=== PATIENT | female | born 1970 | race Caucasian/White ===

== ENCOUNTER 2016-12-02 07:35 | Day surgery (SDC) | payer OTHER ==
[2016-11-25 11:58] VITALS: BMI 18.0
[~2016-12-02 07:35] MED LIST: CLINDAMYCIN 900 MG in DEXTROSE 5% IN WATER 50 ML IVPB ONE; DEXAMETHASONE SOD PHOSPHATE 10 MG/ML 1 ML VIAL IV ONE; HEPARIN SODIUM,PORCINE 5,000 UNIT/ML 1 ML VIAL SQ ONE; LEVOFLOXACIN 500MG-D5W PMX 500 MG in DEXTROSE/WATER 1 100ML.BAG IVPB ONE; LIDOCAINE 1% 20 ML VIAL (10MG/ML) FOR IV START INTRADERMA PRN
[2016-12-02] MEDS: LACTATED RINGERS 1,000 ML IV SCH ×2 (08:08→08:28)
[2016-12-02] MEDS ORDERED: LIDOCAINE 1% 20 ML VIAL (10MG/ML) FOR IV START INTRADERMA ONE (08:08)
[2016-12-02] MEDS: ONDANSETRON 4 MG/2 ML VIAL IVP ONE ×2 (08:19→11:02)
[2016-12-02] MEDS ORDERED: MIDAZOLAM 2 MG/2 ML VIAL ONE (08:32)
[2016-12-02] MEDS ORDERED: SUCCINYLCHOLINE CHLORIDE 100 MG/5 ML SYR IV ONE (08:32)
[2016-12-02] MEDS ORDERED: GLYCOPYRROLATE 0.2 MG/ML 2 ML VIAL ONE (08:32)
[2016-12-02] MEDS ORDERED: KETOROLAC 30 MG/ML 1 ML VIAL ONE (08:32)
[2016-12-02] MEDS ORDERED: fentaNYL (PF) 50 MCG/ML 2 ML AMP ONE (08:32)
[2016-12-02] MEDS ORDERED: PHENYLEPHRINE-0.9% NACL SYG 1 MG/10 ML SYRINGE ONE (08:32)
[2016-12-02] MEDS ORDERED: LIDOCAINE 1% INJ 10MG/ML (20 ML MDV) ONE (08:32)
[2016-12-02] MEDS ORDERED: PROPOFOL 10 MG/ML 20 ML VIAL IV ONE (08:32)
[2016-12-02] MEDS ORDERED: ROCURONIUM BROMIDE 10 MG/ML 10 ML VIAL IV ONE (08:32)
[2016-12-02] MEDS ORDERED: NEOSTIGMINE 1 MG/ML 10 ML VIAL ONE (08:32)
--- NOTE | 2016-12-02 08:35 | P.GSHP ---
History of Present Illness H&P Date: 12/02/16 Chief Complaint: Umbilical hernia This is a 42 for female who presents today for laparoscopic robotic-assisted repair of a recurrent umbilical hernia. Patient has a small incision below her umbilicus. This hernia located just above the incision. Hernias incarcerated Past Medical History Past Medical History: COPD, Eye Disorder, Fibromyalgia, GERD/Reflux, Osteoarthritis (OA), Thyroid Disorder Additional Past Medical History / Comment(s): Hx Emphysema blood in stool, Endometriosis. History of Any Multi-Drug Resistant Organisms: None Reported Past Surgical History: Section, Cholecystectomy, Hernia Repair, Hysterectomy Additional Past Surgical History / Comment(s): Partial Hysterectomy, several EGD 's and Colonoscopies, biopsy/HAND COUNTER surgery due to Endometriosis. Past Anesthesia/Blood Transfusion Reactions: Postoperative Nausea & Vomiting ( PONV) Additional Past Anesthesia/Blood Transfusion Reaction / Comment(s): States herself and some family members wake from anesthesia angry. Past Psychological History: Anxiety, Bipolar, Depression Smoking Status: Current every day smoker Past Alcohol Use History: Rare Additional Past Alcohol Use History / Comment(s): Has been smoking for 30 yrs, currently smoking 1/2 PPD. States only drinks once a yr. Past Drug Use History: Marijuana Additional Drug Use History / Comment(s): States daily marajuana use for nausea control. - Past Family History Mother Family Medical History: No Reported History Medications and Allergies Home Medications Medication Instructions Recorded Confirmed Type ALPRAZolam [Xanax] 2 mg PO BID 11/25/16 12/02/16 History Albuterol Inhaler [Ventolin Hfa 1 - 2 puff INHALATION TID PRN 11/25/16 12/02/16 History Inhaler] Budesonide-Formot 160-4.5 Mcg 2 puff INHALATION BID 11/25/16 12/02/16 History [Symbicort 160-4.5 Mcg Inhaler] Gabapentin [Neurontin] 200 mg PO TID 11/25/16 12/02/16 History HYDROcodone/APAP 10-325MG [[place] 1 tab PO QID PRN 11/25/16 12/02/16 History 10-325] Hyoscyamine Sulfate [Hyoscyamine 0.25 mg SL BID 11/25/16 12/02/16 History Sulfate SL] Levothyroxine Sodium [Synthroid] 25 mcg PO QAM 11/25/16 12/02/16 History Meclizine [Antivert] 25 mg PO TID PRN 11/25/16 12/02/16 History Montelukast [Singulair] 10 mg PO HS 11/25/16 12/02/16 History Omeprazole 20 mg PO BID 11/25/16 12/02/16 History Prochlorperazine [Compazine] 5 mg PO Q4H PRN 11/25/16 12/02/16 History QUEtiapine FUMARATE [SEROquel] 600 mg PO HS 11/25/16 12/02/16 History Ranitidine HCl 150 mg PO BID 11/25/16 12/02/16 History Venlafaxine HCl [Effexor XR] 300 mg PO QAM 11/25/16 12/02/16 History Venlafaxine HCl [Effexor] 75 mg PO HS 11/25/16 12/02/16 History Allergies Allergy/AdvReac Type Severity Reaction Status Date / Time Penicillins Allergy Unknown Verified 12/02/16 07:45 sulfamethoxazole Allergy Nausea & Verified 12/02/16 07:45 [From Bactrim] Vomiting trimethoprim [From Bactrim] Allergy Nausea & Verified 12/02/16 07:45 Vomiting dicyclomine [From Bentyl] AdvReac See Comment Verified 12/02/16 07:45 paper tape AdvReac See Comment Uncoded 12/02/16 07:45 Surgical - Exam Vital Signs Temp Pulse Resp BP Pulse Ox 96.7 F L 96 18 109/69 95 12/02/16 07:53 12/02/16 07:53 12/02/16 07:53 12/02/16 07:53 12/02/16 07:53 - General well developed, no distress - Eyes PERRL - ENT normal pinna - Neck no masses - Respiratory normal expansion - Cardiovascular Rhythm: regular - Abdomen Abdomen: soft, non tender Assessment and Plan Plan: Recurrent umbilical/incisional hernia. Incarceration. We'll perform laparoscopic robotic assistance repair.
[2016-12-02] MEDS ORDERED: BUPIVACAINE (PF) 0.25% 30 ML VIAL SQ ONE (08:54)
[2016-12-02] MEDS ORDERED: LIDOCAINE 2%-EPI 1:100,000 20 ML VIAL SQ ONE (08:54)
--- NOTE | 2016-12-02 09:35 | P.OP ---
Date of Procedure: 12/02/16 Preoperative Diagnosis: Umbilical hernia Postoperative Diagnosis: Incarcerated umbilical and incisional hernia Procedure(s) Performed: Laparoscopic robotic-assisted repair of incarcerated umbilical and incisional hernia Partial omentectomy Implants: Anesthesia: LIUDMILA Surgeon: Fili Cazares Estimated Blood Loss (ml): 5 Pathology: other (Omentum) Condition: stable Disposition: PACU Indications for Procedure: Operative Findings: Description of Procedure: The patient's placed on the operative table in supine position. She received general seizure. Her abdomen was prepped and draped usual sterile fashion. An incision was made in the left upper quadrant and then using the optical trocar under direct visualization panel cavity was entered. Upon entering the panel cavity the abdomen insufflated and then a 8 mm robotic trocar was placed in the left lower quadrant and a 12 mm trochars placed in the left lateral position and the original 5 mm trocar was exchanged for an 8 mm robotic trocar. The hernia was visualized. There was incarcerated omentum within the hernia. The omentum was reduced. The omentum appeared to be nonviable and it was transected with electrocautery. There also was a small incisional hernia located below the umbilical hernia. The incarcerated preperitoneal fat was reduced from this area. The fascial defect was then closed with OV lock suture. Next the hernia repair was reinforced with ventral light ST mesh. This was secured with 2 OV lock suture. The patient was then undocked the robot. The needles were retrieved. The fascia of the 12 mm trocar site was closed 0 Ethibond suture and a Zoin Powell suture passer. The skin was closed interrupted 3-0 Monocryl suture. Dermabond was applied. Patient top procedure well and was sent to recovery in stable condition.
[2016-12-02] MEDS ORDERED: LACTATED RINGERS 1,000 ML IV ONE (09:57)
[2016-12-02 10:08] VITALS: TEMP 99
[2016-12-02] MEDS: HYDROmorphone 1 MG/ML 1 ML SYRINGE IVP PRN ×3 (10:44→11:07)
[2016-12-02 11:24] VITALS: RESP 16
[2016-12-02] MEDS ORDERED: HYDROcodone/APAP 10-325MG 1 EACH TAB PO ONE (13:41)
[2016-12-02 14:04] VITALS: BP 127/85; PULSE 95
== END 2016-12-02 14:36 | disposition home or self-care (01) ==
LOC: OR 07:35
PROVIDERS: ATTEND Surgery
DX: K42.0 Umbilical hernia with obstruction, without gangrene (principal); K43.0 Incisional hernia with obstruction, without gangrene; J44.9 Chronic obstructive pulmonary disease, unspecified; H57.9 Unspecified disorder of eye and adnexa; M79.7 Fibromyalgia; K21.9 Gastro-esophageal reflux disease without esophagitis; M19.90 Unspecified osteoarthritis, unspecified site; E07.9 Disorder of thyroid, unspecified; F41.9 Anxiety disorder, unspecified; F31.9 Bipolar disorder, unspecified; F17.200 Nicotine dependence, unspecified, uncomplicated; Z79.51 Long term (current) use of inhaled steroids; Z79.899 Other long term (current) drug therapy; Z88.1 Allergy status to other antibiotic agents; Z88.0 Allergy status to penicillin; Z88.2 Allergy status to sulfonamides
CPT/HCPCS: 88305; 49653; 49655; C1781; J2250; J1644; J1100; J2710; J2405; J1956; J2001; J3010; J1885; J1170; J2370; J0330; J2704

== ENCOUNTER 2016-12-10 17:08 | Emergency (ER) | payer OTHER ==
--- NOTE | 2016-12-10 17:54 | ED ---
Abdominal Pain HPI - General Source: patient Mode of arrival: ambulatory Limitations: no limitations <Manoj Carmichale - Last Filed: 12/10/16 17:54> <Sintia Bautista - Last Filed: 12/11/16 04:32> - General Chief Complaint: Abdominal Pain Stated Complaint: post op complications - History of Present Illness Initial Comments: 46-year-old female patient presented to emergency department today for evaluation of right upper and lower quadrant abdominal pain. Patient states that she did undergo hernia repair with mesh placement by Dr. Cazares one week ago. Patient states that the pain has not improved and seems to be getting worse. She states that the pain is constant, worsens with movement, and is sharp. Patient states that her laparoscopic incisions on the left side and her pain is on the right side. Patient denies any nausea, vomiting, constipation, or diarrhea. States that the incision sites are not painful, draining, or red. She denies any fever, chills, chest pain, shortness of breath, dizziness, weakness, hematuria, dysuria, urinary frequency, or urinary urgency. She states her bowel movements have been dark in color. She has a history of previous hernia repair, cholecystectomy, diverticulitis, and IBS. She states that she has not been able to eat due to the pain. (Sintia Bautista) - Related Data Home Medications Medication Instructions Recorded Confirmed ALPRAZolam [Xanax] 2 mg PO BID 11/25/16 12/10/16 Albuterol Inhaler [Ventolin Hfa 1 - 2 puff INHALATION RT-TID PRN 11/25/16 Inhaler] Budesonide-Formot 160-4.5 Mcg 2 puff INHALATION RT-BID 11/25/16 12/10/16 [Symbicort 160-4.5 Mcg Inhaler] Gabapentin [Neurontin] 200 mg PO TID 11/25/16 12/10/16 HYDROcodone/APAP 10-325MG [[place] 1 tab PO QID PRN 11/25/16 12/10/16 10-325] Hyoscyamine Sulfate [Hyoscyamine 0.25 mg SL BID 11/25/16 12/10/16 Sulfate SL] Levothyroxine Sodium [Synthroid] 25 mcg PO QAM 11/25/16 12/10/16 Meclizine [Antivert] 25 mg PO TID PRN 11/25/16 12/10/16 Montelukast [Singulair] 10 mg PO HS 11/25/16 12/10/16 Omeprazole 20 mg PO BID 11/25/16 12/10/16 Prochlorperazine [Compazine] 5 mg PO Q4H PRN 11/25/16 12/10/16 QUEtiapine FUMARATE [SEROquel] 600 mg PO HS 11/25/16 12/10/16 Ranitidine HCl 150 mg PO BID 11/25/16 12/10/16 Venlafaxine HCl [Effexor XR] 300 mg PO QAM 11/25/16 12/10/16 Venlafaxine HCl [Effexor] 75 mg PO HS 11/25/16 12/10/16 Previous Rx's Medication Instructions Recorded Docusate [Colace] 100 mg PO BID #20 capsule 12/02/16 Allergies Allergy/AdvReac Type Severity Reaction Status Date / Time Penicillins Allergy Unknown Verified 12/10/16 18:37 sulfamethoxazole Allergy Nausea & Verified 12/10/16 18:37 [From Bactrim] Vomiting trimethoprim [From Bactrim] Allergy Nausea & Verified 12/10/16 18:37 Vomiting dicyclomine [From Bentyl] AdvReac See Comment Verified 12/10/16 18:37 paper tape AdvReac See Comment Uncoded 12/10/16 17:17 Review of Systems ROS Other: All systems not noted in ROS Statement are negative. <Manoj Carmichael - Last Filed: 12/10/16 17:54> ROS Other: All systems not noted in ROS Statement are negative. <Sintia Bautista - Last Filed: 12/11/16 04:32> ROS Statement: Those systems with pertinent positive or pertinent negative responses have been documented in the HPI. Past Medical History Past Medical History: COPD, Eye Disorder, Fibromyalgia, GERD/Reflux, Osteoarthritis (OA), Thyroid Disorder Additional Past Medical History / Comment(s): Hx Emphysema blood in stool, Endometriosis. 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 Past Anesthesia/Blood Transfusion Reactions: Postoperative Nausea & Vomiting ( PONV) Additional Past Anesthesia/Blood Transfusion Reaction / Comment(s): States herself and some family members wake from anesthesia angry. Past Psychological History: Anxiety, Bipolar, Depression Smoking Status: Current every day smoker Past Alcohol Use History: Rare Past Drug Use History: Marijuana - Past Family History Mother Family Medical History: No Reported History <Manoj Carmichael Tanmay - Last Filed: 12/10/16 17:54> General Exam Limitations: no limitations <Manoj Carmichael - Last Filed: 12/10/16 17:54> Limitations: no limitations General appearance: alert, in no apparent distress ENT exam: Present: normal exam, normal oropharynx, mucous membranes moist Neck exam: Present: normal inspection. Absent: tenderness, meningismus, lymphadenopathy Respiratory exam: Present: normal lung sounds bilaterally, wheezes (Course expiratory wheezes all posterior cabral.). Absent: respiratory distress, rales , rhonchi, stridor Cardiovascular Exam: Present: regular rate, normal rhythm, normal heart sounds. Absent: systolic murmur, diastolic murmur, rubs, gallop, clicks GI/Abdominal exam: Present: soft, distended, tenderness (Generalized tenderness , however more so in the right lower quadrant.), normal bowel sounds. Absent: guarding, rebound, rigid Extremities exam: Present: normal inspection, full ROM, normal capillary refill. Absent: tenderness, pedal edema, joint swelling, calf tenderness Back exam: Present: normal inspection. Absent: CVA tenderness (R), CVA tenderness (L) Neurological exam: Present: alert, oriented X3, CN II-XII intact Psychiatric exam: Present: normal affect, normal mood Skin exam: Present: warm, dry, intact, normal color. Absent: rash <Sintia Bautista - Last Filed: 12/11/16 04:32> Medical Decision Making <AlvinaManoj whelan Tanmay - Last Filed: 12/10/16 17:54> - Lab Data Result diagrams: 12/10/16 18:25 12/10/16 18:25 - Radiology Data Radiology results: report reviewed, image reviewed <Sintia Bautista - Last Filed: 12/11/16 04:32> - Medical Decision Making 46-year-old female patient presented to emergency department today for evaluation of increased abdominal pain after hernia repair 1 week ago. Lab work was performed and was unremarkable. CT the abdomen and pelvis did show a linear fluid collection possibly seroma versus infected fluid collection. Dr. Michael by attending did speak to surgeon data collection associate for Dr. Carnes who stated to discharge patient at this time and have her follow-up in the office tomorrow morning. Patient's white blood cell count was normal she is afebrile vital signs are stable. She will be discharged home with instructions to continue her pain medication prescription as directed. She is instructed to increase fluids. She is instructed to follow-up with the surgeon's office tomorrow morning. Instructed to return here immediately for any new, worsening, or concerning symptoms. Patient verbalizes understanding and agrees with this plan. (Sintia Bautista) - Lab Data Lab Results 12/10/16 12/10/16 12/10/16 Range/Units 18:25 18:25 18:25 WBC 8.4 (3.8-10.6) k/uL RBC 4.88 (3.80-5.40) m/uL Hgb 14.6 (11.4-16.0) gm/dL Hct 44.1 (34.0-46.0) % MCV 90.3 (80.0-100.0) fL MCH 29.9 (25.0-35.0) pg MCHC 33.1 (31.0-37.0) g/dL RDW 14.8 (11.5-15.5) % Plt Count 250 (150-450) k/uL Neutrophils % 64 % Lymphocytes % 24 % Monocytes % 7 % Eosinophils % 1 % Basophils % 1 % Neutrophils # 5.4 (1.3-7.7) k/uL Lymphocytes # 2.0 (1.0-4.8) k/uL Monocytes # 0.6 (0-1.0) k/uL Eosinophils # 0.0 (0-0.7) k/uL Basophils # 0.1 (0-0.2) k/uL Sodium 137 (137-145) mmol/L Potassium 4.0 (3.5-5.1) mmol/L Chloride 103 (98-107) mmol/L Carbon Dioxide 25 (22-30) mmol/L Anion Gap 9 mmol/L BUN 7 (7-17) mg/dL Creatinine 0.66 (0.52-1.04) mg/dL Est GFR (MDRD) Af Amer >60 (>60 ml/min/1.73 sqM) Est GFR (MDRD) Non-Af >60 (>60 ml/min/1.73 sqM) Glucose 99 (74-99) mg/dL Plasma Lactic Acid [place] 1.1 (0.7-2.0) mmol/L Calcium 9.1 (8.4-10.2) mg/dL Total Bilirubin 0.3 (0.2-1.3) mg/dL AST 21 (14-36) U/L ALT 46 (9-52) U/L Alkaline Phosphatase 119 (38-126) U/L Total Protein 6.5 (6.3-8.2) g/dL Albumin 3.4 L (3.5-5.0) g/dL Amylase 55 (30-110) U/L Lipase 126 (23-300) U/L Urine Color Urine Appearance (Clear) Urine pH (5.0-8.0) Ur Specific [place] (1.001-1.035) Urine Protein (Negative) Urine Glucose (UA) (Negative) Urine Ketones (Negative) Urine Blood (Negative) Urine Nitrite (Negative) Urine Bilirubin (Negative) Urine Urobilinogen (<2.0) mg/dL Ur Leukocyte Esterase (Negative) Urine RBC (0-5) /hpf Urine WBC (0-5) /hpf Ur Squamous Epith Cells (0-4) /hpf Urine Mucus (None) /hpf 12/10/16 Range/Units 19:32 WBC (3.8-10.6) k/uL RBC (3.80-5.40) m/uL Hgb (11.4-16.0) gm/dL Hct (34.0-46.0) % MCV (80.0-100.0) fL MCH (25.0-35.0) pg MCHC (31.0-37.0) g/dL RDW (11.5-15.5) % Plt Count (150-450) k/uL Neutrophils % % Lymphocytes % % Monocytes % % Eosinophils % % Basophils % % Neutrophils # (1.3-7.7) k/uL Lymphocytes # (1.0-4.8) k/uL Monocytes # (0-1.0) k/uL Eosinophils # (0-0.7) k/uL Basophils # (0-0.2) k/uL Sodium (137-145) mmol/L Potassium (3.5-5.1) mmol/L Chloride (98-107) mmol/L Carbon Dioxide (22-30) mmol/L Anion Gap mmol/L BUN (7-17) mg/dL Creatinine (0.52-1.04) mg/dL Est GFR (MDRD) Af Amer (>60 ml/min/1.73 sqM) Est GFR (MDRD) Non-Af (>60 ml/min/1.73 sqM) Glucose (74-99) mg/dL Plasma Lactic Acid [place] (0.7-2.0) mmol/L Calcium (8.4-10.2) mg/dL Total Bilirubin (0.2-1.3) mg/dL AST (14-36) U/L ALT (9-52) U/L Alkaline Phosphatase (38-126) U/L Total Protein (6.3-8.2) g/dL Albumin (3.5-5.0) g/dL Amylase (30-110) U/L Lipase (23-300) U/L Urine Color Yellow Urine Appearance Clear (Clear) Urine pH 6.5 (5.0-8.0) Ur Specific [place] >1.050 H (1.001-1.035) Urine Protein 1+ H (Negative) Urine Glucose (UA) Negative (Negative) Urine Ketones Trace H (Negative) Urine Blood Negative (Negative) Urine Nitrite Negative (Negative) Urine Bilirubin Negative (Negative) Urine Urobilinogen <2.0 (<2.0) mg/dL Ur Leukocyte Esterase Negative (Negative) Urine RBC 1 (0-5) /hpf Urine WBC 1 (0-5) /hpf Ur Squamous Epith Cells 6 H (0-4) /hpf Urine Mucus Rare H (None) /hpf - Radiology Data CT the abdomen and pelvis shows postoperative changes of midline ventral hernia repair. There is a small amount of difficult to measure linear fluid posterior to the anterior abdominal wall which may reflect postoperative seroma. Infected collection is difficult to exclude. Impression is by Dr. King. ( Sintia Bautista) Disposition <Manoj Carmichael - Last Filed: 12/10/16 17:54> Time of Disposition: 20:29 <Sintia Bautista M - Last Filed: 12/11/16 04:32> Clinical Impression: Abdominal pain Disposition: HOME SELF-CARE Condition: Good Instructions: Abdominal Pain (ED) Additional Instructions: Continue home pain medication regimen. Call Dr. Cazares's office for an appointment in the morning. Follow up with her primary care physician for recheck in 1-2 days. Return immediately for any new, worsening, or concerning symptoms. Referrals: Shabbir Bone MD [Primary Care Provider] - 1-2 days
[2016-12-10] MEDS ORDERED: SODIUM CHLORIDE 0.9% 500 ML IV STA (18:06)
[2016-12-10] MEDS ORDERED: RX INFO: IV CONTRAST WAS GIVEN 1 EACH MISC MISCELLANE PRN (18:06)
[2016-12-10] MEDS ORDERED: ONDANSETRON 4 MG/2 ML VIAL IVP STA (18:06)
[2016-12-10] MEDS ORDERED: HYDROmorphone 1 MG/ML 1 ML SYRINGE IVP STA ×2 (18:06→19:55)
[2016-12-10] MEDS ORDERED: IPRATROPIUM-ALBUTEROL 3 ML NEB INHALATION STA (18:21)
[2016-12-10 18:36] LABS: Basophils # (A) 0.1 k/uL (0-0.2); Basophils % (A) 1 %; CH 31.4; Eosinophils % (A) 1 %; HCT 44.1 % (34.0-46.0); HGB 14.6 gm/dL (11.4-16.0); Luc # (Auto) 0.23; Luc % (Auto) 3; Lymphocytes % (A) 24 %; MCH 29.9 pg (25.0-35.0); MCHC 33.1 g/dL (31.0-37.0); MCV 90.3 fL (80.0-100.0); Mean Platelet Volume 8.7; Monocytes # (A) 0.6 k/uL (0-1.0); Monocytes % (A) 7 %; Neutrophils # (A) 5.4 k/uL (1.3-7.7); Neutrophils % (A) 64 %; RBC 4.88 m/uL (3.80-5.40); RDW 14.8 % (11.5-15.5); WBC 8.4 k/uL (3.8-10.6); WBC (Perox) 8.33
[2016-12-10 18:47] LABS: ALT 46 U/L (9-52); AST 21 U/L (14-36); Alkaline Phosphatase 119 U/L (38-126); Amylase 55 U/L (30-110); Anion Gap 9 mmol/L; Blood Urea Nitrogen 7 mg/dL (7-17); Calcium 9.1 mg/dL (8.4-10.2); Carbon Dioxide 25 mmol/L (22-30); Chloride 103 mmol/L (98-107); Glucose 99 mg/dL (74-99); Non-African American GFR(MDRD) >60 (>60 ml/min/1.73 sqM); Sodium 137 mmol/L (137-145); Total Bilirubin 0.3 mg/dL (0.2-1.3); Total Protein 6.5 g/dL (6.3-8.2)
--- NOTE | 2016-12-10 19:30 | CT ---
EXAMINATION TYPE: CT abdomen pelvis w con DATE OF EXAM: 12/10/2016 COMPARISON: NONE HISTORY: ABDOMINAL PAIN. RECENT HERNIA REPAIR X1 WEEK AGO. CT DLP: 304 mGycm CONTRAST: CT scan of the abdomen and pelvis is performed without Oral Contrast and with IV Contrast, patient in jected with 100 mL of Omnipaque 300. FINDINGS: LUNG BASES-: No visible nodule. No infiltrate. LIVER/GB: Cholecystectomy changes. Postoperative prominence of the biliary tree. No space occupyin g hepatic lesion. PANCREAS: No inflammation. No distinct mass. SPLEEN: No splenic enlargement. No lesion seen. ADRENALS: No nodule. No thickening. KIDNEYS/BLADDER: No hydronephrosis. No nephrolithiasis. No disctinct renal mass. Urinary bladder g rossly unremarkable. BOWEL: Normal appendix. Normal bowel caliber. No inflammation.Postoperative changes of midline vent ral hernia repair. There is a small amount of difficult to measure linear fluid posterior to the ante rior abdominal wall which may reflect postoperative seroma. Infected Collection is difficult to excl ude. GENITAL ORGANS: No gross abnormality. LYMPH NODES: No greater than 1cm abdominal or pelvic lymph nodes are appreciated. AORTA: No significant abnormality. OSSEOUS STRUCTURES: No significant abnormality is seen. OTHER: None IMPRESSION: 1. Postoperative changes of midline ventral hernia repair. There is a small amount of difficult to me asure linear fluid posterior to the anterior abdominal wall which may reflect postoperative seroma. Infected Collection is difficult to exclude.
[2016-12-10 19:47] LABS: Appearance,Urine Clear (Clear); Bilirubin,Urine Negative (Negative); Glucose,Urine (UA) Negative (Negative); Ketones,Urine Trace (Negative); Leukocyte Esterase,Urine Negative (Negative); Mucus,Urine Rare /hpf; Nitrite,Urine Negative (Negative); PH, Urine 6.5 (5.0-8.0); Particle Count 2616; Protein,Urine 1+ (Negative); RBC,Urine 1 /hpf (0-5); Squamous Epithelial Cell,Urine 6 /hpf (0-4); UA Billing (MACRO vs. MICRO) MICRO; Urobilinogen,Urine <2.0 mg/dL (<2.0); WBC,Urine 1 /hpf (0-5)
[2016-12-10 20:00] LABS: Specific Gravity,Urine >1.050 (1.001-1.035)
[2016-12-10 20:42] VITALS: BP 110/58; PULSE 100; RESP 15; TEMP 97.9
== END 2016-12-10 21:18 | disposition home or self-care (01) ==
LOC: EC 17:08
DX: R10.11 Right upper quadrant pain (principal); R10.31 Right lower quadrant pain; R06.2 Wheezing; J43.9 Emphysema, unspecified; K21.9 Gastro-esophageal reflux disease without esophagitis; K58.9 Irritable bowel syndrome, unspecified; M79.7 Fibromyalgia; E07.9 Disorder of thyroid, unspecified; F31.9 Bipolar disorder, unspecified; F41.9 Anxiety disorder, unspecified; F17.200 Nicotine dependence, unspecified, uncomplicated; Z79.51 Long term (current) use of inhaled steroids; Z79.899 Other long term (current) drug therapy; Z88.0 Allergy status to penicillin; Z88.1 Allergy status to other antibiotic agents; Z88.8 Allergy status to other drugs, medicaments and biological substances; Z91.09 Other allergy status, other than to drugs and biological substances; Z90.49 Acquired absence of other specified parts of digestive tract; Z98.890 Other specified postprocedural states
CPT/HCPCS: 36415; 94640; 80053; 82150; 83605; 83690; 85025; 81001; 87040; 74177; 99284; 96374; 96375; 96376; 96361; J2405; J1170; Q9967

== ENCOUNTER 2016-12-28 14:31 | Emergency (ER) | payer OTHER ==
[2016-12-28] MEDS ORDERED: ONDANSETRON 4 MG/2 ML VIAL IVP STA (16:56)
[2016-12-28] MEDS ORDERED: SODIUM CHLORIDE 0.9% 1,000 ML IV STA ×2 (16:56)
[2016-12-28] MEDS ORDERED: HYDROmorphone 1 MG/ML 1 ML SYRINGE IVP STA (16:56)
[2016-12-28 17:39] LABS: Appearance,Urine Clear (Clear); Bilirubin,Urine Negative (Negative); Glucose,Urine (UA) Negative (Negative); Ketones,Urine Negative (Negative); Leukocyte Esterase,Urine Negative (Negative); Nitrite,Urine Negative (Negative); PH, Urine 6.5 (5.0-8.0); Protein,Urine Negative (Negative); Specific Gravity,Urine 1.002 (1.001-1.035); UA Billing (MACRO vs. MICRO) CHEM; Urobilinogen,Urine <2.0 mg/dL (<2.0)
[2016-12-28 17:40] LABS: Basophils # (A) 0.1 k/uL (0-0.2); Basophils % (A) 1 %; CH 30.9; CHCM 35.1; Eosinophils % (A) 0 %; HCT 41.9 % (34.0-46.0); HDW 2.69; HGB 14.1 gm/dL (11.4-16.0); Luc # (Auto) 0.18; Luc % (Auto) 3; Lymphocytes # (A) 2.2 k/uL (1.0-4.8); Lymphocytes % (A) 33 %; MCH 29.9 pg (25.0-35.0); MCHC 33.8 g/dL (31.0-37.0); MCV 88.5 fL (80.0-100.0); Mean Platelet Volume 9.2; Monocytes # (A) 0.7 k/uL (0-1.0); Monocytes % (A) 10 %; Neutrophils # (A) 3.6 k/uL (1.3-7.7); Neutrophils % (A) 54 %; RBC 4.73 m/uL (3.80-5.40); RDW 14.7 % (11.5-15.5); WBC 6.7 k/uL (3.8-10.6); WBC (Perox) 6.05
--- NOTE | 2016-12-28 17:40 | XR ---
EXAMINATION TYPE: XR abdomen 2V DATE OF EXAM: 12/28/2016 COMPARISON: NONE HISTORY: Right lower quadrant pain TECHNIQUE: 2 views FINDINGS: There are clips from cholecystectomy. There is no sign of intestinal obstruction or pneumop eritoneum. Fecal pattern is normal. There are no pathologic calcifications over the kidneys. There is flattening of the diaphragm. IMPRESSION: Nonacute abdomen. There is probably COPD.
[2016-12-28 17:47] LABS: ALT 23 U/L (9-52); AST 14 U/L (14-36); Alkaline Phosphatase 82 U/L (38-126); Amylase 52 U/L (30-110); Anion Gap 9 mmol/L; Blood Urea Nitrogen 6 mg/dL (7-17); Calcium 9.3 mg/dL (8.4-10.2); Carbon Dioxide 26 mmol/L (22-30); Chloride 103 mmol/L (98-107); Glucose 77 mg/dL (74-99); Non-African American GFR(MDRD) >60 (>60 ml/min/1.73 sqM); Potassium 4.4 mmol/L (3.5-5.1); Sodium 138 mmol/L (137-145); Total Bilirubin 0.2 mg/dL (0.2-1.3); Total Protein 6.9 g/dL (6.3-8.2)
[2016-12-28] MEDS ORDERED: RX INFO: IV CONTRAST WAS GIVEN 1 EACH MISC MISCELLANE PRN (18:04)
[2016-12-28] MEDS ORDERED: IOHEXOL 350 MG/ML 25 ML BOTTLE (ORAL USE) PO PRN (18:04)
--- NOTE | 2016-12-28 18:31 | ED ---
General Adult HPI - General Chief complaint: Abdominal Pain Stated complaint: rt side pain Source: patient Mode of arrival: ambulatory Limitations: no limitations - History of Present Illness Initial comments: If complaint history of present illness a 46-year-old female with a complaint of discomfort to the right lower quadrant area. Ongoing since this morning. No nausea no vomiting. Pain increases with stretching and palpation. Chin had umbilical hernia repair approximately one month ago. No signs of infection or inflammation. Tight no difficulty urinating or bowel movements. - Related Data Home Medications Medication Instructions Recorded Confirmed ALPRAZolam [Xanax] 2 mg PO BID 11/25/16 12/28/16 Albuterol Inhaler [Ventolin Hfa 1 - 2 puff INHALATION RT-TID PRN 11/25/16 Inhaler] Budesonide-Formot 160-4.5 Mcg 2 puff INHALATION RT-BID 11/25/16 12/28/16 [Symbicort 160-4.5 Mcg Inhaler] Gabapentin [Neurontin] 200 mg PO TID 11/25/16 12/28/16 HYDROcodone/APAP 10-325MG [[place] 1 tab PO QID PRN 11/25/16 12/28/16 10-325] Hyoscyamine Sulfate [Hyoscyamine 0.25 mg SL BID 11/25/16 12/28/16 Sulfate SL] Levothyroxine Sodium [Synthroid] 25 mcg PO QAM 11/25/16 12/28/16 Meclizine [Antivert] 25 mg PO TID PRN 11/25/16 12/28/16 Montelukast [Singulair] 10 mg PO HS 11/25/16 12/28/16 Omeprazole 20 mg PO BID 11/25/16 12/28/16 Prochlorperazine [Compazine] 5 mg PO Q4H PRN 11/25/16 12/28/16 Ranitidine HCl 150 mg PO BID 11/25/16 12/28/16 Venlafaxine HCl [Effexor XR] 300 mg PO QAM 11/25/16 12/28/16 Venlafaxine HCl [Effexor] 75 mg PO HS 11/25/16 12/28/16 QUEtiapine FUMARATE [Seroquel Xr] 600 mg PO HS 12/28/16 12/28/16 Previous Rx's Medication Instructions Recorded Ciprofloxacin HCl [Cipro] 500 mg PO Q12HR #14 tablet 12/28/16 Allergies Allergy/AdvReac Type Severity Reaction Status Date / Time Penicillins Allergy Unknown Verified 12/28/16 17:07 Childhood dicyclomine [From Bentyl] AdvReac Altered Verified 12/28/16 17:07 Mental Status sulfamethoxazole AdvReac Altered Verified 12/28/16 17:07 [From Bactrim] Mental Status trimethoprim [From Bactrim] AdvReac Altered Verified 12/28/16 17:07 Mental Status paper tape Allergy Rash/Hives Uncoded 12/28/16 17:07 Review of Systems ROS Statement: Those systems with pertinent positive or pertinent negative responses have been documented in the HPI. Review of systems patient does not appear to be uncomfortable but with a chief complaint of right lower quadrant area discomfort. No complaint of nausea no vomiting no significant change in appetite. Standing upright and stretching increases discomfort in the area. Patient does report having had this same sensation when she had diverticulitis. All systems are reviewed. Past medical problems significant for bipolar disorder, diverticulitis, COPD, fibromyalgia, GERD, osteoarthritis, hypothyroidism. The patient's surgeries include include having had umbilical hernia repair one month ago this is her second repair. She 's also had a , gallbladder removal, hernia repair, partial hysterectomy. Family history no cancers. She does smoke strongly encouraged stop denies alcohol. ROS Other: All systems not noted in ROS Statement are negative. Past Medical History Past Medical History: COPD, Eye Disorder, Fibromyalgia, GERD/Reflux, Osteoarthritis (OA), Thyroid Disorder Additional Past Medical History / Comment(s): Hx Emphysema blood in stool, Endometriosis. 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 Past Anesthesia/Blood Transfusion Reactions: Postoperative Nausea & Vomiting ( PONV) Additional Past Anesthesia/Blood Transfusion Reaction / Comment(s): States herself and some family members wake from anesthesia angry. Past Psychological History: Anxiety, Bipolar, Depression Smoking Status: Current every day smoker Past Alcohol Use History: Rare Past Drug Use History: Marijuana - Past Family History Mother Family Medical History: No Reported History General Exam - General Exam Comments Initial Comments: General: The patient is awake and alert, complaining of discomfort to the right lower quadrant and right suprapubic region. Vital signs temperature 97.8 pulse 65 respiratory rate 18 pulse ox on percent room air blood pressure 119/76 Eye: Pupils are equal, round and reactive to light, extra-ocular movements are intact ; there is normal conjunctiva bilaterally. No signs of icterus. Ears, nose, mouth and throat: There are moist mucous membranes and no oral lesions. Neck: The neck is supple, there is no tenderness . Cardiovascular: There is a regular rate and rhythm. No murmur, rub or gallop is appreciated. Respiratory: Lungs are clear to auscultation, respirations are non-labored, breath sounds are equal. No wheezes, stridor, rales, or rhonchi. Gastrointestinal: Tender with deep palpation to the right lower quadrant. No organomegaly. Normal active bowel sounds. Back: There is no tenderness to palpation in the midline. There is no obvious deformity. No rashes noted. Musculoskeletal: Normal ROM, no tenderness, There is no pedal edema. There is no calf tenderness or swelling. Sensation intact. Pulses equal bilaterally 2+. Neurological: No neuro deficits Skin: Skin is warm and dry and no rashes or lesions are noted. Psychiatric: History of bipolar disorder no complaints of any mood problems. Limitations: no limitations Course Vital Signs 12/28/16 12/28/16 15:03 18:00 Temperature 97.8 F Pulse Rate 65 83 Respiratory 18 20 Rate Blood Pressure 119/76 92/58 O2 Sat by Pulse 100 95 Oximetry Medical Decision Making - Medical Decision Making All x-rays were done and reviewed by radiologist and his him impression is; there are clips from cholecystectomy. There is no sign of intestinal obstruction or pneumoperitoneum. Fecal pattern is normal. There are no pathologic calcifications over the kidneys. There is flattening of the diaphragm. Impression; nonacute abdomen. There is probably COPD. As read by Dr. Pizano Labs show white count 6.7 hemoglobin 14 crit 41.9. Potassium 4.4, BUN 6 creatinine 0.84 the GFR greater than 60. Glucose 77. Amylase lipase normal limits. UA within normal limits. CT of the abdomen was done and reviewed by radiologist's his final impression is no sign of acute abdomen and pelvis. No adverse change compared to old. Previous abdominal surgery with postsurgical changes over the midline of the abdomen. No adverse change compared to old exam. No evidence of diverticulitis. No evidence of appendicitis. As read by Dr. Pizano I shared with the patient all normal labs and CAT scan. We discussed possibility of a mild early diverticulitis patient states it feels like she had before. The patient will be placed on Cipro 500 twice a day for 5 days and follow-up with family physician and her general surgeon as needed. Patient was told return emergency room as needed - Lab Data Result diagrams: 12/28/16 17:21 12/28/16 17:21 Lab Results 12/28/16 12/28/16 12/28/16 Range/Units 17:21 17:21 17:21 WBC 6.7 (3.8-10.6) k/uL RBC 4.73 (3.80-5.40) m/uL Hgb 14.1 (11.4-16.0) gm/dL Hct 41.9 (34.0-46.0) % MCV 88.5 (80.0-100.0) fL MCH 29.9 (25.0-35.0) pg MCHC 33.8 (31.0-37.0) g/dL RDW 14.7 (11.5-15.5) % Plt Count 220 (150-450) k/uL Neutrophils % 54 % Lymphocytes % 33 % Monocytes % 10 % Eosinophils % 0 % Basophils % 1 % Neutrophils # 3.6 (1.3-7.7) k/uL Lymphocytes # 2.2 (1.0-4.8) k/uL Monocytes # 0.7 (0-1.0) k/uL Eosinophils # 0.0 (0-0.7) k/uL Basophils # 0.1 (0-0.2) k/uL Sodium 138 (137-145) mmol/L Potassium 4.4 (3.5-5.1) mmol/L Chloride 103 (98-107) mmol/L Carbon Dioxide 26 (22-30) mmol/L Anion Gap 9 mmol/L BUN 6 L (7-17) mg/dL Creatinine 0.84 (0.52-1.04) mg/dL Est GFR (MDRD) Af Amer >60 (>60 ml/min/1.73 sqM) Est GFR (MDRD) Non-Af >60 (>60 ml/min/1.73 sqM) Glucose 77 (74-99) mg/dL Plasma Lactic Acid [place]aka 1.0 (0.7-2.0) mmol/L Calcium 9.3 (8.4-10.2) mg/dL Total Bilirubin 0.2 (0.2-1.3) mg/dL AST 14 (14-36) U/L ALT 23 (9-52) U/L Alkaline Phosphatase 82 (38-126) U/L Total Protein 6.9 (6.3-8.2) g/dL Albumin 3.9 (3.5-5.0) g/dL Amylase 52 (30-110) U/L Lipase 71 (23-300) U/L Urine Color Urine Appearance (Clear) Urine pH (5.0-8.0) Ur Specific [place] (1.001-1.035) Urine Protein (Negative) Urine Glucose (UA) (Negative) Urine Ketones (Negative) Urine Blood (Negative) Urine Nitrite (Negative) Urine Bilirubin (Negative) Urine Urobilinogen (<2.0) mg/dL Ur Leukocyte Esterase (Negative) 12/28/16 Range/Units 17:21 WBC (3.8-10.6) k/uL RBC (3.80-5.40) m/uL Hgb (11.4-16.0) gm/dL Hct (34.0-46.0) % MCV (80.0-100.0) fL MCH (25.0-35.0) pg MCHC (31.0-37.0) g/dL RDW (11.5-15.5) % Plt Count (150-450) k/uL Neutrophils % % Lymphocytes % % Monocytes % % Eosinophils % % Basophils % % Neutrophils # (1.3-7.7) k/uL Lymphocytes # (1.0-4.8) k/uL Monocytes # (0-1.0) k/uL Eosinophils # (0-0.7) k/uL Basophils # (0-0.2) k/uL Sodium (137-145) mmol/L Potassium (3.5-5.1) mmol/L Chloride (98-107) mmol/L Carbon Dioxide (22-30) mmol/L Anion Gap mmol/L BUN (7-17) mg/dL Creatinine (0.52-1.04) mg/dL Est GFR (MDRD) Af Amer (>60 ml/min/1.73 sqM) Est GFR (MDRD) Non-Af (>60 ml/min/1.73 sqM) Glucose (74-99) mg/dL Plasma Lactic Acid [place]aka (0.7-2.0) mmol/L Calcium (8.4-10.2) mg/dL Total Bilirubin (0.2-1.3) mg/dL AST (14-36) U/L ALT (9-52) U/L Alkaline Phosphatase (38-126) U/L Total Protein (6.3-8.2) g/dL Albumin (3.5-5.0) g/dL Amylase (30-110) U/L Lipase (23-300) U/L Urine Color Light Yellow Urine Appearance Clear (Clear) Urine pH 6.5 (5.0-8.0) Ur Specific [place] 1.002 (1.001-1.035) Urine Protein Negative (Negative) Urine Glucose (UA) Negative (Negative) Urine Ketones Negative (Negative) Urine Blood Negative (Negative) Urine Nitrite Negative (Negative) Urine Bilirubin Negative (Negative) Urine Urobilinogen <2.0 (<2.0) mg/dL Ur Leukocyte Esterase Negative (Negative) Disposition Clinical Impression: History of diverticulitis Disposition: HOME SELF-CARE Condition: Fair Instructions: Diverticulitis Diet (ED), Diverticulitis (ED) Additional Instructions: Take Cipro 500 twice a day for 5 days. Follow-up with the family physician and your general surgeon if the discomfort persists. Return should he develop fever. Prescriptions: Ciprofloxacin HCl [Cipro] 500 mg PO Q12HR #14 tablet Referrals: Shabbir Bone MD [Primary Care Provider] - 1-2 days Time of Disposition: 20:53
--- NOTE | 2016-12-28 20:07 | CT ---
EXAMINATION TYPE: CT abdomen pelvis w con DATE OF EXAM: 12/28/2016 COMPARISON: 12/10/2016 HISTORY: Right lower quadrant pain with history of diverticulitis. CT DLP: 338.40 mGycm Automated exposure control for dose reduction was used. TECHNIQUE: Helical acquisition of images was performed from the lung bases through the pelvis. CONTRAST: Performed with Oral Contrast and with IV Contrast, patient injected with 100 mL of Omnipaque 300. FINDINGS: Lung bases are clear. There is no pleural effusion. Heart size is normal. Liver spleen pancreas appear normal. There are clips from cholecystectomy. Bile ducts are not dilated . There is a prominent common bile duct measures 1 cm. There is no adrenal mass. Kidneys show satisfactory contrast opacification. There is no hydronephrosi s. There is no retroperitoneal adenopathy. There is no ascites. Bladder distends smoothly. There is n o evidence of a pelvic mass. I see no intestinal wall thickening. There are no dilated loops. There i s increased density in the subcutaneous tissues over the midline abdomen consistent with previous arina norman. I see no hernia. I see no focal bone destruction. Appendix appears normal. IMPRESSION: NO SIGN OF ACUTE ABDOMEN AND PELVIS. NO ADVERSE CHANGE COMPARED TO OLD EXAM. PREVIOUS ABDOMINAL SURGE RY WITH POSTSURGICAL CHANGES OVER THE MIDLINE ABDOMEN. NO ADVERSE CHANGE COMPARED TO OLD EXAM. NO YARON DENCE OF DIVERTICULITIS. NO EVIDENCE OF APPENDICITIS.
[2016-12-28] MEDS ORDERED: CIPROFLOXACIN HCL 500 MG TAB PO STA (20:52)
[2016-12-28] MEDS ORDERED: HYDROcodone/APAP 5-325MG 1 EACH TAB PO STA (21:29)
[2016-12-28 21:35] VITALS: BP 122/72; PULSE 91; RESP 18; TEMP 97.5
== END 2016-12-28 21:35 | disposition home or self-care (01) ==
LOC: EC 14:31
DX: R10.31 Right lower quadrant pain (principal); K21.9 Gastro-esophageal reflux disease without esophagitis; J43.9 Emphysema, unspecified; M79.7 Fibromyalgia; E07.9 Disorder of thyroid, unspecified; F31.9 Bipolar disorder, unspecified; F41.9 Anxiety disorder, unspecified; F17.200 Nicotine dependence, unspecified, uncomplicated; Z79.51 Long term (current) use of inhaled steroids; Z79.899 Other long term (current) drug therapy; Z88.0 Allergy status to penicillin; Z88.1 Allergy status to other antibiotic agents; Z88.8 Allergy status to other drugs, medicaments and biological substances; Z91.09 Other allergy status, other than to drugs and biological substances; Z87.19 Personal history of other diseases of the digestive system; Z90.49 Acquired absence of other specified parts of digestive tract
CPT/HCPCS: 99284; 96374; 96375; 96361 ×4; 36415; 80053; 82150; 83605; 83690; 85025; 81003; 87086; 74020; 74177; J2405; J1170; Q9967

== ENCOUNTER → 2018-11-10 | Outpatient (CLI) | payer OTHER ==
--- NOTE | 2018-11-10 15:02 | US ---
EXAMINATION TYPE: US abdomen complete DATE OF EXAM: 11/10/2018 COMPARISON: CT 2017 CLINICAL HISTORY: R10.9 Abdominal and pelvic pain. Intermittent lower abdomen pain x 6 months, occasi onal nausea, history of cholecystectomy and hernia repair. EXAM MEASUREMENTS: Liver Length: 13.1 cm Gallbladder Wall: surgically absent CBD: 0.7 cm Spleen: 10.9 cm Right Kidney: 8.9 x 3.4 x 3.8 cm Left Kidney: 9.1 x 4.5 x 3.7 cm Pancreas: visualized portions wnl, limited by overlying midline bowel gas Liver: Homogeneous Gallbladder: surgically absent Evidence for sonographic Carrillo's sign: no CBD: wnl for this postsurgical patient. Spleen: wnl Right Kidney: visualized portions wnl, inferior pole limited by overlying bowel gas Left Kidney: wnl Upper IVC: wnl Abd Aorta: wnl The liver is homogenous. The intrahepatic portion of the IVC and proximal abdominal aorta are within normal limits. Common bile duct is postsurgically dilated. The visualized portions of the pancreas a re homogenous. The spleen is unremarkable. Kidneys are symmetric and free of hydronephrosis. No re nal lesions are seen. IMPRESSION: Unremarkable abdominal ultrasound in this patient status post cholecystectomy.
--- NOTE | 2018-11-10 15:54 | US ---
EXAMINATION TYPE: US pelvic complete DATE OF EXAM: 11/10/2018 COMPARISON: NONE CLINICAL HISTORY: R10.9 Abdominal and pelvic pain. pain at site of hernia mesh in pelvis, hysterectom y 1999 TECHNIQUE: TA. Transabdominal sonographic images of the pelvis were acquired. Patient did not want to have a TV approach Date of LMP: 1999 EXAM MEASUREMENTS: Uterus: Surgically absent Endometrial Stripe: Surgically absent Right Ovary: 1.4 x 1.3 x 1.1 cm Left Ovary: not seen 1. Uterus: Surgically absent 2. Endometrium: Surgically absent 3. Right Ovary: atrophic in size 4. Left Ovary: not seen 5. Bilateral Adnexa: bowel gas 6. Posterior cul-de-sac: wnl IMPRESSION: Surgical absence of the uterus. Right ovary appears atrophic in size measuring only 1.4 c m in greatest dimension. Left ovary is not seen, partially due to overlying bowel gas and also likely related atrophy. Patient declined transvaginal imaging to further assess the ovaries.
== END | disposition home or self-care (01) ==
LOC: RADUSWWP 13:19
PROVIDERS: ATTEND Internal Medicine
DX: R10.9 Unspecified abdominal pain (principal); Z88.0 Allergy status to penicillin; Z88.2 Allergy status to sulfonamides; Z88.8 Allergy status to other drugs, medicaments and biological substances; Z90.49 Acquired absence of other specified parts of digestive tract; Z90.710 Acquired absence of both cervix and uterus
CPT/HCPCS: 76700; 76856

== ENCOUNTER 2019-03-17 20:39 | Inpatient (IN) | payer OTHER ==
[2019-03-17] MEDS ORDERED: ALBUTEROL NEBULIZED 2.5 MG/3 ML INHALATION STA (21:16)
[2019-03-17] MEDS ORDERED: IPRATROPIUM 0.5 MG/2.5 ML NEBU INHALATION STA (21:16)
[2019-03-17] MEDS ORDERED: DEXAMETHASONE SOD PHOSPHATE 10 MG/ML 1 ML VIAL IV STA (21:16)
[2019-03-17] MEDS ORDERED: ACETAMINOPHEN TAB 500 MG TAB PO STA (21:31)
--- NOTE | 2019-03-17 21:33 | ED ---
General Adult HPI - General Chief complaint: Shortness of Breath Stated complaint: Diff Breathing Time Seen by Provider: 03/17/19 20:53 Source: patient Mode of arrival: wheelchair Limitations: no limitations - History of Present Illness Initial comments: Dictation was produced using [employer] dictation software. please excuse any grammatical, word or spelling errors. Chief Complaint: 48-year-old female with recently diagnosed COPD presents with headache and shortness of breath for the last 3 days. History of Present Illness: 48-year-old female. Patient still continues to smoke tobacco. Patient states she presents with shortness of breath for the last 3 days. Denies any constitutional symptoms. Patient reports she can't breathe. States that her COPD was diagnosed recently and an outpatient clinic. She is on a steroid and rescue inhaler for her COPD condition. Patient states she reduce her smoking to one pack of cigarettes per week. Patient has any constitutional symptoms. Denies any chest pain. She does report a migraine headache today. She states that his whole cranial department nature. Patient is a history of headaches. The ROS documented in this emergency department record has been reviewed and confirmed by me. Those systems with pertinent positive or negative responses have been documented in the HPI. All other systems are other negative and/or noncontributory. PHYSICAL EXAM: General Impression: Alert and oriented x3, dyspneic. HEENT: Normocephalic atraumatic, extra-ocular movements intact, pupils equal and reactive to light bilaterally, mucous membranes moist. Cardiovascular: Heart regular rate and rhythm, S1&S2 audible, no murmurs, rubs or gallops Chest: Diminished lung sounds, bilateral extensive wheezing, intercostal retractions Abdomen: Bowel sounds present, abdomen soft, non-tender, non-distended, no organomegaly Musculoskeletal: Pulses present and equal in all extremities, no peripheral edema Motor: no focal deficits noted Neurological: CN II-XII grossly intact, no focal motor or sensory deficits noted Skin: Intact with no visualized rashes Psych: Normal affect and mood ED course: 48-year-old feel presents with clinical presentation consistent with COPD exacerbation. Upon arrival shows oxygen saturation 93. Patient's clinical dyspneic with wheezing with auscultation of the lungs. Patient started immediately on breathing treatments. She is given steroids and magne sium.Laboratory evaluation obtained. CBC unremarkable. Blood gases shows 7.3 pH with pCO2 of 67 and bicarb of 34. Urinalysis likely respiratory acidosis with metabolic Sedation. Metabolic panel is unremarkable. Influenza is negative. Chest x-ray does not show anything acute but does demonstrate COPD. Patient reevaluated and still short of breath. Patient be admitted for scheduled breathing treatments and pulmonary consultation. - Related Data Home Medications Medication Instructions Recorded Confirmed ALPRAZolam [Xanax] 2 mg PO BID 11/25/16 12/28/16 Albuterol Inhaler [Ventolin Hfa 1 - 2 puff INHALATION RT-TID PRN 11/25/16 12/28/16 Inhaler] Budesonide-Formot 160-4.5 Mcg 2 puff INHALATION RT-BID 11/25/16 12/28/16 [Symbicort 160-4.5 Mcg Inhaler] Gabapentin [Neurontin] 200 mg PO TID 11/25/16 12/28/16 HYDROcodone/APAP 10-325MG [[place] 1 tab PO QID PRN 11/25/16 12/28/16 10-325] Hyoscyamine Sulfate [Hyoscyamine 0.25 mg SL BID 11/25/16 12/28/16 Sulfate SL] Levothyroxine Sodium [Synthroid] 25 mcg PO QAM 11/25/16 12/28/16 Meclizine [Antivert] 25 mg PO TID PRN 11/25/16 12/28/16 Montelukast [Singulair] 10 mg PO HS 11/25/16 12/28/16 Omeprazole 20 mg PO BID 11/25/16 12/28/16 Prochlorperazine [Compazine] 5 mg PO Q4H PRN 11/25/16 12/28/16 Ranitidine HCl 150 mg PO BID 11/25/16 12/28/16 Venlafaxine HCl [Effexor XR] 300 mg PO QAM 11/25/16 12/28/16 Venlafaxine HCl [Effexor] 75 mg PO HS 11/25/16 12/28/16 QUEtiapine FUMARATE [Seroquel Xr] 600 mg PO HS 12/28/16 12/28/16 Previous Rx's Medication Instructions Recorded Ciprofloxacin HCl [Cipro] 500 mg PO Q12HR #14 tablet 12/28/16 Allergies Allergy/AdvReac Type Severity Reaction Status Date / Time Penicillins Allergy Unknown Verified 03/17/19 20:46 Childhood dicyclomine [From Bentyl] AdvReac Altered Verified 03/17/19 20:46 Mental Status sulfamethoxazole AdvReac Altered Verified 03/17/19 20:46 [From Bactrim] Mental Status trimethoprim [From Bactrim] AdvReac Altered Verified 03/17/19 20:46 Mental Status paper tape Allergy Rash/Hives Uncoded 03/17/19 20:46 Review of Systems ROS Statement: Those systems with pertinent positive or pertinent negative responses have been documented in the HPI. ROS Other: All systems not noted in ROS Statement are negative. Past Medical History Past Medical History: COPD, Eye Disorder, Fibromyalgia, GERD/Reflux, Osteoarthritis (OA), Thyroid Disorder Additional Past Medical History / Comment(s): Hx Emphysema blood in stool, Endometriosis. 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 Past Anesthesia/Blood Transfusion Reactions: Postoperative Nausea & Vomiting (PONV) Additional Past Anesthesia/Blood Transfusion Reaction / Comment(s): States herself and some family members wake from anesthesia angry. Past Psychological History: Anxiety, Bipolar, Depression Smoking Status: Current every day smoker Past Alcohol Use History: Rare Past Drug Use History: Marijuana - Past Family History Mother Family Medical History: No Reported History General Exam Limitations: no limitations Course Vital Signs 03/17/19 03/17/19 03/17/19 20:44 21:05 21:19 Temperature 97.8 F Pulse Rate 73 112 H 105 H Respiratory 18 20 Rate Blood Pressure 103/63 O2 Sat by Pulse 93 L 77 L Oximetry 03/17/19 03/17/19 21:38 21:43 Temperature Pulse Rate 100 108 H Respiratory 24 Rate Blood Pressure 107/82 O2 Sat by Pulse 88 L Oximetry Medical Decision Making - Lab Data Result diagrams: 03/17/19 21:33 03/17/19 21:33 Lab Results 03/17/19 03/17/19 03/17/19 Range/Units 21:27 21:33 21:33 WBC 8.0 (3.8-10.6) k/uL RBC 4.46 (3.80-5.40) m/uL Hgb 14.5 (11.4-16.0) gm/dL Hct 42.5 (34.0-46.0) % MCV 95.3 (80.0-100.0) fL MCH 32.6 (25.0-35.0) pg MCHC 34.2 (31.0-37.0) g/dL RDW 14.2 (11.5-15.5) % Plt Count 143 L (150-450) k/uL Neutrophils % 60 % Lymphocytes % 30 % Monocytes % 7 % Eosinophils % 1 % Basophils % 1 % Neutrophils # 4.8 (1.3-7.7) k/uL Lymphocytes # 2.4 (1.0-4.8) k/uL Monocytes # 0.6 (0-1.0) k/uL Eosinophils # 0.1 (0-0.7) k/uL Basophils # 0.0 (0-0.2) k/uL VBG pH (7.31-7.41) VBG pCO2 (37-51) mmHg VBG HCO3 (24-28) mmol/L Sodium 138 (137-145) mmol/L Potassium 4.5 (3.5-5.1) mmol/L Chloride 97 L (98-107) mmol/L Carbon Dioxide 35 H (22-30) mmol/L Anion Gap 6 mmol/L BUN 7 (7-17) mg/dL Creatinine 0.76 (0.52-1.04) mg/dL Est GFR (CKD-EPI)AfAm >90 (>60 ml/min/1.73 sqM) Est GFR (CKD-EPI)NonAf >90 (>60 ml/min/1.73 sqM) Glucose 92 (74-99) mg/dL Calcium 8.5 (8.4-10.2) mg/dL Magnesium 2.0 (1.6-2.3) mg/dL Total Bilirubin 0.4 (0.2-1.3) mg/dL AST 16 (14-36) U/L ALT 21 (9-52) U/L Alkaline Phosphatase 89 (38-126) U/L Total Protein 6.3 (6.3-8.2) g/dL Albumin 3.4 L (3.5-5.0) g/dL Influenza Type A RNA Not Detected (Not Detectd) Influenza Type B (PCR) Not Detected (Not Detectd) 03/17/19 Range/Units 21:33 WBC (3.8-10.6) k/uL RBC (3.80-5.40) m/uL Hgb (11.4-16.0) gm/dL Hct (34.0-46.0) % MCV (80.0-100.0) fL MCH (25.0-35.0) pg MCHC (31.0-37.0) g/dL RDW (11.5-15.5) % Plt Count (150-450) k/uL Neutrophils % % Lymphocytes % % Monocytes % % Eosinophils % % Basophils % % Neutrophils # (1.3-7.7) k/uL Lymphocytes # (1.0-4.8) k/uL Monocytes # (0-1.0) k/uL Eosinophils # (0-0.7) k/uL Basophils # (0-0.2) k/uL VBG pH 7.32 (7.31-7.41) VBG pCO2 67 H (37-51) mmHg VBG HCO3 34 H (24-28) mmol/L Sodium (137-145) mmol/L Potassium (3.5-5.1) mmol/L Chloride (98-107) mmol/L Carbon Dioxide (22-30) mmol/L Anion Gap mmol/L BUN (7-17) mg/dL Creatinine (0.52-1.04) mg/dL Est GFR (CKD-EPI)AfAm (>60 ml/min/1.73 sqM) Est GFR (CKD-EPI)NonAf (>60 ml/min/1.73 sqM) Glucose (74-99) mg/dL Calcium (8.4-10.2) mg/dL Magnesium (1.6-2.3) mg/dL Total Bilirubin (0.2-1.3) mg/dL AST (14-36) U/L ALT (9-52) U/L Alkaline Phosphatase (38-126) U/L Total Protein (6.3-8.2) g/dL Albumin (3.5-5.0) g/dL Influenza Type A RNA (Not Detectd) Influenza Type B (PCR) (Not Detectd) Disposition Clinical Impression: COPD exacerbation Disposition: ADMITTED IP TO THIS HOSP Condition: Fair Is patient prescribed a controlled substance at d/c from ED?: No Referrals: None,Stated [Primary Care Provider] - 1-2 days Decision Time: 22:30
[2019-03-17] MEDS: MAGNESIUM SULFATE-D5W PMX 1 GM in DEXTROSE/WATER 1 100ML.BAG IVPB SCH ×2 (21:42→22:42)
[2019-03-17 21:53] LABS: VBG PH 7.32 (7.31-7.41)
[2019-03-17 21:54] LABS: Basophils % (A) 1 %; Eosinophils # (A) 0.1 k/uL (0-0.7); Eosinophils % (A) 1 %; HCT 42.5 % (34.0-46.0); HGB 14.5 gm/dL (11.4-16.0); Lymphocytes # (A) 2.4 k/uL (1.0-4.8); Lymphocytes % (A) 30 %; MCH 32.6 pg (25.0-35.0); MCHC 34.2 g/dL (31.0-37.0); MCV 95.3 fL (80.0-100.0); Mean Platelet Volume 8.2; Monocytes # (A) 0.6 k/uL (0-1.0); Monocytes % (A) 7 %; Neutrophils # (A) 4.8 k/uL (1.3-7.7); Neutrophils % (A) 60 %; Platelet Count 143 k/uL (150-450); RBC 4.46 m/uL (3.80-5.40); RDW 14.2 % (11.5-15.5)
[2019-03-17 21:58] LABS: ALT 21 U/L (9-52); AST 16 U/L (14-36); African American GFR (CKD) >90 (>60 ml/min/1.73 sqM); Albumin 3.4 g/dL (3.5-5.0); Alkaline Phosphatase 89 U/L (38-126); Anion Gap 6 mmol/L; Blood Urea Nitrogen 7 mg/dL (7-17); Calcium 8.5 mg/dL (8.4-10.2); Carbon Dioxide 35 mmol/L (22-30); Chloride 97 mmol/L (98-107); Glucose 92 mg/dL (74-99); Non-African American GFR(CKD) >90 (>60 ml/min/1.73 sqM); Potassium 4.5 mmol/L (3.5-5.1); Sodium 138 mmol/L (137-145); Total Bilirubin 0.4 mg/dL (0.2-1.3); Total Protein 6.3 g/dL (6.3-8.2)
--- NOTE | 2019-03-17 22:10 | XR ---
EXAMINATION TYPE: XR chest 2V DATE OF EXAM: 03/17/2019 COMPARISON: NONE HISTORY: Migraine. Short of breath. TECHNIQUE: Frontal and lateral views of the chest are obtained. FINDINGS: Heart is normal. There is pulmonary hyperinflation with flattening of the diaphragm. There is some mild coarsening of the lung markings. There is pulmonary emphysema. There are no hilar ever s. There are chest leads. IMPRESSION: Emphysema and pulmonary fibrosis. Normal heart.
[2019-03-17] MEDS ORDERED: MORPHINE SULFATE 4 MG/ML SYRINGE IV STA (22:26)
[2019-03-17] MEDS: AZITHROMYCIN 500 MG TAB PO SCH (22:43)
[2019-03-17] MEDS ORDERED: MORPHINE SULFATE 2 MG/ML SYRINGE IVP STA (22:52)
[2019-03-18] MEDS: AZITHROMYCIN 500 MG TAB PO SCH (08:19)
[2019-03-18] MEDS: ACETAMINOPHEN TAB 325 MG TAB PO PRN ×2 (08:19→11:52)
[2019-03-18] MEDS ORDERED: predniSONE 20 MG TAB PO SCH (09:00)
--- NOTE | 2019-03-18 10:33 | P.CNPUL ---
History of Present Illness Consult date: 03/18/19 Reason for consult: dyspnea, cough Chief complaint: Shortness of breath History of present illness: This is a 48-year-old female with long-standing history of smoking 2 packs per day she has been having shortness of breath and increased cough for the last 3 days has cut down smoking significantly but is still short of breath also having migraine episode came into the hospital for further evaluation Review of Systems All systems: negative Past Medical History Past Medical History: COPD, Eye Disorder, Fibromyalgia, GERD/Reflux, Osteoart hritis (OA), Thyroid Disorder Additional Past Medical History / Comment(s): Hx Emphysema blood in stool, Endometriosis. pt states that eyes get gritty feeling like sand is in them. History of Any Multi-Drug Resistant Organisms: None Reported Past Surgical History: Section, Cholecystectomy, Hernia Repair, Hysterectomy Additional Past Surgical History / Comment(s): Partial Hysterectomy, several EGD's and Colonoscopies, biopsy/[employer]ENT surgery due to Endometriosis. Hernia x2 Past Anesthesia/Blood Transfusion Reactions: Postoperative Nausea & Vomiting (PONV) Additional Past Anesthesia/Blood Transfusion Reaction / Comment(s): States herself and some family members wake from anesthesia angry. Past Psychological History: Anxiety, Bipolar, Depression Smoking Status: Current every day smoker Past Alcohol Use History: Rare Additional Past Alcohol Use History / Comment(s): Has been smoking for 30 yrs, currently smoking 3 cigarettes PPD. States only drinks once a yr. Past Drug Use History: Marijuana Additional Drug Use History / Comment(s): States daily marajuana use for nausea control. - Past Family History Mother Family Medical History: No Reported History Medications and Allergies Home Medications Medication Instructions Recorded Confirmed Type ALPRAZolam [Xanax] 1 - 2 mg PO TID PRN 11/25/16 03/17/19 History Albuterol Inhaler [Ventolin Hfa 1 - 2 puff INHALATION RT-TID PRN 11/25/16 03/17/19 History Inhaler] Hyoscyamine Sulfate [Hyoscyamine 0.25 mg SL BID 11/25/16 03/17/19 History Sulfate SL] Meclizine [Antivert] 25 mg PO TID PRN 11/25/16 03/17/19 History Montelukast [Singulair] 10 mg PO HS 11/25/16 03/17/19 History Omeprazole 20 mg PO BID 11/25/16 03/17/19 History Ranitidine HCl 150 mg PO BID 11/25/16 03/17/19 History Venlafaxine HCl [Effexor XR] 300 mg PO QAM 11/25/16 03/17/19 History Venlafaxine HCl [Effexor] 75 mg PO HS 11/25/16 03/17/19 History QUEtiapine FUMARATE [Seroquel Xr] 600 mg PO HS 12/28/16 03/17/19 History Levothyroxine Sodium [Synthroid] 37.5 mcg PO DAILY 03/17/19 03/17/19 History Umeclidinium [place] [Incruse 62.5 mcg INHALATION DAILY 03/17/19 03/17/19 History Ellipta] Allergies Allergy/AdvReac Type Severity Reaction Status Date / Time Penicillins Allergy Unknown Verified 03/17/19 22:33 Childhood dicyclomine [From Bentyl] AdvReac Altered Verified 03/17/19 22:33 Mental Status sulfamethoxazole AdvReac Altered Verified 03/17/19 22:33 [From Bactrim] Mental Status trimethoprim [From Bactrim] AdvReac Altered Verified 03/17/19 22:33 Mental Status paper tape Allergy Rash/Hives Uncoded 03/17/19 20:46 Physical Exam Vitals: Vital Signs Temp Pulse Pulse Resp BP BP Pulse Ox 03/18/19 06:02 98.5 F 89 20 110/62 93 L 03/17/19 23:53 97.8 F 89 18 155/62 96 03/17/19 22:49 85 L 03/17/19 22:46 97.9 F 101 H 20 101/70 79 L 03/17/19 21:43 108 H 24 107/82 88 L 03/17/19 21:38 100 03/17/19 21:19 105 H 20 03/17/19 21:05 112 H 77 L 03/17/19 20:44 97.8 F 73 18 103/63 93 L Intake and Output 03/17/19 03/18/19 03/18/19 22:59 06:59 14:59 Intake Total 100 Balance 100 Intake: Intake, IV Titration 100 Amount Magnesium Sulfate-D5w Pmx 100 1 gm In Dextrose/Water 1 100ml.bag @ 100 mls/hr IVPB Q1H MEÑO Rx#: [id number] Other: Voiding Method Toilet # Voids 1 Weight 39.463 kg 39.463 kg - Constitutional General appearance: average body habitus, cooperative, disheveled - EENT Eyes: EOMI, PERRLA, normal appearance ENT: normal oropharynx Ears: bilateral: normal - Neck Neck: normal ROM Carotids: bilateral: upstroke normal Thyroid: bilateral: normal size - Respiratory Respiratory: bilateral: diminished, wheezing, negative: dullness, rales, rhonchi - Cardiovascular Rhythm: regular Heart sounds: normal: S1, S2 - Gastrointestinal General gastrointestinal: normal bowel sounds, soft - Neurologic Neurologic: CNII-XII intact - Musculoskeletal Musculoskeletal: gait normal, generalized weakness, strength equal bilaterally - Psychiatric Psychiatric: A&O x's 3, appropriate affect, intact judgment & insight Results - Laboratory Findings CBC and BMP: 03/17/19 21:33 03/17/19 21:33 Abnormal lab findings: Abnormal Labs 03/17/19 03/17/19 03/17/19 21:33 21:33 21:33 Plt Count 143 L VBG pCO2 67 H VBG HCO3 34 H Chloride 97 L Carbon Dioxide 35 H Albumin 3.4 L - Diagnostic Findings Chest x-ray: report reviewed, image reviewed (Consistent with severe COPD with flat diaphragm) Assessment and Plan Assessment: COPD exacerbation Extensive smoking and nicotine use Chronic migraine headache Plan: Bronchodilators Oral antibiotic Prednisone Other recommendations pending plan of care as per clinical response of the patient Time with Patient: Greater than 30
[2019-03-18] MEDS: IPRATROPIUM-ALBUTEROL 3 ML NEB INHALATION SCH ×3 (11:20→19:46)
[2019-03-18] MEDS: BUTALB/APAP/CAFF 50-325-40MG TAB PO PRN (12:52)
[2019-03-18] MEDS ORDERED: MECLIZINE 25 MG TAB PO PRN (15:52)
[2019-03-18] MEDS ORDERED: TEMAZEPAM 15 MG CAP PO PRN (15:54)
[2019-03-18] MEDS: methylPREDNISolone SOD SUCCI 125 MG/2 ML VIAL IV SCH (16:53)
[2019-03-18] MEDS: ALPRAZolam 1 MG TAB PO PRN (16:54)
[2019-03-18] MEDS: VENLAFAXINE HCL ER 150 MG CAP PO SCH (16:54)
--- NOTE | 2019-03-18 16:54 | HP ---
HISTORY AND PHYSICAL DATE OF SERVICE: 03/18/2019 CHIEF COMPLAINT: Shortness of breath. HISTORY OF PRESENT ILLNESS: This 48-year-old woman with a past medical history of multiple medical problems, including COPD, history of fibromyalgia, DJD, hypothyroidism, cholecystectomy, anxiety, bipolar, depression, being followed by no primary physician in the outpatient setting, was complaining of increased shortness of breath and cough for the past several days. Patient came to [facility] and was admitted for further evaluation and treatment. Her chest x-ray showed some bilateral infiltrates suggestive of pulmonary fibrosis. Dr. Smith's evaluation is in progress. Patient has been started on bronchodilators and steroids, also. There is no history of fever or rigors. No history of headache, loss of consciousness, seizures. Patient apparently smokes about 2 or 3 cigarettes currently. The patient is apparently homeless, also. PAST MEDICAL HISTORY: 1. History of COPD. 2. GERD. 3. DJD. 4. Hypothyroidism. 5. section. 6. Anxiety. 7. Bipolar. HOME MEDICATIONS: 1. Levothyroxine 37.5 mcg p.o. daily. 2. Effexor 75 mg p.o. at bedtime. 3. Effexor XR 300 mg each morning. 4. Incruse Ellipta 62.5 mg daily. 5. Seroquel XR 600 mg at bedtime. 6. Singulair 10 mg at bedtime. 7. Antivert 25 mg t.i.d. p.r.n. 8. Ventolin HFA 1-2 puffs t.i.d. p.r.n. 9. Ranitidine 150 mg p.o. b.i.d. 10.Omeprazole 20 mg p.o. b.i.d. 11.Hyoscyamine 0.25 mg b.i.d. 12.Xanax 1-2 mg t.i.d. p.r.n. ALLERGIES: 1. PENICILLIN. 2. BENTYL. 3. BACTRIM. 4. PAPER TAPE. FAMILY HISTORY: No history of heart disease or strokes in the family. SOCIAL HISTORY: History of continued smoking. REVIEW OF SYSTEMS: ENT: No diminished hearing. No diminished vision. CARDIOVASCULAR SYSTEM: No angina, palpitations. RESPIRATORY SYSTEM: As mentioned earlier. GI: As mentioned earlier. : No dysuria or retention. NERVOUS SYSTEM: No numbness, weakness. ALLERGY/IMMUNOLOGY: No asthma, hayfever. MUSCULOSKELETAL: As mentioned earlier. HEMATOLOGY/ONCOLOGY: No history of anemia. ENDOCRINE: Hypothyroidism. CONSTITUTIONAL: As mentioned earlier. DERMATOLOGY: Negative. RHEUMATOLOGY: Negative. PSYCHIATRY: As mentioned earlier. PHYSICAL EXAMINATION: Patient alert and oriented x3. Pulse 94, blood pressure 187/85, respiration 20, temperature 98 degrees, pulse ox 87% on 2 L. HEENT: Conjunctivae normal. Oral mucosa moist. NECK: No jugular venous distention. No carotid bruit. No lymph node enlargement. CARDIOVASCULAR SYSTEM: S1, S2 muffled. No S3. No S4. RESPIRATORY SYSTEM: Breath sounds diminished at the bases. Bilateral scattered rhonchi and expiratory wheezing with prolonged wheezing on expiration also present. Breathing efforts are markedly increased. The patient has some difficulties in completing a sentence, also. ABDOMEN: Soft, nontender. No mass palpable. LEGS: No edema. No swelling. NERVOUS SYSTEM: Higher functions as mentioned earlier. Cranial nerves normal. No focal motor or sensory deficit. LYMPHATICS: No lymph node palpable in neck, axillae or groin. SKIN: No ulcer, rash, bleeding. JOINTS: No active deforming arthropathy. LABS: Labs at this time show WBC 8, hemoglobin 14.5, platelets 143. Sodium 138, potassium 4.5. ASSESSMENT: 1. Chronic obstructive pulmonary disease, acute exacerbation, with acute purulent tracheobronchitis with acute hypoxic hypercarbic respiratory failure. 2. Mild thrombocytopenia. 3. Continued ongoing nicotine dependence. 4. History of chronic obstructive pulmonary disease. 5. History of fibromyalgia. 6. History of gastroesophageal reflux disease. 7. History of degenerative joint disease. 8. History of hypothyroidism. 9. History of endometriosis. 10.History of cholecystectomy. 11.History of postoperative nausea, vomiting. 12.History of anxiety, bipolar, depression. 13.History of tetrahydrocannabinol. RECOMMENDATIONS AND DISCUSSION: In this 48-year-old woman who presented with multiple complex medical issues, we will monitor the patient closely, continue the current medications, continue with symptomatic treatment. Otherwise at this time I recommend to optimize the bronchodilator treatment. We will use DuoNeb as well as Pulmicort at this time. Otherwise, consult Pulmonary. Empiric antibiotics. DVT prophylaxis. Proton pump inhibitors. Prognosis is guarded because of multiple complex medical issues. Further recommendations to follow. MMODL / IJN: [id number] /
[2019-03-18 17:10] LABS: Glucose,Whole Blood 125 mg/dL (75-99)
[2019-03-18] MEDS: INSULIN ASPART (NovoLOG) 100 UNIT/ML VIAL SQ SCH ×2 (17:16→19:58)
[2019-03-18] MEDS: HYDROcodone/APAP 5-325MG 1 EACH TAB PO PRN (19:17)
[2019-03-18 19:25] LABS: Glucose,Whole Blood 122 mg/dL (75-99)
[2019-03-18] MEDS: FORMOTEROL FUMARATE 20 MCG/2 ML NEBU INHALATION SCH (19:46)
[2019-03-18] MEDS: BUDESONIDE 0.5 MG/2 ML NEBU INHALATION SCH (19:46)
[2019-03-18] MEDS: QUEtiapine 100 MG TAB PO SCH (20:06)
[2019-03-18] MEDS: HEPARIN SODIUM,PORCINE 5,000 UNIT/ML 1 ML VIAL SQ SCH (20:07)
[2019-03-18] MEDS: VENLAFAXINE HCL 75 MG TAB PO SCH (20:07)
[2019-03-18] MEDS: HYOSCYAMINE SULFATE 0.125 MG TAB PO SCH (20:07)
[2019-03-18] MEDS: MONTELUKAST 10 MG TAB PO SCH (20:07)
[2019-03-18] MEDS: FAMOTIDINE 20 MG TAB PO SCH (20:11)
[2019-03-18] MEDS ORDERED: NON FORMULARY DRUG (Omeprazole [Omeprazole] 20 MG) PO SCH (21:00)
[2019-03-19] MEDS: methylPREDNISolone SOD SUCCI 125 MG/2 ML VIAL IV SCH ×4 (00:24→17:57)
[2019-03-19] MEDS: LEVOTHYROXINE 75 MCG TAB PO SCH (04:52)
[2019-03-19 06:46] LABS: Glucose,Whole Blood 102 mg/dL (75-99)
[2019-03-19] MEDS: INSULIN ASPART (NovoLOG) 100 UNIT/ML VIAL SQ SCH ×4 (06:49→21:17)
[2019-03-19] MEDS: PANTOPRAZOLE 40 MG TABLET PO SCH (07:10)
[2019-03-19] MEDS: NICOTINE 14MG/24HR PATCH TRANSDERM SCH (07:12)
[2019-03-19] MEDS: QUEtiapine 100 MG TAB PO SCH ×2 (07:15→22:06)
[2019-03-19] MEDS: BUDESONIDE 0.5 MG/2 ML NEBU INHALATION SCH ×2 (07:15→19:59)
[2019-03-19] MEDS: HYOSCYAMINE SULFATE 0.125 MG TAB PO SCH ×2 (07:15→21:26)
[2019-03-19] MEDS: ALPRAZolam 1 MG TAB PO PRN ×2 (07:15→16:15)
[2019-03-19] MEDS: FAMOTIDINE 20 MG TAB PO SCH (07:15)
[2019-03-19] MEDS: VENLAFAXINE HCL ER 150 MG CAP PO SCH (07:15)
[2019-03-19] MEDS: IPRATROPIUM-ALBUTEROL 3 ML NEB INHALATION SCH ×4 (07:15→19:59)
[2019-03-19] MEDS: FORMOTEROL FUMARATE 20 MCG/2 ML NEBU INHALATION SCH ×2 (07:15→19:59)
[2019-03-19] MEDS: AZITHROMYCIN 500 MG TAB PO SCH (07:16)
[2019-03-19] MEDS: HEPARIN SODIUM,PORCINE 5,000 UNIT/ML 1 ML VIAL SQ SCH ×2 (07:16→21:17)
[2019-03-19 07:43] LABS: Basophils % (A) 0 %; Eosinophils % (A) 0 %; HCT 49.7 % (34.0-46.0); HGB 15.9 gm/dL (11.4-16.0); Lymphocytes # (A) 2.1 k/uL (1.0-4.8); Lymphocytes % (A) 21 %; MCH 31.4 pg (25.0-35.0); MCV 97.9 fL (80.0-100.0); Mean Platelet Volume 8.8; Monocytes # (A) 0.3 k/uL (0-1.0); Monocytes % (A) 3 %; Neutrophils # (A) 7.8 k/uL (1.3-7.7); Neutrophils % (A) 75 %; Platelet Count 193 k/uL (150-450); RBC 5.08 m/uL (3.80-5.40); RDW 13.8 % (11.5-15.5); WBC 10.4 k/uL (3.8-10.6)
[2019-03-19 08:02] LABS: African American GFR (CKD) >90 (>60 ml/min/1.73 sqM); Anion Gap 5 mmol/L; Blood Urea Nitrogen 10 mg/dL (7-17); Calcium 9.2 mg/dL (8.4-10.2); Carbon Dioxide 39 mmol/L (22-30); Chloride 94 mmol/L (98-107); Glucose 103 mg/dL (74-99); Non-African American GFR(CKD) 85 (>60 ml/min/1.73 sqM); Potassium 4.7 mmol/L (3.5-5.1); Sodium 138 mmol/L (137-145)
[2019-03-19] MEDS: HYDROcodone/APAP 5-325MG 1 EACH TAB PO PRN ×3 (08:59→22:06)
--- NOTE | 2019-03-19 10:37 | P.PN ---
Subjective Progress Note Date: 03/19/19 Principal diagnosis: COPD exacerbation Extensive smoking and nicotine use Chronic migraine headache 03/19/2019, patient seen eval examined during the rounds labs reviewed medica tions reviewed headache has improved significantly, respiratory status is improved as well, and denies any cough or sputum production patient is being planned for possible discharge in next 24 hours Objective - Vital Signs Vital signs: Vital Signs Temp 98.0 F 03/19/19 05:00 Pulse 104 H 03/19/19 07:31 Resp 16 03/19/19 05:00 BP 115/75 03/19/19 05:00 Pulse Ox 93 L 03/19/19 05:00 Intake & Output 03/18/19 03/19/19 03/19/19 18:59 06:59 18:59 Weight 39.463 kg Other: Voiding Method Toilet Bedside Commode # Voids 1 1 - Exam - Constitutional General appearance: average body habitus, cooperative, disheveled - EENT Eyes: EOMI, PERRLA, normal appearance ENT: normal oropharynx Ears: bilateral: normal - Neck Neck: normal ROM Carotids: bilateral: upstroke normal Thyroid: bilateral: normal size - Respiratory Respiratory: bilateral: diminished, wheezing, negative: dullness, rales, rhonchi - Cardiovascular Rhythm: regular Heart sounds: normal: S1, S2 - Gastrointestinal General gastrointestinal: normal bowel sounds, soft - Neurologic Neurologic: CNII-XII intact - Musculoskeletal Musculoskeletal: gait normal, generalized weakness, strength equal bilaterally - Psychiatric Psychiatric: A&O x's 3, appropriate affect, intact judgment & insight - Labs CBC & Chem 7: 03/19/19 06:57 03/19/19 06:57 Labs: Abnormal Lab Results - Last 24 Hours (Table) 03/18/19 03/18/19 03/19/19 Range/Units 17:08 19:22 06:44 Hct (34.0-46.0) % Neutrophils # (1.3-7.7) k/uL Chloride (98-107) mmol/L Carbon Dioxide (22-30) mmol/L Glucose (74-99) mg/dL POC Glucose (mg/dL) 125 H 122 H 102 H (75-99) mg/dL 03/19/19 03/19/19 Range/Units 06:57 06:57 Hct 49.7 H (34.0-46.0) % Neutrophils # 7.8 H (1.3-7.7) k/uL Chloride 94 L (98-107) mmol/L Carbon Dioxide 39 H (22-30) mmol/L Glucose 103 H (74-99) mg/dL POC Glucose (mg/dL) (75-99) mg/dL Assessment and Plan Assessment: COPD exacerbation Extensive smoking and nicotine use Chronic migraine headache Plan: Bronchodilators Oral antibiotic Prednisone Other recommendations pending plan of care as per clinical response of the patient Time with Patient: Greater than 30
[2019-03-19 11:15] LABS: Glucose,Whole Blood 103 mg/dL (75-99)
[2019-03-19 17:00] LABS: Glucose,Whole Blood 113 mg/dL (75-99)
--- NOTE | 2019-03-19 20:21 | PN ---
PROGRESS NOTE DATE OF SERVICE: 03/19/2019 This 48-year-old woman with a past medical history of multiple medical problems was admitted with shortness of breath. The patient also had suspected pulmonary fibrosis as well as significant migraine disease. Dr. Smith is following the patient. Patient is on steroids and bronchodilators. PAST MEDICAL HISTORY: Reviewed. REVIEW OF SYSTEMS: CARDIOVASCULAR SYSTEM: As mentioned earlier. RESPIRATORY: As mentioned earlier. GI: No nausea. : No dysuria. NERVOUS SYSTEM: No numbness or weakness. CURRENT MEDICATIONS: 1. Tylenol p.r.n. 2. Fioricet 50 q.i.d. p.r.n. 3. [place] 5 mg q.6h p.r.n. 4. DuoNeb q.i.d. p.r.n. 5. Xanax 1 mg t.i.d. p.r.n. 6. Zithromax 500 mg p.o. 7. Pulmicort 0.5 b.i.d. 8. Rocephin 1 g daily. 9. Perforomist. 10.Heparin b.i.d. 11.Levsin 0.5 mg b.i.d. 12.NovoLog. 13.Synthroid. 14.Ativan. 15.Solu-Medrol 60 IV q.6h. 16.Habitrol. 17.Seroquel. 18.Restoril. 19.Effexor. The doses are reviewed. PHYSICAL EXAM: Patient is alert, oriented x3. Pulse is 114, blood pressure 136/( ), respiration 16, temperature 98.2, pulse ox 99% on 3 L HEENT: Conjunctivae normal. Oral mucosa moist. NECK: No jugular venous distention. No lymph node enlargement. CARDIOVASCULAR: S1, S2. RESPIRATORY: Diminished breath sounds at the bases. Bilateral scattered rhonchi, expiratory wheezing and crackles. ABDOMEN: Soft, nontender. LEGS: No swelling. NERVOUS SYSTEM: No focal deficits. LABS: WBC 10, hemoglobin 12.5, and CO2 is 39. ASSESSMENT: 1. Chronic obstructive pulmonary disease exacerbation with acute purulent tracheobronchitis with acute hypoxic hypercarbic respiratory failure. 2. Mild thrombocytopenia. 3. Migraine acute on chronic attack. 4. Continued ongoing nicotine dependence. 5. History of chronic obstructive pulmonary disease. 6. Fibromyalgia. 7. Gastroesophageal reflux disease. 8. Degenerative joint disease. 9. History of hypothyroidism. 10.History of endometriosis. 11.History of cholecystectomy. 12.History of postoperative nausea. 13.Anxiety, bipolar depression. 14.History of THC. RECOMMENDATION AND DISCUSSION: Recommend to continue current medications, continue to monitor, continue symptomatic treatment, continue the antibiotics continue the bronchodilators continue with IV steroids. Closely follow with Pulmonary. Symptomatic treatment. Otherwise, repeat labs will be ordered in the morning. DVT prophylaxis. Proton pump inhibitors. Guarded prognosis because of multiple complex medical issues. Further recommendations to follow. MMODL / IJN: [id number] /
[2019-03-19 20:57] LABS: Glucose,Whole Blood 137 mg/dL (75-99)
[2019-03-19] MEDS: VENLAFAXINE HCL 75 MG TAB PO SCH (21:17)
[2019-03-19] MEDS: MONTELUKAST 10 MG TAB PO SCH (21:17)
[2019-03-20] MEDS: methylPREDNISolone SOD SUCCI 125 MG/2 ML VIAL IV SCH ×3 (00:39→12:57)
[2019-03-20] MEDS: LEVOTHYROXINE 75 MCG TAB PO SCH (06:15)
[2019-03-20 07:06] LABS: Glucose,Whole Blood 121 mg/dL (75-99)
[2019-03-20 07:33] LABS: Basophils % (A) 0 %; Eosinophils % (A) 0 %; HCT 45.2 % (34.0-46.0); HGB 14.5 gm/dL (11.4-16.0); Hypochromasia Slight; Lymphocytes # (A) 1.9 k/uL (1.0-4.8); Lymphocytes % (A) 18 %; MCH 31.6 pg (25.0-35.0); MCHC 32.1 g/dL (31.0-37.0); MCV 98.3 fL (80.0-100.0); Mean Platelet Volume 7.6; Monocytes # (A) 0.4 k/uL (0-1.0); Monocytes % (A) 3 %; Neutrophils # (A) 8.3 k/uL (1.3-7.7); Neutrophils % (A) 78 %; Platelet Count 180 k/uL (150-450); RDW 13.8 % (11.5-15.5); WBC 10.7 k/uL (3.8-10.6)
[2019-03-20] MEDS: IPRATROPIUM-ALBUTEROL 3 ML NEB INHALATION SCH ×4 (07:33→19:29)
[2019-03-20] MEDS: FORMOTEROL FUMARATE 20 MCG/2 ML NEBU INHALATION SCH ×2 (07:33→19:29)
[2019-03-20] MEDS: BUDESONIDE 0.5 MG/2 ML NEBU INHALATION SCH ×2 (07:33→19:29)
[2019-03-20 07:48] LABS: African American GFR (CKD) >90 (>60 ml/min/1.73 sqM); Anion Gap 2 mmol/L; Blood Urea Nitrogen 11 mg/dL (7-17); Calcium 9.3 mg/dL (8.4-10.2); Carbon Dioxide 39 mmol/L (22-30); Chloride 97 mmol/L (98-107); Glucose 108 mg/dL (74-99); Non-African American GFR(CKD) >90 (>60 ml/min/1.73 sqM); Potassium 5.8 mmol/L (3.5-5.1); Sodium 138 mmol/L (137-145)
[2019-03-20] MEDS: INSULIN ASPART (NovoLOG) 100 UNIT/ML VIAL SQ SCH ×4 (10:33→21:44)
[2019-03-20] MEDS: BUTALB/APAP/CAFF 50-325-40MG TAB PO PRN (10:35)
[2019-03-20] MEDS: HYOSCYAMINE SULFATE 0.125 MG TAB PO SCH ×2 (10:37→22:03)
[2019-03-20] MEDS: AZITHROMYCIN 500 MG TAB PO SCH (10:37)
[2019-03-20] MEDS: PANTOPRAZOLE 40 MG TABLET PO SCH (10:37)
[2019-03-20] MEDS: HEPARIN SODIUM,PORCINE 5,000 UNIT/ML 1 ML VIAL SQ SCH ×2 (10:38→22:03)
[2019-03-20] MEDS: VENLAFAXINE HCL ER 150 MG CAP PO SCH (10:38)
[2019-03-20] MEDS: NICOTINE 14MG/24HR PATCH TRANSDERM SCH (10:38)
[2019-03-20] MEDS: QUEtiapine 100 MG TAB PO SCH ×2 (10:39→22:03)
[2019-03-20] MEDS: ALPRAZolam 1 MG TAB PO PRN (10:41)
[2019-03-20 11:35] LABS: Glucose,Whole Blood 115 mg/dL (75-99)
[2019-03-20] MEDS: HYDROcodone/APAP 5-325MG 1 EACH TAB PO PRN ×2 (15:22→22:02)
[2019-03-20] MEDS: methylPREDNISolone SOD SUCCI 40 MG/ML 1 ML VIAL IV SCH (15:23)
[2019-03-20 16:56] LABS: Glucose,Whole Blood 129 mg/dL (75-99)
[2019-03-20 20:15] LABS: Glucose,Whole Blood 114 mg/dL (75-99)
[2019-03-20] MEDS: ALPRAZolam 0.25 MG TAB PO PRN (22:02)
[2019-03-20] MEDS: MONTELUKAST 10 MG TAB PO SCH (22:03)
[2019-03-20] MEDS: VENLAFAXINE HCL 75 MG TAB PO SCH (22:03)
--- NOTE | 2019-03-20 23:02 | PN ---
PROGRESS NOTE DATE OF SERVICE: 03/20/2019 This patient has been hemodynamically stable. She is less short of breath. On physical examination, her vitals are stable. She is afebrile. Her chest reveals decreased breath sounds with prolonged exhalation. Cardiovascular system is in S1, S2. Abdomen is soft. There is no pedal edema. IMPRESSION AT THIS TIME: 1. Severe asthma with acute exacerbation. 2. Chronic obstructive pulmonary disease. 3. Possible alpha-1 antitrypsin deficiency due to her young age and early diagnosis of chronic obstructive pulmonary disease. At this point in time, would check alpha-1 antitrypsin phenotype. Check an allergy panel and an IgE. Continue IV and aerosolized steroids, bronchodilators. Her prognosis at this time is fair. We will follow her closely during her hospital stay. MITCHEL / CHELO: [id number] /
[2019-03-21] MEDS: methylPREDNISolone SOD SUCCI 40 MG/ML 1 ML VIAL IV SCH ×2 (00:09→08:21)
[2019-03-21] MEDS: LEVOTHYROXINE 75 MCG TAB PO SCH (05:56)
[2019-03-21 06:54] LABS: Glucose,Whole Blood 92 mg/dL (75-99)
[2019-03-21] MEDS: FORMOTEROL FUMARATE 20 MCG/2 ML NEBU INHALATION SCH ×2 (07:13→20:44)
[2019-03-21] MEDS: BUDESONIDE 0.5 MG/2 ML NEBU INHALATION SCH ×2 (07:13→20:44)
[2019-03-21] MEDS: IPRATROPIUM-ALBUTEROL 3 ML NEB INHALATION SCH ×4 (07:13→20:44)
[2019-03-21] MEDS: INSULIN ASPART (NovoLOG) 100 UNIT/ML VIAL SQ SCH ×4 (07:30→20:44)
--- NOTE | 2019-03-21 08:20 | P.PN ---
Subjective Progress Note Date: 03/20/19 Principal diagnosis: This is a 48-year-old female who was recently admitted with shortness of breath with also suspected pulmonary fibrosis and is being closely monitored. No acute overnight issues. Pulmonary is following closely. Patient is maintained on IV steroids as well as bronchodilators at this time. Currently patient denies any chest pain or palpitations. Patient is afebrile. Patient denies any nausea or vomiting and is tolerating diet. Patient continues to have some shortness of breath but states it's gotten slightly better. Patient is currently still requiring oxygen via nasal cannula at 4 L. Patient will likely need home O2. Objective - Vital Signs Vital signs: Vital Signs Temp 97.9 F 03/21/19 05:00 Pulse 90 03/21/19 07:34 Resp 18 03/21/19 05:00 BP 107/74 03/21/19 05:00 Pulse Ox 93 L 03/21/19 05:00 Intake & Output 03/20/19 03/21/19 03/21/19 18:59 06:59 18:59 Output Total 400 Balance -400 Output: Urine 400 Other: Voiding Method Bedside Commode Bedside Commode # Voids 5 3 - Exam Gen: This is a 48-year-old female sitting up in bed in no acute distress. HEENT: Head is atraumatic, normocephalic. Pupils equal, round. Sclerae is anicteric. NECK: Supple. No JVD. No lymphadenopathy. No thyromegaly. LUNGS: Diminished breath sounds at the bases with a few scattered rhonchi and crackles noted. Expiratory wheezing noted on exam. No intercostal retractions. HEART: S1, S2 are present ABDOMEN: Soft. Thin. Bowel sounds are present. No masses. No tenderness. EXTREMITIES: No pedal edema. No calf tenderness. NEUROLOGICAL: Patient is awake, alert and oriented x3. Cranial nerves 2 through 12 are grossly intact. - Labs CBC & Chem 7: 03/20/19 07:08 03/20/19 07:08 Labs: Abnormal Lab Results - Last 24 Hours (Table) 03/20/19 03/20/19 03/20/19 Range/Units 11:34 16:54 20:14 POC Glucose (mg/dL) 115 H 129 H 114 H (75-99) mg/dL Assessment and Plan Assessment: Chronic obstructive pulmonary disease exacerbation with acute pearling tracheobronchitis with acute hypoxic hypercarbic respiratory failure Mild thrombocytopenia Migraine acute on chronic attack Continued ongoing nicotine dependence History of chronic obstructive pulmonary disease Fibromyalgia Gastroesophageal reflux disease Degenerative joint disease History of hypothyroidism History of endometriosis History of cholecystectomy History of postoperative nausea Anxiety, bipolar depression History of THC Discussion and recommendations: Recommend to continue current medications, management, and symptomatic treatment. Pulmonary is following closely. Will continue to monitor closely. Patient is currently maintained on IV steroids, bronchodilators, and antibiotics and will continue at this time. Case management and social work are following. Patient may require home O2 upon discharge. A prescription was provided. Discussed with the patient at length about smoking cessation and patient states that she hasn't smoked in the last 5 days now and feels that she has no urge to smoke when she is discharged. Due to multiple complex medical issues prognosis is guarded. Further recommendations to follow.
[2019-03-21] MEDS: VENLAFAXINE HCL ER 150 MG CAP PO SCH (08:21)
[2019-03-21] MEDS: QUEtiapine 100 MG TAB PO SCH ×2 (08:21→22:14)
[2019-03-21] MEDS: HYOSCYAMINE SULFATE 0.125 MG TAB PO SCH ×2 (08:21→22:15)
[2019-03-21] MEDS: AZITHROMYCIN 500 MG TAB PO SCH (08:21)
[2019-03-21] MEDS: HEPARIN SODIUM,PORCINE 5,000 UNIT/ML 1 ML VIAL SQ SCH ×2 (08:21→22:14)
[2019-03-21] MEDS: PANTOPRAZOLE 40 MG TABLET PO SCH (08:22)
[2019-03-21] MEDS: NICOTINE 14MG/24HR PATCH TRANSDERM SCH (08:22)
[2019-03-21 08:41] LABS: Basophils % (A) 0 %; Eosinophils % (A) 0 %; HCT 51.3 % (34.0-46.0); HGB 16.1 gm/dL (11.4-16.0); Hypochromasia Slight; Lymphocytes % (A) 17 %; MCH 30.8 pg (25.0-35.0); MCHC 31.4 g/dL (31.0-37.0); MCV 98.1 fL (80.0-100.0); Mean Platelet Volume 7.4; Monocytes # (A) 0.7 k/uL (0-1.0); Monocytes % (A) 6 %; Neutrophils # (A) 8.6 k/uL (1.3-7.7); Neutrophils % (A) 75 %; Platelet Count 231 k/uL (150-450); RBC 5.23 m/uL (3.80-5.40); RDW 13.8 % (11.5-15.5); WBC 11.4 k/uL (3.8-10.6)
[2019-03-21 08:58] LABS: African American GFR (CKD) >90 (>60 ml/min/1.73 sqM); Anion Gap 5 mmol/L; Blood Urea Nitrogen 14 mg/dL (7-17); Calcium 9.6 mg/dL (8.4-10.2); Chloride 94 mmol/L (98-107); Glucose 91 mg/dL (74-99); Non-African American GFR(CKD) >90 (>60 ml/min/1.73 sqM); Potassium 5.7 mmol/L (3.5-5.1); Sodium 139 mmol/L (137-145)
[2019-03-21 09:05] LABS: Carbon Dioxide 40 mmol/L (22-30)
[2019-03-21 11:21] LABS: Glucose,Whole Blood 93 mg/dL (75-99)
[2019-03-21 11:54] VITALS: BMI 16.2
[2019-03-21] MEDS: methylPREDNISolone SOD SUCCI 125 MG/2 ML VIAL IV SCH ×3 (12:54→23:30)
[2019-03-21] MEDS: ALPRAZolam 1 MG TAB PO PRN ×2 (12:54→23:32)
--- NOTE | 2019-03-21 14:20 | PN ---
PROGRESS NOTE The patient was seen again on 03/21/2019. She has been hemodynamically stable. She continues to have shortness of breath and is slightly worse today. On physical examination, vitals are stable. She is afebrile. Chest with expiratory wheeze. Cardiovascular system reveals an S1, S2. Abdomen is soft. There is no pedal edema. IMPRESSION: 1. Severe asthma with acute exacerbation. 2. Baseline chronic obstructive pulmonary disease. 3. Possible alpha-1 antitrypsin deficiency. Increase Solu-Medrol to 60 mg IV push q.6. Continue bronchodilators and aerosolized steroids. Increase activity levels slowly. Her prognosis is guarded. Await alpha-1 antitrypsin phenotype results. MMODL / IJN: [id number] /
--- NOTE | 2019-03-21 15:02 | P.PN ---
Subjective Progress Note Date: 03/21/19 Principal diagnosis: This is a 48-year-old female who was recently admitted with shortness of breath with also suspected pulmonary fibrosis and is being closely monitored. No acute overnight issues. Pulmonary is following closely. Patient is maintained on IV steroids as well as bronchodilators at this time. Currently patient denies any chest pain or palpitations. Patient is afebrile. Patient denies any nausea or vomiting and is tolerating diet. Patient continues to have some shortness of breath but states it's gotten slightly better. Patient is currently still requiring oxygen via nasal cannula at 4 L. Patient will likely need home O2. 03/21/2019 Patient is sitting up on the edge of the bed in mild acute distress stating that her shortness of breath has not improved and she continues to have wheezing and heaviness of the chest. Pulmonary is following closely. Patient is currently maintained on IV steroids as well as bronchodilators at this time. IV steroids are being increased to every 6 hours. Patient denies any chest pain or palpitations. Patient has been afebrile. Patient denies any nausea or vomiting and is tolerating diet. Patient states that she feels she is not ready to go home if she continues to get exerted and winded with any type of activity. Discussed with the nursing staff about weaning off of the oxygen and patient continues to desat when the oxygen is removed. Will continue to monitor closely. Objective - Vital Signs Vital signs: Vital Signs Temp 97.7 F 03/21/19 13:00 Pulse 65 03/21/19 13:00 Resp 17 03/21/19 13:00 BP 118/77 03/21/19 13:00 Pulse Ox 97 03/21/19 13:00 Intake & Output 03/20/19 03/21/19 03/21/19 18:59 06:59 18:59 Output Total 400 Balance -400 Weight 40.143 kg Output: Urine 400 Other: Voiding Method Bedside Commode Bedside Commode Bedside Commode # Voids 5 3 # Bowel Movements 0 - Exam Gen: This is a 48-year-old female sitting up in bed in no acute distress. Temp is 97.9F, pulse is 93, respirations are 18, blood pressure is 107/74, oxygen saturation is 93% on 4 L via nasal cannula. HEENT: Head is atraumatic, normocephalic. Pupils equal, round. Sclerae is anicteric. NECK: Supple. No JVD. No lymphadenopathy. No thyromegaly. LUNGS: Diminished breath sounds at the bases with a few scattered rhonchi and crackles noted. Expiratory wheezing noted on exam. No intercostal retractions. HEART: S1, S2 are present ABDOMEN: Soft. Thin. Bowel sounds are present. No masses. No tenderness. EXTREMITIES: No pedal edema. No calf tenderness. NEUROLOGICAL: Patient is awake, alert and oriented x3. Cranial nerves 2 through 12 are grossly intact. - Labs CBC & Chem 7: 03/21/19 07:52 03/21/19 07:52 Labs: Abnormal Lab Results - Last 24 Hours (Table) 03/20/19 03/20/19 03/21/19 Range/Units 16:54 20:14 07:52 WBC 11.4 H (3.8-10.6) k/uL Hgb 16.1 H (11.4-16.0) gm/dL Hct 51.3 H (34.0-46.0) % Neutrophils # 8.6 H (1.3-7.7) k/uL Potassium (3.5-5.1) mmol/L Chloride (98-107) mmol/L Carbon Dioxide (22-30) mmol/L POC Glucose (mg/dL) 129 H 114 H (75-99) mg/dL 03/21/19 Range/Units 07:52 WBC (3.8-10.6) k/uL Hgb (11.4-16.0) gm/dL Hct (34.0-46.0) % Neutrophils # (1.3-7.7) k/uL Potassium 5.7 H (3.5-5.1) mmol/L Chloride 94 L (98-107) mmol/L Carbon Dioxide 40 H (22-30) mmol/L POC Glucose (mg/dL) (75-99) mg/dL Assessment and Plan Assessment: Chronic obstructive pulmonary disease exacerbation with acute purulent tracheobronchitis with acute hypoxic hypercarbic respiratory failure Mild thrombocytopenia Migraine acute on chronic attack Continued ongoing nicotine dependence History of chronic obstructive pulmonary disease Fibromyalgia Gastroesophageal reflux disease Degenerative joint disease History of hypothyroidism History of endometriosis History of cholecystectomy History of postoperative nausea Anxiety, bipolar depression History of THC Discussion and recommendations: Recommend to continue current medications, management, and symptomatic treatment. Pulmonary is following closely. Will continue to monitor closely. Patient is currently maintained on IV steroids, bronchodilators, and antibiotics and will continue at this time. IV steroids are being increased to every 6 hours. Case management and social work are following. Patient may require home O2 upon discharge. A prescription was provided. Due to multiple complex medical issues prognosis is guarded. Further recommendations to follow. Possible discharge in 24-48 hours.
[2019-03-21 16:52] LABS: Glucose,Whole Blood 111 mg/dL (75-99)
[2019-03-21 19:40] LABS: Glucose,Whole Blood 120 mg/dL (75-99)
[2019-03-21] MEDS: HYDROcodone/APAP 5-325MG 1 EACH TAB PO PRN (22:13)
[2019-03-21] MEDS: MONTELUKAST 10 MG TAB PO SCH (22:14)
[2019-03-21] MEDS: VENLAFAXINE HCL 75 MG TAB PO SCH (22:14)
[2019-03-22] MEDS: methylPREDNISolone SOD SUCCI 125 MG/2 ML VIAL IV SCH ×4 (05:36→23:26)
[2019-03-22] MEDS: LEVOTHYROXINE 75 MCG TAB PO SCH (05:36)
[2019-03-22 06:59] LABS: Glucose,Whole Blood 97 mg/dL (75-99)
[2019-03-22] MEDS: INSULIN ASPART (NovoLOG) 100 UNIT/ML VIAL SQ SCH ×4 (07:30→21:18)
[2019-03-22] MEDS: NICOTINE 14MG/24HR PATCH TRANSDERM SCH (08:11)
[2019-03-22] MEDS: QUEtiapine 100 MG TAB PO SCH ×2 (08:12→21:29)
[2019-03-22] MEDS: HYOSCYAMINE SULFATE 0.125 MG TAB PO SCH ×2 (08:12→21:28)
[2019-03-22] MEDS: AZITHROMYCIN 500 MG TAB PO SCH (08:12)
[2019-03-22] MEDS: HEPARIN SODIUM,PORCINE 5,000 UNIT/ML 1 ML VIAL SQ SCH ×2 (08:12→21:28)
[2019-03-22] MEDS: PANTOPRAZOLE 40 MG TABLET PO SCH (08:12)
[2019-03-22] MEDS: VENLAFAXINE HCL ER 150 MG CAP PO SCH (08:13)
[2019-03-22] MEDS: BUDESONIDE 0.5 MG/2 ML NEBU INHALATION SCH ×2 (08:16→20:29)
[2019-03-22] MEDS: IPRATROPIUM-ALBUTEROL 3 ML NEB INHALATION SCH ×4 (08:16→20:29)
[2019-03-22] MEDS: FORMOTEROL FUMARATE 20 MCG/2 ML NEBU INHALATION SCH (08:16)
[2019-03-22] MEDS: BUTALB/APAP/CAFF 50-325-40MG TAB PO PRN (08:23)
[2019-03-22] MEDS: ALPRAZolam 0.25 MG TAB PO PRN ×2 (09:05→16:11)
[2019-03-22 11:25] LABS: Glucose,Whole Blood 102 mg/dL (75-99)
--- NOTE | 2019-03-22 14:06 | PN ---
PROGRESS NOTE Patient was seen on 03/22/2019. Patient has been hemodynamically stable. She is sleepy but arousable. She is somewhat tachycardic but is less short of breath. On physical examination blood pressure is 107/73, respiratory rate of 20, pulse rate of 116, temperature 97.7, O2 saturation on 4 L by nasal cannula is 94%. HEENT: Reveals pupils are equal. CHEST: Reveals decreased breath sounds with prolonged exhalation. CARDIOVASCULAR SYSTEM: Reveals S1, S2. ABDOMEN: Soft. There is no edema. IgE level is extremely high at 1639. Sodium 139, potassium 5.7, chloride 94, bicarb 40, BUN 14, creatinine 0.65. IMPRESSION: 1. Severe asthma with acute exacerbation. 2. Chronic obstructive pulmonary disease, possible alpha-1 antitrypsin deficiency. 3. Metabolic alkalosis, which may be due to a respiratory acidosis with hyperkalemia. Would continue Solu-Medrol 60 mg IV push to 6. Continue bronchodilators, aerosolized steroids, increase her activity level, switch her to oral steroids tomorrow if she is otherwise stable. Discontinue the formoterol as she is having extreme tachycardia. MMODL / IJN: [id number] /
--- NOTE | 2019-03-22 16:11 | P.PN ---
Subjective Progress Note Date: 03/22/19 Principal diagnosis: This is a 48-year-old female who was recently admitted with shortness of breath with also suspected pulmonary fibrosis and is being closely monitored. No acute overnight issues. Pulmonary is following closely. Patient is maintained on IV steroids as well as bronchodilators at this time. Currently patient denies any chest pain or palpitations. Patient is afebrile. Patient denies any nausea or vomiting and is tolerating diet. Patient continues to have some shortness of breath but states it's gotten slightly better. Patient is currently still requiring oxygen via nasal cannula at 4 L. Patient will likely need home O2. 03/21/2019 Patient is sitting up on the edge of the bed in mild acute distress stating that her shortness of breath has not improved and she continues to have wheezing and heaviness of the chest. Pulmonary is following closely. Patient is currently maintained on IV steroids as well as bronchodilators at this time. IV steroids are being increased to every 6 hours. Patient denies any chest pain or palpitations. Patient has been afebrile. Patient denies any nausea or vomiting and is tolerating diet. Patient states that she feels she is not ready to go home if she continues to get exerted and winded with any type of activity. Discussed with the nursing staff about weaning off of the oxygen and patient continues to desat when the oxygen is removed. Will continue to monitor closely. 03/22/2019 Patient is sitting up in bed in no acute distress. Patient states that her breathing is still tight and labored and becomes extremely short of breath with exertion. Pulmonary is following closely. Patient is currently maintained on IV steroids every 6 hours along with bronchodilators and will continue this at this time. May transition to oral steroids tomorrow. Patient states that she has been on steroids before and it causes facial swelling but helps with the breathing. Discussed with the patient about increasing activity as tolerated and to continue getting up and moving along with coughing and deep breathing. A home O2 eval was done and patient desat very quickly with no reserve into the low 80s. Patient will need oxygen upon discharge. Will continue to monitor closely. Objective - Vital Signs Vital signs: Vital Signs Temp 97.7 F 03/22/19 11:48 Pulse 120 H 03/22/19 11:55 Resp 20 03/22/19 11:48 BP 107/73 12/04/19 11:48 Pulse Ox 94 L 03/22/19 11:48 Intake & Output 03/21/19 03/22/19 03/22/19 18:59 06:59 18:59 Weight 40.143 kg Other: Voiding Method Bedside Commode Bedside Commode Bedside Commode # Voids 1 2 # Bowel Movements 0 - Exam Gen: This is a 48-year-old female sitting up in bed in no acute distress. Temp is 97.7F, pulse is 116, respirations are 20, blood pressure is 107/73, oxygen saturation is 94 % on 4 L via nasal cannula. HEENT: Head is atraumatic, normocephalic. Pupils equal, round. Sclerae is anicteric. NECK: Supple. No JVD. No lymphadenopathy. No thyromegaly. LUNGS: Diminished breath sounds at the bases with a few scattered rhonchi and crackles noted. Expiratory wheezing noted on exam. No intercostal retractions. More equal air entry noted today. HEART: S1, S2 are present ABDOMEN: Soft. Thin. Bowel sounds are present. No masses. No tenderness. EXTREMITIES: No pedal edema. No calf tenderness. NEUROLOGICAL: Patient is awake, alert and oriented x3. Anxious. Cranial nerves 2 through 12 are grossly intact. - Labs CBC & Chem 7: 03/21/19 07:52 03/21/19 07:52 Labs: Abnormal Lab Results - Last 24 Hours (Table) 03/21/19 03/21/19 03/21/19 Range/Units 07:52 16:48 19:37 POC Glucose (mg/dL) 111 H 120 H (75-99) mg/dL IgE 1639.00 H (0.00-114.00) IU/mL 03/22/19 Range/Units 11:23 POC Glucose (mg/dL) 102 H (75-99) mg/dL IgE (0.00-114.00) IU/mL Microbiology - Last 24 Hours (Table) 03/21/19 21:00 Gram Stain - Preliminary Sputum Sputum Culture - Preliminary Assessment and Plan Assessment: Chronic obstructive pulmonary disease exacerbation with acute purulent tracheobronchitis with acute hypoxic hypercarbic respiratory failure Mild thrombocytopenia Migraine acute on chronic attack Continued ongoing nicotine dependence History of chronic obstructive pulmonary disease Fibromyalgia Gastroesophageal reflux disease Degenerative joint disease History of hypothyroidism History of endometriosis History of cholecystectomy History of postoperative nausea Anxiety, bipolar depression History of THC Discussion and recommendations: Recommend to continue current medications, management, and symptomatic treatment. Pulmonary is following closely. Will continue to monitor closely. Patient is currently maintained on IV steroids, bronchodilators, and antibiotics and will continue at this time. Will likely transition to oral prednisone in the morning. Discussed with patient increasing activity as tolerated and g etting up in the bed. Continue coughing and deep breathing. Case management and social work are following. Patient may require home O2 upon discharge. A prescription was provided. Due to multiple complex medical issues prognosis is guarded. Further recommendations to follow. Possible discharge in 24-48 hours.
[2019-03-22 17:01] LABS: Glucose,Whole Blood 99 mg/dL (75-99)
[2019-03-22] MEDS: HYDROcodone/APAP 5-325MG 1 EACH TAB PO PRN ×2 (17:35→23:26)
[2019-03-22 21:05] LABS: Glucose,Whole Blood 106 mg/dL (75-99)
[2019-03-22] MEDS: MONTELUKAST 10 MG TAB PO SCH (21:28)
[2019-03-22] MEDS: VENLAFAXINE HCL 75 MG TAB PO SCH (22:00)
[2019-03-22] MEDS: ALPRAZolam 1 MG TAB PO PRN (23:26)
[2019-03-23] MEDS: LEVOTHYROXINE 75 MCG TAB PO SCH (05:42)
[2019-03-23] MEDS: methylPREDNISolone SOD SUCCI 125 MG/2 ML VIAL IV SCH ×4 (05:43→22:58)
[2019-03-23 06:44] LABS: Glucose,Whole Blood 97 mg/dL (75-99)
[2019-03-23] MEDS: INSULIN ASPART (NovoLOG) 100 UNIT/ML VIAL SQ SCH ×4 (06:55→19:47)
[2019-03-23] MEDS: BUDESONIDE 0.5 MG/2 ML NEBU INHALATION SCH ×2 (07:10→20:03)
[2019-03-23] MEDS: IPRATROPIUM-ALBUTEROL 3 ML NEB INHALATION SCH ×4 (07:10→20:03)
[2019-03-23] MEDS: NICOTINE 14MG/24HR PATCH TRANSDERM SCH (07:43)
[2019-03-23] MEDS: VENLAFAXINE HCL ER 150 MG CAP PO SCH (08:11)
[2019-03-23] MEDS: PANTOPRAZOLE 40 MG TABLET PO SCH (08:11)
[2019-03-23] MEDS: ALPRAZolam 0.25 MG TAB PO PRN ×2 (08:11→17:54)
[2019-03-23] MEDS: QUEtiapine 100 MG TAB PO SCH ×2 (08:11→20:35)
[2019-03-23] MEDS: HYOSCYAMINE SULFATE 0.125 MG TAB PO SCH ×2 (08:12→20:34)
[2019-03-23] MEDS: AZITHROMYCIN 500 MG TAB PO SCH (08:12)
[2019-03-23] MEDS: HEPARIN SODIUM,PORCINE 5,000 UNIT/ML 1 ML VIAL SQ SCH ×2 (08:12→20:34)
[2019-03-23 09:59] LABS: Basophils % (A) 0 %; Eosinophils % (A) 0 %; HCT 47.2 % (34.0-46.0); HGB 15.3 gm/dL (11.4-16.0); Lymphocytes # (A) 1.5 k/uL (1.0-4.8); Lymphocytes % (A) 15 %; MCH 31.5 pg (25.0-35.0); MCHC 32.4 g/dL (31.0-37.0); MCV 97.1 fL (80.0-100.0); Mean Platelet Volume 6.7; Monocytes # (A) 0.5 k/uL (0-1.0); Monocytes % (A) 5 %; Neutrophils # (A) 7.8 k/uL (1.3-7.7); Neutrophils % (A) 78 %; Platelet Count 234 k/uL (150-450); RBC 4.87 m/uL (3.80-5.40); RDW 13.6 % (11.5-15.5); WBC 9.9 k/uL (3.8-10.6)
[2019-03-23 10:06] LABS: African American GFR (CKD) >90 (>60 ml/min/1.73 sqM); Anion Gap 5 mmol/L; Blood Urea Nitrogen 15 mg/dL (7-17); Calcium 9.5 mg/dL (8.4-10.2); Carbon Dioxide 36 mmol/L (22-30); Chloride 97 mmol/L (98-107); Glucose 126 mg/dL (74-99); Non-African American GFR(CKD) >90 (>60 ml/min/1.73 sqM); Potassium 4.7 mmol/L (3.5-5.1); Sodium 138 mmol/L (137-145)
--- NOTE | 2019-03-23 11:49 | PN ---
PROGRESS NOTE DATE OF SERVICE: 03/23/2019 The patient is a 48-year-old female who is seen sitting up in bed, is awake, alert. Continues to complain of shortness of breath. Nonproductive cough. Patient is afebrile, hemodynamically stable, in no acute distress. PHYSICAL EXAM: VITAL SIGNS: Temperature 97.9, heart rate is 85, respiratory rate is 17, blood pressure is 108/71, O2 saturations 97% on 4 L, O2 via nasal cannula. HEENT. Head is normocephalic, atraumatic. NECK: Supple. Trachea is midline. LUNGS: With significantly decreased breath sounds. Prolonged expiratory phase and fine expiratory wheeze. HEART: S1, S2 are heard. Not tachycardic. ABDOMEN: Soft. Bowel sounds are positive. EXTREMITIES: No edema. NEUROLOGIC: Patient is awake, alert. LABS: White count is 9.9, hemoglobin 15.3, hematocrit 47.2 with 234,000 platelets. Sodium is 138, potassium is 4.7, chloride 97, CO2 is 36, anion gap is 5, BUN is 15, creatinine is 0.65, glucose is 126, calcium is 9.5. No new imaging to review. IMPRESSION: 1. Severe asthma with acute exacerbation. 2. Chronic obstructive pulmonary disease. Possible alpha-1 antitrypsin deficiency. 3. Metabolic alkalosis, which may be due to a respiratory acidosis with hyperkalemia, which have resolved. PLAN: Continue current medications which have been reviewed. I would continue the Solu- Medrol 60 mg IV q.6 hours for another 24 hours with hopes of starting on oral prednisone tomorrow. Continue bronchodilators and aerosol steroids, continue to increase activity as tolerated. Continue GI and DVT prophylaxis and we will follow patient closely with you making further changes as necessary. MMODL / IJN: [id number] /
[2019-03-23 12:10] LABS: Alpha 1 Anti-Trypsin 159 mg/dL (90 - 200)
[2019-03-23 12:15] LABS: Glucose,Whole Blood 119 mg/dL (75-99)
--- NOTE | 2019-03-23 13:11 | P.PN ---
Subjective Progress Note Date: 03/23/19 Principal diagnosis: This is a 48-year-old female who was recently admitted with shortness of breath with also suspected pulmonary fibrosis and is being closely monitored. No acute overnight issues. Pulmonary is following closely. Patient is maintained on IV steroids as well as bronchodilators at this time. Currently patient denies any chest pain or palpitations. Patient is afebrile. Patient denies any nausea or vomiting and is tolerating diet. Patient continues to have some shortness of breath but states it's gotten slightly better. Patient is currently still requiring oxygen via nasal cannula at 4 L. Patient will likely need home O2. 03/21/2019 Patient is sitting up on the edge of the bed in mild acute distress stating that her shortness of breath has not improved and she continues to have wheezing and heaviness of the chest. Pulmonary is following closely. Patient is currently maintained on IV steroids as well as bronchodilators at this time. IV steroids are being increased to every 6 hours. Patient denies any chest pain or palpitations. Patient has been afebrile. Patient denies any nausea or vomiting and is tolerating diet. Patient states that she feels she is not ready to go home if she continues to get exerted and winded with any type of activity. Discussed with the nursing staff about weaning off of the oxygen and patient continues to desat when the oxygen is removed. Will continue to monitor closely. 03/22/2019 Patient is sitting up in bed in no acute distress. Patient states that her breathing is still tight and labored and becomes extremely short of breath with exertion. Pulmonary is following closely. Patient is currently maintained on IV steroids every 6 hours along with bronchodilators and will continue this at this time. May transition to oral steroids tomorrow. Patient states that she has been on steroids before and it causes facial swelling but helps with the breathing. Discussed with the patient about increasing activity as tolerated and to continue getting up and moving along with coughing and deep breathing. A home O2 eval was done and patient desat very quickly with no reserve into the low 80s. Patient will need oxygen upon discharge. Will continue to monitor closely. 03/23/2019 Patient is sitting up in the bed with no acute overnight issues. Pulmonary is following closely. Patient states that she has been somewhat more active and getting out of bed but continues to be extremely short of breath. Patient states that her breathing has slightly improved from yesterday. Patient is curr ently maintained on IV steroids along with bronchodilation at this time and we'll transition to oral steroids in the morning. Case management and social work are following as the patient will require home O2 upon discharge. Patient is also requesting a hospital bed as she is unable to lay down and breathe. Will continue to monitor closely. Review of Systems: Cardiovascular: No reports of chest pain or palpitations Respiratory: Reports shortness of breath and mild cough GI: No reports of nausea, vomiting, or diarrhea : No reports of dysuria or retention Psychological: Patient reports anxiety, no suicidal ideation, cooperative Active Medications Acetaminophen (Tylenol Tab) 650 mg PO Q4HR PRN PRN Reason: Fever and/ or Pain Last Admin: 03/18/19 11:52 Dose: 650 mg Documented by: Acetaminophen/Butalbital/Caffeine (Fioricet 50-325-40) 1 each PO QID PRN PRN Reason: Headache Last Admin: 03/22/19 08:23 Dose: 1 each Documented by: Hydrocodone Bitart/Acetaminophen ([place] 5-325) 1 each PO Q6HR PRN PRN Reason: Pain Last Admin: 03/22/19 23:26 Dose: 1 each Documented by: Albuterol/Ipratropium (Duoneb 0.5 Mg-3 Mg/3 Ml Soln) 3 ml INHALATION RT-QID MEÑO Last Admin: 03/23/19 11:17 Dose: 3 ml Documented by: Alprazolam (Xanax) 1 mg PO TID PRN PRN Reason: Severe Anxiety Last Admin: 03/22/19 23:26 Dose: 1 mg Documented by: Alprazolam (Xanax) 0.25 mg PO TID PRN PRN Reason: Anxiety Last Admin: 03/23/19 08:11 Dose: 0.25 mg Documented by: Azithromycin (Zithromax) 500 mg PO DAILY [facility] Last Admin: 03/23/19 08:12 Dose: 500 mg Documented by: Budesonide (Pulmicort) 0.5 mg INHALATION RT-BID [facility] Last Admin: 03/23/19 07:10 Dose: 0.5 mg Documented by: Heparin Sodium (Porcine) (Heparin) 5,000 unit SQ Q12HR [facility] Last Admin: 03/23/19 08:12 Dose: 5,000 unit Documented by: Hyoscyamine (Levsin) 0.25 mg PO BID [facility] Last Admin: 03/23/19 08:12 Dose: 0.25 mg Documented by: Ceftriaxone Sodium 1 gm/ (Sodium Chloride) 50 mls @ 100 mls/hr IVPB Q24H [facility] Last Admin: 03/22/19 16:14 Dose: 100 mls/hr Documented by: Insulin Aspart (Novolog) 0 unit SQ ACHS [facility]; Protocol Last Admin: 03/23/19 12:45 Dose: Not Given Documented by: Levothyroxine Sodium (Synthroid) 37.5 mcg PO 0630 [facility] Last Admin: 03/23/19 05:42 Dose: 37.5 mcg Documented by: Meclizine HCl (Antivert) 25 mg PO TID PRN PRN Reason: Vertigo Methylprednisolone Sodium Succinate (Solu-Medrol) 60 mg IV Q6HR [facility] Last Admin: 03/23/19 12:45 Dose: 60 mg Documented by: Montelukast Sodium (Singulair) 10 mg PO HS [facility] Last Admin: 03/22/19 21:28 Dose: 10 mg Documented by: Nicotine (Habitrol 14mg/24hr Patch) 1 patch TRANSDERM DAILY [facility] Last Admin: 03/23/19 07:43 Dose: Not Given Documented by: Pantoprazole Sodium (Protonix) 40 mg PO AC-BRKFST [facility] Last Admin: 03/23/19 08:11 Dose: Not Given Documented by: Quetiapine Fumarate (Seroquel) 300 mg PO BID [facility] Last Admin: 03/23/19 08:11 Dose: 300 mg Documented by: Temazepam (Restoril) 15 mg PO HS PRN PRN Reason: Insomnia Venlafaxine HCl (Effexor Xr) 300 mg PO QAM [facility] Last Admin: 03/23/19 08:11 Dose: 300 mg Documented by: Venlafaxine HCl (Effexor) 75 mg PO HS [facility] Last Admin: 03/22/19 22:00 Dose: 75 mg Documented by: Objective - Vital Signs Vital signs: Vital Signs Temp 97.9 F 03/23/19 04:51 Pulse 120 H 03/23/19 11:31 Resp 17 03/23/19 04:51 BP 108/71 03/23/19 04:51 Pulse Ox 97 03/23/19 04:51 Intake & Output 03/22/19 03/23/19 03/23/19 18:59 06:59 18:59 Intake Total 1800 240 Balance 1800 240 Intake: Oral 1800 240 Other: Voiding Method Bedside Commode Bedside Commode # Voids 2 2 - Exam Gen: This is a 48-year-old female sitting up in bed in no acute distress. Temp is 97.9F, pulse is 85, respirations are 17, blood pressure is 108/71, oxygen saturation is 97% % on 4 L via nasal cannula. HEENT: Head is atraumatic, normocephalic. Pupils equal, round. Sclerae is anicteric. NECK: Supple. No JVD. No lymphadenopathy. No thyromegaly. LUNGS: Diminished breath sounds at the bases with a few scattered rhonchi noted. Minimal Expiratory wheezing noted on exam. No intercostal retractions. More equal air entry noted today. HEART: S1, S2 are present ABDOMEN: Soft. Thin. Bowel sounds are present. No masses. No tenderness. EXTREMITIES: No pedal edema. No calf tenderness. NEUROLOGICAL: Patient is awake, alert and oriented x3. Anxious. Cranial nerves 2 through 12 are grossly intact. - Labs CBC & Chem 7: 03/23/19 09:38 03/23/19 09:38 Labs: Abnormal Lab Results - Last 24 Hours (Table) 03/22/19 03/23/19 03/23/19 Range/Units 21:04 09:38 09:38 Hct 47.2 H (34.0-46.0) % Neutrophils # 7.8 H (1.3-7.7) k/uL Chloride 97 L (98-107) mmol/L Carbon Dioxide 36 H (22-30) mmol/L Glucose 126 H (74-99) mg/dL POC Glucose (mg/dL) 106 H (75-99) mg/dL 03/23/19 Range/Units 11:55 Hct (34.0-46.0) % Neutrophils # (1.3-7.7) k/uL Chloride (98-107) mmol/L Carbon Dioxide (22-30) mmol/L Glucose (74-99) mg/dL POC Glucose (mg/dL) 119 H (75-99) mg/dL Microbiology - Last 24 Hours (Table) 03/21/19 21:00 Gram Stain - Preliminary Sputum Sputum Culture - Preliminary Assessment and Plan Assessment: Chronic obstructive pulmonary disease exacerbation with acute purulent tracheobronchitis with acute hypoxic hypercarbic respiratory failure Mild thrombocytopenia Migraine acute on chronic attack Continued ongoing nicotine dependence History of chronic obstructive pulmonary disease Fibromyalgia Gastroesophageal reflux disease Degenerative joint disease History of hypothyroidism History of endometriosis History of cholecystectomy History of postoperative nausea Anxiety, bipolar depression History of THC Discussion and recommendations: Recommend to continue current medications, management, and symptomatic treatment. Pulmonary is following closely. Will continue to monitor closely. Patient is currently maintained on IV steroids, bronchodilators, and antibiotics and will continue at this time. Will likely transition to oral prednisone in the morning. Continue to encourage the patient about increasing her activity getting up out of the bed along with coughing and deep breathing. Case management and social work are following. Will require home O2 upon discharge. A prescription was provided. Due to multiple complex medical issues prognosis is guarded. Further recommendations to follow. Possible discharge in 24-48 hours.
[2019-03-23 17:08] LABS: Glucose,Whole Blood 115 mg/dL (75-99)
[2019-03-23] MEDS: HYDROcodone/APAP 5-325MG 1 EACH TAB PO PRN (19:22)
[2019-03-23 19:43] LABS: Glucose,Whole Blood 107 mg/dL (75-99)
[2019-03-23] MEDS: VENLAFAXINE HCL 75 MG TAB PO SCH (20:35)
[2019-03-23] MEDS: MONTELUKAST 10 MG TAB PO SCH (20:35)
[2019-03-24] MEDS: methylPREDNISolone SOD SUCCI 125 MG/2 ML VIAL IV SCH (05:22)
[2019-03-24] MEDS: LEVOTHYROXINE 75 MCG TAB PO SCH (05:22)
[2019-03-24] MEDS: HYDROcodone/APAP 5-325MG 1 EACH TAB PO PRN ×2 (05:23→11:26)
[2019-03-24 07:09] LABS: Glucose,Whole Blood 99 mg/dL (75-99)
[2019-03-24] MEDS: INSULIN ASPART (NovoLOG) 100 UNIT/ML VIAL SQ SCH (07:10)
[2019-03-24] MEDS: PANTOPRAZOLE 40 MG TABLET PO SCH (07:11)
[2019-03-24] MEDS: NICOTINE 14MG/24HR PATCH TRANSDERM SCH (07:12)
[2019-03-24] MEDS: HYOSCYAMINE SULFATE 0.125 MG TAB PO SCH (07:16)
[2019-03-24] MEDS: QUEtiapine 100 MG TAB PO SCH (07:17)
[2019-03-24] MEDS: VENLAFAXINE HCL ER 150 MG CAP PO SCH (07:17)
[2019-03-24] MEDS: AZITHROMYCIN 500 MG TAB PO SCH (07:17)
[2019-03-24] MEDS: ALPRAZolam 0.25 MG TAB PO PRN (07:17)
[2019-03-24] MEDS: HEPARIN SODIUM,PORCINE 5,000 UNIT/ML 1 ML VIAL SQ SCH (07:20)
[2019-03-24] MEDS: IPRATROPIUM-ALBUTEROL 3 ML NEB INHALATION SCH ×2 (07:56→11:13)
[2019-03-24] MEDS: BUDESONIDE 0.5 MG/2 ML NEBU INHALATION SCH (07:56)
[2019-03-24] MEDS ORDERED: predniSONE 20 MG TAB PO SCH (09:00)
--- NOTE | 2019-03-24 11:44 | PN ---
PROGRESS NOTE DATE OF SERVICE: 03/24/2019 Patient is a 48-year-old female who is sitting up in bed, is awake and alert. She is finishing up her respiratory treatment, feeling a little less short of breath today. Patient is hemodynamically stable, afebrile in no acute distress. PHYSICAL EXAM: VITAL SIGNS: Temperature is 96.8, heart rate is 94, respiratory rate is 17, blood pressure is 122/76, O2 saturation 99% on 4 L O2 via nasal cannula HEENT. Head is normocephalic, atraumatic. NECK: Supple. Trachea is midline. LUNGS: With improved air entry with coarse expiratory wheezes. HEART: S1, S2 are heard. Not tachycardic. ABDOMEN: Soft. Bowel sounds positive. EXTREMITIES: With no edema. NEUROLOGIC: Patient is awake and alert. LABS: No new labs to review. IMAGING: No new imaging to review. IMPRESSION: 1. Severe asthma with acute exacerbation. 2. Chronic obstructive pulmonary disease. 3. Metabolic alkalosis, which has resolved. PLAN: From a pulmonary standpoint, patient can be discharged home on prednisone 60 mg p.o. daily and should follow up in the Pulmonary office on Wednesday or Wednesday of next week for further weaning instruction of the prednisone. Patient should continue bronchodilators and aerosol steroids. Patient should be evaluated for oxygen at home prior to discharge. We will follow patient closely with you making further changes as necessary. MMODL / IJN: [id number] /
[2019-03-24 13:10] LABS: Alt. alternata IgE Class CLASS 0; Alternaria alternata IgE <0.10 kU/L (<0.10); Asperg. fumagatus IgE <0.10 kU/L (<0.10); Asperg. fumagatus IgE Class CLASS 0; Bermuda Grass IgE <0.10 kU/L (<0.10); Birch(Com.Silvr) IgE <0.10 kU/L (<0.10); Birch(Com.Silvr) IgE Class CLASS 0; Cat Epith & Dander IgE <0.10 kU/L (<0.10); Cat Epith & Dander IgE Class CLASS 0; Clad herbarum IgE <0.10 kU/L (<0.10); Clad herbarum IgE Class CLASS 0; Cockroach IgE <0.10 kU/L (<0.10); Cottonwood IgE <0.10 kU/L (<0.10); Dermato. Pteronyssinus Class CLASS 0; Dermato. Pteronyssinus IgE <0.10 kU/L (<0.10); Dermato. farinae IgE <0.10 kU/L (<0.10); Dermato. farinae IgE Class CLASS 0; Dog Dander IgE <0.10 kU/L (<0.10); Elm IgE <0.10 kU/L (<0.10); Maple (Box Elder) IgE <0.10 kU/L (<0.10); Maple (Box Elder) IgE Class CLASS 0; Mountain Cedar IgE <0.10 kU/L (<0.10); Mountain Cedar IgE Class CLASS 0; Mouse Urine IgE Class CLASS 0; Mouse Urine Proteins,IgE <0.10 kU/L (<0.10); Nettle IgE <0.10 kU/L (<0.10); Nettle IgE Class CLASS 0; Oak IgE <0.10 kU/L (<0.10); Penicillium chrysogenum IgE <0.10 kU/L (<0.10); Penicillium chrysogenum IgE Cl CLASS 0; Rough Marshelder IgE <0.10 kU/L (<0.10); Rough Marshelder IgE Class CLASS 0; Timothy Grass IgE <0.10 kU/L (<0.10); Timothy Grass IgE Class CLASS 0; White Ash IgE Class CLASS 0
[2019-03-24 13:42] VITALS: BP 112/59; PULSE 109; RESP 18; TEMP 97.4
[2019-03-24] MEDS: ALPRAZolam 1 MG TAB PO PRN (13:46)
[2019-03-24] MEDS: BUTALB/APAP/CAFF 50-325-40MG TAB PO PRN (13:46)
--- NOTE | 2019-03-24 15:25 | P.DS ---
Providers Date of admission: 03/17/19 22:27 Expected date of discharge: 03/24/19 Attending physician: Cande Gallegos Consults: 03/17/19 22:26 Consult Physician Routine Consulting Provider: Amando Segal Consult Reason/Comments: copd exacerbation Do you want consulting provider notified?: Yes Primary care physician: Stated None Hospital Course: Final diagnosis Chronic obstructive pulmonary disease exacerbation with acute purulent tracheobronchitis with acute hypoxic hypercarbic respiratory failure Mild thrombocytopenia Migraine acute on chronic attack Continued ongoing nicotine dependence History of chronic obstructive pulmonary disease Fibromyalgia Gastroesophageal reflux disease Degenerative joint disease History of hypothyroidism History of endometriosis History of cholecystectomy History of postoperative nausea Anxiety, bipolar depression History of THC Discharge disposition Patient is being discharged in a stable condition with guarded prognosis to home and will follow-up with Dr. JAQUELIN Segal in the outpatient setting this week. Patient will continue on a prednisone taper along with Ceftin 500 mg twice daily for the next 5 days. Total time taken is 35 minutes. History of present illness This is a 48-year-old female who was recently admitted for chronic obstructive pulmonary disease acute exacerbation with acute purulent and tracheo-bronchitis and was being closely monitored. Pulmonary was following closely. During hospitalization patient showed some slow improvement in breathing and states that he feels much better than when she first came in. Patient continues to become very winded with any exertion and still requiring oxygen. Patient will be going home with oxygen and will follow-up with pulmonary in the outpatient setting this week. She'll also continue on a prednisone taper along with Ceftin 500 mg twice daily for the next 5 days. Sputum cultures remained negative. Patient was treated with Zithromax oral and has completed the regimen. Currently patient's condition is stable and would like to go home today. Currently patient denies any chest pain or palpitations. Patient has been afebrile. Patient denies any nausea or vomiting and is eating. Also discussed with the patient about increasing activity as tolerated and get up and out of the bed more often. Discussed with the patient about smoking cessation and education was provided. Patient states that she has not smoked in over 7 days and currently has no desire to. Expressed to the patient the importance of discontinuing any tobacco use. Patient verbalized understanding. Guarded prognosis. On exam vital signs are stable. Temp is 97.4 F, pulse is 109, respirations are 18, blood pressure is 112/59, oxygen saturation is 94% on 4 L. Cardio S1, S2 are muffled. Respiratory system shows diminished breath sounds at the bases with a few scattered rhonchi noted. Minimal wheezing noted on expiration. Abdomen is soft, thin, nontender. Nervous system shows no focal deficits. Please refer to medication reconciliation sheet for a list of medications. Patient Condition at Discharge: Fair Plan - Discharge Summary Discharge Rx Participant: No New Discharge Prescriptions: New Cefuroxime Axetil [Ceftin] 500 mg PO BID 5 Days #10 tab Ipratropium-Albuterol Nebulize [Duoneb 0.5 mg-3 mg/3 ml Soln] 3 ml INHALATION RT-QID 30 Days #120 ampul.neb predniSONE 10 mg PO DIRECTED #54 tab Budesonide-Formot 160-4.5 Mcg [Symbicort 160-4.5 Mcg Inhaler] 2 puff INHALATION BID 30 Days #1 inhaler Continue Albuterol Inhaler [Ventolin Hfa Inhaler] 1 - 2 puff INHALATION RT-TID PRN PRN Reason: Shortness Of Breath Montelukast [Singulair] 10 mg PO HS ALPRAZolam [Xanax] 1 - 2 mg PO TID PRN PRN Reason: Anxiety Venlafaxine HCl [Effexor] 75 mg PO HS Meclizine [Antivert] 25 mg PO TID PRN PRN Reason: Vertigo Ranitidine HCl 150 mg PO BID Venlafaxine HCl [Effexor XR] 300 mg PO QAM Omeprazole 20 mg PO BID Hyoscyamine Sulfate [Hyoscyamine Sulfate SL] 0.25 mg SL BID QUEtiapine FUMARATE [Seroquel Xr] 600 mg PO HS Levothyroxine Sodium [Synthroid] 37.5 mcg PO DAILY Umeclidinium [place] [Incruse Ellipta] 62.5 mcg INHALATION DAILY Discharge Medication List ALPRAZolam [Xanax] 1 - 2 mg PO TID PRN 11/25/16 [History] Albuterol Inhaler [Ventolin Hfa Inhaler] 1 - 2 puff INHALATION RT-TID PRN 11/25/16 [History] Hyoscyamine Sulfate [Hyoscyamine Sulfate SL] 0.25 mg SL BID 11/25/16 [History] Meclizine [Antivert] 25 mg PO TID PRN 11/25/16 [History] Montelukast [Singulair] 10 mg PO HS 11/25/16 [History] Omeprazole 20 mg PO BID 11/25/16 [History] Ranitidine HCl 150 mg PO BID 11/25/16 [History] Venlafaxine HCl [Effexor XR] 300 mg PO QAM 11/25/16 [History] Venlafaxine HCl [Effexor] 75 mg PO HS 11/25/16 [History] QUEtiapine FUMARATE [Seroquel Xr] 600 mg PO HS 12/28/16 [History] Levothyroxine Sodium [Synthroid] 37.5 mcg PO DAILY 03/17/19 [History] Umeclidinium [place] [Incruse Ellipta] 62.5 mcg INHALATION DAILY 03/17/19 [History] Budesonide-Formot 160-4.5 Mcg [Symbicort 160-4.5 Mcg Inhaler] 2 puff INHALATION BID 30 Days #1 inhaler 03/24/19 [Rx] Cefuroxime Axetil [Ceftin] 500 mg PO BID 5 Days #10 tab 03/24/19 [Rx] Ipratropium-Albuterol Nebulize [Duoneb 0.5 mg-3 mg/3 ml Soln] 3 ml INHALATION RT-QID 30 Days #120 ampul.neb 03/24/19 [Rx] predniSONE 10 mg PO DIRECTED #54 tab 03/24/19 [Rx] Follow up Appointment(s)/Referral(s): Amando Segal MD [STAFF PHYSICIAN] - 03/30/19 10:45 am (Appointment is at the [address] [place] [address] office) Patient Instructions/Handouts: Cefuroxime (By mouth), Prednisone (By mouth), Ipratropium/Albuterol (By breathing), Budesonide/Formoterol (By breathing), COPD (Chronic Obstructive Pulmonary Disease) (DC) Activity/Diet/Wound Care/Special Instructions: Activity limited until follow-up Follow up with primary care provider upon discharge Follow up with pulmonary in 1 week Continue taking antibiotics until finished Continue steroids until finished Avoid all tobacco use and avoid any flammable items while wearing oxygen Discharge Disposition: HOME SELF-CARE
== END 2019-03-24 15:00 | disposition home or self-care (01) | DRG 190 ==
LOC: EC 20:39 → 3NMEDONC 22:27
PROVIDERS: ADMIT Hospitalist; ATTEND Hospitalist
DX: J44.1 Chronic obstructive pulmonary disease with (acute) exacerbation (principal); J96.02 Acute respiratory failure with hypercapnia; J96.01 Acute respiratory failure with hypoxia; J45.901 Unspecified asthma with (acute) exacerbation; F31.30 Bipolar disorder, current episode depressed, mild or moderate severity, unspecified; E87.2 Acidosis; K21.9 Gastro-esophageal reflux disease without esophagitis; G43.909 Migraine, unspecified, not intractable, without status migrainosus; M19.90 Unspecified osteoarthritis, unspecified site; M79.7 Fibromyalgia; F17.210 Nicotine dependence, cigarettes, uncomplicated; E03.9 Hypothyroidism, unspecified; D69.6 Thrombocytopenia, unspecified; F41.9 Anxiety disorder, unspecified; Z59.0 Homelessness; Z79.51 Long term (current) use of inhaled steroids; Z79.52 Long term (current) use of systemic steroids; Z79.890 Hormone replacement therapy; Z79.899 Other long term (current) drug therapy; Z90.49 Acquired absence of other specified parts of digestive tract; Z90.711 Acquired absence of uterus with remaining cervical stump; Z88.1 Allergy status to other antibiotic agents; Z88.0 Allergy status to penicillin; Z88.8 Allergy status to other drugs, medicaments and biological substances; Z91.048 Other nonmedicinal substance allergy status; Z98.891 History of uterine scar from previous surgery
CPT/HCPCS: 36415; 71046; 80048; 80053; 82103; 82104; 82785; 82803; 83735; 85025; 86003; 87070; 87205; 87502; 94640; 94760; 96361; 96365; 99285

== ENCOUNTER 2019-12-30 15:30 | Inpatient (IN) | payer OTHER ==
--- NOTE | 2019-12-30 16:06 | ED ---
General Adult HPI - General Chief complaint: Shortness of Breath Stated complaint: Respiratory Issues Time Seen by Provider: 12/30/19 15:45 Source: patient, EMS Mode of arrival: EMS Limitations: no limitations - History of Present Illness Initial comments: Dictation was produced using virocyt dictation software. please excuse any grammatical, word or spelling errors. This patient was cared for during a federal and state declared state of emergency secondary to Covid 19 Chief Complaint: 49-year-old female past medical history of chronic hypoxia, COPD presents from [facility] for further care. History of Present Illness: 49-year-old female she presents today via transfer by EMS from [facility] for hypoxic, hypercarbic respiratory failure. Patient initially presented therefore chief complaint of dyspnea. Patient had extensive workup performed at [facility]. Patient has history of chronic COPD. Her die sizer is Dr. Segal. Skin short of breath for the last 2 days. She called EMS and was initially brought to [facility]. She is found to be hypoxic. She had arterial blood gas which showed pH is 7.5-5, pCO2 40.6 pO2 46.2. She had labs that showed leukocytosis of 11.58. Metabolic panel was bicarb of 43. Magnesium 1.4 and lactic acid of 3.2. She had a rapid coronavirus test that was negative. Her viral panel was otherwise unremarkable. Chest x-ray is nonacute. The ROS documented in this emergency department record has been reviewed and confirmed by me. Those systems with pertinent positive or negative responses have been documented in the HPI. All other systems are other negative and/or noncontributory. PHYSICAL EXAM: General Impression: Alert and oriented x3, not in acute distress HEENT: Normocephalic atraumatic, extra-ocular movements intact, pupils equal and reactive to light bilaterally, mucous membranes moist. Cardiovascular: Heart regular rate and rhythm Chest: Able to complete full sentences, no retractions, no tachypnea, minimal wheezes with auscultation to the lungs. Abdomen: abdomen soft, non-tender, non-distended, no organomegaly Musculoskeletal: Pulses present and equal in all extremities, no peripheral edema Motor: no focal deficits noted Neurological: CN II-XII grossly intact, no focal motor or sensory deficits noted Skin: Intact with no visualized rashes Psych: Normal affect and mood ED course: 49-year-old female transferred from [facility] for hypoxic, hypercarbic respiratory failure. As upon arrival shows her to 122, so vital signs within acceptable limits. Patient was treated with steroids and multiple breathing treatments at [facility] and by prehospital providers. Patient's well-appearing at bedside. She's not showing any signs of significant respiratory distress. Patient given food per request. Case is discussed with Dr. Palma that was went except patient's care. [facility] is covering for patient's primary care physician Dr. Moreno. - Related Data Home Medications Medication Instructions Recorded Confirmed ALPRAZolam [Xanax] 1 - 2 mg PO TID PRN 11/25/16 03/17/19 Albuterol Inhaler (Mhu) [Ventolin 1 - 2 puff INHALATION RT-TID PRN 11/25/16 03/17/19 Hfa Inhaler (Mhu)] Hyoscyamine Sulfate [Hyoscyamine 0.25 mg SL BID 11/25/16 03/17/19 Sulfate SL] Meclizine [Antivert] 25 mg PO TID PRN 11/25/16 03/17/19 Montelukast [Singulair] 10 mg PO HS 11/25/16 03/17/19 Omeprazole 20 mg PO BID 11/25/16 03/17/19 Ranitidine HCl 150 mg PO BID 11/25/16 03/17/19 Venlafaxine HCl [Effexor XR] 300 mg PO QAM 11/25/16 03/17/19 Venlafaxine HCl [Effexor] 75 mg PO HS 11/25/16 03/17/19 QUEtiapine FUMARATE [Seroquel Xr] 600 mg PO HS 12/28/16 03/17/19 Levothyroxine Sodium [Synthroid] 37.5 mcg PO DAILY 03/17/19 03/17/19 Umeclidinium [place] [Incruse 62.5 mcg INHALATION DAILY 03/17/19 03/17/19 Ellipta] Previous Rx's Medication Instructions Recorded Budesonide-Formot 160-4.5 Mcg 2 puff INHALATION BID 30 Days #1 03/24/19 [Symbicort 160-4.5 Mcg Inhaler] inhaler Cefuroxime Axetil [Ceftin] 500 mg PO BID 5 Days #10 tab 03/24/19 Ipratropium-Albuterol Nebulize 3 ml INHALATION RT-QID 30 Days 03/24/19 [Duoneb 0.5 mg-3 mg/3 ml Soln] #120 ampul.neb predniSONE 10 mg PO DIRECTED #54 tab 03/24/19 Allergies Allergy/AdvReac Type Severity Reaction Status Date / Time Penicillins Allergy Unknown Verified 12/30/19 15:57 Childhood dicyclomine [From Bentyl] AdvReac Altered Verified 12/30/19 15:57 Mental Status sulfamethoxazole AdvReac Altered Verified 12/30/19 15:57 [From Bactrim] Mental Status trimethoprim [From Bactrim] AdvReac Altered Verified 12/30/19 15:57 Mental Status paper tape Allergy Rash/Hives Uncoded 12/30/19 15:57 Review of Systems ROS Statement: Those systems with pertinent positive or pertinent negative responses have been documented in the HPI. ROS Other: All systems not noted in ROS Statement are negative. Past Medical History Past Medical History: COPD, Eye Disorder, Fibromyalgia, GERD/Reflux, Osteoarthritis (OA), Thyroid Disorder Additional Past Medical History / Comment(s): Hx Emphysema blood in stool, Endometriosis. pt states that eyes get gritty feeling like sand is in them. History of Any Multi-Drug Resistant Organisms: None Reported Past Surgical History: Section, Cholecystectomy, Hernia Repair, Hysterectomy Additional Past Surgical History / Comment(s): Partial Hysterectomy, several EGD's and Colonoscopies, biopsy/CHIEF [employer]ODUCTION surgery due to Endometriosis. Hernia x2 Past Anesthesia/Blood Transfusion Reactions: Postoperative Nausea & Vomiting (PONV) Additional Past Anesthesia/Blood Transfusion Reaction / Comment(s): States herself and some family members wake from anesthesia angry. Past Psychological History: Anxiety, Bipolar, Depression Smoking Status: Current every day smoker Past Alcohol Use History: Rare Past Drug Use History: Marijuana - Past Family History Mother Family Medical History: No Reported History General Exam Limitations: no limitations Course Vital Signs 12/30/19 15:46 Temperature 98.2 F Pulse Rate 122 H Respiratory 23 Rate Blood Pressure 110/91 O2 Sat by Pulse 97 Oximetry Disposition Clinical Impression: Respiratory failure Disposition: ADMITTED IP TO THIS [facility] Condition: Fair Referrals: Omid Moreno MD [Primary Care Provider] - 1-2 days Decision Time: 16:05
[2019-12-30] MEDS ORDERED: MORPHINE SULFATE 2 MG/ML SYRINGE IVP STA (16:44)
[2019-12-30] MEDS ORDERED: SUMAtriptan succinate 50 MG TAB PO PRN (20:01)
[2019-12-30] MEDS ORDERED: ONDANSETRON 4 MG/2 ML VIAL IVP PRN (20:38)
[2019-12-30] MEDS: MONTELUKAST 10 MG TAB PO SCH (20:46)
[2019-12-30] MEDS: VENLAFAXINE HCL ER 150 MG CAP PO SCH (20:46)
[2019-12-30] MEDS: ALPRAZolam 1 MG TAB PO PRN (20:46)
[2019-12-30] MEDS: QUEtiapine 100 MG TAB PO SCH (20:46)
[2019-12-30] MEDS: IPRATROPIUM-ALBUTEROL 3 ML NEB INHALATION PRN (20:53)
[2019-12-30] MEDS: HYDROcodone/APAP 5-325MG 1 EACH TAB PO PRN (22:08)
[2019-12-31] MEDS: LEVOTHYROXINE 88 MCG TAB PO SCH (04:58)
--- NOTE | 2019-12-31 07:04 | P.HPIM ---
History of Present Illness H&P Date: 12/30/19 Procedure were 9-year-old female transferred sepsis and ischemic because of shortness of breath and hypoxemia and hypercapnic respiratory failure. Patient does have history of COPD. Currently smokes patient has been short of breath for last 2-3 days. Patient is found to have pO2 of 46.2 and ABG. Patient had extensive evaluation at the other facility including the coronavirus testing, influenza and other viral panel all of which are documented 2 chest x-ray did not show any acute abnormality at the pneumonia. Patient was comparing of cough unable to bring up much. Review of Systems REVIEW OF SYSTEMS: CONSTITUTIONAL: No fever, no malaise, no fatigue. HEENT: No recent visual problems or hearing problems. Denied any sore throat. CARDIOVASCULAR: No chest pain, orthopnea, PND, no palpitations, no syncope. PULMONARY: no hemoptysis. GASTROINTESTINAL: No diarrhea, no nausea, no vomiting, no abdominal pain. NEUROLOGICAL: No headaches, no weakness, no numbness. HEMATOLOGICAL: Denies any bleeding or petechiae. GENITOURINARY: Denies any burning micturition, frequency, or urgency. MUSCULOSKELETAL/RHEUMATOLOGICAL: Denies any joint pain, swelling, or any muscle pain. ENDOCRINE: Denies any polyuria or polydipsia. The rest of the 14-point review of systems is negative. Past Medical History Past Medical History: COPD, Eye Disorder, Fibromyalgia, GERD/Reflux, Osteoarthritis (OA), Thyroid Disorder Additional Past Medical History / Comment(s): Hx blood in stool, Endometriosis. pt states that eyes get gritty feeling like sand is in them. History of Any Multi-Drug Resistant Organisms: None Reported Past Surgical History: Section, Cholecystectomy, Hernia Repair, Hysterectomy Additional Past Surgical History / Comment(s): Partial Hysterectomy, several EGD's and Colonoscopies, biopsy/[employer] surgery due to Endometriosis. Hernia x2 Past Anesthesia/Blood Transfusion Reactions: Postoperative Nausea & Vomiting (PONV) Additional Past Anesthesia/Blood Transfusion Reaction / Comment(s): States herself and some family members wake from anesthesia angry. Past Psychological History: Anxiety, Bipolar, Depression Smoking Status: Current every day smoker Past Alcohol Use History: Rare Additional Past Alcohol Use History / Comment(s): Has been smoking for 30 yrs, currently smoking 3 cigarettes PPD. States only drinks once a yr. Past Drug Use History: Marijuana Additional Drug Use History / Comment(s): States daily marajuana use for nausea control. - Past Family History Mother Family Medical History: No Reported History Medications and Allergies Home Medications Medication Instructions Recorded Confirmed Type Meclizine [Antivert] 25 mg PO TID PRN 11/25/16 12/30/19 History Montelukast [Singulair] 10 mg PO HS 11/25/16 12/30/19 History Venlafaxine HCl [Effexor XR] 150 mg PO BID 11/25/16 12/30/19 History QUEtiapine FUMARATE [Seroquel Xr] 600 mg PO HS 12/28/16 12/30/19 History Ipratropium-Albuterol Nebulize 3 ml INHALATION RT-QID 30 Days 03/24/19 12/30/19 Rx [Duoneb 0.5 mg-3 mg/3 ml Soln] #120 ampul.neb ALPRAZolam [Xanax] 2 mg PO TID 12/30/19 12/30/19 History Albuterol Inhaler [Ventolin Hfa 2 puff INHALATION RT-QID PRN 12/30/19 12/30/19 History Inhaler] Hyoscyamine Sulfate [Levsin] 0.125 mg PO DAILY 12/30/19 12/30/19 History Levothyroxine Sodium [Synthroid] 88 mcg PO DAILY 12/30/19 12/30/19 History Loratadine [Claritin] 10 mg PO DAILY 12/30/19 12/30/19 History Omeprazole 40 mg PO DAILY 12/30/19 12/30/19 History SUMAtriptan SUCCINATE [Imitrex] 100 mg PO BID PRN 12/30/19 12/30/19 History Allergies Allergy/AdvReac Type Severity Reaction Status Date / Time dicyclomine [From Bentyl] Allergy Rash/Hives Verified 12/30/19 16:40 Penicillins Allergy Unknown Verified 12/30/19 16:40 Childhood sulfamethoxazole Allergy Rash/Hives Verified 12/30/19 16:40 [From Bactrim] trimethoprim [From Bactrim] Allergy Rash/Hives Verified 12/30/19 16:40 paper tape Allergy Rash/Hives Uncoded 12/30/19 16:40 Physical Exam Vitals: Vital Signs Temp Pulse Pulse Resp BP BP BP 12/31/19 02:11 98.8 F 100 18 102/67 12/31/19 00:09 20 12/30/19 21:03 98 12/30/19 20:55 96 12/30/19 18:17 98.0 F 98 18 117/81 12/30/19 17:11 120 H 20 107/77 12/30/19 17:02 114 H 20 107/77 12/30/19 16:16 24 12/30/19 15:46 98.2 F 122 H 23 110/91 Pulse Ox 12/31/19 02:11 100 12/31/19 00:09 12/30/19 21:03 12/30/19 20:55 12/30/19 18:17 90 L 12/30/19 17:11 99 12/30/19 17:02 100 12/30/19 16:16 12/30/19 15:46 97 Intake and Output 12/30/19 12/31/19 12/31/19 22:59 06:59 14:59 Other: # Voids 1 1 Weight 31.751 kg PHYSICAL EXAMINATION: GENERAL: The patient is alert and oriented x3, not in any acute distress. Thin built female HEENT: Pupils are round and equally reacting to light. EOMI. No scleral icterus. No conjunctival pallor. Normocephalic, atraumatic. No pharyngeal erythema. No thyromegaly. CARDIOVASCULAR: S1 and S2 present. No murmurs, rubs, or gallops. PULMONARY: No significant wheezing decreased air entry into bilateral lung cabral. ABDOMEN: Soft, nontender, nondistended, normoactive bowel sounds. No palpable organomegaly. MUSCULOSKELETAL: No joint swelling or deformity. EXTREMITIES: No cyanosis, clubbing, or pedal edema. NEUROLOGICAL: Gross neurological examination did not reveal any focal deficits. SKIN: No rashes. Thrombosis Risk Factor Assmnt - Choose All That Apply Any of the Below Risk Factors Present?: Yes Each Factor Represents 1 point: Abnormal pulmonary function (COPD), Age 41-60 years Other Risk Factors: No Other congenital or acquired thrombophilia - If yes, enter type in comment: No Thrombosis Risk Factor Assessment Total Risk Factor Score: 2 Thrombosis Risk Factor Assessment Level: Low Risk Assessment and Plan Plan: -Acute on chronic hypercapnic respiratory failure: Secondary to COPD exacerbation: She does use 2 L of onset at home. Patient has significant improvements is breathing treatments patient can urine system steroids inhalational treatments. 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 -Continued nicotine use: Counseling was provided #Hypothyroidism -Gastroesophageal reflux disease -Lactic is doses: No evidence of infection at this time this is secondary to intravascular depletion patient will be started and continued on IV fluids and the monitored lactic acid
[2019-12-31 07:41] LABS: Basophils # (A) 0.1 k/uL (0-0.2); Basophils % (A) 1 %; Eosinophils # (A) 0.2 k/uL (0-0.7); Eosinophils % (A) 1 %; HCT 38.7 % (34.0-46.0); Lymphocytes # (A) 2.3 k/uL (1.0-4.8); Lymphocytes % (A) 21 %; MCH 28.4 pg (25.0-35.0); MCV 91.6 fL (80.0-100.0); Mean Platelet Volume 9.9; Monocytes # (A) 0.9 k/uL (0-1.0); Monocytes % (A) 8 %; Neutrophils # (A) 6.9 k/uL (1.3-7.7); Neutrophils % (A) 65 %; Platelet Count 192 k/uL (150-450); RBC 4.22 m/uL (3.80-5.40); RDW 13.9 % (11.5-15.5); WBC 10.7 k/uL (3.8-10.6)
[2019-12-31] MEDS: QUEtiapine 100 MG TAB PO SCH ×2 (07:45→20:37)
[2019-12-31] MEDS: PANTOPRAZOLE 40 MG TABLET PO SCH (07:45)
[2019-12-31] MEDS: LORATADINE 10 MG TAB PO SCH (07:45)
[2019-12-31] MEDS: ALPRAZolam 1 MG TAB PO PRN ×2 (07:45→15:48)
[2019-12-31] MEDS: VENLAFAXINE HCL ER 150 MG CAP PO SCH ×2 (07:45→20:36)
[2019-12-31] MEDS: predniSONE 20 MG TAB PO SCH (07:45)
[2019-12-31] MEDS: SODIUM CHLORIDE 0.9% 1,000 ML IV SCH ×2 (07:46→16:45)
[2019-12-31 08:05] LABS: African American GFR (CKD) >90 (>60 ml/min/1.73 sqM); Anion Gap 4 mmol/L; Blood Urea Nitrogen 15 mg/dL (7-17); Calcium 8.6 mg/dL (8.4-10.2); Carbon Dioxide 36 mmol/L (22-30); Chloride 93 mmol/L (98-107); Glucose 85 mg/dL (74-99); Magnesium 1.6 mg/dL (1.6-2.3); Non-African American GFR(CKD) >90 (>60 ml/min/1.73 sqM); Potassium 3.8 mmol/L (3.5-5.1); Sodium 133 mmol/L (137-145)
[2019-12-31] MEDS: IPRATROPIUM-ALBUTEROL 3 ML NEB INHALATION PRN ×4 (08:31→20:02)
[2019-12-31] MEDS ORDERED: MAGNESIUM SULFATE-D5W PMX 1 GM in DEXTROSE/WATER 1 100ML.BAG IVPB ONE (10:07)
--- NOTE | 2019-12-31 10:07 | P.PN ---
Subjective 49-year-old female transferred sepsis and ischemic because of shortness of breath and hypoxemia and hypercapnic respiratory failure. Patient does have history of COPD. Currently smokes patient has been short of breath for last 2-3 days. Patient is found to have pO2 of 46.2 and ABG. Patient had extensive evaluation at the other facility including the coronavirus testing, influenza and other viral panel all of which are documented 2 chest x-ray did not show any acute abnormality at the pneumonia. Patient was comparing of cough unable to br ing up much. 12/31/2019 Patient has a somewhat diffuse rhonchi and expiratory wheezing on exam. Patient does use 4 L of onset at home and aphasia and is willing to quit smoking. Patient is bit hyponatremic secondary to hypovolemic hyponatremia patient is being continued on IV fluids. Constitutional: Denied any fatigue denied any fever. Cardio vascular: denied any chest pain, palpitations Gastrointestinal denied any nausea vomiting Pulmonary: Denied any shortness of breath cough Neurologic denied any new focal deficits All inpatient medications were reviewed and appropriate changes in these medications as dictated in the interval history and assessment and plan. Objective - Vital Signs Vital signs: Vital Signs Temp 98.6 F 12/31/19 07:00 Pulse 88 12/31/19 08:49 Resp 18 12/31/19 07:00 BP 104/73 12/31/19 07:00 Pulse Ox 99 12/31/19 07:00 Intake & Output 12/30/19 12/31/19 12/31/19 18:59 06:59 18:59 Weight 31.751 kg Other: # Voids 1 - Exam PHYSICAL EXAMINATION: GENERAL: The patient is alert and oriented x3, not in any acute distress. Thin built female HEENT: Pupils are round and equally reacting to light. EOMI. No scleral icterus. No conjunctival pallor. Normocephalic, atraumatic. No pharyngeal erythema. No thyromegaly. CARDIOVASCULAR: S1 and S2 present. No murmurs, rubs, or gallops. PULMONARY: Diffuse bilateral rhonchi with some expiratory wheezing ABDOMEN: Soft, nontender, nondistended, normoactive bowel sounds. No palpable organomegaly. MUSCULOSKELETAL: No joint swelling or deformity. EXTREMITIES: No cyanosis, clubbing, or pedal edema. NEUROLOGICAL: Gross neurological examination did not reveal any focal deficits. SKIN: No rashes. - Labs CBC & Chem 7: 12/31/19 07:23 12/31/19 07:23 Labs: Abnormal Lab Results - Last 24 Hours (Table) 12/31/19 12/31/19 Range/Units 07:23 07:23 WBC 10.7 H (3.8-10.6) k/uL Sodium 133 L (137-145) mmol/L Chloride 93 L (98-107) mmol/L Carbon Dioxide 36 H (22-30) mmol/L Assessment and Plan Plan: -Acute on chronic hypercapnic respiratory failure: Secondary to COPD exacerbation: She does use 4 L of onset at home. Presently on 4 L pulmonology will evaluate the patient. Patient may benefit from one more day of hospital physician -Continued nicotine use: Counseling was provided #Hypothyroidism -Gastroesophageal reflux disease -Lactic is doses: Resolved no evidence of infection at this time -Hyperemic hyponatremic continue with IV fluids -Hypomagnesemia magnesium will be replaced
[2019-12-31 14:09] VITALS: BMI 12.8
[2019-12-31] MEDS: HYDROcodone/APAP 5-325MG 1 EACH TAB PO PRN ×2 (14:11→20:36)
[2019-12-31] MEDS: MONTELUKAST 10 MG TAB PO SCH (20:36)
[2020-01-01] MEDS: ALPRAZolam 1 MG TAB PO PRN ×4 (00:02→21:30)
[2020-01-01] MEDS: HYDROcodone/APAP 5-325MG 1 EACH TAB PO PRN (04:44)
[2020-01-01] MEDS: LEVOTHYROXINE 88 MCG TAB PO SCH (04:45)
[2020-01-01] MEDS: SODIUM CHLORIDE 0.9% 1,000 ML IV SCH ×3 (04:45→20:49)
[2020-01-01] MEDS: IPRATROPIUM-ALBUTEROL 3 ML NEB INHALATION PRN ×2 (07:24→11:11)
[2020-01-01 08:39] LABS: African American GFR (CKD) >90 (>60 ml/min/1.73 sqM); Anion Gap 2 mmol/L; Blood Urea Nitrogen 9 mg/dL (7-17); Calcium 8.3 mg/dL (8.4-10.2); Carbon Dioxide 37 mmol/L (22-30); Chloride 97 mmol/L (98-107); Glucose 69 mg/dL (74-99); Non-African American GFR(CKD) >90 (>60 ml/min/1.73 sqM); Potassium 3.4 mmol/L (3.5-5.1); Sodium 136 mmol/L (137-145)
[2020-01-01] MEDS: predniSONE 20 MG TAB PO SCH (09:02)
[2020-01-01] MEDS: VENLAFAXINE HCL ER 150 MG CAP PO SCH ×2 (09:02→20:46)
[2020-01-01] MEDS: LORATADINE 10 MG TAB PO SCH (09:02)
[2020-01-01] MEDS: PANTOPRAZOLE 40 MG TABLET PO SCH (09:03)
[2020-01-01] MEDS: QUEtiapine 100 MG TAB PO SCH ×2 (09:03→20:46)
[2020-01-01] MEDS ORDERED: Potassium Replacement Protocol 1 EACH MISC MISCELLANE PRN (12:29)
[2020-01-01] MEDS ORDERED: Magnesium Replacement Protocol 1 EACH MISC MISCELLANE PRN (12:30)
--- NOTE | 2020-01-01 13:58 | P.PN ---
Subjective Progress Note Date: 01/01/20 This is a 49-year-old female admitted with acute on chronic respiratory failure, acute COPD exacerbation and multiple other medical issues. Maintained on nebulized bronchodilators, maintaining O2 sats in the 90s on 4 L nasal cannula, which patient wears at home. Afebrile. Sodium trending up, 136. Potassium 3.4. Objective - Vital Signs Vital signs: Vital Signs Temp 98.0 F 01/01/20 07:00 Pulse 90 01/01/20 11:23 Resp 16 01/01/20 08:00 BP 112/76 01/01/20 07:00 Pulse Ox 98 01/01/20 07:00 Intake & Output 12/31/19 01/01/20 01/01/20 18:59 06:59 18:59 Weight 31.751 kg Other: # Voids 2 2 - Exam PHYSICAL EXAM: VITAL SIGNS: [As above] GENERAL: Sitting up in bed, no acute distress HEENT: Conjunctivae normal. eyes normal. NECK: No JVD. No thyroid enlargement. No LNs CARDIOVASCULAR: S1, S2 regular. No murmur RESPIRATION: Poor air entry ,Breath sounds diminished in the bases. No rhonchi or crackles. No wheezing. ABDOMEN: Soft, nontender . No guarding. no masses palpable. No ascites, No hepatosplenomegaly.Bowel sounds heard. LEGS: No edema. no swelling PSYCHIATRY: Alert and oriented X3, mood and affect normal. NERVOUS SYSTEM: Cranial N 2-12 grossly normal. Moves all 4 limbs. No focal deficits. Strength and sensation grossly intact.. Skin: Warm and dry, no rash - Labs CBC & Chem 7: 12/31/19 07:23 01/01/20 07:50 Labs: Abnormal Lab Results - Last 24 Hours (Table) 01/01/20 Range/Units 07:50 Sodium 136 L (137-145) mmol/L Potassium 3.4 L (3.5-5.1) mmol/L Chloride 97 L (98-107) mmol/L Carbon Dioxide 37 H (22-30) mmol/L Glucose 69 L (74-99) mg/dL Calcium 8.3 L (8.4-10.2) mg/dL Assessment and Plan Assessment: Acute on chronic hypercapnic respiratory failure secondary to COPD exacerbation, acute asthma exacerbation. Wears 4 L nasal cannula at home Ongoing nicotine dependence Gastroesophageal reflux disease Lactic acidosis, resolved Hyponatremia improved with IV fluid hydration Hypothyroidism Hypokalemia Hypomagnesemia Plan: Continue on current medication regime ,monitoring and symptomatic treatment. Nebulized bronchodilators scheduled and prn. Pulmonary consult in place with recommendations pending. Potassium replacement ordered. Magnesium level ordered/pending. Discharge planning in progress for tomorrow. The impression and plan of care has been dictated as directed. : I performed a history and examination of this patient, discussed the same with the dictator. I agree with the dictator's note ,documented as a scribe. Any additional findings or plans will be noted.
[2020-01-01] MEDS: IPRATROPIUM-ALBUTEROL 3 ML NEB INHALATION SCH ×2 (16:43→20:24)
[2020-01-01] MEDS: POTASSIUM CHLORIDE ER 20 MEQ TAB.ER PO SCH ×2 (17:16→18:17)
--- NOTE | 2020-01-01 17:28 | P.CNPUL ---
History of Present Illness Reason for consult: dyspnea, cough, COPD, hypoxemia Chief complaint: Shortness of breath History of present illness: This is a 49-year-old female with extensive history of smoking and nicotine use she started smoking when she was 9-10 years old she hasn't smoked almost 40 years 2 packs per day lately have cut down to half to few cigarettes a day patient has been having increasing shortness of breath with cough and sputum production for many days which was not responding to outpatient treatment, patient presented at bed for hospital with acute COPD exacerbation she was found to have hypoxia and hypercapnia CO2 was in mid 40s with compensated pH patient was eventually transferred over here chest x-ray was unremarkable, patient is still producing purulent secretions cough associated with thick sputum production, currently she is being treated with inhaled bronchodilators oral prednisone continuation of her home medicines sputum is being sent for Gram stain and culture Review of Systems All systems: negative Past Medical History Past Medical History: COPD, Eye Disorder, Fibromyalgia, GERD/Reflux, Osteoarthritis (OA), Thyroid Disorder Additional Past Medical History / Comment(s): Hx blood in stool, Endometriosis. pt states that eyes get gritty feeling like sand is in them. History of Any Multi-Drug Resistant Organisms: None Reported Past Surgical History: Section, Cholecystectomy, Hernia Repair, Hysterectomy Additional Past Surgical History / Comment(s): Partial Hysterectomy, several EGD's and Colonoscopies, biopsy/[employer] surgery due to Endometriosis. Hernia x2 Past Anesthesia/Blood Transfusion Reactions: Postoperative Nausea & Vomiting (PONV) Additional Past Anesthesia/Blood Transfusion Reaction / Comment(s): States herself and some family members wake from anesthesia angry. Past Psychological History: Anxiety, Bipolar, Depression Smoking Status: Current every day smoker Past Alcohol Use History: Rare Additional Past Alcohol Use History / Comment(s): Has been smoking for 30 yrs, currently smoking 3 cigarettes PPD. States only drinks once a yr. Past Drug Use History: Marijuana Additional Drug Use History / Comment(s): States daily marajuana use for nausea control. - Past Family History Mother Family Medical History: No Reported History Medications and Allergies Home Medications Medication Instructions Recorded Confirmed Type Meclizine [Antivert] 25 mg PO TID PRN 11/25/16 12/30/19 History Montelukast [Singulair] 10 mg PO HS 11/25/16 12/30/19 History Venlafaxine HCl [Effexor XR] 150 mg PO BID 11/25/16 12/30/19 History QUEtiapine FUMARATE [Seroquel Xr] 600 mg PO HS 12/28/16 12/30/19 History Ipratropium-Albuterol Nebulize 3 ml INHALATION RT-QID 30 Days 03/24/19 12/30/19 Rx [Duoneb 0.5 mg-3 mg/3 ml Soln] #120 ampul.neb ALPRAZolam [Xanax] 2 mg PO TID 12/30/19 12/30/19 History Albuterol Inhaler [Ventolin Hfa 2 puff INHALATION RT-QID PRN 12/30/19 12/30/19 History Inhaler] Hyoscyamine Sulfate [Levsin] 0.125 mg PO DAILY 12/30/19 12/30/19 History Levothyroxine Sodium [Synthroid] 88 mcg PO DAILY 12/30/19 12/30/19 History Loratadine [Claritin] 10 mg PO DAILY 12/30/19 12/30/19 History Omeprazole 40 mg PO DAILY 12/30/19 12/30/19 History SUMAtriptan SUCCINATE [Imitrex] 100 mg PO BID PRN 12/30/19 12/30/19 History Allergies Allergy/AdvReac Type Severity Reaction Status Date / Time dicyclomine [From Bentyl] Allergy Rash/Hives Verified 12/30/19 16:40 Penicillins Allergy Unknown Verified 12/30/19 16:40 Childhood sulfamethoxazole Allergy Rash/Hives Verified 12/30/19 16:40 [From Bactrim] trimethoprim [From Bactrim] Allergy Rash/Hives Verified 12/30/19 16:40 paper tape Allergy Rash/Hives Uncoded 12/30/19 16:40 Physical Exam Vitals: Vital Signs Temp Pulse Pulse Resp BP Pulse Ox 01/01/20 17:03 114 H 01/01/20 16:43 107 H 01/01/20 15:57 102 H 17 01/01/20 14:31 98.4 F 102 H 17 94/57 98 01/01/20 11:23 90 01/01/20 11:11 88 01/01/20 08:00 100 16 01/01/20 07:37 92 01/01/20 07:24 90 01/01/20 07:00 98.0 F 100 16 112/76 98 01/01/20 00:00 18 12/31/19 23:00 98.4 F 96 18 102/63 95 12/31/19 20:13 104 H 12/31/19 20:03 102 H 12/31/19 19:23 98.6 F 101 H 18 112/73 98 Intake and Output 01/01/20 01/01/20 01/01/20 06:59 14:59 22:59 Other: # Voids 2 2 - Constitutional General appearance: average body habitus, disheveled, mild distress - EENT Eyes: EOMI, PERRLA, poor dentition Ears: bilateral: normal - Neck Carotids: bilateral: upstroke normal Thyroid: bilateral: normal size - Respiratory Respiratory: bilateral: diminished - Cardiovascular Rhythm: regular Heart sounds: normal: S1, S2 - Gastrointestinal General gastrointestinal: normal bowel sounds - Integumentary Integumentary: normal turgor - Neurologic Neurologic: CNII-XII intact - Musculoskeletal Musculoskeletal: gait normal, generalized weakness, strength equal bilaterally - Psychiatric Psychiatric: A&O x's 3, appropriate affect, intact judgment & insight Results - Laboratory Findings CBC and BMP: 12/31/19 07:23 01/01/20 07:50 Abnormal lab findings: Abnormal Labs 12/31/19 12/31/19 01/01/20 07:23 07:23 07:50 WBC 10.7 H Sodium 133 L 136 L Potassium 3.4 L Chloride 93 L 97 L Carbon Dioxide 36 H 37 H Glucose 69 L Calcium 8.3 L - Diagnostic Findings Chest x-ray: report reviewed, image reviewed Assessment and Plan Assessment: Acute hypercapnic and hypoxic respiratory failure Acute COPD exacerbation Purulent tracheobronchitis Extensive history of smoking and nicotine use History of chronic severe asthma has been on biologics Mood disorder depression Plan: Continue bronchodilators Supplemental oxygen Deep breathing exercise incentive spirometry Follow-up on sputum culture in the meantime would recommend to start antibiotics We'll repeat chest x-ray along with alpha 1 antitrypsin level Time with Patient: Greater than 30
[2020-01-01] MEDS ORDERED: KETOTIFEN 0.025% OPHTH DROPS 5 ML BTL BOTH EYES PRN (17:43)
[2020-01-01] MEDS: MONTELUKAST 10 MG TAB PO SCH (20:46)
[2020-01-02] MEDS: LEVOTHYROXINE 88 MCG TAB PO SCH (05:26)
--- NOTE | 2020-01-02 07:47 | XR ---
EXAMINATION TYPE: XR chest 2V DATE OF EXAM: 01/02/2020 COMPARISON: 03/17/2019 and 12/30/2019 HISTORY: 49-year-old female pneumonia TECHNIQUE: PA and lateral views FINDINGS: Heart normal size. Aorta and pulmonary vasculature within normal limits. Advanced bullous emphysema i s demonstrated. Some increased focal density at the right lower lung. No other consolidation or pleu ral effusion. Blunted posterior costophrenic angles likely pleural parenchymal scarring, unchanged fr om prior. IMPRESSION: Advanced bullous emphysema. Some increased focal left lower lung density could represent early develo ping pneumonia. Attention on follow-up.
[2020-01-02] MEDS: IPRATROPIUM-ALBUTEROL 3 ML NEB INHALATION SCH ×4 (07:54→21:08)
[2020-01-02] MEDS: PANTOPRAZOLE 40 MG TABLET PO SCH (07:59)
[2020-01-02] MEDS: QUEtiapine 100 MG TAB PO SCH ×2 (09:06→20:14)
[2020-01-02] MEDS: predniSONE 20 MG TAB PO SCH (09:07)
[2020-01-02] MEDS: LORATADINE 10 MG TAB PO SCH (09:07)
[2020-01-02] MEDS: VENLAFAXINE HCL ER 150 MG CAP PO SCH ×2 (09:08→20:14)
[2020-01-02 09:14] LABS: Basophils % (A) 1 %; Eosinophils # (A) 0.1 k/uL (0-0.7); Eosinophils % (A) 1 %; HCT 34.7 % (34.0-46.0); HGB 10.3 gm/dL (11.4-16.0); Hypochromasia Moderate; Lymphocytes # (A) 2.6 k/uL (1.0-4.8); Lymphocytes % (A) 36 %; MCH 28.2 pg (25.0-35.0); MCHC 29.8 g/dL (31.0-37.0); MCV 94.7 fL (80.0-100.0); Mean Platelet Volume 10.1; Monocytes # (A) 0.4 k/uL (0-1.0); Monocytes % (A) 6 %; Neutrophils # (A) 3.8 k/uL (1.3-7.7); Neutrophils % (A) 54 %; Platelet Count 164 k/uL (150-450); RBC 3.66 m/uL (3.80-5.40); RDW 13.9 % (11.5-15.5); WBC 7.1 k/uL (3.8-10.6)
[2020-01-02] MEDS: ALPRAZolam 1 MG TAB PO PRN ×2 (09:28→18:27)
[2020-01-02] MEDS ORDERED: VANCOMYCIN IV PER PHARMACY 1 EACH MISC MISCELLANE PRN (09:36)
--- NOTE | 2020-01-02 10:07 | P.PN ---
Subjective Progress Note Date: 01/02/20 Principal diagnosis: Acute hypercapnic and hypoxic respiratory failure Acute COPD exacerbation Purulent tracheobronchitis Extensive history of smoking and nicotine use History of chronic severe asthma has been on biologics Mood disorder depression 01/02/2020, patient seen eval examined during the rounds have been ambulating in the room, cough congestion shortness of breath still there, chest x-ray performed this morning reviewed there are developing infiltrates on the left lower lobe has been noted, sputum studies reviewed as well patient is a showing on Gram stain cholesterol was off gram-positive cocci I suspect patient may have MRSA we'll start patient on vancomycin and continue Rocephin for now This is a 49-year-old female with extensive history of smoking and nicotine use she started smoking when she was 9-10 years old she hasn't smoked almost 40 years 2 packs per day lately have cut down to half to few cigarettes a day patient has been having increasing shortness of breath with cough and sputum production for many days which was not responding to outpatient treatment, patient presented at bed for hospital with acute COPD exacerbation she was found to have hypoxia and hypercapnia CO2 was in mid 40s with compensated pH patient was eventually transferred over here chest x-ray was unremarkable, patient is still producing purulent secretions cough associated with thick sputum production, currently she is being treated with inhaled bronchodilators oral prednisone continuation of her home medicines sputum is being sent for Gram stain and culture Objective - Vital Signs Vital signs: Vital Signs Temp 98.1 F 01/02/20 07:03 Pulse 112 H 01/02/20 08:08 Resp 14 01/02/20 07:03 BP 112/73 01/02/20 07:03 Pulse Ox 98 01/02/20 07:03 Intake & Output 01/01/20 01/02/20 01/02/20 18:59 06:59 18:59 Intake Total 600 Balance 600 Intake: Intake, IV Titration 400 Amount Sodium Chloride 0.9% 1, 400 000 ml @ 100 mls/hr IV . Q10H MEÑO Rx#:[id number] Oral 200 Other: # Voids 2 1 - Exam - Constitutional General appearance: average body habitus, disheveled, mild distress - EENT Eyes: EOMI, PERRLA, poor dentition Ears: bilateral: normal - Neck Carotids: bilateral: upstroke normal Thyroid: bilateral: normal size - Respiratory Respiratory: bilateral: diminished - Cardiovascular Rhythm: regular Heart sounds: normal: S1, S2 - Gastrointestinal General gastrointestinal: normal bowel sounds - Integumentary Integumentary: normal turgor - Neurologic Neurologic: CNII-XII intact - Musculoskeletal Musculoskeletal: gait normal, generalized weakness, strength equal bilaterally - Psychiatric Psychiatric: A&O x's 3, appropriate affect, intact judgment & insight - Labs CBC & Chem 7: 01/02/20 04:30 01/01/20 07:50 Labs: Abnormal Lab Results - Last 24 Hours (Table) 12/31/19 01/02/20 Range/Units 07:23 04:30 RBC 3.66 L (3.80-5.40) m/uL Hgb 10.3 L (11.4-16.0) gm/dL MCHC 29.8 L (31.0-37.0) g/dL IgE 1435.00 H (0.00-114.00) IU/mL Microbiology - Last 24 Hours (Table) 01/01/20 20:30 Gram Stain - Preliminary Sputum Sputum Culture - Preliminary Assessment and Plan Assessment: Left lower lobe pneumonia Acute hypercapnic and hypoxic respiratory failure due to end-stage COPD Acute COPD exacerbation Purulent tracheobronchitis Extensive history of smoking and nicotine use History of chronic severe asthma has been on biologics Mood disorder depression Plan: Sputum studies and chest x-ray reviewed IV vancomycin Continue Rocephin Follow-up on culture results and reports Continue bronchodilators Supplemental oxygen Deep breathing exercise incentive spirometry Time with Patient: Greater than 30
[2020-01-02] MEDS ORDERED: VANCOMYCIN 750 MG in SODIUM CHLORIDE 0.9% 250 ML IVPB ONE (11:00)
[2020-01-02] MEDS: HYDROcodone/APAP 5-325MG 1 EACH TAB PO PRN ×2 (11:07→19:10)
[2020-01-02 11:44] LABS: African American GFR (CKD) 133.6 (60.0-200.0); Anion Gap 2.8 mmol/L (4.00-12.00); Calcium 8.8 mg/dL (8.7-10.3); Carbon Dioxide 35.2 mmol/L (21.6-31.8); Non-African American GFR(CKD) 115.3 (60.0-200.0); Potassium 3.7 mmol/L (3.5-5.5)
--- NOTE | 2020-01-02 11:58 | P.PN ---
Subjective Progress Note Date: 01/02/20 This is a 49-year-old female admitted with acute on chronic respiratory failure, acute COPD exacerbation and multiple other medical issues. Maintained on nebulized bronchodilators, maintaining O2 sats in the 90s on 4 L nasal cannula, which patient wears at home. Afebrile. Sodium trending up, 136. Potassium 3.4. 01/02/2020 maintained on Rocephin, vancomycin, nebulized bronchodilators with breathing improving. Reports productive cough, thick clear sputum, exertional shortness of breath. Chest x-ray reporting developing left lower lobe infiltrates, advanced bullous emphysema. Sputum culture reporting many gram- positive cocci in clusters, moderate gram-positive cocci in pairs. Declined low-dose nicotine patch, states causes palpitations. Objective - Vital Signs Vital signs: Vital Signs Temp 98.1 F 01/02/20 07:03 Pulse 112 H 01/02/20 08:08 Resp 14 01/02/20 07:03 BP 112/73 01/02/20 07:03 Pulse Ox 98 01/02/20 07:03 Intake & Output 01/01/20 01/02/20 01/02/20 18:59 06:59 18:59 Intake Total 600 Balance 600 Intake: Intake, IV Titration 400 Amount Sodium Chloride 0.9% 1, 400 000 ml @ 100 mls/hr IV . Q10H MEÑO Rx#:[id number] Oral 200 Other: # Voids 2 1 - Exam PHYSICAL EXAM: VITAL SIGNS: [As above] GENERAL: Alert and oriented 3, Sitting up in bed, no acute distress HEENT: Conjunctivae normal. eyes normal. Oral mucosa moist NECK: No JVD. No thyroid enlargement. No LNs CARDIOVASCULAR: S1, S2 regular. No murmur RESPIRATION: Better air entry ,Breath sounds diminished in the bases. No rhonchi or crackles. No wheezing. ABDOMEN: Soft, nontender . No guarding. no masses palpable. Positive Bowel sounds heard. LEGS: No edema. no swelling NERVOUS SYSTEM: Cranial N 2-12 grossly normal. Moves all 4 limbs. No focal deficits. Strength and sensation grossly intact.. Skin: Warm and dry, no rash - Labs CBC & Chem 7: 01/02/20 04:30 01/01/20 07:50 Labs: Abnormal Lab Results - Last 24 Hours (Table) 12/31/19 01/02/2001/01/20 Range/Units 07:23 04:30 05:45 RBC 3.66 L (3.80-5.40) m/uL Hgb 10.3 L (11.4-16.0) gm/dL MCHC 29.8 L (31.0-37.0) g/dL Magnesium 1.4 L (1.5-2.4) mg/dL IgE 1435.00 H (0.00-114.00) IU/mL Microbiology - Last 24 Hours (Table) 01/01/20 20:30 Gram Stain - Preliminary Sputum Sputum Culture - Preliminary Assessment and Plan Assessment: Acute on chronic hypoxic, hypercapnic respiratory failure secondary to COPD exacerbation with purulent tracheobronchitis . Wears 4 L nasal cannula at home Possible early lower left lung pneumonia, community-acquired, possible MRSA, cultures pending Advanced bullous emphysema as per chest x-ray History of chronic severe asthma. Ongoing nicotine dependence Gastroesophageal reflux disease Lactic acidosis, resolved Hyponatremia improved with IV fluid hydration Hypothyroidism Hypokalemia Hypomagnesemia Plan: Continue on current medication regime ,monitoring and symptomatic treatment. maintain antibiotics, Nebulized bronchodilators. Symbicort added to med regimen. Follow cultures closely. Discharge planning in progress for tomorrow. The impression and plan of care has been dictated as directed. : I performed a history and examination of this patient, discussed the same with the dictator. I agree with the dictator's note ,documented as a scribe. Any additional findings or plans will be noted.
[2020-01-02] MEDS: SYMBICORT 160-4.5 MCG INHALER INHALATION SCH ×2 (12:32→21:08)
[2020-01-02] MEDS: SODIUM CHLORIDE 0.9% 1,000 ML IV SCH ×2 (15:11→19:10)
[2020-01-02] MEDS: VANCOMYCIN 750 MG in SODIUM CHLORIDE 0.9% 250 ML IVPB SCH (19:10)
[2020-01-02] MEDS ORDERED: ALPRAZolam 1 MG TAB PO STA ×2 (20:06→20:08)
[2020-01-02] MEDS: MONTELUKAST 10 MG TAB PO SCH (20:14)
[2020-01-02 21:11] LABS: Glucose,Whole Blood 100 mg/dL (75-99)
[2020-01-03] MEDS: SODIUM CHLORIDE 0.9% 1,000 ML IV SCH (02:59)
[2020-01-03] MEDS: VANCOMYCIN 750 MG in SODIUM CHLORIDE 0.9% 250 ML IVPB SCH (03:00)
[2020-01-03] MEDS: LEVOTHYROXINE 88 MCG TAB PO SCH (05:46)
[2020-01-03 05:51] LABS: Basophils # (A) 0.1 k/uL (0-0.2); Basophils % (A) 1 %; Eosinophils # (A) 0.1 k/uL (0-0.7); Eosinophils % (A) 1 %; HCT 36.7 % (34.0-46.0); HGB 11.2 gm/dL (11.4-16.0); Hypochromasia Slight; Lymphocytes % (A) 32 %; MCH 28.3 pg (25.0-35.0); MCHC 30.4 g/dL (31.0-37.0); MCV 92.9 fL (80.0-100.0); Mean Platelet Volume 8.8; Monocytes # (A) 0.6 k/uL (0-1.0); Monocytes % (A) 6 %; Neutrophils # (A) 5.5 k/uL (1.3-7.7); Neutrophils % (A) 58 %; Platelet Count 198 k/uL (150-450); RBC 3.95 m/uL (3.80-5.40); RDW 13.9 % (11.5-15.5); WBC 9.5 k/uL (3.8-10.6)
[2020-01-03] MEDS: ALPRAZolam 1 MG TAB PO PRN (05:52)
[2020-01-03] MEDS: HYDROcodone/APAP 5-325MG 1 EACH TAB PO PRN (05:52)
[2020-01-03] MEDS: IPRATROPIUM-ALBUTEROL 3 ML NEB INHALATION SCH ×2 (06:49→11:18)
[2020-01-03] MEDS: SYMBICORT 160-4.5 MCG INHALER INHALATION SCH (06:50)
[2020-01-03 07:23] VITALS: BP 118/76; PULSE 88; RESP 16; TEMP 97.7
[2020-01-03] MEDS: PANTOPRAZOLE 40 MG TABLET PO SCH (07:30)
[2020-01-03] MEDS: predniSONE 20 MG TAB PO SCH (07:42)
[2020-01-03] MEDS: LORATADINE 10 MG TAB PO SCH (07:42)
[2020-01-03] MEDS: QUEtiapine 100 MG TAB PO SCH (07:43)
[2020-01-03] MEDS: VENLAFAXINE HCL ER 150 MG CAP PO SCH (07:43)
--- NOTE | 2020-01-03 09:51 | P.DS ---
Providers Date of admission: 12/30/19 16:58 Expected date of discharge: 01/04/20 Attending physician: Omid Moreno MD Consults: 12/30/19 15:45 Consult Physician Routine Consulting Provider: Pablo Smith Consult Reason/Comments: hypoxic hypercarbic respiratory failure Do you want consulting provider notified?: Yes Primary care physician: Omid Moreno MD Hospital Course: Final diagnoses Acute on chronic hypoxic, hypercapnic respiratory failure secondary to COPD exacerbation with purulent tracheobronchitis . Wears 4 L nasal cannula at home Possible early lower left lung pneumonia, community-acquired, possible MRSA, cultures pending Advanced bullous emphysema as per chest x-ray History of chronic severe asthma. Ongoing nicotine dependence Gastroesophageal reflux disease Lactic acidosis, resolved Hyponatremia improved with IV fluid hydration Hypothyroidism Hypokalemia Hypomagnesemia Hospital course:This is a 49-year-old female admitted with acute on chronic respiratory failure, acute COPD exacerbation and multiple other medical issues. Maintained on nebulized bronchodilators, maintaining O2 sats in the 90s on 4 L nasal cannula, which patient wears at home. Afebrile. Sodium trending up, 136. Potassium 3.4. 01/02/2020 maintained on Rocephin, vancomycin, nebulized bronchodilators with breathing improving. Reports productive cough, thick clear sputum, exertional shortness of breath. Chest x-ray reporting developing left lower lobe infiltrates, advanced bullous emphysema. Sputum culture reporting many gram- positive cocci in clusters, moderate gram-positive cocci in pairs. Declined low-dose nicotine patch, states causes palpitations. Significant clinical improvement. Final culture results to be faxed to both Dr. Smith and Dr. Omid Moreno. Patient will be discharged home today in stable condition with guarded prognosis. Microbiology 01/01/20 20:30 Sputum Gram Stain - Preliminary 01/01/20 20:30 Sputum Sputum Culture - Preliminary The impression and plan of care has been dictated as directed. : I performed a history and examination of this patient, discussed the same with the dictator. I agree with the dictator's note ,documented as a scribe. Any additional findings or plans will be noted. Patient Condition at Discharge: Stable Plan - Discharge Summary Discharge Rx Participant: Yes New Discharge Prescriptions: New predniSONE 10 mg PO DIRECTED #30 tab Doxycycline [Vibramycin] 100 mg PO BID 3 Days #6 capsule Budesonide-Formot 160-4.5 Mcg [Symbicort 160-4.5 Mcg Inhaler] 2 puff INHALATION RT-BID #1 inh Continue Montelukast [Singulair] 10 mg PO HS Meclizine [Antivert] 25 mg PO TID PRN PRN Reason: Vertigo Venlafaxine HCl [Effexor XR] 150 mg PO BID QUEtiapine FUMARATE [Seroquel Xr] 600 mg PO HS SUMAtriptan SUCCINATE [Imitrex] 100 mg PO BID PRN PRN Reason: Migraine Headache Omeprazole 40 mg PO DAILY Loratadine [Claritin] 10 mg PO DAILY Levothyroxine Sodium [Synthroid] 88 mcg PO DAILY Hyoscyamine Sulfate [Levsin] 0.125 mg PO DAILY ALPRAZolam [Xanax] 2 mg PO TID Albuterol Inhaler [Ventolin Hfa Inhaler] 2 puff INHALATION RT-QID PRN PRN Reason: Shortness Of Breath Ipratropium-Albuterol Nebulize [Duoneb 0.5 mg-3 mg/3 ml Soln] 3 ml INHALATION RT-QID 30 Days #120 ampul.neb Discharge Medication List Meclizine [Antivert] 25 mg PO TID PRN 11/25/16 [History] Montelukast [Singulair] 10 mg PO HS 11/25/16 [History] Venlafaxine HCl [Effexor XR] 150 mg PO BID 11/25/16 [History] QUEtiapine FUMARATE [Seroquel Xr] 600 mg PO HS 12/28/16 [History] ALPRAZolam [Xanax] 2 mg PO TID 12/30/19 [History] Albuterol Inhaler [Ventolin Hfa Inhaler] 2 puff INHALATION RT-QID PRN 12/30/19 [History] Hyoscyamine Sulfate [Levsin] 0.125 mg PO DAILY 12/30/19 [History] Levothyroxine Sodium [Synthroid] 88 mcg PO DAILY 12/30/19 [History] Loratadine [Claritin] 10 mg PO DAILY 12/30/19 [History] Omeprazole 40 mg PO DAILY 12/30/19 [History] SUMAtriptan SUCCINATE [Imitrex] 100 mg PO BID PRN 12/30/19 [History] Budesonide-Formot 160-4.5 Mcg [Symbicort 160-4.5 Mcg Inhaler] 2 puff INHALATION RT-BID #1 inh 01/03/20 [Rx] Doxycycline [Vibramycin] 100 mg PO BID 3 Days #6 capsule 01/03/20 [Rx] Ipratropium-Albuterol Nebulize [Duoneb 0.5 mg-3 mg/3 ml Soln] 3 ml INHALATION RT-QID 30 Days #120 ampul.neb 01/03/20 [Rx] predniSONE 10 mg PO DIRECTED #30 tab 01/03/20 [Rx] Follow up Appointment(s)/Referral(s): Omid Moreno MD [Primary Care Provider] - 3 Days [facility] [NON-STAFF] - As Needed (hospital bed) Pablo Smith MD [STAFF PHYSICIAN] - 1 Week Ambulatory/Diagnostic Orders: Complete Blood Count w/diff [LAB.AMB] Time Frame: 3 Days, Location: None Selected Patient Instructions/Handouts: COPD (Chronic Obstructive Pulmonary Disease) (DC) Activity/Diet/Wound Care/Special Instructions: Patient has nebulizer and nebs as home meds . No smoking
[2020-01-03 10:13] LABS: African American GFR (CKD) 125.8 (60.0-200.0); Anion Gap 3.1 mmol/L (4.00-12.00); Calcium 8.8 mg/dL (8.7-10.3); Carbon Dioxide 36.9 mmol/L (21.6-31.8); Non-African American GFR(CKD) 108.5 (60.0-200.0); Potassium 4.3 mmol/L (3.5-5.5)
--- NOTE | 2020-01-03 10:37 | P.PN ---
Subjective Progress Note Date: 01/03/20 Principal diagnosis: Acute hypercapnic and hypoxic respiratory failure Acute COPD exacerbation Purulent tracheobronchitis Extensive history of smoking and nicotine use History of chronic severe asthma has been on biologics Mood disorder depression 01/03/2020, patient seen eval examined during the rounds labs reviewed medications that cough congestion is improved now denies any chest pain patient remains on IV Rocephin and vancomycin, primary services and discharging the patient on oral doxycycline, will recommend follow-up to determine final ID of gram-positive cocci in clusters, patient is on baseline 4 L nasal cannula 01/02/2020, patient seen eval examined during the rounds have been ambulating in the room, cough congestion shortness of breath still there, chest x-ray performed this morning reviewed there are developing infiltrates on the left lower lobe has been noted, sputum studies reviewed as well patient is a showing on Gram stain cholesterol was off gram-positive cocci I suspect patient may have MRSA we'll start patient on vancomycin and continue Rocephin for now This is a 49-year-old female with extensive history of smoking and nicotine use she started smoking when she was 9-10 years old she hasn't smoked almost 40 years 2 packs per day lately have cut down to half to few cigarettes a day patient has been having increasing shortness of breath with cough and sputum production for many days which was not responding to outpatient treatment, marie dumont presented [facility] with acute COPD exacerbation she was found to have hypoxia and hypercapnia CO2 was in mid 40s with compensated pH patient was eventually transferred over here chest x-ray was unremarkable, patient is still producing purulent secretions cough associated with thick sputum production, currently she is being treated with inhaled bronchodilators oral prednisone continuation of her home medicines sputum is being sent for Gram stain and culture Objective - Vital Signs Vital signs: Vital Signs Temp 97.7 F 01/03/20 07:21 Pulse 88 01/03/20 07:21 Resp 16 01/03/20 07:35 BP 118/76 01/03/20 07:21 Pulse Ox 95 01/03/20 07:21 Intake & Output 01/02/20 01/03/20 01/03/20 18:59 06:59 18:59 Intake Total 1100 Balance 1100 Intake: Intake, IV Titration 1100 Amount Sodium Chloride 0.9% 1, 1100 000 ml @ 100 mls/hr IV . Q10H MEÑO Rx#:[id number] Other: # Voids 3 - Exam - Constitutional General appearance: average body habitus, disheveled, mild distress - EENT Eyes: EOMI, PERRLA, poor dentition Ears: bilateral: normal - Neck Carotids: bilateral: upstroke normal Thyroid: bilateral: normal size - Respiratory Respiratory: bilateral: diminished - Cardiovascular Rhythm: regular Heart sounds: normal: S1, S2 - Gastrointestinal General gastrointestinal: normal bowel sounds - Integumentary Integumentary: normal turgor - Neurologic Neurologic: CNII-XII intact - Musculoskeletal Musculoskeletal: gait normal, generalized weakness, strength equal bilaterally - Psychiatric Psychiatric: A&O x's 3, appropriate affect, intact judgment & insight - Labs CBC & Chem 7: 01/03/20 05:39 01/03/20 05:39 Labs: Abnormal Lab Results - Last 24 Hours (Table) 01/02/20 01/02/20 01/03/20 Range/Units 04:30 21:10 05:39 Hgb 11.2 L (11.4-16.0) gm/dL MCHC 30.4 L (31.0-37.0) g/dL Carbon Dioxide 35.2 H (21.6-31.8) mmol/L Anion Gap 2.80 L (4.00-12.00) mmol/L Creatinine 0.5 L (0.6-1.5) mg/dL Glucose 64 L (70-110) mg/dL POC Glucose (mg/dL) 100 H (75-99) mg/dL 01/03/20 Range/Units 05:39 Hgb (11.4-16.0) gm/dL MCHC (31.0-37.0) g/dL Carbon Dioxide 36.9 H (21.6-31.8) mmol/L Anion Gap 3.10 L (4.00-12.00) mmol/L Creatinine (0.6-1.5) mg/dL Glucose (70-110) mg/dL POC Glucose (mg/dL) (75-99) mg/dL Microbiology - Last 24 Hours (Table) 01/01/20 20:30 Gram Stain - Preliminary Sputum Sputum Culture - Preliminary Assessment and Plan Assessment: Left lower lobe pneumonia Acute hypercapnic and hypoxic respiratory failure due to end-stage COPD Acute COPD exacerbation Purulent tracheobronchitis Extensive history of smoking and nicotine use History of chronic severe asthma has been on biologics Mood disorder depression Plan: Sputum studies and chest x-ray reviewed By mouth doxycycline by primary service patient is being planned for discharge Follow-up on culture results and reports Continue bronchodilators Supplemental oxygen Deep breathing exercise incentive spirometry Follow-up with primary lion trainer in one week Time with Patient: Greater than 30
[2020-01-03] MEDS ORDERED: VANCOMYCIN TROUGH DUE 1 EACH MISC MISCELLANE ONE (11:00)
--- NOTE | 2020-01-05 08:30 | CDI ---
Documentation Clarification Form Date: 01/05/20 From: Marla Martínez Phone: If you have a question about this query, please contact Naomie Berman, Short Filler Bunch Machine Operator at [phone] between 8am and 5pm. Admit Date: 12/30/19 Discharge Date:01/03/12 Patient Name: Sommer Salazar Visit Number: [id number] ATTENTION: The Clinical Documentation Specialists (CDI) and [facility] Coding Staff appreciate your assistance in clarifying documentation. Please respond to the clarification below the line at the bottom and electronically sign. The CDI & [facility] Coding staff will review the response and follow-up if needed. Please note: Queries are made part of the Legal Health Record. If you have any questions, please contact the author of this message via ITS. Dear Dr. Moreno Chronic severe asthma is documented in the discharge summary, your progress notes and Dr. Smith's consult note. History/risk factors: Emphysema, chronic respiratory failure, pneumonia, oxygen dependent Clinical Indicators: Wheezing, shortness of breath Radiology: Advance bullous emphysema. Some increased focal left lower lung density could represent early developing pneumonia. Vital Signs: T. 98.2, P. 122, R. 23, BP 110/91, Pulse Ox 97% on oxygen per NC @ 4 L/min Treatment: Medication: Symbicort, Prednisone 20 mg PO daily, Duoneb inhalation O2: 4 L/min per NC Consults: Pulmonology documented chronic severe asthma In your professional opinion, can you please further specify the following, if known? Severity Mild intermittent Mild persistent Moderate persistent Severe persistent Other, please specify ____ Unable to determine Form or Type Cough variant Childhood Exercise induced bronchospasm Extrinsic allergic Idiosyncratic Intrinsic nonallergic Late-onset Mixed Other, please specify____ Unable to determine Please clarify if the asthma exacerbation was POA: ____Y = Yes, the condition was present at the time of the order for inpatient admission. ____N = No, the condition was not present at the time of the order for inpatient admission. ____W = Clinically undetermined if the condition was present at the time of the order for inpatient admission. Severe persistent asthma, present on admission MTDD
--- NOTE | 2020-01-05 08:40 | CDI ---
Documentation Clarification Form Date: 01/05/20 From: Marla Martínez Phone: If you have a question about this query, please contact Naomie Berman, Ring Packer at [phone] between 8am and 5pm. Admit Date: 12/30/19 Discharge Date:01/03/20 Patient Name: Sommer Salazar Visit Number: [id number] ATTENTION: The Clinical Documentation Specialists (CDI) and [facility] Coding Staff appreciate your assistance in clarifying documentation. Please respond to the clarification below the line at the bottom and electronically sign. The CDI & [facility] Coding staff will review the response and follow-up if needed. Please note: Queries are made part of the Legal Health Record. If you have any questions, please contact the author of this message via ITS. Dear Dr. Moreno The following has been documented in your 12/30 progress note and H&P: patient had extensive evaluation at the other facility including chest x-ray did not show any acute abnormality at the pneumonia. Possible early lower left lung pneumonia is documented in your 01/01 progress note and discharge summary. History/Risk Factors: COPD exacerbation, acute on chronic respiratory failure, asthma exacerbation Clinical Indicators: Cough, congestion, short of breath, abnormal chest x-ray Lab: WBC 10.7 X-ray: CXR on 01/01 - Advanced bullous emphysema. Some increased focal left lower lung density could represent early developing pneumonia. Vital signs: T. 98.2, P. 122, R. 23, BP 110/91 Treatment: IV Vancomycin, IV Rocephin Definition of Present on Admission (POA): A diagnosis present at the time the order for admission to inpatient status was written. For each diagnosis, documentation must be clear to determine if the condition was present at the time of the patients inpatient admission or developed during the hospital stay. Please clarify if pneumonia was POA: ____Y = Yes, the condition was present at the time of the order for inpatient admission. ____N = No, the condition was not present at the time of the order for inpatient admission. ____W = Clinically undetermined if the condition was present at the time of the order for inpatient admission. yes, present on admission MTDD
--- NOTE | 2020-01-05 08:49 | CDI ---
Documentation Clarification Form Date: 01/05/20 From: Marla Martínez Phone: If you have a question about this query, please contact Naomie Berman Civil Litigation Attorney at [phone] between 8am and 5pm. Admit Date: 12/30/19 Discharge Date:01/03/20 Patient Name: Sommer Salazar Visit Number: [id number] ATTENTION: The Clinical Documentation Specialists (CDI) and [facility] Coding Staff appreciate your assistance in clarifying documentation. Please respond to the clarification below the line at the bottom and electronically sign. The CDI & [facility] Coding staff will review the response and follow-up if needed. Please note: Queries are made part of the Legal Health Record. If you have any questions, please contact the author of this message via ITS. Dear Dr. Moreno The patient presented with the following: Documentation in the H&P and 12/30 progress note states, 49 year old female transferred sepsis and ischemic because of shortness of breath and hypoxemia and hypercapnic repsiratory failure History/Risk Factors: COPD exacerbation, pneumonia, acute on chronic respiratory failure, asthma exacerbation Clinical Indicators: Elevated WBC WBC: 10.7 Lactic acid: 1.1 Blood cultures: Not drawn Vitals signs on admission: T. 98.2, P. 122, R. 23, BP 110/91 Treatment: Antibiotics: IV Vancomycin starte on 01/01, IV Rocephin started on 12/31 IV Bolus: 100 mls/hr, no bolus In your professional opinion, please clarify if these findings signify one of the following conditions, whether the condition is POA, and cause, if known: Condition Sepsis ruled out SIRS, without underlying infectious process Sepsis Severe Sepsis Other, please specify Unable to determine Present on Admission Yes No Identify the (suspected) organism Link or clarify if there is associated (due to/with): Organ failure Shock SIRS Criteria (2 or more of the following may indicate SIRS): -Temperature < 96.8F (36C) or > 101.0F (38.3C) -Heart Rate > 90 bpm -Respiratory Rate > 20 breaths/min or PaCO2 < 32 mmHg -White Blood Cell Count > 12,000 or < 4,000 cells/mm3 or > 10% bands -Lactate >2.0 mmol/L (>4.0 is equivalent to septic shock) Severe Sepsis, present on admission MTDD
== END 2020-01-03 12:19 | disposition home or self-care (01) | DRG 871 ==
LOC: EC 15:30 → 4SSUR 16:35 → OBSVTOIN 16:58
PROVIDERS: ADMIT Family Medicine; ATTEND Family Medicine
DX: A41.9 Sepsis, unspecified organism (principal); J96.21 Acute and chronic respiratory failure with hypoxia; J15.212 Pneumonia due to Methicillin resistant Staphylococcus aureus; J96.22 Acute and chronic respiratory failure with hypercapnia; E87.1 Hypo-osmolality and hyponatremia; E87.2 Acidosis; J45.51 Severe persistent asthma with (acute) exacerbation; R65.20 Severe sepsis without septic shock; Z99.81 Dependence on supplemental oxygen; E86.1 Hypovolemia; F31.9 Bipolar disorder, unspecified; J43.9 Emphysema, unspecified; E03.9 Hypothyroidism, unspecified; E83.42 Hypomagnesemia; E87.6 Hypokalemia; F17.210 Nicotine dependence, cigarettes, uncomplicated; F41.9 Anxiety disorder, unspecified; K21.9 Gastro-esophageal reflux disease without esophagitis; M79.7 Fibromyalgia; M19.90 Unspecified osteoarthritis, unspecified site; Z79.51 Long term (current) use of inhaled steroids; Z79.890 Hormone replacement therapy; Z79.899 Other long term (current) drug therapy; Z79.52 Long term (current) use of systemic steroids; Z88.0 Allergy status to penicillin; Z88.8 Allergy status to other drugs, medicaments and biological substances; Z91.048 Other nonmedicinal substance allergy status; Z88.1 Allergy status to other antibiotic agents; Z90.711 Acquired absence of uterus with remaining cervical stump; Z90.49 Acquired absence of other specified parts of digestive tract; Z98.890 Other specified postprocedural states; Z87.19 Personal history of other diseases of the digestive system; Z87.42 Personal history of other diseases of the female genital tract; Z71.6 Tobacco abuse counseling
CPT/HCPCS: 71046; 80048; 82103; 82785; 83605; 83735; 85025; 87070; 87205; 94640; 94760; 96374; 99285

== ENCOUNTER 2020-01-14 18:19 | Inpatient (IN) | payer OTHER ==
--- NOTE | 2020-01-14 18:41 | ED ---
SOB HPI - General Chief Complaint: Shortness of Breath Stated Complaint: COPD exacerbation Time Seen by Provider: 01/14/20 18:20 Source: patient, RN/MD, EMS, RN notes reviewed Mode of arrival: EMS Limitations: no limitations - History of Present Illness Initial Comments: This is a 49-year-old female history of COPD who was transferred from [facility] after presenting there with complaints of shortness of breath and cough. She was found have an exacerbation of COPD who is very dyspneic with any type of exertion even in spite of therapy. She did have a CAT scan will other which showed no evidence of pulmonary embolism. Patient was transferred here for failed treatment and for further evaluation. She denies any overt chest pain this time she does get short of breath even with talking. No other complaints or modifying factors MD Complaint: shortness of breath - Related Data Home Medications Medication Instructions Recorded Confirmed Meclizine [Antivert] 25 mg PO TID PRN 11/25/16 12/30/19 Montelukast [Singulair] 10 mg PO HS 11/25/16 12/30/19 Venlafaxine HCl [Effexor XR] 150 mg PO BID 11/25/16 12/30/19 QUEtiapine FUMARATE [Seroquel Xr] 600 mg PO HS 12/28/16 12/30/19 ALPRAZolam [Xanax] 2 mg PO TID 12/30/19 12/30/19 Albuterol Inhaler [Ventolin Hfa 2 puff INHALATION RT-QID PRN 12/30/19 12/30/19 Inhaler] Hyoscyamine Sulfate [Levsin] 0.125 mg PO DAILY 12/30/19 12/30/19 Levothyroxine Sodium [Synthroid] 88 mcg PO DAILY 12/30/19 12/30/19 Loratadine [Claritin] 10 mg PO DAILY 12/30/19 12/30/19 Omeprazole 40 mg PO DAILY 12/30/19 12/30/19 SUMAtriptan SUCCINATE [Imitrex] 100 mg PO BID PRN 12/30/19 12/30/19 Previous Rx's Medication Instructions Recorded Budesonide-Formot 160-4.5 Mcg 2 puff INHALATION RT-BID #1 inh 01/03/20 [Symbicort 160-4.5 Mcg Inhaler] Doxycycline [Vibramycin] 100 mg PO BID 3 Days #6 capsule 01/03/20 Ipratropium-Albuterol Nebulize 3 ml INHALATION RT-QID 30 Days 01/03/20 [Duoneb 0.5 mg-3 mg/3 ml Soln] #120 ampul.neb predniSONE 10 mg PO DIRECTED #30 tab 01/03/20 Allergies Allergy/AdvReac Type Severity Reaction Status Date / Time dicyclomine [From Bentyl] Allergy Rash/Hives Verified 01/14/20 18:28 Penicillins Allergy Unknown Verified 01/14/20 18:28 Childhood sulfamethoxazole Allergy Rash/Hives Verified 01/14/20 18:28 [From Bactrim] trimethoprim [From Bactrim] Allergy Rash/Hives Verified 01/14/20 18:28 paper tape Allergy Rash/Hives Uncoded 01/14/20 18:28 Review of Systems ROS Statement: Those systems with pertinent positive or pertinent negative responses have been documented in the HPI. ROS Other: All systems not noted in ROS Statement are negative. Past Medical History Past Medical History: COPD, Eye Disorder, Fibromyalgia, GERD/Reflux, Osteoarthritis (OA), Thyroid Disorder Additional Past Medical History / Comment(s): Hx blood in stool, Endometriosis. pt states that eyes get gritty feeling like sand is in them. History of Any Multi-Drug Resistant Organisms: None Reported Past Surgical History: Section, Cholecystectomy, Hernia Repair, Hysterectomy Additional Past Surgical History / Comment(s): Partial Hysterectomy, several EGD's and Colonoscopies, biopsy/SHIRT TRIMMER surgery due to Endometriosis. Hernia x2 Past Anesthesia/Blood Transfusion Reactions: Postoperative Nausea & Vomiting (PONV) Additional Past Anesthesia/Blood Transfusion Reaction / Comment(s): States herself and some family members wake from anesthesia angry. Past Psychological History: Anxiety, Bipolar, Depression Smoking Status: Current every day smoker Past Alcohol Use History: Rare Past Drug Use History: Marijuana - Past Family History Mother Family Medical History: No Reported History General Exam - General Exam Comments Initial Comments: This is a well-developed asthenic female who is awake alert oriented 3 Limitations: no limitations General appearance: alert, anxious Head exam: Present: atraumatic, normocephalic, normal inspection Eye exam: Present: normal appearance, PERRL, EOMI. Absent: scleral icterus, conjunctival injection, periorbital swelling ENT exam: Present: normal exam, mucous membranes moist Neck exam: Present: normal inspection, full ROM, other (No stridor JVD or bruits). Absent: tenderness, meningismus, lymphadenopathy Respiratory exam: Present: accessory muscle use, decreased breath sounds. Absent: respiratory distress, wheezes, rales, rhonchi, stridor Cardiovascular Exam: Present: normal rhythm, tachycardia, normal heart sounds. Absent: systolic murmur, diastolic murmur, rubs, gallop, clicks GI/Abdominal exam: Present: soft, normal bowel sounds. Absent: distended, tenderness, guarding, rebound, rigid Extremities exam: Present: normal inspection, full ROM, normal capillary refill. Absent: tenderness, pedal edema, joint swelling, calf tenderness Back exam: Present: normal inspection Neurological exam: Present: alert, oriented X3, CN II-XII intact Psychiatric exam: Present: normal affect, normal mood Skin exam: Present: warm, dry, intact, normal color. Absent: rash Course Vital Signs 01/14/20 18:22 Temperature 98.1 F Pulse Rate 107 H Respiratory 24 Rate Blood Pressure 117/79 O2 Sat by Pulse 91 L Oximetry Medical Decision Making - Medical Decision Making I did review the materials presented from [facility] patient be admitted for inpatient treatment of COPD and bronchitis did have a wet cough noted on my examination. Case is discussed with Miguel Ángel Gallegos's PA Disposition Clinical Impression: COPD exacerbation, Bronchitis Disposition: ADMITTED IP TO THIS HOSP Condition: Fair Referrals: Omid Moreno MD [Primary Care Provider] - 1-2 days
[2020-01-14] MEDS ORDERED: SUMAtriptan succinate 50 MG TAB PO PRN (18:43)
--- NOTE | 2020-01-14 19:13 | XR ---
EXAMINATION TYPE: XR chest 2V DATE OF EXAM: 01/14/2020 COMPARISON: 01/02/2020 HISTORY: COPD. Short of breath. TECHNIQUE: FINDINGS: There is pulmonary hyperinflation and flattening of the diaphragm. There is pulmonary emphy sema. There is no evidence of a pulmonary mass. Heart size is normal. There are no hilar masses. IMPRESSION: Bullous emphysema. No active cardiopulmonary disease. No adverse change.
[2020-01-14] MEDS: IPRATROPIUM-ALBUTEROL 3 ML NEB INHALATION SCH ×2 (19:40→22:47)
[2020-01-14] MEDS ORDERED: IPRATROPIUM-ALBUTEROL 3 ML NEB INHALATION PRN (20:22)
[2020-01-14] MEDS ORDERED: HYDROcodone/APAP 5-325MG 1 EACH TAB PO PRN (20:22)
[2020-01-14] MEDS ORDERED: MECLIZINE 25 MG TAB PO PRN (20:23)
[2020-01-14] MEDS ORDERED: LEVOFLOXACIN 500 MG TAB PO SCH (21:00)
[2020-01-14 21:36] LABS: ALT 14 U/L (4-34); AST 20 U/L (14-36); African American GFR (CKD) >90 (>60 ml/min/1.73 sqM); Albumin 3.9 g/dL (3.5-5.0); Alkaline Phosphatase 76 U/L (38-126); Blood Urea Nitrogen 13 mg/dL (7-17); Calcium 9.3 mg/dL (8.4-10.2); Chloride 84 mmol/L (98-107); Glucose 126 mg/dL (74-99); Non-African American GFR(CKD) >90 (>60 ml/min/1.73 sqM); Potassium 4.6 mmol/L (3.5-5.1); Sodium 135 mmol/L (137-145); Total Bilirubin 0.5 mg/dL (0.2-1.3); Total Protein 6.7 g/dL (6.3-8.2)
[2020-01-14 21:43] LABS: Anion Gap 6 mmol/L
[2020-01-14 21:53] LABS: Carbon Dioxide 45 mmol/L (22-30)
[2020-01-14] MEDS: SODIUM CHLORIDE 0.9% 1,000 ML IV SCH (22:16)
[2020-01-14 22:52] LABS: ABG Base Excess 21.5 mmol/L; ABG Oxygen Saturation 97.6 % (94-97); ABG PCO2 59 mmHg (35-45); ABG PH 7.49 (7.35-7.45); ABG PO2 88 mmHg (83-108); ABG TCO2 47 mmol/L (19-24); Allen Test Performed? Yes
[2020-01-14 22:53] LABS: ABG HCO3 45 mmol/L (21-25)
[2020-01-14] MEDS: QUEtiapine 100 MG TAB PO SCH (22:54)
[2020-01-14] MEDS: HEPARIN SODIUM,PORCINE 5,000 UNIT/ML 1 ML VIAL SQ SCH (22:57)
[2020-01-14] MEDS: MONTELUKAST 10 MG TAB PO SCH (22:57)
[2020-01-14] MEDS: VENLAFAXINE HCL ER 150 MG CAP PO SCH (22:58)
[2020-01-14] MEDS: INSULIN ASPART (NovoLOG) 100 UNIT/ML VIAL SQ SCH (22:58)
[2020-01-14 23:03] LABS: Glucose,Whole Blood 122 mg/dL (75-99)
[2020-01-14] MEDS: ALPRAZolam 1 MG TAB PO SCH (23:25)
[2020-01-14] MEDS: AZITHROMYCIN 500 MG in SODIUM CHLORIDE 0.9% 250 ML IVPB SCH (23:35)
[2020-01-15] MEDS: methylPREDNISolone SOD SUCCI 125 MG/2 ML VIAL IV SCH ×4 (00:13→18:03)
--- NOTE | 2020-01-15 01:36 | HP ---
HISTORY AND PHYSICAL DATE OF SERVICE: 01/14/2020 CHIEF COMPLAINT: Shortness of breath. HISTORY OF PRESENT ILLNESS: This 49-year-old woman with a past medical history of COPD, history of fibromyalgia, GERD, DJD, history of section, cholecystectomy, anxiety, bipolar depression, being followed by Dr. Moreno and Dr. Smith in the outpatient setting was recently admitted with COPD acute exacerbation, right lower pneumonia suspected. Bullous emphysema was noted in the chest x-ray. The patient went home but has increasing shortness of breath and weakness and weight loss. The patient went to [facility] and subsequently transferred back to [facility] and admitted for further evaluation and treatment. The chest x-ray done today showed possible bilateral interstitial lesions also. COVID-19 was apparently tested today, which was negative. There is no history of fever or rigors. No history of headache, loss of consciousness, seizures. PAST MEDICAL HISTORY: COPD, fibromyalgia, GERD, DJD, history of hypothyroidism, cholecystectomy, anxiety, bipolar depression. MEDICATIONS: Medications prior to admission include home medications are: 1. Prednisone. 2. Effexor XR. 3. Imitrex. 4. Seroquel. 5. Omeprazole. 6. Singulair. 7. Antivert. 8. Claritin. 9. Synthroid. 10.DuoNeb. 11.Levsin. 12.Symbicort. 13.Albuterol. 14.Xanax. ALLERGIES: DICYCLOMINE, PENICILLIN, SULFAMETHOXAZOLE, TRIMETHOPRIM, PAPER TAPE. FAMILY HISTORY: No history of heart disease or strokes in the family. SOCIAL HISTORY: History of smoking. History of THC. REVIEW OF SYSTEMS: ENT: No diminished hearing or diminished vision. CARDIOVASCULAR SYSTEM: No angina or palpitations. RESPIRATORY SYSTEM: As mentioned earlier. GI: As mentioned earlier. : No dysuria. NERVOUS SYSTEM: No numbness. Generalized weakness. ALLERGY/IMMUNOLOGY: No asthma or hayfever. MUSCULOSKELETAL: As mentioned earlier. HEMATOLOGY: No history of anemia. ENDOCRINE: No history of diabetes or hypothyroidism. CONSTITUTIONAL: As mentioned earlier. DERMATOLOGY: Negative. RHEUMATOLOGY: Negative. PSYCHIATRY: As mentioned earlier. PHYSICAL EXAMINATION: Patient is alert and oriented x3. Pulse is 103, blood pressure 110/72, respiration 18, temperature 98.3, pulse ox 96% on 3 L. HEENT: Conjunctivae normal. Oral mucosa moist. NECK: No jugular venous distention. No carotid bruit. No lymph node enlargement. CARDIOVASCULAR: S1, S2 muffled. No S3, no S4. RESPIRATORY: Breath sounds diminished at the bases. Bilateral scattered rhonchi and crackles. Expiratory wheezing also present. ABDOMEN: Soft, nontender. No mass palpable. LEGS: No edema, no swelling. NERVOUS SYSTEM: Diffusely weak and emaciated, SKIN: No ulcer, rash or bleeding. JOINTS: No active deforming arthropathy. LABS: Labs not available at this time. ASSESSMENT: 1. Chronic obstructive pulmonary disease acute exacerbation with acute hypoxic respiratory failure with possible bilateral bronchopneumonia. 2. Rule out COVID-19. 3. Severely emaciation with severe protein calorie malnutrition, body mass index 18.3. 4. History of fibromyalgia. 5. History of gastroesophageal reflux disease. 6. History of degenerative joint disease. 7. History of endometriosis. 8. History of section. 9. History of cholecystectomy. 10.History of anxiety, bipolar depression. 11.History of nicotine dependence. 12.History of THC. 13.History of continued ongoing dependence. RECOMMENDATIONS AND DISCUSSION: This 49-year-old woman who presented with multiple complex medical issues, we will monitor the patient closely. We will admit the patient and initiate aggressive bronchodilator treatment, empiric antibiotic treatment. Obtain the cultures. I would also recommend pulmonary consultation Dr. Smith and as well as Infectious Disease consultation, Dr. Pena, to rule out any unusual infections. COVID-19 has been tested apparently. I would also recommend a CT scan of the chest. Otherwise, overall prognosis is extremely guarded. See orders for further details. Further recommendations to follow. A copy of dictation forwarded to Dr. Moreno who is the primary physician and Dr. Moreno will follow in the morning. MMODL / IJN: [id number] /
[2020-01-15] MEDS: IPRATROPIUM-ALBUTEROL 3 ML NEB INHALATION SCH ×5 (03:46→19:09)
[2020-01-15] MEDS: LEVOTHYROXINE 88 MCG TAB PO SCH (06:14)
[2020-01-15 06:33] LABS: Glucose,Whole Blood 99 mg/dL (75-99)
[2020-01-15] MEDS: PANTOPRAZOLE 40 MG TABLET PO SCH (07:52)
[2020-01-15] MEDS: INSULIN ASPART (NovoLOG) 100 UNIT/ML VIAL SQ SCH ×4 (07:53→21:53)
[2020-01-15] MEDS: SODIUM CHLORIDE 0.9% 1,000 ML IV SCH ×2 (07:56→20:05)
[2020-01-15 07:59] LABS: African American GFR (CKD) >90 (>60 ml/min/1.73 sqM); Anion Gap 5 mmol/L; Blood Urea Nitrogen 15 mg/dL (7-17); C Reactive Protein <5.0 mg/L (<10.0); Calcium 9.3 mg/dL (8.4-10.2); Chloride 89 mmol/L (98-107); Glucose 124 mg/dL (74-99); Non-African American GFR(CKD) >90 (>60 ml/min/1.73 sqM); Potassium 4.6 mmol/L (3.5-5.1); Sodium 134 mmol/L (137-145)
[2020-01-15 08:03] LABS: Carbon Dioxide 40 mmol/L (22-30)
[2020-01-15 08:16] LABS: Hypochromasia Slight; MCH 29.9 pg (25.0-35.0); MCHC 31.6 g/dL (31.0-37.0); MCV 94.5 fL (80.0-100.0); Platelet Count 182 k/uL (150-450); RBC 4.02 m/uL (3.80-5.40); RDW 14.3 % (11.5-15.5); WBC 8.2 k/uL (3.8-10.6)
[2020-01-15 08:44] LABS: Lymphocytes # (M) 0.74 k/uL (1.0-4.8); Monocytes # (M) 0.16 k/uL (0-1.0); Neutrophils % (M) 89 %; Nucleated Red Blood Cells 0 /100 WBC (0-0); Total Cells Counted 100
[2020-01-15] MEDS: BUDESONIDE 1 MG/2 ML NEBU INHALATION SCH ×2 (08:45→19:09)
[2020-01-15] MEDS: FORMOTEROL FUMARATE 20 MCG/2 ML NEBU INHALATION SCH ×2 (08:45→19:09)
[2020-01-15] MEDS: ALPRAZolam 1 MG TAB PO SCH ×3 (09:24→21:54)
[2020-01-15] MEDS: VENLAFAXINE HCL ER 150 MG CAP PO SCH ×2 (09:24→21:54)
[2020-01-15] MEDS: QUEtiapine 100 MG TAB PO SCH ×2 (09:25→21:54)
[2020-01-15] MEDS: HEPARIN SODIUM,PORCINE 5,000 UNIT/ML 1 ML VIAL SQ SCH ×2 (09:26→21:53)
[2020-01-15] MEDS: LORATADINE 10 MG TAB PO SCH (09:34)
[2020-01-15] MEDS: HYOSCYAMINE SULFATE 0.125 MG TAB PO SCH (09:34)
[2020-01-15 09:52] LABS: Erythrocyte Sedimentation Rate 8 mm/hr (0-20)
--- NOTE | 2020-01-15 10:53 | P.PN ---
Subjective Progress Note Date: 01/15/20 This is a 49-year-old female, with severe emaciation, recently admitted with acute COPD exacerbation, suspected pneumonia with advanced bullous emphysema noted on prior chest x-ray admitted with acute COPD exacerbation, acute tracheobronchitis, possible pneumonia. Patient presented to [facility] with worsening shortness of breath and multiple other medical issues, transferred to [facility]. ER documents CAT scan performed at [facility], reporting negative for PE. Infectious disease and pulmonary consulted. Continues on nebulized bronchodilators, IV steroids, Zithromax, Rocephin. Shanel ntaining O2 sats in the 90s on 3 L nasal cannula. Reports productive cough with thick green sputum. Yesterday's chest x-ray reported bullious emphysema, no acute cardiopulmonary disease, no adverse change. Denies chest pain, palpitations or shortness of breath. Objective - Vital Signs Vital signs: Vital Signs Temp 97.8 F 01/15/20 02:15 Pulse 92 01/15/20 09:09 Resp 16 01/15/20 02:15 BP 104/68 01/15/20 02:15 Pulse Ox 94 L 01/15/20 02:15 Intake & Output 01/14/20 01/15/20 01/15/20 18:59 06:59 18:59 Intake Total 300 Balance 300 Weight 45.359 kg 45.359 kg Intake: Oral 300 - Exam PHYSICAL EXAM: VITAL SIGNS: [As above] GENERAL: Severely emaciated,alert and oriented 3, Sitting up in bed, no acute distress, no shortness of breath with talking HEENT: Conjunctivae normal. eyes normal. Oral mucosa moist NECK: No JVD. No thyroid enlargement. No LNs CARDIOVASCULAR: S1, S2 regular. No murmur RESPIRATION: Breath sounds diminished in the bases. Occasional scattered rhonchi. ABDOMEN: Soft, nontender . No guarding. no masses palpable. Positive Bowel sounds heard. LEGS: No edema. no swelling NERVOUS SYSTEM: Cranial N 2-12 grossly normal. Moves all 4 limbs. No focal deficits. Strength and sensation grossly intact.. Skin: Warm and dry, no rash - Labs CBC & Chem 7: 01/15/20 07:11 01/15/20 07:11 Labs: Abnormal Lab Results - Last 24 Hours (Table) 01/14/20 01/14/20 01/14/20 Range/Units 21:08 22:45 22:52 Lymphocytes # (Manual) (1.0-4.8) k/uL ABG pH 7.49 H (7.35-7.45) ABG pCO2 59 H (35-45) mmHg ABG HCO3 45 H* (21-25) mmol/L ABG Total CO2 47 H (19-24) mmol/L ABG O2 Saturation 97.6 H (94-97) % Sodium 135 L (137-145) mmol/L Chloride 84 L (98-107) mmol/L Carbon Dioxide 45 H* (22-30) mmol/L Creatinine 0.42 L (0.52-1.04) mg/dL Glucose 126 H (74-99) mg/dL POC Glucose (mg/dL) 122 H (75-99) mg/dL 01/15/20 01/15/20 Range/Units 07:11 07:11 Lymphocytes # (Manual) 0.74 L (1.0-4.8) k/uL ABG pH (7.35-7.45) ABG pCO2 (35-45) mmHg ABG HCO3 (21-25) mmol/L ABG Total CO2 (19-24) mmol/L ABG O2 Saturation (94-97) % Sodium 134 L (137-145) mmol/L Chloride 89 L (98-107) mmol/L Carbon Dioxide 40 H (22-30) mmol/L Creatinine 0.49 L (0.52-1.04) mg/dL Glucose 124 H (74-99) mg/dL POC Glucose (mg/dL) (75-99) mg/dL Assessment and Plan Assessment: Acute COPD exacerbation with purulent tracheobronchitis, possible bronchopneumonia. Chronic hypoxic, hypercapnic respiratory failure. Wears 4 L nasal cannula at home Possible early pneumonia, community-acquired Advanced bullous emphysema as per chest x-ray History of chronic severe asthma. Ongoing nicotine dependence THC use Severe protein calorie malnutrition, BMI 18.3 Gastroesophageal reflux disease Hypothyroidism Plan: Continue on current medication regime ,monitoring and symptomatic treatment. Maintain nebulized medical dilators, IV steroids, antibiotics. Pulmonary and infectious disease consult in place with recommendations pending. Dietary consulted regarding severe protein calorie malnutrition, regarding increasing caloric intake. Sputum culture ordered, coronavirus testing ordered. Patient to be changed to inpatient. Prognosis guarded given multiple complex medical issues. The impression and plan of care has been dictated as directed. : I performed a history and examination of this patient, discussed the same with the dictator. I agree with the dictator's note ,documented as a scribe. Any additional findings or plans will be noted.
[2020-01-15] MEDS: HYDROmorphone 0.5 MG/0.5 ML SYRINGE IVP PRN ×2 (11:30→20:50)
[2020-01-15 11:39] LABS: Glucose,Whole Blood 126 mg/dL (75-99)
[2020-01-15 15:18] VITALS: BMI 13.5
--- NOTE | 2020-01-15 16:17 | P.CNPUL ---
History of Present Illness Consult date: 01/15/20 Reason for consult: dyspnea, cough, COPD, hypoxemia Chief complaint: Progressive increased shortness of breath and greenish sputum production History of present illness: This is a 49-year-old cachectic female with end-stage severe COPD has been smoking very active bleeding has stopped smoking as she Inhales She Came into the Hospital with Increasing Shortness of Breath Cough and Greenish Sputum Production, Patient Has Been Hospitalized Couple of Weeks Ago with a Similar Problem at That Time Sputum Was Sent Showed Gram-Positive Cocci in Cluster However Final ID Is Normal Respiratory Karolina, Patient Was Discharged in Stable Condition on His Steroids Antibiotics with Significant Improvement However As the Steroids Have Been Tapered down to Small Dose Symptoms Relapse Yesterday She Took the Last Dose of Steroids Started Coughing with Greenish Sputum Production Decided to Come Back into the Hospital Further Evaluation and Intervention and Treatment Denies Any Hemoptysis Has Worsening of Shortness of Breath Has Noted above, Her Chest X-Ray Cystoscopy Bullous Emphysema No Active Cardiopulmonary Disease Is Been Seen, Her at Bradycardia Blood Gas Showed an Significant for Hypoxic Hypercapnic Respiratory Failure Which Appears to Be Compensated She Has Chronic Elevation of CO2 Also Goes along with Chronic Hypercapnia Past Medical History Past Medical History: COPD, Eye Disorder, Fibromyalgia, GERD/Reflux, Osteoarthritis (OA), Thyroid Disorder Additional Past Medical History / Comment(s): Hx blood in stool, Endometriosis. pt states that eyes get gritty feeling like sand is in them. History of Any Multi-Drug Resistant Organisms: None Reported Past Surgical History: Section, Cholecystectomy, Hernia Repair, Hysterectomy Additional Past Surgical History / Comment(s): Partial Hysterectomy, several EGD's and Colonoscopies, biopsy/[employer] surgery due to Endometriosis. Hernia x2 Past Anesthesia/Blood Transfusion Reactions: Postoperative Nausea & Vomiting (PONV) Additional Past Anesthesia/Blood Transfusion Reaction / Comment(s): States herself and some family members wake from anesthesia angry. Past Psychological History: Anxiety, Bipolar, Depression Smoking Status: Former smoker Past Alcohol Use History: Rare Additional Past Alcohol Use History / Comment(s): Has been smoking for 30 yrs, currently smoking 3 cigarettes PPD. States only drinks once a yr. Patient states stop smoke a month ago Past Drug Use History: Marijuana Additional Drug Use History / Comment(s): States daily marajuana use for nausea control. - Past Family History Mother Family Medical History: No Reported History Medications and Allergies Home Medications Medication Instructions Recorded Confirmed Type Meclizine [Antivert] 25 mg PO TID PRN 11/25/16 01/14/20 History Montelukast [Singulair] 10 mg PO HS 11/25/16 01/14/20 History Venlafaxine HCl [Effexor XR] 150 mg PO BID 11/25/16 01/14/20 History QUEtiapine FUMARATE [Seroquel Xr] 600 mg PO HS 12/28/16 01/14/20 History ALPRAZolam [Xanax] 2 mg PO TID 12/30/19 01/14/20 History Albuterol Inhaler [Ventolin Hfa 2 puff INHALATION RT-QID PRN 12/30/19 01/14/20 History Inhaler] Hyoscyamine Sulfate [Levsin] 0.125 mg PO DAILY 12/30/19 01/14/20 History Levothyroxine Sodium [Synthroid] 88 mcg PO DAILY 12/30/19 01/14/20 History Loratadine [Claritin] 10 mg PO DAILY 12/30/19 01/14/20 History Omeprazole 40 mg PO DAILY 12/30/19 01/14/20 History SUMAtriptan SUCCINATE [Imitrex] 100 mg PO BID PRN 12/30/19 01/14/20 History Budesonide-Formot 160-4.5 Mcg 2 puff INHALATION RT-BID #1 inh 01/03/20 01/14/20 Rx [Symbicort 160-4.5 Mcg Inhaler] Ipratropium-Albuterol Nebulize 3 ml INHALATION RT-QID 30 Days 01/03/20 01/14/20 Rx [Duoneb 0.5 mg-3 mg/3 ml Soln] #120 ampul.neb predniSONE See Taper PO DAILY 01/14/20 01/14/20 History Allergies Allergy/AdvReac Type Severity Reaction Status Date / Time dicyclomine [From Bentyl] Allergy Rash/Hives Verified 01/14/20 19:25 Penicillins Allergy Unknown Verified 01/14/20 19:25 Childhood sulfamethoxazole Allergy Rash/Hives Verified 01/14/20 19:25 [From Bactrim] trimethoprim [From Bactrim] Allergy Rash/Hives Verified 01/14/20 19:25 paper tape Allergy Rash/Hives Uncoded 01/14/20 18:28 Physical Exam Vitals: Vital Signs Temp Pulse Pulse Resp BP BP Pulse Ox 01/15/20 16:01 90 01/15/20 15:00 98.7 F 97 17 104/68 91 L 01/15/20 12:17 96 01/15/20 12:06 92 01/15/20 09:09 92 01/15/20 09:00 98.5 F 64 18 113/74 92 L 01/15/20 08:57 92 01/15/20 08:56 92 01/15/20 08:46 96 01/15/20 03:56 88 01/15/20 03:47 84 01/15/20 02:15 97.8 F 107 H 16 104/68 94 L 01/14/20 23:02 90 18 01/14/20 22:48 88 01/14/20 21:57 16 01/14/20 19:50 90 01/14/20 19:40 92 98 01/14/20 19:10 98.3 F 103 H 18 110/72 96 01/14/20 18:59 98 16 113/70 91 L 01/14/20 18:22 98.1 F 107 H 24 117/79 91 L Intake and Output 01/15/20 01/15/20 01/15/20 06:59 14:59 22:59 Intake Total 300 Balance 300 Intake: Oral 200 Other 100 Other: Weight 33.6 kg 33.6 kg PHYSICAL EXAM: VITAL SIGNS: [As above] GENERAL: Severely emaciated,alert and oriented 3, Sitting up in bed, no acute distress, no shortness of breath with talking HEENT: Conjunctivae normal. eyes normal. Oral mucosa moist NECK: No JVD. No thyroid enlargement. No LNs CARDIOVASCULAR: S1, S2 regular. No murmur RESPIRATION: Breath sounds diminished in the bases. Occasional scattered rhonchi. ABDOMEN: Soft, nontender . No guarding. no masses palpable. Positive Bowel sounds heard. LEGS: No edema. no swelling NERVOUS SYSTEM: Cranial N 2-12 grossly normal. Moves all 4 limbs. No focal deficits. Strength and sensation grossly intact.. Skin: Warm and dry, no rash Results - Laboratory Findings CBC and BMP: 01/15/20 07:11 01/15/20 07:11 ABG ABG pH 7.49 (7.35-7.45) H 01/14/20 22:45 ABG pCO2 59 mmHg (35-45) H 01/14/20 22:45 ABG pO2 88 mmHg (83-108) 01/14/20 22:45 ABG O2 Saturation 97.6 % (94-97) H 01/14/20 22:45 Abnormal lab findings: Abnormal Labs 01/14/20 01/14/20 01/14/20 21:08 22:45 22:52 Lymphocytes # (Manual) ABG pH 7.49 H ABG pCO2 59 H ABG HCO3 45 H* ABG Total CO2 47 H ABG O2 Saturation 97.6 H Sodium 135 L Chloride 84 L Carbon Dioxide 45 H* Creatinine 0.42 L Glucose 126 H POC Glucose (mg/dL) 122 H 01/15/20 01/15/20 01/15/20 07:11 07:11 11:37 Lymphocytes # (Manual) 0.74 L ABG pH ABG pCO2 ABG HCO3 ABG Total CO2 ABG O2 Saturation Sodium 134 L Chloride 89 L Carbon Dioxide 40 H Creatinine 0.49 L Glucose 124 H POC Glucose (mg/dL) 126 H - Diagnostic Findings Chest x-ray: report reviewed, image reviewed Assessment and Plan Assessment: Acute on chronic hypoxic respiratory failure with chronic hypercapnic respiratory failure Purulent tracheobronchitis End-stage COPD with exacerbation Generalized weakness cachexia and protein calorie malnourishment History of multiple issues including fibromyalgia, GERD, DJD, history of endometriosis bipolar disorder and active smoking along with use of THC Plan: Continue bronchodilator Continue antibiotics Continue IV steroids Follow-up on sputum studies Agree with obtaining computed tomography scan of the chest Patient will require further evaluation outpatient basis Time with Patient: Greater than 30
[2020-01-15 16:40] LABS: Glucose,Whole Blood 138 mg/dL (75-99)
--- NOTE | 2020-01-15 17:22 | CT ---
EXAMINATION TYPE: CT chest wo con DATE OF EXAM: 01/15/2020 COMPARISON: None HISTORY: Shortness of breath and cough CT DLP: 127.3 mGycm Automated exposure control for dose reduction was used. Images obtained from the thoracic inlet to the diaphragm without contrast. FINDINGS: There is severe bullous pulmonary emphysema. There is pulmonary hyperinflation and flattening of the diaphragm. Heart size is normal. There is no pericardial effusion. There is no pleural effusion. Ther e are no hilar masses. There is no mediastinal adenopathy. Thoracic aorta is intact. Thoracic spine is intact. Sternum is intact. IMPRESSION: Emphysema. No evidence of acute lung disease.
[2020-01-15 20:44] LABS: Glucose,Whole Blood 120 mg/dL (75-99)
[2020-01-15] MEDS: MONTELUKAST 10 MG TAB PO SCH (21:53)
--- NOTE | 2020-01-15 21:59 | P.CONS ---
History of Present Illness - Reason for Consult Consult date: 01/15/20 Atypical pneumonia Requesting physician: Cande Gallegos - Chief Complaint Increasing shortness of breath and cough x few days - History of Present Illness Patient is a 49 year female with a past medical history significant for COPD, who was transferred from [facility] after the patient presented to the facility with increasing shortness of breath and cough patient wasn't sure has significant respiratory distress and did not have improvement with initial therapy at that facility patient apparently did have a CT angiogram of the chest was negative for PE patient has been subsequently transferred to this facility for further management of underlying COPD, patient has been complaining of increasing shortness of breath has been getting worse for the last few days, the patient did have a cough bringing up some yellowish sputum and no hemoptysis denies having any pleuritic chest pain or urinary symptoms, nausea no vomiting no abdominal pain or any diarrhea, patient represented hospital has been afebrile patient did have a normal white count with mild lymphopenia no LFTs were done she did have seizure activity has been normal, every 6 hours was bull ous emphysema no active cardiopulmonary disease infectious disease has been consulted with concern for possible atypical viral/bacterial pneumonia Review of Systems Positive point has been mentioned in the HPI rest of the systems are negative Past Medical History Past Medical History: COPD, Eye Disorder, Fibromyalgia, GERD/Reflux, Osteoarthritis (OA), Thyroid Disorder Additional Past Medical History / Comment(s): Hx blood in stool, Endometriosis. pt states that eyes get gritty feeling like sand is in them. History of Any Multi-Drug Resistant Organisms: None Reported Past Surgical History: Section, Cholecystectomy, Hernia Repair, Hysterectomy Additional Past Surgical History / Comment(s): Partial Hysterectomy, several EGD's and Colonoscopies, biopsy/[employer] surgery due to Endometriosis. Hernia x2 Past Anesthesia/Blood Transfusion Reactions: Postoperative Nausea & Vomiting (PONV) Additional Past Anesthesia/Blood Transfusion Reaction / Comm: States herself and some family members wake from anesthesia angry. Past Psychological History: Anxiety, Bipolar, Depression Smoking Status: Former smoker Past Alcohol Use History: Rare Additional Past Alcohol Use History / Comment(s): Has been smoking for 30 yrs, currently smoking 3 cigarettes PPD. States only drinks once a yr. Patient states stop smoke a month ago Past Drug Use History: Marijuana Additional Drug Use History / Comment(s): States daily marajuana use for nausea control. - Past Family History Mother Family Medical History: No Reported History Medications and Allergies Home Medications Medication Instructions Recorded Confirmed Type Meclizine [Antivert] 25 mg PO TID PRN 11/25/16 01/14/20 History Montelukast [Singulair] 10 mg PO HS 11/25/16 01/14/20 History Venlafaxine HCl [Effexor XR] 150 mg PO BID 11/25/16 01/14/20 History QUEtiapine FUMARATE [Seroquel Xr] 600 mg PO HS 12/28/16 01/14/20 History ALPRAZolam [Xanax] 2 mg PO TID 12/30/19 01/14/20 History Albuterol Inhaler [Ventolin Hfa 2 puff INHALATION RT-QID PRN 12/30/19 01/14/20 History Inhaler] Hyoscyamine Sulfate [Levsin] 0.125 mg PO DAILY 12/30/19 01/14/20 History Levothyroxine Sodium [Synthroid] 88 mcg PO DAILY 12/30/19 01/14/20 History Loratadine [Claritin] 10 mg PO DAILY 12/30/19 01/14/20 History Omeprazole 40 mg PO DAILY 12/30/19 01/14/20 History SUMAtriptan SUCCINATE [Imitrex] 100 mg PO BID PRN 12/30/19 01/14/20 History Budesonide-Formot 160-4.5 Mcg 2 puff INHALATION RT-BID #1 inh 01/03/20 01/14/20 Rx [Symbicort 160-4.5 Mcg Inhaler] Ipratropium-Albuterol Nebulize 3 ml INHALATION RT-QID 30 Days 01/03/20 01/14/20 Rx [Duoneb 0.5 mg-3 mg/3 ml Soln] #120 ampul.neb predniSONE See Taper PO DAILY 01/14/20 01/14/20 History Allergies Allergy/AdvReac Type Severity Reaction Status Date / Time dicyclomine [From Bentyl] Allergy Rash/Hives Verified 01/14/20 19:25 Penicillins Allergy Unknown Verified 01/14/20 19:25 Childhood sulfamethoxazole Allergy Rash/Hives Verified 01/14/20 19:25 [From Bactrim] trimethoprim [From Bactrim] Allergy Rash/Hives Verified 01/14/20 19:25 paper tape Allergy Rash/Hives Uncoded 01/14/20 18:28 Physical Exam Vitals: Vital Signs Temp Pulse Pulse Resp BP BP Pulse Ox 01/15/20 16:14 90 01/15/20 16:01 90 01/15/20 15:00 98.7 F 97 17 104/68 91 L 01/15/20 12:17 96 01/15/20 12:06 92 01/15/20 09:09 92 01/15/20 09:00 98.5 F 64 18 113/74 92 L 01/15/20 08:57 92 01/15/20 08:56 92 01/15/20 08:46 96 01/15/20 03:56 88 01/15/20 03:47 84 01/15/20 02:15 97.8 F 107 H 16 104/68 94 L 01/14/20 23:02 90 18 01/14/20 22:48 88 01/14/20 21:57 16 01/14/20 19:50 90 01/14/20 19:40 92 98 01/14/20 19:10 98.3 F 103 H 18 110/72 96 01/14/20 18:59 98 16 113/70 91 L 01/14/20 18:22 98.1 F 107 H 24 117/79 91 L Intake and Output 01/15/20 01/15/20 01/15/20 06:59 14:59 22:59 Intake Total 300 Balance 300 Intake: Oral 200 Other 100 Other: Weight 33.6 kg 33.6 kg GENERAL DESCRIPTION: Middle-aged female lying in bed, no distress. No tachypnea or accessory muscle of respiration use. HEENT: Shows Pallor , no scleral icterus. Oral mucous membrane is dry. No pharyngeal erythema or thrush NECK: Trachea central, no thyromegaly. LUNGS: Unlabored breathing. Decreased intensity of breath sounds. No wheeze or crackle. HEART: S1, S2, regular rate and rhythm. No loud murmur ABDOMEN: Soft, no tenderness , guarding or rigidity, no organomegaly EXTREMITIES: No edema of feet. SKIN: No rash, no masses palpable. NEUROLOGICAL: The patient is awake, alert, oriented x3, mood and affect normal. Results CBC & Chem 7: 01/15/20 07:11 01/15/20 07:11 Labs: Abnormal Lab Results - Last 24 Hours (Table) 01/14/20 01/14/20 01/14/20 Range/Units 21:08 22:45 22:52 Lymphocytes # (Manual) (1.0-4.8) k/uL ABG pH 7.49 H (7.35-7.45) ABG pCO2 59 H (35-45) mmHg ABG HCO3 45 H* (21-25) mmol/L ABG Total CO2 47 H (19-24) mmol/L ABG O2 Saturation 97.6 H (94-97) % Sodium 135 L (137-145) mmol/L Chloride 84 L (98-107) mmol/L Carbon Dioxide 45 H* (22-30) mmol/L Creatinine 0.42 L (0.52-1.04) mg/dL Glucose 126 H (74-99) mg/dL POC Glucose (mg/dL) 122 H (75-99) mg/dL 01/15/20 01/15/20 01/15/20 Range/Units 07:11 07:11 11:37 Lymphocytes # (Manual) 0.74 L (1.0-4.8) k/uL ABG pH (7.35-7.45) ABG pCO2 (35-45) mmHg ABG HCO3 (21-25) mmol/L ABG Total CO2 (19-24) mmol/L ABG O2 Saturation (94-97) % Sodium 134 L (137-145) mmol/L Chloride 89 L (98-107) mmol/L Carbon Dioxide 40 H (22-30) mmol/L Creatinine 0.49 L (0.52-1.04) mg/dL Glucose 124 H (74-99) mg/dL POC Glucose (mg/dL) 126 H (75-99) mg/dL Assessment and Plan Assessment: 1- patient presented to the hospital with increasing shortness of breath and cough with sputum production likely representing COPD exacerbation with tr acheobronchitis, clinically doubt behaving as pneumonia with a typical or atypical in this patient with a normal CRP will exclude an inflammatory disease 2-Patient with multiple antibiotic ALLERGIES that would limit the number of antibiotic safe to use (1) Bronchitis Current Visit: Yes Status: Acute Code(s): J40 - BRONCHITIS, NOT SPECIFIED ACUTE OR CHRONIC SNOMED Code(s): 49703812 (2) COPD exacerbation Current Visit: Yes Status: Acute Code(s): J44.1 - CHRONIC OBSTRUCTIVE PULM ONARY DISEASE W (ACUTE) EXACERBATION SNOMED Code(s): 498784295 Plan: 1- we will wait for the Bucio virus PCR and CT of the chest 2-steroids and bronchodilator per pulmonary 3-no need for systemic antibiotic therapyWe will follow on clinical condition and cultures to further adjust medication if needed Thank you for this consultation will follow this patient with you Time with Patient: Greater than 30
[2020-01-15] MEDS: AZITHROMYCIN 500 MG in SODIUM CHLORIDE 0.9% 250 ML IVPB SCH (22:28)
[2020-01-16] MEDS: methylPREDNISolone SOD SUCCI 125 MG/2 ML VIAL IV SCH ×4 (00:04→16:52)
[2020-01-16] MEDS: IPRATROPIUM-ALBUTEROL 3 ML NEB INHALATION SCH ×7 (00:46→23:56)
[2020-01-16] MEDS: LEVOTHYROXINE 88 MCG TAB PO SCH (06:09)
[2020-01-16 06:14] LABS: Glucose,Whole Blood 107 mg/dL (75-99)
[2020-01-16] MEDS: FORMOTEROL FUMARATE 20 MCG/2 ML NEBU INHALATION SCH ×2 (07:18→19:32)
[2020-01-16] MEDS: BUDESONIDE 1 MG/2 ML NEBU INHALATION SCH ×2 (07:18→19:16)
[2020-01-16] MEDS: INSULIN ASPART (NovoLOG) 100 UNIT/ML VIAL SQ SCH ×4 (07:44→22:00)
[2020-01-16] MEDS: PANTOPRAZOLE 40 MG TABLET PO SCH (07:44)
[2020-01-16] MEDS: SODIUM CHLORIDE 0.9% 1,000 ML IV SCH ×2 (07:45→19:50)
[2020-01-16] MEDS: QUEtiapine 100 MG TAB PO SCH ×2 (07:46→21:59)
[2020-01-16] MEDS: VENLAFAXINE HCL ER 150 MG CAP PO SCH ×2 (07:46→21:59)
[2020-01-16] MEDS: HEPARIN SODIUM,PORCINE 5,000 UNIT/ML 1 ML VIAL SQ SCH ×2 (07:46→21:58)
[2020-01-16] MEDS: HYOSCYAMINE SULFATE 0.125 MG TAB PO SCH (07:46)
[2020-01-16] MEDS: ALPRAZolam 1 MG TAB PO SCH ×3 (07:46→21:58)
[2020-01-16] MEDS: LORATADINE 10 MG TAB PO SCH (07:46)
[2020-01-16] MEDS ORDERED: traMADol 50 MG TAB PO PRN (09:04)
[2020-01-16] MEDS: PANTOPRAZOLE 40 MG/10 ML VIAL IVP SCH (09:27)
[2020-01-16 10:41] LABS: Basophils % (A) 0 %; Eosinophils % (A) 0 %; HCT 32.3 % (34.0-46.0); HGB 10.1 gm/dL (11.4-16.0); Hypochromasia Slight; Lymphocytes # (A) 0.3 k/uL (1.0-4.8); Lymphocytes % (A) 4 %; MCH 29.4 pg (25.0-35.0); MCHC 31.2 g/dL (31.0-37.0); MCV 94.1 fL (80.0-100.0); Mean Platelet Volume 9.3; Monocytes # (A) 0.3 k/uL (0-1.0); Monocytes % (A) 4 %; Neutrophils # (A) 7.4 k/uL (1.3-7.7); Neutrophils % (A) 91 %; Platelet Count 153 k/uL (150-450); RBC 3.44 m/uL (3.80-5.40); RDW 14.5 % (11.5-15.5); WBC 8.1 k/uL (3.8-10.6)
[2020-01-16 10:59] LABS: African American GFR (CKD) >90 (>60 ml/min/1.73 sqM); Anion Gap 0 mmol/L; Blood Urea Nitrogen 13 mg/dL (7-17); Calcium 9.1 mg/dL (8.4-10.2); Carbon Dioxide 39 mmol/L (22-30); Chloride 100 mmol/L (98-107); Glucose 89 mg/dL (74-99); Non-African American GFR(CKD) >90 (>60 ml/min/1.73 sqM); Potassium 4.6 mmol/L (3.5-5.1); Sodium 139 mmol/L (137-145)
--- NOTE | 2020-01-16 11:08 | P.PN ---
Subjective Progress Note Date: 01/16/20 This is a 49-year-old female, with severe emaciation, recently admitted with acute COPD exacerbation, suspected pneumonia with advanced bullous emphysema noted on prior chest x-ray admitted with acute COPD exacerbation, acute tracheobronchitis, possible pneumonia. Patient presented to [facility] with worsening shortness of breath and multiple other medical issues, transferred to [facility]. ER documents CAT scan performed at [place], reporting negative for PE. Infectious disease and pulmonary consulted. Continues on nebulized bronchodilators, IV steroids, Zithromax, Rocephin. Shanel ntaining O2 sats in the 90s on 3 L nasal cannula. Reports productive cough with thick green sputum. Yesterday's chest x-ray reported bullious emphysema, no acute cardiopulmonary disease, no adverse change. Denies chest pain, palpitations or shortness of breath. 01/16/2020 continues on Rocephin ,Zithromax , IV steroids, nebulized bronchodilators -reports breathing better. Maintaining O2 sats in the high 90s on 4 L nasal cannula. Preliminary sputum culture pending. Complains of chronic back pain unrelieved by current regimen. Complains of mild stomach burning/mild nausea, had declined oral Protonix this morning. Denies chest pain, palpitations. Attempting to consume more calories. Afebrile, normal WBC. Tested negative for the coronavirus. Evaluated by infectious disease with re commendations noted and appreciated. Objective - Vital Signs Vital signs: Vital Signs Temp 98.6 F 01/16/20 07:38 Pulse 100 01/16/20 07:42 Resp 16 01/16/20 02:23 BP 110/64 01/16/20 07:38 Pulse Ox 99 01/16/20 07:38 Intake & Output 01/15/20 01/16/20 01/16/20 18:59 06:59 18:59 Intake Total 300 300 Balance 300 300 Weight 33.6 kg Intake: Oral 200 300 Other 100 - Exam PHYSICAL EXAM: VITAL SIGNS: [As above] GENERAL: Severely emaciated, cachectic ,alert and oriented 3, Sitting up in bed, no acute distress HEENT: Conjunctivae normal. eyes normal. Oral mucosa moist NECK: No JVD. No thyroid enlargement. No LNs CARDIOVASCULAR: S1, S2 regular. No murmur RESPIRATION: Breath sounds diminished in the bases. ABDOMEN: Soft, nontender . No guarding. no masses palpable. Positive Bowel sounds heard. LEGS: No edema. no swelling NERVOUS SYSTEM: Cranial N 2-12 grossly normal. Moves all 4 limbs. No focal deficits. Strength and sensation grossly intact.. Skin: Warm and dry, no rash - Labs CBC & Chem 7: 01/16/20 10:11 01/16/20 10:11 Labs: Abnormal Lab Results - Last 24 Hours (Table) 01/15/20 01/15/20 01/15/20 Range/Units 11:37 16:37 20:41 POC Glucose (mg/dL) 126 H 138 H 120 H (75-99) mg/dL 01/16/20 Range/Units 06:12 POC Glucose (mg/dL) 107 H (75-99) mg/dL Microbiology - Last 24 Hours (Table) 01/15/20 21:00 Sputum Culture - Preliminary Sputum Assessment and Plan Assessment: Acute COPD exacerbation with purulent tracheobronchitis, possible bronchopneum onia. Chronic hypoxic, hypercapnic respiratory failure. Wears 4 L nasal cannula at home Possible early pneumonia, community-acquired Advanced bullous emphysema as per chest x-ray History of chronic severe asthma. Ongoing nicotine dependence THC use Severe protein calorie malnutrition, BMI 18.3 Gastroesophageal reflux disease Hypothyroidism Plan: Continue on current medication regime ,monitoring and symptomatic treatment. Adjusted pain med regimen to tramadol as discussed with patient. PPI converted to IV push Protonix. Continue on antibiotics, nebulized bronchodilators, IV steroids. Sputum culture pending.follow closely with both pulmonary and infectious disease . Incentive spirometer ordered. Increasing caloric intake reinforced. Dietitians recommendations noted and appreciated. Prognosis guarded given multiple complex medical issues. The impression and plan of care has been dictated as directed. : I performed a history and examination of this patient, discussed the same with the dictator. I agree with the dictator's note ,documented as a scribe. Any additional findings or plans will be noted.
[2020-01-16 11:22] LABS: Glucose,Whole Blood 94 mg/dL (75-99)
--- NOTE | 2020-01-16 13:11 | PN ---
PROGRESS NOTE DATE OF SERVICE: 01/16/2020 REASON FOR FOLLOWUP: COPD exacerbation, question of pneumonia. INTERVAL HISTORY: Patient is currently afebrile. Still complaining of some shortness of breath. She did have a cough, not bringing up any sputum. No nausea, no vomiting. No abdominal pain, no diarrhea. PHYSICAL EXAMINATION: Blood pressure 110/64 with pulse of 100, temperature 98.6. She is 99% on 4 L nasal cannula. General description is a middle-aged female, up in the bed in no distress. RESPIRATORY SYSTEM: Unlabored breathing, decreased intensity of breath sounds. No wheeze. HEART: S1, S2. Regular rate and rhythm. ABDOMEN: Soft, no tenderness. LABS: Hemoglobin is 10.1, white count of 8.1, creatinine 0.56. CT chest done yesterday did not show any consolidation. DIAGNOSTIC IMPRESSION AND PLAN: Patient admitted to the hospital with shortness of breath, more likely secondary to COPD than patient with tracheobronchitis. No evidence of any pneumonia. Continue steroids per Pulmonary. No need for systemic antibiotic therapy. Continue supportive care. MMODL / IJN: [id number] /
[2020-01-16 16:52] LABS: Glucose,Whole Blood 92 mg/dL (75-99)
--- NOTE | 2020-01-16 17:45 | P.PN ---
Subjective Progress Note Date: 01/16/20 Principal diagnosis: Acute on chronic hypoxic respiratory failure with chronic hypercapnic respiratory failure Purulent tracheobronchitis End-stage COPD with exacerbation Generalized weakness cachexia and protein calorie malnourishment History of multiple issues including fibromyalgia, GERD, DJD, history of endometriosis bipolar disorder and active smoking along with use of THC 01/16/2020, patient seen eval examined during the rounds labs reviewed medications reviewed care plan discussed, is still of ongoing cough shortness of breath but severity has improved significantly, patient remains on steroids breathing treatment antibiotics, sputum production is improved, her sputum studies reviewed with polymicrobial presence but however no predominance of any organism we will wait for final culture results and report, computed tomography scan of the chest has been reviewed consistent with end-stage severe COPD This is a 49-year-old cachectic female with end-stage severe COPD has been smoking very active bleeding has stopped smoking as she Inhales She Came into the Hospital with Increasing Shortness of Breath Cough and Greenish Sputum Production, Patient Has Been Hospitalized Couple of Weeks Ago with a Similar Problem at That Time Sputum Was Sent Showed Gram-Positive Cocci in Cluster However Final ID Is Normal Respiratory Karolina, Patient Was Discharged in Stable Condition on His Steroids Antibiotics with Significant Improvement However As the Steroids Have Been Tapered down to Small Dose Symptoms Relapse Yesterday She Took the Last Dose of Steroids Started Coughing with Greenish Sputum Production Decided to Come Back into the Hospital Further Evaluation and Intervention and Treatment Denies Any Hemoptysis Has Worsening of Shortness of Breath Has Noted above, Her Chest X-Ray Cystoscopy Bullous Emphysema No Active Cardiopulmonary Disease Is Been Seen, Her at Bradycardia Blood Gas Showed an Significant for Hypoxic Hypercapnic Respiratory Failure Which Appears to Be Compensated She Has Chronic Elevation of CO2 Also Goes along with Chronic Hypercapnia Objective - Vital Signs Vital signs: Vital Signs Temp 98.6 F 01/16/20 07:38 Pulse 101 H 01/16/20 15:24 Resp 20 01/16/20 15:00 BP 122/81 01/16/20 15:00 Pulse Ox 95 01/16/20 15:00 Intake & Output 01/15/20 01/16/20 01/16/20 18:59 06:59 18:59 Intake Total 300 300 Balance 300 300 Weight 33.6 kg Intake: Oral 200 300 Other 100 Other: Voiding Method Toilet Bedside Commode # Voids 2 - Exam PHYSICAL EXAM: VITAL SIGNS: [As above] GENERAL: Severely emaciated,alert and oriented 3, Sitting up in bed, no acute distress, no shortness of breath with talking HEENT: Conjunctivae normal. eyes normal. Oral mucosa moist NECK: No JVD. No thyroid enlargement. No LNs CARDIOVASCULAR: S1, S2 regular. No murmur RESPIRATION: Breath sounds diminished in the bases. Occasional scattered rhonchi. ABDOMEN: Soft, nontender . No guarding. no masses palpable. Positive Bowel sounds heard. LEGS: No edema. no swelling NERVOUS SYSTEM: Cranial N 2-12 grossly normal. Moves all 4 limbs. No focal deficits. Strength and sensation grossly intact.. Skin: Warm and dry, no rash - Labs CBC & Chem 7: 01/16/20 10:11 01/16/20 10:11 Labs: Abnormal Lab Results - Last 24 Hours (Table) 01/15/20 01/16/20 01/16/20 Range/Units 20:41 06:12 10:11 RBC 3.44 L (3.80-5.40) m/uL Hgb 10.1 L (11.4-16.0) gm/dL Hct 32.3 L (34.0-46.0) % Lymphocytes # 0.3 L (1.0-4.8) k/uL Carbon Dioxide (22-30) mmol/L POC Glucose (mg/dL) 120 H 107 H (75-99) mg/dL 01/16/20 Range/Units 10:11 RBC (3.80-5.40) m/uL Hgb (11.4-16.0) gm/dL Hct (34.0-46.0) % Lymphocytes # (1.0-4.8) k/uL Carbon Dioxide 39 H (22-30) mmol/L POC Glucose (mg/dL) (75-99) mg/dL Microbiology - Last 24 Hours (Table) 01/15/20 21:00 Gram Stain - Preliminary Sputum Sputum Culture - Preliminary Assessment and Plan Assessment: Acute on chronic hypoxic respiratory failure with chronic hypercapnic respiratory failure Purulent tracheobronchitis End-stage COPD with exacerbation Generalized weakness cachexia and protein calorie malnourishment History of multiple issues including fibromyalgia, GERD, DJD, history of endometriosis bipolar disorder and active smoking along with use of THC Plan: Continue bronchodilator Continue antibiotics Continue IV steroids Follow-up on sputum studies Reviewed computed tomography scan of the chest, continue show extensive bilateral emphysema but however no active pulmonary process noted Patient will require further evaluation outpatient basis Time with Patient: Greater than 30
[2020-01-16] MEDS: HYDROcodone/APAP 7.5-325MG 1 EACH TAB PO PRN (18:05)
[2020-01-16 21:18] LABS: Glucose,Whole Blood 122 mg/dL (75-99)
[2020-01-16] MEDS: MONTELUKAST 10 MG TAB PO SCH (21:58)
[2020-01-16] MEDS: AZITHROMYCIN 500 MG TAB PO SCH (22:00)
[2020-01-17] MEDS: methylPREDNISolone SOD SUCCI 125 MG/2 ML VIAL IV SCH ×5 (00:35→23:47)
[2020-01-17] MEDS: HYDROcodone/APAP 7.5-325MG 1 EACH TAB PO PRN ×5 (00:36→21:08)
[2020-01-17] MEDS: IPRATROPIUM-ALBUTEROL 3 ML NEB INHALATION SCH ×6 (03:41→23:40)
[2020-01-17 05:19] LABS: Mycoplasma IgG Antibody (EIA) 1.67 INDEX (<=0.90); Mycoplasma IgM Antibody 0.74 INDEX (<=0.90)
[2020-01-17] MEDS: LEVOTHYROXINE 88 MCG TAB PO SCH (05:54)
[2020-01-17 06:32] LABS: Glucose,Whole Blood 99 mg/dL (75-99)
[2020-01-17] MEDS: INSULIN ASPART (NovoLOG) 100 UNIT/ML VIAL SQ SCH ×4 (07:34→20:56)
[2020-01-17] MEDS: PANTOPRAZOLE 40 MG/10 ML VIAL IVP SCH (07:34)
[2020-01-17] MEDS: ALPRAZolam 1 MG TAB PO SCH ×3 (07:42→21:01)
[2020-01-17] MEDS: HEPARIN SODIUM,PORCINE 5,000 UNIT/ML 1 ML VIAL SQ SCH ×2 (07:42→20:56)
[2020-01-17] MEDS: LORATADINE 10 MG TAB PO SCH (07:43)
[2020-01-17] MEDS: HYOSCYAMINE SULFATE 0.125 MG TAB PO SCH (07:43)
[2020-01-17] MEDS: QUEtiapine 100 MG TAB PO SCH ×2 (07:43→20:55)
[2020-01-17] MEDS: VENLAFAXINE HCL ER 150 MG CAP PO SCH ×2 (07:43→20:55)
[2020-01-17] MEDS: FORMOTEROL FUMARATE 20 MCG/2 ML NEBU INHALATION SCH ×2 (07:48→20:34)
[2020-01-17] MEDS: BUDESONIDE 1 MG/2 ML NEBU INHALATION SCH ×2 (07:48→20:34)
[2020-01-17] MEDS: SODIUM CHLORIDE 0.9% 1,000 ML IV SCH ×2 (07:50→20:57)
[2020-01-17] MEDS ORDERED: PANTOPRAZOLE 40 MG/10 ML VIAL IVP SCH (09:00)
[2020-01-17 09:18] LABS: African American GFR (CKD) >90 (>60 ml/min/1.73 sqM); Anion Gap 2 mmol/L; Blood Urea Nitrogen 13 mg/dL (7-17); Calcium 9.1 mg/dL (8.4-10.2); Carbon Dioxide 35 mmol/L (22-30); Chloride 98 mmol/L (98-107); Glucose 134 mg/dL (74-99); Non-African American GFR(CKD) >90 (>60 ml/min/1.73 sqM); Potassium 4.3 mmol/L (3.5-5.1); Sodium 135 mmol/L (137-145)
[2020-01-17 09:38] LABS: Basophils % (A) 0 %; Eosinophils % (A) 0 %; HCT 33.8 % (34.0-46.0); HGB 10.3 gm/dL (11.4-16.0); Hypochromasia Slight; Lymphocytes # (A) 0.3 k/uL (1.0-4.8); Lymphocytes % (A) 4 %; MCH 29.2 pg (25.0-35.0); MCHC 30.5 g/dL (31.0-37.0); MCV 95.6 fL (80.0-100.0); Mean Platelet Volume 9.3; Monocytes # (A) 0.2 k/uL (0-1.0); Monocytes % (A) 2 %; Neutrophils # (A) 8.7 k/uL (1.3-7.7); Neutrophils % (A) 94 %; Platelet Count 148 k/uL (150-450); RBC 3.54 m/uL (3.80-5.40); RDW 14.6 % (11.5-15.5); WBC 9.3 k/uL (3.8-10.6)
--- NOTE | 2020-01-17 09:45 | P.PN ---
Subjective Progress Note Date: 01/17/20 Principal diagnosis: Acute on chronic hypoxic respiratory failure with chronic hypercapnic respiratory failure Purulent tracheobronchitis End-stage COPD with exacerbation Generalized weakness cachexia and protein calorie malnourishment History of multiple issues including fibromyalgia, GERD, DJD, history of endometriosis bipolar disorder and active smoking along with use of THC 01/17/2020, patient seen eval examined during the rounds labs reviewed medications reviewed care plan discussed with the patient, respiratory status remained stable, patient remains on antibiotics breathing treatments IV steroids seems to be responding as sputum is light and now not producing much labs reviewed, CO2 improved to 35 with stable renal functions hemodynamics stable afebrile with saturation 95% on 4 L 01/16/2020, patient seen eval examined during the rounds labs reviewed medica tions reviewed care plan discussed, is still of ongoing cough shortness of breath but severity has improved significantly, patient remains on steroids breathing treatment antibiotics, sputum production is improved, her sputum studies reviewed with polymicrobial presence but however no predominance of any organism we will wait for final culture results and report, computed tomography scan of the chest has been reviewed consistent with end-stage severe COPD This is a 49-year-old cachectic female with end-stage severe COPD has been smoking very active bleeding has stopped smoking as she Inhales She Came into the Hospital with Increasing Shortness of Breath Cough and Greenish Sputum Production, Patient Has Been Hospitalized Couple of Weeks Ago with a Similar Problem at That Time Sputum Was Sent Showed Gram-Positive Cocci in Cluster However Final ID Is Normal Respiratory Karolina, Patient Was Discharged in Stable Condition on His Steroids Antibiotics with Significant Improvement However As t he Steroids Have Been Tapered down to Small Dose Symptoms Relapse Yesterday She Took the Last Dose of Steroids Started Coughing with Greenish Sputum Production Decided to Come Back into the Hospital Further Evaluation and Intervention and Treatment Denies Any Hemoptysis Has Worsening of Shortness of Breath Has Noted above, Her Chest X-Ray Cystoscopy Bullous Emphysema No Active Cardiopulmonary Disease Is Been Seen, Her at Bradycardia Blood Gas Showed an Significant for Hypoxic Hypercapnic Respiratory Failure Which Appears to Be Compensated She Has Chronic Elevation of CO2 Also Goes along with Chronic Hypercapnia Objective - Vital Signs Vital signs: Vital Signs Temp 97.8 F 01/17/20 07:54 Pulse 98 01/17/20 08:18 Resp 16 01/17/20 07:54 BP 146/84 09/30/20 07:54 Pulse Ox 95 01/17/20 07:54 Intake & Output 01/16/20 01/17/20 01/17/20 18:59 06:59 18:59 Intake Total 400 Balance 400 Intake: Oral 400 Other: Voiding Method Toilet Toilet Toilet Bedside Commode Bedside Commode Bedside Commode # Voids 2 - Exam PHYSICAL EXAM: VITAL SIGNS: [As above] GENERAL: Severely emaciated,alert and oriented 3, Sitting up in bed, no acute distress, no shortness of breath with talking HEENT: Conjunctivae normal. eyes normal. Oral mucosa moist NECK: No JVD. No thyroid enlargement. No LNs CARDIOVASCULAR: S1, S2 regular. No murmur RESPIRATION: Breath sounds diminished in the bases. Occasional scattered rhonchi. ABDOMEN: Soft, nontender . No guarding. no masses palpable. Positive Bowel sounds heard. LEGS: No edema. no swelling NERVOUS SYSTEM: Cranial N 2-12 grossly normal. Moves all 4 limbs. No focal deficits. Strength and sensation grossly intact.. Skin: Warm and dry, no rash - Labs CBC & Chem 7: 01/17/20 08:06 01/17/20 08:06 Labs: Abnormal Lab Results - Last 24 Hours (Table) 01/15/20 01/16/20 01/16/20 Range/Units 07:11 10:11 10:11 RBC 3.44 L (3.80-5.40) m/uL Hgb 10.1 L (11.4-16.0) gm/dL Hct 32.3 L (34.0-46.0) % MCHC (31.0-37.0) g/dL Plt Count (150-450) k/uL Neutrophils # (1.3-7.7) k/uL Lymphocytes # 0.3 L (1.0-4.8) k/uL Sodium (137-145) mmol/L Carbon Dioxide 39 H (22-30) mmol/L Glucose (74-99) mg/dL POC Glucose (mg/dL) (75-99) mg/dL Mycoplasma pneumon IgG 1.67 H (<=0.90) INDEX 01/16/20 01/17/20 01/17/20 Range/Units 21:17 08:06 08:06 RBC 3.54 L (3.80-5.40) m/uL Hgb 10.3 L (11.4-16.0) gm/dL Hct 33.8 L (34.0-46.0) % MCHC 30.5 L (31.0-37.0) g/dL Plt Count 148 L (150-450) k/uL Neutrophils # 8.7 H (1.3-7.7) k/uL Lymphocytes # 0.3 L (1.0-4.8) k/uL Sodium 135 L (137-145) mmol/L Carbon Dioxide 35 H (22-30) mmol/L Glucose 134 H (74-99) mg/dL POC Glucose (mg/dL) 122 H (75-99) mg/dL Mycoplasma pneumon IgG (<=0.90) INDEX Microbiology - Last 24 Hours (Table) 01/15/20 21:00 Gram Stain - Preliminary Sputum Sputum Culture - Preliminary Assessment and Plan Assessment: Acute on chronic hypoxic respiratory failure with chronic hypercapnic respiratory failure Purulent tracheobronchitis End-stage COPD with exacerbation Generalized weakness cachexia and protein calorie malnourishment History of multiple issues including fibromyalgia, GERD, DJD, history of endometriosis bipolar disorder and active smoking along with use of THC Plan: Continue bronchodilator Continue antibiotics Continue IV steroids, in next 24-48 hours can be switched to by mouth Follow-up on sputum studies Reviewed computed tomography scan of the chest, continue show extensive bilateral emphysema but however no active pulmonary process noted Time with Patient: Greater than 30
[2020-01-17 11:39] LABS: Glucose,Whole Blood 164 mg/dL (75-99)
--- NOTE | 2020-01-17 11:51 | P.PN ---
Subjective Progress Note Date: 01/17/20 This is a 49-year-old female, with severe emaciation, recently admitted with acute COPD exacerbation, suspected pneumonia with advanced bullous emphysema noted on prior chest x-ray admitted with acute COPD exacerbation, acute tracheobronchitis, possible pneumonia. Patient presented to [facility] with worsening shortness of breath and multiple other medical issues, transferred to [facility]. ER documents CAT scan performed at [facility], reporting negative for PE. Infectious disease and pulmonary consulted. Continues on nebulized bronchodilators, IV steroids, Zithromax, Rocephin. Shanel ntaining O2 sats in the 90s on 3 L nasal cannula. Reports productive cough with thick green sputum. Yesterday's chest x-ray reported bullious emphysema, no acute cardiopulmonary disease, no adverse change. Denies chest pain, palpitations or shortness of breath. 01/16/2020 continues on Rocephin ,Zithromax , IV steroids, nebulized bronchodilators -reports breathing better. Maintaining O2 sats in the high 90s on 4 L nasal cannula. Preliminary sputum culture pending. Complains of chronic back pain unrelieved by current regimen. Complains of mild stomach burning/mild nausea, had declined oral Protonix this morning. Denies chest pain, palpitations. Attempting to consume more calories. Afebrile, normal WBC. Tested negative for the coronavirus. Evaluated by infectious disease with re commendations noted and appreciated. 01/17/2020 maintained on IV antibiotics, nebulized bronchodilators, IV steroids. Breathing stable, maintaining O2 sats in the 90s on 4 L nasal cannula, CO2 con tinues trending down ,35. Sputum culture reporting many normal respiratory sh[place]. CT reported extensive emphysema, no acute pulmonary process/no pneumonia. Afebrile, normal WBC. She reports increasing diet intake, consumed her entire dinner last night. Objective - Vital Signs Vital signs: Vital Signs Temp 97.8 F 01/17/20 07:54 Pulse 98 01/17/20 08:18 Resp 16 01/17/20 07:54 BP 146/84 01/17/20 07:54 Pulse Ox 95 01/17/20 07:54 Intake & Output 01/16/20 01/17/20 01/17/20 18:59 06:59 18:59 Intake Total 400 Balance 400 Intake: Oral 400 Other: Voiding Method Toilet Toilet Toilet Bedside Commode Bedside Commode Bedside Commode # Voids 2 - Exam PHYSICAL EXAM: VITAL SIGNS: [As above] GENERAL: Severely emaciated, alert and oriented 3, Sitting up in bed, no acute distress HEENT: Conjunctivae normal. eyes normal. Oral mucosa moist NECK: No JVD. No thyroid enlargement. No LNs CARDIOVASCULAR: S1, S2 regular. No murmur RESPIRATION: Breath sounds significantly diminished in the bases. ABDOMEN: Soft, nontender . No guarding. no masses palpable. Positive Bowel sounds heard. LEGS: No edema. no swelling NERVOUS SYSTEM: Cranial N 2-12 grossly normal. Moves all 4 limbs. No focal deficits. Strength and sensation grossly intact. Skin: Warm and dry, no rash - Labs CBC & Chem 7: 01/17/20 08:06 01/17/20 08:06 Labs: Abnormal Lab Results - Last 24 Hours (Table) 01/15/20 01/16/20 01/17/20 Range/Units 07:11 21:17 08:06 RBC 3.54 L (3.80-5.40) m/uL Hgb 10.3 L (11.4-16.0) gm/dL Hct 33.8 L (34.0-46.0) % MCHC 30.5 L (31.0-37.0) g/dL Plt Count 148 L (150-450) k/uL Neutrophils # 8.7 H (1.3-7.7) k/uL Lymphocytes # 0.3 L (1.0-4.8) k/uL Sodium (137-145) mmol/L Carbon Dioxide (22-30) mmol/L Glucose (74-99) mg/dL POC Glucose (mg/dL) 122 H (75-99) mg/dL Mycoplasma pneumon IgG 1.67 H (<=0.90) INDEX 01/17/20 Range/Units 08:06 RBC (3.80-5.40) m/uL Hgb (11.4-16.0) gm/dL Hct (34.0-46.0) % MCHC (31.0-37.0) g/dL Plt Count (150-450) k/uL Neutrophils # (1.3-7.7) k/uL Lymphocytes # (1.0-4.8) k/uL Sodium 135 L (137-145) mmol/L Carbon Dioxide 35 H (22-30) mmol/L Glucose 134 H (74-99) mg/dL POC Glucose (mg/dL) (75-99) mg/dL Mycoplasma pneumon IgG (<=0.90) INDEX Microbiology - Last 24 Hours (Table) 01/15/20 21:00 Gram Stain - Preliminary Sputum Sputum Culture - Preliminary Assessment and Plan Assessment: Acute COPD exacerbation with purulent tracheobronchitis Chronic hypoxic, hypercapnic respiratory failure. Wears 4 L nasal cannula at home Pneumonia ruled out Advanced bullous emphysema as per chest x-ray History of chronic severe asthma. Ongoing nicotine dependence THC use Severe protein calorie malnutrition, BMI 18.3 Gastroesophageal reflux disease Hypothyroidism Bipolar Chronic pain of back ,limbs. Plan: Continue on current medication regime ,monitoring and symptomatic treatment. Maintain nebulized bronchodilators, IV steroids. Steroid tapering as per pulmonary. Aggressive pulmonary toileting with Incentive spirometer reinforced. Pain management readjusted throughout the night for chronic pain. Patient requesting morphine; explained to patient concerned about her respiratory drive in relation to she is on Xanax and has [place], therefore no morphine ordered. Patient verbalized understanding of pain regimen/rationale. Continue reinforcing increased caloric intake. Discharge planning soon, pending pulmonary clearance Prognosis guarded given multiple complex medical issues. The impression and plan of care has been dictated as directed. : I performed a history and examination of this patient, discussed the same with the dictator. I agree with the dictator's note ,documented as a scribe. Any additional findings or plans will be noted.
--- NOTE | 2020-01-17 12:44 | ECHOF ---
Referral Reason:sob MEASUREMENTS -------- HEIGHT: 157.5 cm WEIGHT: 48.1 kg BP: RVIDd: 2.3 cm (< 3.3) IVSd: 0.9 cm (0.6 - 1.1) LVIDd: 3.3 cm (3.9 - 5.3) LVPWd: 1.0 cm (0.6 - 1.1) IVSs: 1.3 cm LVIDs: 2.6 cm LVPWs: 1.4 cm LA Diam: 2.8 cm (2.7 - 3.8) Ao Diam: 2.9 cm (2.0 - 3.7) AV Cusp: 2.0 cm (1.5 - 2.6) MV EXCURSION: 18.221 mm (> 18.000) MV EF SLOPE: 86 mm/s (70 - 150) EPSS: 0.6 cm MV E Devang: 0.58 m/s MV DecT: 188 ms MV A Devang: 0.93 m/s MV E/A Ratio: 0.62 RAP: 5.00 mmHg RVSP: 18.03 mmHg FINDINGS -------- Sinus rhythm. This was a technically adequate study. The left ventricular size is normal. Overall left ventricular systolic function is low-normal with, an EF between 50 - 55 %. The right ventricle is normal in size. The left atrial size is normal. The right atrial size is normal. The aortic valve is trileaflet, and appears structurally normal. No aortic stenosis or regurgitation. The mitral valve leaflets are mildly thickened. Mild mitral regurgitation is present. Mild tricuspid regurgitation present. Right ventricular systolic pressure is normal at < 35 mmHg. There is no pulmonic regurgitation present. The aortic root size is normal. There is a trivial pericardial effusion present. CONCLUSIONS -------- 1. The left ventricular size is normal. 2. Overall left ventricular systolic function is low-normal with, an EF between 50 - 55 %. 3. The right ventricle is normal in size. 4. The left atrial size is normal. 5. The right atrial size is normal. 6. The mitral valve leaflets are mildly thickened. 7. Mild mitral regurgitation is present. 8. Mild tricuspid regurgitation present. 9. There is a trivial pericardial effusion present. LEASING PROFESSIONAL: Alba Chappell RDCS
[2020-01-17 16:47] LABS: Glucose,Whole Blood 131 mg/dL (75-99)
[2020-01-17 20:16] LABS: Glucose,Whole Blood 115 mg/dL (75-99)
[2020-01-17] MEDS: AZITHROMYCIN 500 MG TAB PO SCH (20:55)
[2020-01-17] MEDS: MONTELUKAST 10 MG TAB PO SCH (20:56)
--- NOTE | 2020-01-17 23:25 | PN ---
PROGRESS NOTE DATE OF SERVICE: 01/17/2020 REASON FOR FOLLOWUP: Chronic obstructive pulmonary disease exacerbation, question of pneumonia. INTERVAL HISTORY: Patient is currently afebrile. The patient is breathing comfortably. Denies having any chest pain. Did have a cough. No sputum. No nausea, no vomiting. No abdominal pain, no diarrhea. PHYSICAL EXAMINATION: Blood pressure 131/73, pulse 116, temperature 98.1. She is 93% on room air. General description is a middle-aged female lying in bed in no distress. RESPIRATORY SYSTEM: Unlabored breathing, decreased breath sounds at the bases. No wheeze. HEART: S1, S2. Regular rate and rhythm. ABDOMEN: Soft, no tenderness. LABS: Hemoglobin is 10.3, white count 9.3, creatinine 0.52. DIAGNOSTIC IMPRESSION AND PLAN: Patient with shortness of breath, more likely chronic obstructive pulmonary disease in a patient with tracheobronchitis clinically not behaving as pneumonia. Continue steroids and bronchodilator per Pulmonary. discontinued. Continue supportive care. MMODL / IJN: [id number] /
[2020-01-18] MEDS: IPRATROPIUM-ALBUTEROL 3 ML NEB INHALATION SCH ×6 (02:57→23:58)
[2020-01-18] MEDS: LEVOTHYROXINE 88 MCG TAB PO SCH (06:06)
[2020-01-18] MEDS: methylPREDNISolone SOD SUCCI 125 MG/2 ML VIAL IV SCH ×3 (06:06→17:51)
[2020-01-18] MEDS: HYDROcodone/APAP 7.5-325MG 1 EACH TAB PO PRN ×4 (06:18→22:50)
[2020-01-18 06:23] LABS: Glucose,Whole Blood 96 mg/dL (75-99)
[2020-01-18] MEDS: FORMOTEROL FUMARATE 20 MCG/2 ML NEBU INHALATION SCH ×2 (07:12→18:46)
[2020-01-18] MEDS: BUDESONIDE 1 MG/2 ML NEBU INHALATION SCH ×2 (07:12→18:46)
[2020-01-18] MEDS: INSULIN ASPART (NovoLOG) 100 UNIT/ML VIAL SQ SCH ×4 (08:11→20:54)
[2020-01-18] MEDS: ALPRAZolam 1 MG TAB PO SCH ×3 (08:12→20:52)
[2020-01-18] MEDS: QUEtiapine 100 MG TAB PO SCH ×2 (08:12→20:55)
[2020-01-18] MEDS: HEPARIN SODIUM,PORCINE 5,000 UNIT/ML 1 ML VIAL SQ SCH ×2 (08:12→20:53)
[2020-01-18] MEDS: VENLAFAXINE HCL ER 150 MG CAP PO SCH ×2 (08:13→20:54)
[2020-01-18] MEDS: PANTOPRAZOLE 40 MG/10 ML VIAL IVP SCH ×2 (08:13→08:17)
[2020-01-18] MEDS: LORATADINE 10 MG TAB PO SCH (08:13)
[2020-01-18] MEDS: HYOSCYAMINE SULFATE 0.125 MG TAB PO SCH (08:13)
[2020-01-18] MEDS: SODIUM CHLORIDE 0.9% 1,000 ML IV SCH (08:20)
[2020-01-18 11:36] LABS: Glucose,Whole Blood 110 mg/dL (75-99)
--- NOTE | 2020-01-18 12:19 | P.PN ---
Subjective This is a pleasant 49 years old female with past medical history of COPD, fibromyalgia, GERD, osteoarthritis, hysterectomy, migraine, hypothyroidism. Presents because of dyspnea on 01/14. Patient found to have acute COPD exacerbation with purulent tracheobronchitis and hypoxic hypercapnic respiratory failure. She's been followed closely by several consult us including pulmonary and infectious disease teams. CBC is unremarkable except for mild anemia with hemoglobin 10.3. BMP is unremarkable, sugar is controlled. Liver enzymes elevated. Mycoplasma IgM is normal 0.7, Covid and urine Legionella are negative. CT of the chest showing advanced bullous emphysema. Echocardiogram: Ejection fraction 50-55%. No other significant abnormality per report. Yesterday Dr. Smith was planning to switch her to oral pills if her breathing improves and possible discharge in 2448 hrs., however today she still short of breath significantly especially if she moved to the restroom she become winded and she takes some time to catch up her breath. She still have coughing with yellow green phlegm but no blood, she is does not have much of phlegm. No chest pain or abdominal pain or diarrhea or dysuria. No headache or weakness. Pulmonary service did not clear her today and wanted to continue with steroids and bronchodilators and other treatment, as she still have significant dyspnea although she is on 4 L/M of oxygen via nasal cannula which is the same as home dose Patient is eating and drinking well, and IV fluids could be stopped. She remains on antibiotics as Rocephin and Zithromax. We will repeat chest x- ray today She still smokes cigarettes but she could not tell how many. Nicotine patches effort. Objective - Vital Signs Vital signs: Vital Signs Temp 98.0 F 01/18/20 07:54 Pulse 105 H 01/18/20 11:26 Resp 19 01/18/20 07:54 BP 137/75 01/18/20 07:54 Pulse Ox 92 L 01/18/20 07:54 Intake & Output 01/17/20 01/18/20 01/18/20 18:59 06:59 18:59 Intake Total 300 Balance 300 Weight 33.6 kg Intake: Oral 300 Other: Voiding Method Toilet Toilet Bedside Commode Bedside Commode # Voids 2 - Exam -GENERAL: The patient is alert and oriented x3, not in any acute distress. Thin and emaciated HEENT: Pupils are round and equally reacting to light. EOMI. No scleral icterus. No conjunctival pallor. Normocephalic, atraumatic. No pharyngeal erythema. No thyromegaly. CARDIOVASCULAR: S1 and S2 present. No murmurs, rubs, or gallops. -PULMONARY: Chest is clear to auscultation, bilateral scattered wheezing and decreased air entry ABDOMEN: Soft, nontender, nondistended, normoactive bowel sounds. No palpable organomegaly. MUSCULOSKELETAL: No joint swelling or deformity. EXTREMITIES: No cyanosis, clubbing, or pedal edema. NEUROLOGICAL: Gross neurological examination did not reveal any focal deficits. SKIN: No rashes. no petechiae. - Labs CBC & Chem 7: 01/17/20 08:06 01/17/20 08:06 Labs: Abnormal Lab Results - Last 24 Hours (Table) 01/17/20 01/17/20 01/18/20 Range/Units 16:45 20:13 11:35 POC Glucose (mg/dL) 131 H 115 H 110 H (75-99) mg/dL Microbiology - Last 24 Hours (Table) 01/15/20 21:00 Gram Stain - Final Sputum Sputum Culture - Final Assessment and Plan Assessment: Acute exacerbation of COPD Acute tracheobronchitis Chronic hypoxic respiratory failure Severe calorie protein malnutrition Nicotine dependence History of fibromyalgia Gastroesophageal reflux disease History of degenerative joint disease History of endometriosis Plan: This is a pleasant 49 years old female who presents with advanced severe COPD, pulmonary and infectious disease on the case. Continue with recommendation by pulmonary and infectious disease service. Continue with antibiotics, steroids, bronchodilator, continue with home dose of oxygen. Repeat chest x-ray Labs and medication were reviewed.. Continue same treatment. Continue with symptomatic treatment. Resume home medication. Monitor lytes and vitals. DVT and GI prophylaxis. Further recommendationsas per clinical course of the patient DVT prophylaxis: Subcutaneous heparin GI Prophylaxis: Pepcid Prognosis is guarded
[2020-01-18] MEDS ORDERED: FAMOTIDINE 20 MG/2 ML VIAL IV SCH (12:30)
--- NOTE | 2020-01-18 13:05 | XR ---
EXAMINATION TYPE: XR chest 1V DATE OF EXAM: 01/18/2020 COMPARISON: 01/14/2020 HISTORY: Chest pain TECHNIQUE: Single frontal view of the chest is obtained. FINDINGS: Hyperinflation as well as upper lobe bullous emphysema unchanged. The cardiac silhouette size is within normal limits. The osseous structures are intact. IMPRESSION: 1. No acute process.
--- NOTE | 2020-01-18 13:28 | P.PN ---
Subjective Progress Note Date: 01/18/20 Principal diagnosis: Acute on chronic hypoxic respiratory failure with chronic hypercapnic respiratory failure Purulent tracheobronchitis End-stage COPD with exacerbation Generalized weakness cachexia and protein calorie malnourishment History of multiple issues including fibromyalgia, GERD, DJD, history of endometriosis bipolar disorder and active smoking along with use of THC 01/18/2020, patient seen eval examined during the rounds labs reviewed medications reviewed care plan discussed, cough congestion shortness breath continued to improve, chest x-ray done earlier this morning shows no active pulmonary process consistent with COPD with extensive bullous changes especially in the upper lobes, 01/17/2020, patient seen eval examined during the rounds labs reviewed medications reviewed care plan discussed with the patient, respiratory status remained stable, patient remains on antibiotics breathing treatments IV steroids seems to be responding as sputum is light and now not producing much labs reviewed, CO2 improved to 35 with stable renal functions hemodynamics stable afebrile with saturation 95% on 4 L 01/16/2020, patient seen eval examined during the rounds labs reviewed medications reviewed care plan discussed, is still of ongoing cough shortness of breath but severity has improved significantly, patient remains on steroids breathing treatment antibiotics, sputum production is improved, her sputum studies reviewed with polymicrobial presence but however no predominance of any organism we will wait for final culture results and report, computed tomography scan of the chest has been reviewed consistent with end-stage severe COPD This is a 49-year-old cachectic female with end-stage severe COPD has been smoking very active bleeding has stopped smoking as she Inhales She Came into the Hospital with Increasing Shortness of Breath Cough and Greenish Sputum Production, Patient Has Been Hospitalized Couple of Weeks Ago with a Similar Problem at That Time Sputum Was Sent Showed Gram-Positive Cocci in Cluster However Final ID Is Normal Respiratory Shoshana, Patient Was Discharged in Stable Condition on His Steroids Antibiotics with Significant Improvement However As the Steroids Have Been Tapered down to Small Dose Symptoms Relapse Yesterday She Took the Last Dose of Steroids Started Coughing with Greenish Sputum Production Decided to Come Back into the Hospital Further Evaluation and Intervention and Treatment Denies Any Hemoptysis Has Worsening of Shortness of Breath Has Noted above, Her Chest X-Ray Cystoscopy Bullous Emphysema No Active Cardiopulmonary Disease Is Been Seen, Her at Bradycardia Blood Gas Showed an Significant for Hy poxic Hypercapnic Respiratory Failure Which Appears to Be Compensated She Has Chronic Elevation of CO2 Also Goes along with Chronic Hypercapnia Objective - Vital Signs Vital signs: Vital Signs Temp 98.0 F 01/18/20 07:54 Pulse 105 H 01/18/20 11:26 Resp 19 01/18/20 07:54 BP 137/75 01/18/20 07:54 Pulse Ox 92 L 01/18/20 07:54 Intake & Output 01/17/20 01/18/20 01/18/20 18:59 06:59 18:59 Intake Total 300 Balance 300 Weight 33.6 kg Intake: Oral 300 Other: Voiding Method Toilet Toilet Bedside Commode Bedside Commode # Voids 2 - Exam PHYSICAL EXAM: VITAL SIGNS: [As above] GENERAL: Severely emaciated,alert and oriented 3, Sitting up in bed, no acute distress, no shortness of breath with talking HEENT: Conjunctivae normal. eyes normal. Oral mucosa moist NECK: No JVD. No thyroid enlargement. No LNs CARDIOVASCULAR: S1, S2 regular. No murmur RESPIRATION: Breath sounds diminished in the bases. Occasional scattered rhonch i. ABDOMEN: Soft, nontender . No guarding. no masses palpable. Positive Bowel sounds heard. LEGS: No edema. no swelling NERVOUS SYSTEM: Cranial N 2-12 grossly normal. Moves all 4 limbs. No focal deficits. Strength and sensation grossly intact.. Skin: Warm and dry, no rash - Labs CBC & Chem 7: 01/17/20 08:06 01/17/20 08:06 Labs: Abnormal Lab Results - Last 24 Hours (Table) 01/17/20 01/17/20 01/18/20 Range/Units 16:45 20:13 11:35 POC Glucose (mg/dL) 131 H 115 H 110 H (75-99) mg/dL Microbiology - Last 24 Hours (Table) 01/15/20 21:00 Gram Stain - Final Sputum Sputum Culture - Final Assessment and Plan Assessment: Acute on chronic hypoxic respiratory failure with chronic hypercapnic respiratory failure Purulent tracheobronchitis End-stage COPD with exacerbation Generalized weakness cachexia and protein calorie malnourishment History of multiple issues including fibromyalgia, GERD, DJD, history of endometriosis bipolar disorder and active smoking along with use of THC Plan: Continue bronchodilator Continue antibiotics Continue IV steroids, in next 24 hours can be discharged from pulmonary standpoint The sputum culture studies reviewed final normal respiratory shoshana Reviewed computed tomography scan of the chest, continue show extensive bilateral emphysema but however no active pulmonary process noted Time with Patient: Greater than 30
[2020-01-18 16:50] LABS: Glucose,Whole Blood 138 mg/dL (75-99)
[2020-01-18 20:52] LABS: Glucose,Whole Blood 117 mg/dL (75-99)
[2020-01-18] MEDS: MONTELUKAST 10 MG TAB PO SCH (20:53)
[2020-01-18] MEDS: AZITHROMYCIN 500 MG TAB PO SCH (20:54)
--- NOTE | 2020-01-18 22:50 | PN ---
PROGRESS NOTE DATE OF SERVICE: 01/18/2020. REASON FOR FOLLOW UP: COPD exacerbation and tracheobronchitis. INTERVAL HISTORY: Patient is currently afebrile. The patient is breathing more comfortably. Denies having any chest pain or shortness of breath. She did mention did have a cough. Sputum. No chest pain. No nausea, vomiting. No abdominal pain or diarrhea. PHYSICAL EXAMINATION: Blood pressure 120/75 with a pulse of 109. Temperature 98.8. She is 98% on 4 L nasal cannula. General description is a middle-aged female up in the bed in no distress. Respiratory system: Unlabored breathing, decreased intense breath sounds. No wheeze. HEART: S1, S2. Regular rate and rhythm. Abdomen soft. No tenderness. LABS: No new labs have been obtained today. Sputum is usual respiratory shoshana. DIAGNOSTIC IMPRESSION AND PLAN: Patient admitted to the hospital with shortness of breath and cough which is likely COPD exacerbation and tracheobronchitis. Chest x-ray has been negative. Sputum is normal respiratory shoshana. Continue with steroids and bronchodilators. Continue supportive care. MMODL / IJN: [id number] /
[2020-01-19] MEDS: methylPREDNISolone SOD SUCCI 125 MG/2 ML VIAL IV SCH ×3 (01:35→12:00)
[2020-01-19] MEDS: IPRATROPIUM-ALBUTEROL 3 ML NEB INHALATION SCH ×3 (03:50→11:37)
[2020-01-19] MEDS: BUDESONIDE 1 MG/2 ML NEBU INHALATION SCH (06:11)
[2020-01-19] MEDS: LEVOTHYROXINE 88 MCG TAB PO SCH (07:02)
[2020-01-19 07:08] LABS: Glucose,Whole Blood 137 mg/dL (75-99)
[2020-01-19 07:52] VITALS: BP 143/86; RESP 20; TEMP 97.6
[2020-01-19] MEDS: FORMOTEROL FUMARATE 20 MCG/2 ML NEBU INHALATION SCH (07:57)
[2020-01-19 08:08] VITALS: PULSE 104
[2020-01-19] MEDS: INSULIN ASPART (NovoLOG) 100 UNIT/ML VIAL SQ SCH ×2 (08:17→11:53)
[2020-01-19] MEDS: ALPRAZolam 1 MG TAB PO SCH (08:23)
[2020-01-19] MEDS: PANTOPRAZOLE 40 MG/10 ML VIAL IVP SCH (08:23)
[2020-01-19] MEDS: HEPARIN SODIUM,PORCINE 5,000 UNIT/ML 1 ML VIAL SQ SCH (08:23)
[2020-01-19] MEDS: LORATADINE 10 MG TAB PO SCH (08:23)
[2020-01-19] MEDS: VENLAFAXINE HCL ER 150 MG CAP PO SCH (08:24)
[2020-01-19] MEDS: QUEtiapine 100 MG TAB PO SCH (08:24)
[2020-01-19] MEDS: HYOSCYAMINE SULFATE 0.125 MG TAB PO SCH (08:24)
[2020-01-19] MEDS: HYDROcodone/APAP 7.5-325MG 1 EACH TAB PO PRN (08:28)
--- NOTE | 2020-01-19 09:56 | P.PN ---
Subjective Progress Note Date: 01/19/20 Principal diagnosis: Acute on chronic hypoxic respiratory failure with chronic hypercapnic respiratory failure Purulent tracheobronchitis End-stage COPD with exacerbation Generalized weakness cachexia and protein calorie malnourishment History of multiple issues including fibromyalgia, GERD, DJD, history of endometriosis bipolar disorder and active smoking along with use of THC 01/19/2020, patient seen and evaluated examined breathing comfortably at times, get short of breath on activity and exertion however, oxygen saturation 95% 4 L hemodynamically stable, remains afebrile, patient can be switched to oral antibiotics and steroids agree with discharge planning from pulmonary standpoint 01/18/2020, patient seen eval examined during the rounds labs reviewed medicati ons reviewed care plan discussed, cough congestion shortness breath continued to improve, chest x-ray done earlier this morning shows no active pulmonary process consistent with COPD with extensive bullous changes especially in the upper lobes, 01/17/2020, patient seen eval examined during the rounds labs reviewed medications reviewed care plan discussed with the patient, respiratory status remained stable, patient remains on antibiotics breathing treatments IV steroids seems to be responding as sputum is light and now not producing much labs reviewed, CO2 improved to 35 with stable renal functions hemodynamics stable afebrile with saturation 95% on 4 L 01/16/2020, patient seen eval examined during the rounds labs reviewed medications reviewed care plan discussed, is still of ongoing cough shortness of breath but severity has improved significantly, patient remains on steroids breathing treatment antibiotics, sputum production is improved, her sputum studies reviewed with polymicrobial presence but however no predominance of any organism we will wait for final culture results and report, computed tomography scan of the chest has been reviewed consistent with end-stage severe COPD This is a 49-year-old cachectic female with end-stage severe COPD has been smoking very active bleeding has stopped smoking as she Inhales She Came into the Hospital with Increasing Shortness of Breath Cough and Greenish Sputum Production, Patient Has Been Hospitalized Couple of Weeks Ago with a Similar Problem at That Time Sputum Was Sent Showed Gram-Positive Cocci in Cluster However Final ID Is Normal Respiratory Shoshana, Patient Was Discharged in Stable Condition on His Steroids Antibiotics with Significant Improvement However As the Steroids Have Been Tapered down to Small Dose Symptoms Relapse Yesterday She Took the Last Dose of Steroids Started Coughing with Greenish Sputum Production Decided to Come Back into the Hospital Further Evaluation and Intervention and Treatment Denies Any Hemoptysis Has Worsening of Shortness of Breath Has Noted above, Her Chest X-Ray Cystoscopy Bullous Emphysema No Active Cardiopulmonary Disease Is Been Seen, Her at Bradycardia Blood Gas Showed an Significant for Hypoxic Hypercapnic Respiratory Failure Which Appears to Be Compensated She Has Chronic Elevation of CO2 Also Goes along with Chronic Hypercapnia Objective - Vital Signs Vital signs: Vital Signs Temp 97.6 F 01/19/20 07:51 Pulse 104 H 01/19/20 08:08 Resp 20 01/19/20 07:51 BP 143/86 01/19/20 07:51 Pulse Ox 95 01/19/20 07:51 Intake & Output 01/18/20 01/19/20 01/19/20 18:59 06:59 18:59 Other: Voiding Method Bedside Commode # Voids 2 1 2 - Exam PHYSICAL EXAM: VITAL SIGNS: [As above] GENERAL: Severely emaciated,alert and oriented 3, Sitting up in bed, no acute distress, no shortness of breath with talking HEENT: Conjunctivae normal. eyes normal. Oral mucosa moist NECK: No JVD. No thyroid enlargement. No LNs CARDIOVASCULAR: S1, S2 regular. No murmur RESPIRATION: Breath sounds diminished in the bases. Occasional scattered rhonc hi. ABDOMEN: Soft, nontender . No guarding. no masses palpable. Positive Bowel sounds heard. LEGS: No edema. no swelling NERVOUS SYSTEM: Cranial N 2-12 grossly normal. Moves all 4 limbs. No focal deficits. Strength and sensation grossly intact.. Skin: Warm and dry, no rash - Labs CBC & Chem 7: 01/17/20 08:06 01/17/20 08:06 Labs: Abnormal Lab Results - Last 24 Hours (Table) 01/18/20 01/18/20 01/18/20 Range/Units 11:35 16:48 20:50 POC Glucose (mg/dL) 110 H 138 H 117 H (75-99) mg/dL 01/19/20 Range/Units 07:07 POC Glucose (mg/dL) 137 H (75-99) mg/dL Microbiology - Last 24 Hours (Table) 01/15/20 21:00 Gram Stain - Final Sputum Sputum Culture - Final Assessment and Plan Assessment: Acute on chronic hypoxic respiratory failure with chronic hypercapnic respiratory failure Purulent tracheobronchitis End-stage COPD with exacerbation Generalized weakness cachexia and protein calorie malnourishment History of multiple issues including fibromyalgia, GERD, DJD, history of endometriosis bipolar disorder and active smoking along with use of THC Plan: Continue bronchodilator Continue antibiotics Continue IV steroids, can be switched to oral at the time of discharge The sputum culture studies reviewed final normal respiratory shoshana Reviewed computed tomography scan of the chest, continue show extensive bilateral emphysema but however no active pulmonary process noted Time with Patient: Greater than 30
[2020-01-19 11:29] LABS: Glucose,Whole Blood 109 mg/dL (75-99)
--- NOTE | 2020-01-19 12:20 | P.DS ---
Providers Date of admission: 01/15/20 10:03 Expected date of discharge: 01/19/20 Attending physician: Omid Moreno MD Consults: 01/14/20 19:02 Consult Physician Routine Consulting Provider: Pablo Smith Consult Reason/Comments: COPD Do you want consulting provider notified?: Yes, Notify in am 01/14/20 20:20 Consult Physician Routine Consulting Provider: Yolette Pena Consult Reason/Comments: copd atypical infection Do you want consulting provider notified?: Yes Primary care physician: Omid Moreno MD Patient Condition at Discharge: Fair Plan - Discharge Summary Discharge Rx Participant: No New Discharge Prescriptions: New predniSONE See Taper PO DIRECTED #21 tab Azithromycin [Zithromax] 500 mg PO Q24H #7 tab Continue Montelukast [Singulair] 10 mg PO HS Meclizine [Antivert] 25 mg PO TID PRN PRN Reason: Vertigo Venlafaxine HCl [Effexor XR] 150 mg PO BID QUEtiapine FUMARATE [Seroquel Xr] 600 mg PO HS SUMAtriptan SUCCINATE [Imitrex] 100 mg PO BID PRN PRN Reason: Migraine Headache Omeprazole 40 mg PO DAILY Loratadine [Claritin] 10 mg PO DAILY Levothyroxine Sodium [Synthroid] 88 mcg PO DAILY Hyoscyamine Sulfate [Levsin] 0.125 mg PO DAILY ALPRAZolam [Xanax] 2 mg PO TID Albuterol Inhaler [Ventolin Hfa Inhaler] 2 puff INHALATION RT-QID PRN PRN Reason: Shortness Of Breath Budesonide-Formot 160-4.5 Mcg [Symbicort 160-4.5 Mcg Inhaler] 2 puff INHALATION RT-BID #1 inh Ipratropium-Albuterol Nebulize [Duoneb 0.5 mg-3 mg/3 ml Soln] 3 ml INHALATION RT-QID 30 Days #120 ampul.neb Discontinued predniSONE See Taper PO DAILY Discharge Medication List Meclizine [Antivert] 25 mg PO TID PRN 11/25/16 [History] Montelukast [Singulair] 10 mg PO HS 11/25/16 [History] Venlafaxine HCl [Effexor XR] 150 mg PO BID 11/25/16 [History] QUEtiapine FUMARATE [Seroquel Xr] 600 mg PO HS 12/28/16 [History] ALPRAZolam [Xanax] 2 mg PO TID 12/30/19 [History] Albuterol Inhaler [Ventolin Hfa Inhaler] 2 puff INHALATION RT-QID PRN 12/30/19 [History] Hyoscyamine Sulfate [Levsin] 0.125 mg PO DAILY 12/30/19 [History] Levothyroxine Sodium [Synthroid] 88 mcg PO DAILY 12/30/19 [History] Loratadine [Claritin] 10 mg PO DAILY 12/30/19 [History] Omeprazole 40 mg PO DAILY 12/30/19 [History] SUMAtriptan SUCCINATE [Imitrex] 100 mg PO BID PRN 12/30/19 [History] Budesonide-Formot 160-4.5 Mcg [Symbicort 160-4.5 Mcg Inhaler] 2 puff INHALATION RT-BID #1 inh 01/03/20 [Rx] Ipratropium-Albuterol Nebulize [Duoneb 0.5 mg-3 mg/3 ml Soln] 3 ml INHALATION RT-QID 30 Days #120 ampul.neb 01/03/20 [Rx] Azithromycin [Zithromax] 500 mg PO Q24H #7 tab 01/19/20 [Rx] predniSONE See Taper PO DIRECTED #21 tab 01/19/20 [Rx] Follow up Appointment(s)/Referral(s): Omid Moreno MD [Primary Care Provider] - 1-2 days Discharge Disposition: HOME SELF-CARE
== END 2020-01-19 13:44 | disposition home or self-care (01) | DRG 190 ==
LOC: EC 18:19 → 1SOBS 18:42 → OBSVTOIN 01-15 10:03
PROVIDERS: ADMIT Family Medicine; ATTEND Family Medicine
DX: J43.9 Emphysema, unspecified (principal); E43 Unspecified severe protein-calorie malnutrition; J96.21 Acute and chronic respiratory failure with hypoxia; J96.22 Acute and chronic respiratory failure with hypercapnia; R64 Cachexia; Z68.1 Body mass index [BMI] 19.9 or less, adult; F17.210 Nicotine dependence, cigarettes, uncomplicated; D64.9 Anemia, unspecified; E03.9 Hypothyroidism, unspecified; F31.9 Bipolar disorder, unspecified; F41.9 Anxiety disorder, unspecified; G89.29 Other chronic pain; M54.9 Dorsalgia, unspecified; J20.9 Acute bronchitis, unspecified; K21.9 Gastro-esophageal reflux disease without esophagitis; M19.90 Unspecified osteoarthritis, unspecified site; M79.7 Fibromyalgia; Z20.828 Contact with and (suspected) exposure to other viral communicable diseases; Z79.51 Long term (current) use of inhaled steroids; Z79.890 Hormone replacement therapy; Z79.899 Other long term (current) drug therapy; Z90.49 Acquired absence of other specified parts of digestive tract; Z90.711 Acquired absence of uterus with remaining cervical stump; Z98.891 History of uterine scar from previous surgery; Z88.0 Allergy status to penicillin; Z88.2 Allergy status to sulfonamides
CPT/HCPCS: 36600; 71045; 71046; 71250; 80048; 80053; 82805; 85025; 85652; 86140; 86738; 87070; 87205; 87449; 93005; 93306; 94640; 94760; 99285

== ENCOUNTER 2020-02-27 20:47 | Inpatient (IN) | payer OTHER ==
--- NOTE | 2020-02-27 21:25 | ED ---
General Adult HPI - General Chief complaint: Shortness of Breath Stated complaint: COPD Time Seen by Provider: 02/27/20 21:06 Source: EMS Mode of arrival: EMS Limitations: no limitations - History of Present Illness Initial comments: Dictation was produced using [employer] dictation software. please excuse any grammatical, word or spelling errors. This patient was cared for during a federal and state declared state of emergency secondary to Covid 19 Chief Complaint: 49-year-old female transferred from [facility] for COPD exacerbation. History of Present Illness: Patient is 49-year-old female she has extensive COPD history. Patient was seen and [facility] where she was diagnosed with COPD exacerbation. Patient is transferred here for higher level of care. According to transferring physician patient was recently admitted and discharged from [facility]. She was sent here per patient request. Patient is an extensive COPD year and continues to use tobacco. She had and she may elevated pCO2 was started on BiPAP by transferring physician. She had a negative x-ray and benign labs. Says shortness of breath patient reports that she has chronic total body pain and is requesting pain medications. She denies any fever or productive cough. The ROS documented in this emergency department record has been reviewed and confirmed by me. Those systems with pertinent positive or negative responses have been documented in the HPI. All other systems are other negative and/or noncontributory. PHYSICAL EXAM: General Impression: Alert and oriented x3, not in acute distress, cachectic HEENT: Normocephalic atraumatic, extra-ocular movements intact, pupils equal and reactive to light bilaterally, mucous membranes moist. Cardiovascular: Heart regular rate and rhythm Chest: Able to complete full sentences, no retractions, no tachypnea, diffuse lung wheezing with diminished lung sounds worse in the left field compared to the right Abdomen: abdomen soft, non-tender, non-distended, no organomegaly Musculoskeletal: Pulses present and equal in all extremities, no peripheral edema Motor: no focal deficits noted Neurological: CN II-XII grossly intact, no focal motor or sensory deficits noted Skin: Intact with no visualized rashes Psych: Normal affect and mood ED course:49 y Old female transferred for COPD exacerbation. As upon arrival are within acceptable limits. Transfer documentation was reviewed. Patient's well-appearing at bedside. She does not appear to be significantly dyspneic. Patient will be admitted to Dr. Moreno with consultation to pulmonology. - Related Data Home Medications Medication Instructions Recorded Confirmed Meclizine [Antivert] 25 mg PO TID PRN 11/25/16 01/14/20 Montelukast [Singulair] 10 mg PO HS 11/25/16 01/14/20 Venlafaxine HCl [Effexor XR] 150 mg PO BID 11/25/16 01/14/20 QUEtiapine FUMARATE [Seroquel Xr] 600 mg PO HS 12/28/16 01/14/20 ALPRAZolam [Xanax] 2 mg PO TID 12/30/19 01/14/20 Albuterol Inhaler [Ventolin Hfa 2 puff INHALATION RT-QID PRN 12/30/19 01/14/20 Inhaler] Hyoscyamine Sulfate [Levsin] 0.125 mg PO DAILY 12/30/19 01/14/20 Levothyroxine Sodium [Synthroid] 88 mcg PO DAILY 12/30/19 01/14/20 Loratadine [Claritin] 10 mg PO DAILY 12/30/19 01/14/20 Omeprazole 40 mg PO DAILY 12/30/19 01/14/20 SUMAtriptan SUCCINATE [Imitrex] 100 mg PO BID PRN 12/30/19 01/14/20 Previous Rx's Medication Instructions Recorded Budesonide-Formot 160-4.5 Mcg 2 puff INHALATION RT-BID #1 inh 01/03/20 [Symbicort 160-4.5 Mcg Inhaler] Ipratropium-Albuterol Nebulize 3 ml INHALATION RT-QID 30 Days 01/03/20 [Duoneb 0.5 mg-3 mg/3 ml Soln] #120 ampul.neb Azithromycin [Zithromax] 500 mg PO Q24H #7 tab 01/19/20 predniSONE See Taper PO DIRECTED #21 tab 01/19/20 Allergies Allergy/AdvReac Type Severity Reaction Status Date / Time dicyclomine [From Bentyl] Allergy Rash/Hives Verified 01/14/20 19:25 Penicillins Allergy Unknown Verified 01/14/20 19:25 Childhood sulfamethoxazole Allergy Rash/Hives Verified 01/14/20 19:25 [From Bactrim] trimethoprim [From Bactrim] Allergy Rash/Hives Verified 01/14/20 19:25 paper tape Allergy Rash/Hives Uncoded 01/14/20 18:28 Review of Systems ROS Statement: Those systems with pertinent positive or pertinent negative responses have been documented in the HPI. ROS Other: All systems not noted in ROS Statement are negative. Past Medical History Past Medical History: COPD, Eye Disorder, Fibromyalgia, GERD/Reflux, Osteoarthritis (OA), Thyroid Disorder Additional Past Medical History / Comment(s): Hx blood in stool, Endometriosis. pt states that eyes get gritty feeling like sand is in them. History of Any Multi-Drug Resistant Organisms: None Reported Past Surgical History: Section, Cholecystectomy, Hernia Repair, Hysterectomy Additional Past Surgical History / Comment(s): Partial Hysterectomy, several EGD's and Colonoscopies, biopsy/PSYCHOLOGIST surgery due to Endometriosis. Hernia x2 Past Anesthesia/Blood Transfusion Reactions: Postoperative Nausea & Vomiting (PONV) Additional Past Anesthesia/Blood Transfusion Reaction / Comment(s): States herself and some family members wake from anesthesia angry. 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
[2020-02-27] MEDS ORDERED: MORPHINE SULFATE 4 MG/ML SYRINGE IV STA (21:29)
[2020-02-27] MEDS ORDERED: ALBUTEROL NEBULIZED 2.5 MG/3 ML INHALATION STA (23:00)
[2020-02-28] MEDS ORDERED: QUEtiapine 100 MG TAB PO SCH (02:50)
[2020-02-28] MEDS: VENLAFAXINE HCL ER 75 MG CAP PO SCH ×2 (02:59→20:10)
[2020-02-28] MEDS: HYDROcodone/APAP 5-325MG 1 EACH TAB PO PRN ×2 (02:59→20:09)
[2020-02-28] MEDS: QUEtiapine 50 MG TAB PO SCH ×3 (03:00→20:09)
[2020-02-28] MEDS: MONTELUKAST 10 MG TAB PO SCH ×2 (03:00→20:10)
[2020-02-28] MEDS ORDERED: IPRATROPIUM-ALBUTEROL 3 ML NEB INHALATION PRN (03:41)
[2020-02-28] MEDS: IPRATROPIUM-ALBUTEROL 3 ML NEB INHALATION SCH ×4 (07:46→19:10)
[2020-02-28] MEDS ORDERED: DOXYCYCLINE 100 MG CAP PO SCH (09:00)
[2020-02-28] MEDS ORDERED: predniSONE 20 MG TAB PO SCH (09:00)
[2020-02-28] MEDS: PANTOPRAZOLE 40 MG TABLET PO SCH (09:09)
[2020-02-28] MEDS: methylPREDNISolone SOD SUCCI 40 MG/ML 1 ML VIAL IV SCH ×2 (09:11→15:17)
[2020-02-28] MEDS: ALPRAZolam 1 MG TAB PO SCH ×3 (09:11→20:29)
[2020-02-28] MEDS: LORATADINE 10 MG TAB PO SCH (09:11)
[2020-02-28] MEDS: AZITHROMYCIN 500 MG TAB PO SCH (09:12)
[2020-02-28] MEDS: VENLAFAXINE HCL ER 150 MG CAP PO SCH (09:12)
[2020-02-28] MEDS: LEVOTHYROXINE 88 MCG TAB PO SCH (09:16)
[2020-02-28] MEDS ORDERED: MORPHINE SULFATE 4 MG/ML SYRINGE IVP ONE (13:16)
[2020-02-28 14:41] VITALS: BMI 12.4
--- NOTE | 2020-02-28 14:56 | P.CNPUL ---
History of Present Illness Consult date: 02/28/20 Reason for consult: dyspnea, cough, COPD, hypoxemia Chief complaint: Worsening shortness of breath the last 2 to History of present illness: This is a 49-year-old actinic female with past medical history of end-stage COPD and chronic hypoxic respiratory failure oxygen dependent and steroid dependent, patient has been on Xolair as well, she continued to is intermittently smoke, she has been hospitalized 2 weeks ago at another facility, patient presented at [facility] with increasing shortness of breath, chest x-ray had [facility] has been consistent with COPD patient however require BiPAP and transfe rred to [facility] for further evaluation and treatment Review of Systems All systems: negative Past Medical History Past Medical History: COPD, Eye Disorder, Fibromyalgia, GERD/Reflux, Osteoarthritis (OA), Thyroid Disorder Additional Past Medical History / Comment(s): Hx blood in stool, Endometriosis. pt states that eyes get gritty feeling like sand is in them. History of Any Multi-Drug Resistant Organisms: None Reported Past Surgical History: Section, Cholecystectomy, Hernia Repair, Hysterectomy Additional Past Surgical History / Comment(s): Partial Hysterectomy, several EGD's and Colonoscopies, biopsy/RN GYN surgery due to Endometriosis. Hernia x2 Past Anesthesia/Blood Transfusion Reactions: Postoperative Nausea & Vomiting (PONV) Additional Past Anesthesia/Blood Transfusion Reaction / Comment(s): States herself and some family members wake from anesthesia angry. Past Psychological History: Anxiety, Bipolar, Depression Smoking Status: Former smoker Past Alcohol Use History: Rare Additional Past Alcohol Use History / Comment(s): Has been smoking for 30 yrs, currently smoking 3 cigarettes PPD. States only drinks once a yr. Patient states stop smoke a month ago Past Drug Use History: Marijuana Additional Drug Use History / Comment(s): States daily marajuana use for nausea control. - Past Family History Mother Family Medical History: No Reported History Medications and Allergies Home Medications Medication Instructions Recorded Confirmed Type Meclizine [Antivert] 25 mg PO BID PRN 11/25/16 02/27/20 History Montelukast [Singulair] 10 mg PO HS 11/25/16 02/27/20 History Venlafaxine HCl [Effexor XR] 300 mg PO DAILY 11/25/16 02/27/20 History ALPRAZolam [Xanax] 2 mg PO TID 12/30/19 02/27/20 History Albuterol Inhaler [Ventolin Hfa 2 puff INHALATION RT-QID PRN 12/30/19 02/27/20 History Inhaler] Hyoscyamine Sulfate [Levsin] 0.125 mg PO DAILY 12/30/19 02/27/20 History Levothyroxine Sodium [Synthroid] 88 mcg PO DAILY 12/30/19 02/27/20 History Loratadine [Claritin] 10 mg PO DAILY 12/30/19 02/27/20 History Omeprazole 40 mg PO DAILY 12/30/19 02/27/20 History SUMAtriptan SUCCINATE [Imitrex] 100 mg PO BID PRN 12/30/19 02/27/20 History Ipratropium-Albuterol Nebulize 3 ml INHALATION RT-QID 30 Days 01/03/20 02/27/20 Rx [Duoneb 0.5 mg-3 mg/3 ml Soln] #120 ampul.neb Budesonide [Pulmicort] 0.5 mg INHALATION RT-BID 02/27/20 02/27/20 History Doxycycline Monohydrate [Monodox] 100 mg PO DAILY 02/27/20 02/27/20 History QUEtiapine XR [SEROquel XR] 400 mg PO HS 02/27/20 02/27/20 History Venlafaxine HCl ER [Effexor Xr] 75 mg PO HS 02/27/20 02/27/20 History predniSONE See Taper PO DAILY 02/27/20 02/27/20 History Allergies Allergy/AdvReac Type Severity Reaction Status Date / Time dicyclomine [From Bentyl] Allergy Rash/Hives Verified 02/28/20 08:43 Penicillins Allergy Unknown Verified 02/28/20 08:43 Childhood sulfamethoxazole Allergy Rash/Hives Verified 02/28/20 08:43 [From Bactrim] trimethoprim [From Bactrim] Allergy Rash/Hives Verified 02/28/20 08:43 paper tape Allergy Rash/Hives Uncoded 01/14/20 18:28 Physical Exam Vitals: Vital Signs Temp Pulse Pulse Pulse Resp BP BP 02/28/20 11:34 78 02/28/20 08:10 98.5 F 100 16 112/70 02/28/20 07:57 92 02/28/20 07:46 90 02/28/20 04:00 80 02/28/20 03:50 76 02/28/20 02:20 98.3 F 71 18 114/67 02/27/20 23:48 109 H 02/27/20 23:41 111 H 24 122/82 02/27/20 23:40 97.9 F 109 H 66 24 106/72 02/27/20 23:37 97.9 F 66 20 106/72 02/27/20 23:00 113 H 24 122/87 02/27/20 21:25 111 H 20 121/76 02/27/20 20:57 110 H 02/27/20 20:56 22 02/27/20 20:52 98.6 F 80 21 116/82 Pulse Ox 02/28/20 11:34 02/28/20 08:10 99 02/28/20 07:57 02/28/20 07:46 02/28/20 04:00 02/28/20 03:50 02/28/20 02:20 99 02/27/20 23:48 02/27/20 23:41 95 02/27/20 23:40 94 L 02/27/20 23:37 94 L 02/27/20 23:00 91 L 02/27/20 21:25 93 L 02/27/20 20:57 02/27/20 20:56 02/27/20 20:52 95 Intake and Output 02/27/20 02/28/20 02/28/20 22:59 06:59 14:59 Other: Voiding Method Toilet # Voids 1 Weight 30.844 kg 30.844 kg 30.844 kg - Constitutional Cachectic emaciated General appearance: cooperative, disheveled, mild distress - EENT Ears: bilateral: normal - Neck Carotids: bilateral: upstroke normal - Respiratory Respiratory: bilateral: diminished - Cardiovascular Rhythm: regular Heart sounds: normal: S1, S2 - Gastrointestinal General gastrointestinal: normal bowel sounds, soft - Neurologic Neurologic: CNII-XII intact - Musculoskeletal Musculoskeletal: gait normal, generalized weakness, strength equal bilaterally Assessment and Plan Assessment: Acute COPD exacerbation Acute on chronic hypoxic respirator failure Extensive history of smoking and nicotine abuse Tracheobronchitis Mood disorder associated with depression Plan: Plan is to continue breathing treatments steroids and antibiotics can be simplified, continue supplemental oxygen, increase activity as tolerated, Time with Patient: Greater than 30
[2020-02-28] MEDS: BUDESONIDE 0.5 MG/2 ML NEBU INHALATION SCH (19:10)
--- NOTE | 2020-02-28 23:00 | P.HPIM ---
History of Present Illness H&P Date: 02/28/20 Chief Complaint: shortness of breath Sommer Salazar is a 49 yo F with PMH of severe asthma, COPD overlap, history of extensive tobacco abuse, fibromyalgia who was transferred to [facility] from outside hospital due to shortness of breath. She was just recently admitted to [facility] about 2 weeks ago with the same symptoms, at that time was treated with IV and inhaled steroids as well as doxycycline. She does continue to live with others who smoke in her house and she had not taken her xolair in a few months. Pt was discharged last week with a steroid taper and doxycycline but feels her symptoms started to worsen after she returned home. She was able to see her senior sql database developer and get an injection of xolair last week. On her presentation her vitals were stable, she was hypoxic on her baseline 3 L O2. Labs benign with exception of hypercapnea and CXR clear. Pt was started on BIPAP and then transferred to [facility]. Review of Systems All systems: negative Constitutional: Reports as per HPI, Reports weakness, Denies chills, Denies fever Eyes: denies blurred vision, denies pain Ears, nose, mouth and throat: Denies headache, Denies sore throat Cardiovascular: Denies chest pain, Denies shortness of breath Respiratory: Reports as per HPI, Reports cough, Reports dyspnea, Reports home oxygen, Reports wheezing Gastrointestinal: Denies abdominal pain, Denies diarrhea, Denies nausea, Denies vomiting Genitourinary: Denies dysuria, Denies hematuria Musculoskeletal: Denies myalgias Integumentary: Denies pruritus, Denies rash Neurological: Denies numbness, Denies weakness Psychiatric: Denies anxiety, Denies depression Endocrine: Denies fatigue, Denies weight change Past Medical History Past Medical History: COPD, Eye Disorder, Fibromyalgia, GERD/Reflux, Osteoarthritis (OA), Thyroid Disorder Additional Past Medical History / Comment(s): Hx blood in stool, Endometriosis. pt states that eyes get gritty feeling like sand is in them. History of Any Multi-Drug Resistant Organisms: None Reported Past Surgical History: Section, Cholecystectomy, Hernia Repair, Hysterectomy Additional Past Surgical History / Comment(s): Partial Hysterectomy, several EGD's and Colonoscopies, biopsy/HEATER HELPER surgery due to Endometriosis. Hernia x2 Past Anesthesia/Blood Transfusion Reactions: Postoperative Nausea & Vomiting (PONV) Additional Past Anesthesia/Blood Transfusion Reaction / Comment(s): States herself and some family members wake from anesthesia angry. Past Psychological History: Anxiety, Bipolar, Depression Smoking Status: Former smoker Past Alcohol Use History: Rare Additional Past Alcohol Use History / Comment(s): Has been smoking for 30 yrs, currently smoking 3 cigarettes PPD. States only drinks once a yr. Patient states stop smoke a month ago Past Drug Use History: Marijuana Additional Drug Use History / Comment(s): States daily marajuana use for nausea control. - Past Family History Mother Family Medical History: No Reported History Medications and Allergies Home Medications Medication Instructions Recorded Confirmed Type Meclizine [Antivert] 25 mg PO BID PRN 11/25/16 02/27/20 History Montelukast [Singulair] 10 mg PO HS 11/25/16 02/27/20 History Venlafaxine HCl [Effexor XR] 300 mg PO DAILY 11/25/16 02/27/20 History ALPRAZolam [Xanax] 2 mg PO TID 12/30/19 02/27/20 History Albuterol Inhaler [Ventolin Hfa 2 puff INHALATION RT-QID PRN 12/30/19 02/27/20 History Inhaler] Hyoscyamine Sulfate [Levsin] 0.125 mg PO DAILY 12/30/19 02/27/20 History Levothyroxine Sodium [Synthroid] 88 mcg PO DAILY 12/30/19 02/27/20 History Loratadine [Claritin] 10 mg PO DAILY 12/30/19 02/27/20 History Omeprazole 40 mg PO DAILY 12/30/19 02/27/20 History SUMAtriptan SUCCINATE [Imitrex] 100 mg PO BID PRN 12/30/19 02/27/20 History Ipratropium-Albuterol Nebulize 3 ml INHALATION RT-QID 30 Days 01/03/20 02/27/20 Rx [Duoneb 0.5 mg-3 mg/3 ml Soln] #120 ampul.neb Budesonide [Pulmicort] 0.5 mg INHALATION RT-BID 02/27/20 02/27/20 History Doxycycline Monohydrate [Monodox] 100 mg PO DAILY 02/27/20 02/27/20 History QUEtiapine XR [SEROquel XR] 400 mg PO HS 02/27/20 02/27/20 History Venlafaxine HCl ER [Effexor Xr] 75 mg PO HS 02/27/20 02/27/20 History predniSONE See Taper PO DAILY 02/27/20 02/27/20 History Allergies Allergy/AdvReac Type Severity Reaction Status Date / Time dicyclomine [From Bentyl] Allergy Rash/Hives Verified 02/28/20 08:43 Penicillins Allergy Unknown Verified 02/28/20 08:43 Childhood sulfamethoxazole Allergy Rash/Hives Verified 02/28/20 08:43 [From Bactrim] trimethoprim [From Bactrim] Allergy Rash/Hives Verified 02/28/20 08:43 paper tape Allergy Rash/Hives Uncoded 01/14/20 18:28 Physical Exam Vitals: Vital Signs Temp Pulse Pulse Pulse Resp BP BP 02/28/20 19:45 97.4 F L 126 H 22 90/70 02/28/20 19:28 101 H 18 02/28/20 19:10 100 18 02/28/20 16:04 111 H 18 02/28/20 15:53 110 H 18 02/28/20 14:47 98.1 F 110 H 16 106/71 02/28/20 11:34 78 02/28/20 08:10 98.5 F 100 16 112/70 02/28/20 07:57 92 02/28/20 07:46 90 02/28/20 04:00 80 02/28/20 03:50 76 02/28/20 02:20 98.3 F 71 18 114/67 02/27/20 23:48 109 H 02/27/20 23:41 111 H 24 122/82 02/27/20 23:40 97.9 F 109 H 66 24 106/72 02/27/20 23:37 97.9 F 66 20 106/72 02/27/20 23:00 113 H 24 122/87 Pulse Ox 02/28/20 19:45 97 02/28/20 19:28 02/28/20 19:10 02/28/20 16:04 02/28/20 15:53 02/28/20 14:47 98 02/28/20 11:34 02/28/20 08:10 99 02/28/20 07:57 02/28/20 07:46 02/28/20 04:00 02/28/20 03:50 02/28/20 02:20 99 02/27/20 23:48 02/27/20 23:41 95 02/27/20 23:40 94 L 02/27/20 23:37 94 L 02/27/20 23:00 91 L Intake and Output 02/28/20 02/28/20 02/28/20 06:59 14:59 22:59 Other: Voiding Method Toilet Toilet # Voids 1 1 Weight 30.844 kg 30.844 kg General: NAD. Underweight. Vitals reviewed Eyes: PERRL, EOMI, conjunctiva normal HENT: normocephalic, mucus membranes moist Neck: supple, no JVD Lungs: normal respiratory effort, no wheezes or rales. Diminished air entry t hroughout CV: Regular rate and rhythm, no murmur. Peripheral pulses 2+ Abdomen: soft, nondistended, no organomegaly Lymph: no cervical or axillary LAD Skin: warm and dry. Neuro: A&Ox3, normal mood and affect Thrombosis Risk Factor Assmnt - Choose All That Apply Each Factor Represents 1 point: Abnormal pulmonary function (COPD), Age 41-60 years Other Risk Factors: No Other congenital or acquired thrombophilia - If yes, enter type in comment: No Thrombosis Risk Factor Assessment Total Risk Factor Score: 2 Thrombosis Risk Factor Assessment Level: Low Risk Assessment and Plan (1) Acute on chronic respiratory failure with hypoxemia Current Visit: Yes Status: Acute Code(s): J96.21 - ACUTE AND CHRONIC RESPIRATORY FAILURE WITH HYPOXIA SNOMED Code(s): 68247463244139768 (2) COPD exacerbation Current Visit: Yes Status: Acute Code(s): J44.1 - CHRONIC OBSTRUCTIVE PULMONARY DISEASE W (ACUTE) EXACERBATION SNOMED Code(s): 096955801 (3) Protein calorie malnutrition Current Visit: Yes Status: Acute Code(s): E46 - UNSPECIFIED PROTEIN-CALORIE MALNUTRITION SNOMED Code(s): 471354540 (4) Major depression Current Visit: Yes Status: Acute Code(s): F32.9 - MAJOR DEPRESSIVE DISORDER, SINGLE EPISODE, UNSPECIFIED SNOMED Code(s): 800587158 (5) Fibromyalgia Current Visit: Yes Status: Acute Code(s): M79.7 - FIBROMYALGIA SNOMED Code(s): 153073656 Plan: 1. Acute on chronic respiratory failure. Asthma-COPD overlap syndrome. Consult her senior sql database developer. Resume IV steroids, switch abx to azithromycin. Continue pulmicort and duonebs 2. Fibromyalgia. Bipolar disorder. Continue seroquel, effexor, xanax 3. Protein calorie malnutrition. Encourage dietary supplement
[2020-02-29] MEDS: methylPREDNISolone SOD SUCCI 40 MG/ML 1 ML VIAL IV SCH ×4 (00:11→23:10)
[2020-02-29 05:21] LABS: Basophils % (A) 0 %; Eosinophils % (A) 0 %; HCT 38.2 % (34.0-46.0); HGB 11.7 gm/dL (11.4-16.0); Hypochromasia Slight; Lymphocytes # (A) 0.8 k/uL (1.0-4.8); Lymphocytes % (A) 6 %; MCHC 30.5 g/dL (31.0-37.0); MCV 98.3 fL (80.0-100.0); Mean Platelet Volume 9.5; Monocytes # (A) 0.5 k/uL (0-1.0); Monocytes % (A) 4 %; Neutrophils % (A) 90 %; Platelet Count 208 k/uL (150-450); RBC 3.89 m/uL (3.80-5.40); RDW 13.7 % (11.5-15.5); WBC 14.5 k/uL (3.8-10.6)
[2020-02-29] MEDS: IPRATROPIUM-ALBUTEROL 3 ML NEB INHALATION SCH ×4 (05:26→19:09)
[2020-02-29 05:35] LABS: ALT 94 U/L (4-34); AST 54 U/L (14-36); African American GFR (CKD) >90 (>60 ml/min/1.73 sqM); Albumin 3.2 g/dL (3.5-5.0); Alkaline Phosphatase 69 U/L (38-126); Blood Urea Nitrogen 17 mg/dL (7-17); Calcium 9.7 mg/dL (8.4-10.2); Chloride 88 mmol/L (98-107); Glucose 108 mg/dL (74-99); Non-African American GFR(CKD) >90 (>60 ml/min/1.73 sqM); Potassium 4.3 mmol/L (3.5-5.1); Sodium 135 mmol/L (137-145); Total Bilirubin 0.2 mg/dL (0.2-1.3); Total Protein 5.5 g/dL (6.3-8.2)
[2020-02-29 05:41] LABS: Anion Gap 1 mmol/L
[2020-02-29 05:44] LABS: Carbon Dioxide 46 mmol/L (22-30)
[2020-02-29] MEDS: LEVOTHYROXINE 88 MCG TAB PO SCH (06:16)
[2020-02-29] MEDS ORDERED: acetaZOLAMIDE 250 MG TAB PO ONE (06:30)
[2020-02-29] MEDS: PANTOPRAZOLE 40 MG TABLET PO SCH (07:52)
[2020-02-29] MEDS: QUEtiapine 50 MG TAB PO SCH ×2 (07:59→21:21)
[2020-02-29] MEDS: LORATADINE 10 MG TAB PO SCH (07:59)
[2020-02-29] MEDS: ALPRAZolam 1 MG TAB PO SCH ×3 (07:59→21:21)
[2020-02-29] MEDS: VENLAFAXINE HCL ER 150 MG CAP PO SCH (07:59)
[2020-02-29] MEDS: AZITHROMYCIN 500 MG TAB PO SCH (07:59)
[2020-02-29] MEDS: HYDROcodone/APAP 5-325MG 1 EACH TAB PO PRN ×3 (07:59→21:21)
[2020-02-29] MEDS: BUDESONIDE 0.5 MG/2 ML NEBU INHALATION SCH ×2 (10:47→19:09)
--- NOTE | 2020-02-29 10:54 | P.PN ---
Subjective Progress Note Date: 02/29/20 Sommer Salazar is a 49 yo F with PMH of severe asthma, COPD overlap, history of extensive tobacco abuse, fibromyalgia who was transferred to [facility] from outside hospital due to shortness of breath. She was just recently admitted to [facility] about 2 weeks ago with the same symptoms, at that time was treated with IV and inhaled steroids as well as doxycycline. She does continue to live with others who smoke in her house and she had not taken her xolair in a few months. Pt was discharged last week with a steroid taper and doxycycline but feels her symptoms started to worsen after she returned home. She was able to see her laboratory technology teacher and get an injection of xolair last week. On her presentation her vitals were stable, she was hypoxic on her baseline 3 L O2. Labs benign with exception of hypercapnea and CXR clear. Pt was started on BIPAP and then transferred to [facility]. 02/29/2020 maintained on nebulized bronchodilators, antibiotics, steroids .bicarb increased to 46, received Diamox 1. Patient reports feels better less shortness of breath and denies feeling more sleepy or tired. Complains of chronic decreased appetite. No chest pain, palpitations. Maintaining O2 sats in the high 90s on 4 L nasal cannula. Objective - Vital Signs Vital signs: Vital Signs Temp 98.2 F 02/29/20 07:46 Pulse 102 H 02/29/20 07:46 Resp 16 02/29/20 07:46 BP 100/70 02/29/20 07:46 Pulse Ox 97 02/29/20 07:46 Intake & Output 02/28/20 02/29/20 02/29/20 18:59 06:59 18:59 Weight 30.844 kg Other: Voiding Method Toilet Toilet # Voids 2 1 2 - Exam General: Cachexic ,Sitting up in bed, NAD. Vitals reviewed Eyes: PERRL, EOMI, conjunctiva normal HENT: normocephalic, mucus membranes moist Neck: supple, no JVD Lungs: normal respiratory effort, no wheezes or rales. Diminished air entry throughout CV: Regular rate and rhythm, no murmur. Peripheral pulses 2+ Abdomen: soft, nondistended, no organomegaly Skin: warm and dry. Neuro: A&Ox3, normal mood and affect - Labs CBC & Chem 7: 11/12/20 04:49 02/29/20 04:49 Labs: Abnormal Lab Results - Last 24 Hours (Table) 02/29/20 02/29/20 Range/Units 04:49 04:49 WBC 14.5 H (3.8-10.6) k/uL MCHC 30.5 L (31.0-37.0) g/dL Neutrophils # 13.0 H (1.3-7.7) k/uL Lymphocytes # 0.8 L (1.0-4.8) k/uL Sodium 135 L (137-145) mmol/L Chloride 88 L (98-107) mmol/L Carbon Dioxide 46 H* (22-30) mmol/L Glucose 108 H (74-99) mg/dL AST 54 H (14-36) U/L ALT 94 H (4-34) U/L Total Protein 5.5 L (6.3-8.2) g/dL Albumin 3.2 L (3.5-5.0) g/dL Assessment and Plan Assessment: Acute on chronic hypoxic respiratory failure Acute COPD exacerbation with tracheobronchitis Ongoing nicotine dependence Acute Respiratory acidosis Severe protein calorie malnutrition, BMI 12.4 Fibromyalgia Depression Plan: Continue on current medication regime ,monitoring and symptomatic treatment. Marinol added to med regime for appetite stimulant. Patient states Protonix worsens her food taste and prefers Prilosec. Okay to use Prilosec iffamily brings in , as it is nonformulary here.Aggressive pulmonary toileting with deep breathing exercises encouraged. Increase ambulation as tolerated. Prognosis guarded given multiple complex medical issues. The impression and plan of care has been dictated as directed. : I performed a history and examination of this patient, discussed the same with the dictator. I agree with the dictator's note ,documented as a scribe. Any additional findings or plans will be noted.
--- NOTE | 2020-02-29 16:00 | P.PN ---
Subjective Progress Note Date: 02/29/20 Principal diagnosis: Acute COPD exacerbation Acute on chronic hypoxic respirator failure Extensive history of smoking and nicotine abuse Tracheobronchitis Mood disorder associated with depression 02/29/2020, patient seen eval examined during the rounds undergoing nebulizer t reatment, cough congestion is present in severity continued to be there, no fever or chills are present denies any chest pain, on 4 L nasal cannula breathing comfortably This is a 49-year-old actinic female with past medical history of end-stage COPD and chronic hypoxic respiratory failure oxygen dependent and steroid dependent, patient has been on Xolair as well, she continued to is intermittently smoke, she has been hospitalized 2 weeks ago at another facility, patient presented at [facility] with increasing shortness of breath, chest x-ray had [facility] has been consistent with COPD patient however require BiPAP and transferred to [facility] for further evaluation and treatment Objective - Vital Signs Vital signs: Vital Signs Temp 98.4 F 02/29/20 14:47 Pulse 100 02/29/20 15:44 Resp 16 02/29/20 14:47 BP 102/62 02/29/20 14:47 Pulse Ox 97 02/29/20 14:47 Intake & Output 02/28/20 02/29/20 02/29/20 18:59 06:59 18:59 Weight 30.844 kg Other: Voiding Method Toilet Toilet # Voids 2 1 1 - Exam - Constitutional Cachectic emaciated General appearance: cooperative, disheveled, mild distress - EENT Ears: bilateral: normal - Neck Carotids: bilateral: upstroke normal - Respiratory Respiratory: bilateral: diminished - Cardiovascular Rhythm: regular Heart sounds: normal: S1, S2 - Gastrointestinal General gastrointestinal: normal bowel sounds, soft - Neurologic Neurologic: CNII-XII intact - Musculoskeletal Musculoskeletal: gait normal, generalized weakness, strength equal bilaterally - Labs CBC & Chem 7: 02/29/20 04:49 02/29/20 04:49 Labs: Abnormal Lab Results - Last 24 Hours (Table) 02/29/20 02/29/20 Range/Units 04:49 04:49 WBC 14.5 H (3.8-10.6) k/uL MCHC 30.5 L (31.0-37.0) g/dL Neutrophils # 13.0 H (1.3-7.7) k/uL Lymphocytes # 0.8 L (1.0-4.8) k/uL Sodium 135 L (137-145) mmol/L Chloride 88 L (98-107) mmol/L Carbon Dioxide 46 H* (22-30) mmol/L Glucose 108 H (74-99) mg/dL AST 54 H (14-36) U/L ALT 94 H (4-34) U/L Total Protein 5.5 L (6.3-8.2) g/dL Albumin 3.2 L (3.5-5.0) g/dL Assessment and Plan Assessment: Acute COPD exacerbation Acute on chronic hypoxic respirator failure Extensive history of smoking and nicotine abuse Tracheobronchitis Mood disorder associated with depression Plan: Plan is to continue breathing treatments steroids and antibiotics can be simplified, continue supplemental oxygen, increase activity as tolerated, Time with Patient: Greater than 30
[2020-02-29] MEDS: MONTELUKAST 10 MG TAB PO SCH (21:21)
[2020-02-29] MEDS: VENLAFAXINE HCL ER 75 MG CAP PO SCH (21:21)
[2020-03-01] MEDS: HYDROcodone/APAP 5-325MG 1 EACH TAB PO PRN ×3 (03:06→14:33)
[2020-03-01] MEDS: LEVOTHYROXINE 88 MCG TAB PO SCH (06:01)
[2020-03-01] MEDS: BUDESONIDE 0.5 MG/2 ML NEBU INHALATION SCH (07:46)
[2020-03-01] MEDS: IPRATROPIUM-ALBUTEROL 3 ML NEB INHALATION SCH ×3 (07:46→15:01)
[2020-03-01] MEDS: ALPRAZolam 1 MG TAB PO SCH ×2 (07:57→16:02)
[2020-03-01] MEDS: LORATADINE 10 MG TAB PO SCH (07:58)
[2020-03-01] MEDS: methylPREDNISolone SOD SUCCI 40 MG/ML 1 ML VIAL IV SCH ×2 (07:58→16:02)
[2020-03-01] MEDS: AZITHROMYCIN 500 MG TAB PO SCH (07:58)
[2020-03-01] MEDS: PANTOPRAZOLE 40 MG TABLET PO SCH (07:58)
[2020-03-01] MEDS: VENLAFAXINE HCL ER 150 MG CAP PO SCH (07:59)
[2020-03-01] MEDS: QUEtiapine 50 MG TAB PO SCH (07:59)
[2020-03-01 08:24] VITALS: RESP 20
[2020-03-01 11:34] LABS: Basophils % (A) 0 %; Eosinophils % (A) 0 %; HCT 38.9 % (34.0-46.0); HGB 12.1 gm/dL (11.4-16.0); Hypochromasia Slight; Lymphocytes # (A) 0.8 k/uL (1.0-4.8); Lymphocytes % (A) 4 %; MCH 30.6 pg (25.0-35.0); MCHC 31.1 g/dL (31.0-37.0); MCV 98.4 fL (80.0-100.0); Mean Platelet Volume 9.5; Monocytes # (A) 0.8 k/uL (0-1.0); Monocytes % (A) 4 %; Neutrophils # (A) 18.6 k/uL (1.3-7.7); Neutrophils % (A) 91 %; Platelet Count 232 k/uL (150-450); RBC 3.96 m/uL (3.80-5.40); RDW 13.7 % (11.5-15.5); WBC 20.5 k/uL (3.8-10.6)
[2020-03-01 11:38] LABS: African American GFR (CKD) >90 (>60 ml/min/1.73 sqM); Anion Gap 0 mmol/L; Blood Urea Nitrogen 14 mg/dL (7-17); Calcium 9.9 mg/dL (8.4-10.2); Carbon Dioxide 40 mmol/L (22-30); Chloride 94 mmol/L (98-107); Glucose 87 mg/dL (74-99); Non-African American GFR(CKD) >90 (>60 ml/min/1.73 sqM); Potassium 4.8 mmol/L (3.5-5.1); Sodium 134 mmol/L (137-145)
[2020-03-01] MEDS ORDERED: HYDROcodone/APAP 5-325MG 1 EACH TAB PO STA (11:43)
[2020-03-01] MEDS ORDERED: CYCLOBENZAPRINE 5 MG TAB PO PRN (12:00)
--- NOTE | 2020-03-01 14:21 | P.PN ---
Subjective Progress Note Date: 03/01/20 Principal diagnosis: Acute COPD exacerbation Acute on chronic hypoxic respirator failure Extensive history of smoking and nicotine abuse Tracheobronchitis Mood disorder associated with depression 03/01/2020, patient seen eval examined during the rounds remained short of breat h intermittent cough and congestion is present, white cell count is up to 20,000, other labs and chemistry stable, CO2 level is down to 40, 02/29/2020, patient seen eval examined during the rounds undergoing nebulizer treatment, cough congestion is present in severity continued to be there, no fever or chills are present denies any chest pain, on 4 L nasal cannula breathing comfortably This is a 49-year-old actinic female with past medical history of end-stage COPD and chronic hypoxic respiratory failure oxygen dependent and steroid dependent, patient has been on Xolair as well, she continued to is intermittently smoke, she has been hospitalized 2 weeks ago at another facility, patient presented at [facility] with increasing shortness of breath, chest x-ray had [facility] has been consistent with COPD patient however require BiPAP and transferred to [facility] for further evaluation and treatment Objective - Vital Signs Vital signs: Vital Signs Temp 97.6 F 03/01/20 08:23 Pulse 108 H 03/01/20 11:45 Resp 20 03/01/20 08:23 BP 100/61 03/01/20 08:23 Pulse Ox 100 03/01/20 08:23 Intake & Output 02/29/20 03/01/20 03/01/20 18:59 06:59 18:59 Intake Total 1630 Balance 1630 Intake: Oral 1630 Other: Voiding Method Toilet Toilet Toilet # Voids 1 1 2 - Exam - Constitutional Cachectic emaciated General appearance: cooperative, disheveled, mild distress - EENT Ears: bilateral: normal - Neck Carotids: bilateral: upstroke normal - Respiratory Respiratory: bilateral: diminished - Cardiovascular Rhythm: regular Heart sounds: normal: S1, S2 - Gastrointestinal General gastrointestinal: normal bowel sounds, soft - Neurologic Neurologic: CNII-XII intact - Musculoskeletal Musculoskeletal: gait normal, generalized weakness, strength equal bilaterally - Labs CBC & Chem 7: 03/01/20 10:27 03/01/20 10:27 Labs: Abnormal Lab Results - Last 24 Hours (Table) 03/01/20 03/01/20 Range/Units 10:27 10:27 WBC 20.5 H (3.8-10.6) k/uL Sodium 134 L (137-145) mmol/L Chloride 94 L (98-107) mmol/L Carbon Dioxide 40 H (22-30) mmol/L Assessment and Plan Assessment: Acute COPD exacerbation Acute on chronic hypoxic and hypercapnic respiratory failure Extensive history of smoking and nicotine abuse Tracheobronchitis Mood disorder associated with depression Chronic protein calorie malnourishment Plan: Plan is to continue breathing treatments steroids and antibiotics can be simplified, continue supplemental oxygen, increase activity as tolerated, patient will benefit from nutrition consult Time with Patient: Greater than 30
[2020-03-01 14:33] LABS: Anisocytosis (M) Present
[2020-03-01 14:34] LABS: Poikilocytosis (M) Present
[2020-03-01 14:39] VITALS: BP 92/70; TEMP 98.6
--- NOTE | 2020-03-01 15:17 | P.PN ---
Subjective Progress Note Date: 03/01/20 Sommer Salazar is a 49 yo F with PMH of severe asthma, COPD overlap, history of extensive tobacco abuse, fibromyalgia who was transferred to [facility] from outside hospital due to shortness of breath. She was just recently admitted to [facility] about 2 weeks ago with the same symptoms, at that time was treated with IV and inhaled steroids as well as doxycycline. She does continue to live with others who smoke in her house and she had not taken her xolair in a few months. Pt was discharged last week with a steroid taper and doxycycline but feels her symptoms started to worsen after she returned home. She was able to see her pie filler and get an injection of xolair last week. On her presentation her vitals were stable, she was hypoxic on her baseline 3 L O2. Labs benign with exception of hypercapnea and CXR clear. Pt was started on BIPAP and then transferred to [facility]. 02/29/2020 maintained on nebulized bronchodilators, antibiotics, steroids .bicarb increased to 46, received Diamox 1. Patient reports feels better less shortness of breath and denies feeling more sleepy or tired. Complains of chronic decreased appetite. No chest pain, palpitations. Maintaining O2 sats in the high 90s on 4 L nasal cannula. 03/01/20 received a dose of Diamox yesterday, CO2 down to 40. Feeling better, complains of exertional shortness of breath. Mild tachycardia, afebrile. WBC is up to 20.5 but patient is also on steroids .Appetite slowly improving. Objective - Vital Signs Vital signs: Vital Signs Temp 97.6 F 03/01/20 08:23 Pulse 108 H 03/01/20 11:45 Resp 20 03/01/20 08:23 BP 100/61 03/01/20 08:23 Pulse Ox 100 03/01/20 08:23 Intake & Output 02/29/20 03/01/20 03/01/20 18:59 06:59 18:59 Intake Total 1630 Balance 1630 Intake: Oral 1630 Other: Voiding Method Toilet Toilet Toilet # Voids 1 1 2 - Exam General: Cachexic ,Sitting up in bed, NAD. Vitals reviewed Eyes: PERRL, EOMI, conjunctiva normal HENT: normocephalic, mucus membranes moist Neck: supple, no JVD Lungs: normal respiratory effort, no wheezes or rales. Diminished air entry throughout CV: Regular rate and rhythm, no murmur. Peripheral pulses 2+ Abdomen: soft, nondistended, no organomegaly Skin: warm and dry. Neuro: A&Ox3, normal mood and affect - Labs CBC & Chem 7: 03/01/20 10:27 03/01/20 10:27 Labs: Abnormal Lab Results - Last 24 Hours (Table) 03/01/20 03/01/20 Range/Units 10:27 10:27 WBC 20.5 H (3.8-10.6) k/uL Sodium 134 L (137-145) mmol/L Chloride 94 L (98-107) mmol/L Carbon Dioxide 40 H (22-30) mmol/L Assessment and Plan Assessment: Acute on chronic hypoxic respiratory failure Acute COPD exacerbation with tracheobronchitis Ongoing nicotine dependence Acute Respiratory acidosis Severe protein calorie malnutrition, BMI 12.4 Fibromyalgia Depression Plan: Continue on current medication regime ,monitoring and symptomatic treatment. Marinol dose increased. Discussed goals of weight gain, smoking cessation. Everyone in her home smokes. Patient in agreement to subacute rehab for a couple weeks. Discussed eventual option of lung transplant at [facility]. Patient states by mouth prednisone doesn't seem to work as well for her as Decadron. At OR, discharge on Decadron taper; Decadron 6 mg 3 days then 4 mg 3 days and 3 mg in 3 days then maintenance of 1 mg daily.Pt/ot/SW consulted. Increase ambulation as tolerated. Prognosis guarded given multiple complex medical issues. The impression and plan of care has been dictated as directed. : I performed a history and examination of this patient, discussed the same with the dictator. I agree with the dictator's note ,documented as a scribe. Any additional findings or plans will be noted.
--- NOTE | 2020-03-01 15:49 | P.DS ---
Providers Date of admission: 02/29/20 13:36 Expected date of discharge: 03/01/20 Attending physician: Omid Moreno MD Consults: 02/28/20 08:15 Consult Physician Routine Consulting Provider: Pablo Smith Consult Reason/Comments: copd exacerbation Do you want consulting provider notified?: Yes Primary care physician: Omid Moreno MD Hospital Course: Final Diagnoses: Acute on chronic hypoxic respiratory failure Acute COPD exacerbation with tracheobronchitis Ongoing nicotine dependence Acute Respiratory acidosis Severe protein calorie malnutrition, BMI 12.4 Fibromyalgia Depression Hospital course: Sommer Salazar is a 49 yo F with PMH of severe asthma, COPD overlap, history of extensive tobacco abuse, fibromyalgia who was transferred to [facility] from outside hospital due to shortness of breath. She was just recently admitted to [facility] about 2 weeks ago with the same symptoms, at that time was treated with IV and inhaled steroids as well as doxycycline. She does continue to live with others who smoke in her house and she had not taken her xolair in a few months. Pt was discharged last week with a steroid taper and doxycycline but feels her symptoms started to worsen after she returned home. She was able to see her facing grinder and get an injection of xolair last week. On her presentation her vitals were stable, she was hypoxic on her baseline 3 L O2. Labs benign with exception of hypercapnea and CXR clear. Pt was started on BIPAP and then transferred to [facility]. 02/29/2020 maintained on nebulized bronchodilators, antibiotics, steroids .bicarb increased to 46, received Diamox 1. Patient reports feels better less shortness of breath and denies feeling more sleepy or tired. Complains of chronic decreased appetite. No chest pain, palpitations. Maintaining O2 sats in the high 90s on 4 L nasal cannula. 03/01/20 received a dose of Diamox yesterday, CO2 down to 40. Feeling better, complains of exertional shortness of breath. Mild tachycardia, afebrile. WBC is up to 20.5 but patient is also on steroids .Appetite slowly improving. Plan: Continue on current medication regime ,monitoring and symptomatic treatment. Marinol dose increased. Discussed goals of weight gain, smoking cessation. Everyone in her home smokes. Patient in agreement to subacute rehab for a couple weeks. Discussed eventual option of lung transplant at [facility]. Patient states by mouth prednisone doesn't seem to work as well for her as Decadron. At [place], discharge on Decadron taper; Decadron 6 mg 3 days then 4 mg 3 days and 3 mg in 3 days then maintenance of 1 mg daily.Pt/ot/SW consulted. Increase ambulation as tolerated. Prognosis guarded given multiple complex medical issues Significant clinical improvement. Patient is being discharged to [facility] rehab today in a stable condition with guarded prognosis. The impression and plan of care has been dictated as directed. : I performed a history and examination of this patient, discussed the same with the dictator. I agree with the dictator's note ,documented as a scribe. Any additional findings or plans will be noted. Patient Condition at Discharge: Stable Plan - Discharge Summary New Discharge Prescriptions: New Ipratropium-Albuterol Nebulize [Duoneb 0.5 mg-3 mg/3 ml Soln] 3 ml INHALATION RT-QID ml Ipratropium-Albuterol Nebulize [Duoneb 0.5 mg-3 mg/3 ml Soln] 3 ml INHALATION RT-Q4H PRN ml PRN Reason: Dyspnea dexAMETHasone [Hexadrol] See Taper PO DAILY 30 Days tablet QUEtiapine [SEROquel] 150 mg PO BID tab Azithromycin [Zithromax] 500 mg PO DAILY #3 tab HYDROcodone/APAP 5-325MG [[place] 5-325] 1 each PO Q6HR PRN #12 tab PRN Reason: Pain dronabinoL [Marinol] 5 mg PO AC-BID 3 Days #6 cap Continue Montelukast [Singulair] 10 mg PO HS Venlafaxine HCl [Effexor XR] 300 mg PO DAILY Omeprazole 40 mg PO DAILY Loratadine [Claritin] 10 mg PO DAILY Levothyroxine Sodium [Synthroid] 88 mcg PO DAILY Hyoscyamine Sulfate [Levsin] 0.125 mg PO DAILY Venlafaxine HCl ER [Effexor XR] 75 mg PO HS Budesonide [Pulmicort] 0.5 mg INHALATION RT-BID ALPRAZolam [Xanax] 2 mg PO TID #18 tab Discontinued SUMAtriptan SUCCINATE [Imitrex] 100 mg PO BID PRN PRN Reason: Migraine Headache Ipratropium-Albuterol Nebulize [Duoneb 0.5 mg-3 mg/3 ml Soln] 3 ml INHALATION RT-QID 30 Days #120 ampul.neb predniSONE See Taper PO DAILY QUEtiapine XR [SEROquel XR] 400 mg PO HS Doxycycline Monohydrate [Monodox] 100 mg PO DAILY Discharge Medication List Montelukast [Singulair] 10 mg PO HS 11/25/16 [History] Venlafaxine HCl [Effexor XR] 300 mg PO DAILY 11/25/16 [History] Hyoscyamine Sulfate [Levsin] 0.125 mg PO DAILY 12/30/19 [History] Levothyroxine Sodium [Synthroid] 88 mcg PO DAILY 12/30/19 [History] Loratadine [Claritin] 10 mg PO DAILY 12/30/19 [History] Omeprazole 40 mg PO DAILY 12/30/19 [History] Budesonide [Pulmicort] 0.5 mg INHALATION RT-BID 02/27/20 [History] Venlafaxine HCl ER [Effexor XR] 75 mg PO HS 02/27/20 [History] ALPRAZolam [Xanax] 2 mg PO TID #18 tab 03/01/20 [Rx] Azithromycin [Zithromax] 500 mg PO DAILY #3 tab 03/01/20 [Rx] HYDROcodone/APAP 5-325MG [[place] 5-325] 1 each PO Q6HR PRN #12 tab 03/01/20 [Rx] Ipratropium-Albuterol Nebulize [Duoneb 0.5 mg-3 mg/3 ml Soln] 3 ml INHALATION RT-Q4H PRN ml 03/01/20 [Rx] Ipratropium-Albuterol Nebulize [Duoneb 0.5 mg-3 mg/3 ml Soln] 3 ml INHALATION RT-QID ml 03/01/20 [Rx] QUEtiapine [SEROquel] 150 mg PO BID tab 03/01/20 [Rx] dexAMETHasone [Hexadrol] See Taper PO DAILY 30 Days tablet 03/01/20 [Rx] dronabinoL [Marinol] 5 mg PO AC-BID 3 Days #6 cap 03/01/20 [Rx] Follow up Appointment(s)/Referral(s): Omid Moreno MD [Primary Care Provider] - 3 Days (After DC from subacute rehab) Pablo Smith MD [STAFF PHYSICIAN] - 2 Weeks Activity/Diet/Wound Care/Special Instructions: Medi ECF cbc,bmp in 3 days Discharge/Stand Alone Forms: Community Resources
[2020-03-01 17:50] VITALS: PULSE 125
--- NOTE | 2020-03-02 19:37 | P.PN ---
Subjective Progress Note Date: 03/02/20 Principal diagnosis: Acute COPD exacerbation Acute on chronic hypoxic respirator failure Extensive history of smoking and nicotine abuse Tracheobronchitis Mood disorder associated with depression March 02 2020, patient seen eval examined, cough congestion improved now resp iratory status slightly better than baseline, denies any chest pain, patient is being considered by primary service for discharge, patient can be continued on oral antibiotics and tapering steroids 03/01/2020, patient seen eval examined during the rounds remained short of breath intermittent cough and congestion is present, white cell count is up to 20,000, other labs and chemistry stable, CO2 level is down to 40, 02/29/2020, patient seen eval examined during the rounds undergoing nebulizer tr eatment, cough congestion is present in severity continued to be there, no fever or chills are present denies any chest pain, on 4 L nasal cannula breathing comfortably This is a 49-year-old actinic female with past medical history of end-stage COPD and chronic hypoxic respiratory failure oxygen dependent and steroid dependent, patient has been on Xolair as well, she continued to is intermittently smoke, she has been hospitalized 2 weeks ago at another facility, patient presented at [facility] with increasing shortness of breath, chest x-ray had [facility] has been consistent with COPD patient however require BiPAP and transferred to [facility] for further evaluation and treatment Objective - Vital Signs Vital signs: Vital Signs Temp 98.6 F 03/01/20 14:39 Pulse 114 H 03/01/20 15:11 Resp 20 03/01/20 14:39 BP 92/70 03/01/20 14:39 Pulse Ox 97 03/01/20 14:45 - Exam - Constitutional Cachectic emaciated General appearance: cooperative, disheveled, mild distress - EENT Ears: bilateral: normal - Neck Carotids: bilateral: upstroke normal - Respiratory Respiratory: bilateral: diminished - Cardiovascular Rhythm: regular Heart sounds: normal: S1, S2 - Gastrointestinal General gastrointestinal: normal bowel sounds, soft - Neurologic Neurologic: CNII-XII intact - Musculoskeletal Musculoskeletal: gait normal, generalized weakness, strength equal bilaterally - Labs CBC & Chem 7: 03/01/20 10:27 03/01/20 10:27 Assessment and Plan Assessment: Acute COPD exacerbation Acute on chronic hypoxic and hypercapnic respiratory failure Extensive history of smoking and nicotine abuse Tracheobronchitis Mood disorder associated with depression Chronic protein calorie malnourishment Plan: Plan is to continue breathing treatments steroids and antibiotics can be simplified, continue supplemental oxygen, increase activity as tolerated, patient will benefit from nutrition consult
== END 2020-03-01 18:10 | DRG 190 ==
LOC: EC 20:47 → 1SOBS 21:21 → OBSVTOIN 02-29 13:36
PROVIDERS: ADMIT Family Medicine; ATTEND Family Medicine
DX: J44.1 Chronic obstructive pulmonary disease with (acute) exacerbation (principal); J96.21 Acute and chronic respiratory failure with hypoxia; E43 Unspecified severe protein-calorie malnutrition; J96.22 Acute and chronic respiratory failure with hypercapnia; E87.2 Acidosis; Z68.1 Body mass index [BMI] 19.9 or less, adult; M79.7 Fibromyalgia; F41.9 Anxiety disorder, unspecified; F17.210 Nicotine dependence, cigarettes, uncomplicated; F31.9 Bipolar disorder, unspecified; M19.90 Unspecified osteoarthritis, unspecified site; K21.9 Gastro-esophageal reflux disease without esophagitis; Z99.81 Dependence on supplemental oxygen; Z90.711 Acquired absence of uterus with remaining cervical stump; Z79.899 Other long term (current) drug therapy; Z79.890 Hormone replacement therapy; Z79.51 Long term (current) use of inhaled steroids; Z79.52 Long term (current) use of systemic steroids; Z88.0 Allergy status to penicillin; Z88.2 Allergy status to sulfonamides; Z88.8 Allergy status to other drugs, medicaments and biological substances; Z91.09 Other allergy status, other than to drugs and biological substances; Z98.891 History of uterine scar from previous surgery; Z90.49 Acquired absence of other specified parts of digestive tract; Z98.890 Other specified postprocedural states
CPT/HCPCS: 80048; 80053; 85025; 94640; 94760; 96374; 99285

== ENCOUNTER 2020-04-20 14:16 | Inpatient (IN) | payer OTHER ==
[2020-04-20] MEDS ORDERED: LORazepam 2 MG/ML INJ IV STA ×2 (14:19→15:02)
--- NOTE | 2020-04-20 14:35 | ED ---
General Adult HPI - General Chief complaint: Shortness of Breath Stated complaint: BENITO Time Seen by Provider: 04/20/20 14:18 Source: EMS Mode of arrival: EMS Limitations: no limitations - History of Present Illness Initial comments: Dictation was produced using [employer] dictation software. please excuse any grammatical, word or spelling errors. This patient was cared for during a federal and state declared state of emergency secondary to Covid 19 Chief Complaint: 49-year-old female well-known to emergency department presents was be transferred for COPD exacerbation History of Present Illness: Patient is a 49-year-old female presents to the emergency department via transfer from [facility]. Patient has extensive history of COPD. She presented to [facility] for several days of worsening shortness of breath. Patient is on home O2. She continues to use tobacco. According to transfer documentation patient was given Solu-Medrol and DuoNeb's by prehospital provider. At [facility] she was placed on BiPAP and workup was obtained. Patient had a pH of 7.163, pCO2 greater than 103 and bicarb of 52. According to EMS patient has been noncompliant with BiPAP and has been taking it off. 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 Segal per chest x-ray done at [facility] showed no acute processes. The ROS documented in this emergency department record has been reviewed and confirmed by me. Those systems with pertinent positive or negative responses have been documented in the HPI. All other systems are other negative and/or noncontributory. PHYSICAL EXAM: General Impression: Alert and oriented x3, mildly dyspneic, uncooperative HEENT: Normocephalic atraumatic, extra-ocular movements intact, pupils equal and reactive to light bilaterally, mucous membranes moist. Cardiovascular: Heart regular rate and rhythm Chest: Diffuse mild wheezing, no retractions, no tachypnea Abdomen: abdomen soft, non-tender, non-distended, no organomegaly Musculoskeletal: Pulses present and equal in all extremities, no peripheral edema Motor: no focal deficits noted Neurological: CN II-XII grossly intact, no focal motor or sensory deficits noted Skin: Intact with no visualized rashes Psych: Normal affect and mood ED course: 49-year-old female with past medical history of COPD exacerbation signs upon arrival shows respiratory rate of 20, heart rate 1:15, patient 93% on 6 L nasal cannula. ABG was obtained here with pH of 7.54, pCO2 57 and bicarb of 40 which is significantly improved in comparison to VBG done [facility]. Case is discussed Dr. Loving. Patient will be admitted with consultation to pulmonology. EKG interpretation: Ventricular rate 112, sinus tachycardia,. 156, QRS 88, QTC 425. No SD prolongation, no QTC prolongation, no ST or T-wave changes noted. EKG compared to 01/14/2020 showing no changes. Overall, this EKG is unremarkable - Related Data Home Medications Medication Instructions Recorded Confirmed Montelukast [Singulair] 10 mg PO HS 11/25/16 02/27/20 Venlafaxine HCl [Effexor XR] 300 mg PO DAILY 11/25/16 02/27/20 Hyoscyamine Sulfate [Levsin] 0.125 mg PO DAILY 12/30/19 02/27/20 Levothyroxine Sodium [Synthroid] 88 mcg PO DAILY 12/30/19 02/27/20 Loratadine [Claritin] 10 mg PO DAILY 12/30/19 02/27/20 Omeprazole 40 mg PO DAILY 12/30/19 02/27/20 Budesonide [Pulmicort] 0.5 mg INHALATION RT-BID 02/27/20 02/27/20 Venlafaxine HCl ER [Effexor XR] 75 mg PO HS 02/27/20 02/27/20 Previous Rx's Medication Instructions Recorded ALPRAZolam [Xanax] 2 mg PO TID #18 tab 03/01/20 Azithromycin [Zithromax] 500 mg PO DAILY #3 tab 03/01/20 HYDROcodone/APAP 5-325MG [[place] 1 each PO Q6HR PRN #12 tab 03/01/20 5-325] Ipratropium-Albuterol Nebulize 3 ml INHALATION RT-Q4H PRN ml 03/01/20 [Duoneb 0.5 mg-3 mg/3 ml Soln] Ipratropium-Albuterol Nebulize 3 ml INHALATION RT-QID ml 03/01/20 [Duoneb 0.5 mg-3 mg/3 ml Soln] QUEtiapine [SEROquel] 150 mg PO BID tab 03/01/20 dexAMETHasone [Hexadrol] See Taper PO DAILY 30 Days tablet 03/01/20 dronabinoL [Marinol] 5 mg PO AC-BID 3 Days #6 cap 03/01/20 Allergies Allergy/AdvReac Type Severity Reaction Status Date / Time dicyclomine [From Bentyl] Allergy Rash/Hives Verified 02/28/20 08:43 Penicillins Allergy Unknown Verified 02/28/20 08:43 Childhood sulfamethoxazole Allergy Rash/Hives Verified 02/28/20 08:43 [From Bactrim] trimethoprim [From Bactrim] Allergy Rash/Hives Verified 02/28/20 08:43 paper tape Allergy Rash/Hives Uncoded 01/14/20 18:28 Review of Systems ROS Statement: Those systems with pertinent positive or pertinent negative responses have been documented in the HPI. ROS Other: All systems not noted in ROS Statement are negative. Past Medical History Past Medical History: COPD, Eye Disorder, Fibromyalgia, GERD/Reflux, Osteoarthritis (OA), Thyroid Disorder Additional Past Medical History / Comment(s): Hx blood in stool, Endometriosis. pt states that eyes get gritty feeling like sand is in them. 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 Hernia x2 Past Anesthesia/Blood Transfusion Reactions: Postoperative Nausea & Vomiting (PONV) Additional Past Anesthesia/Blood Transfusion Reaction / Comment(s): States herself and some family members wake from anesthesia angry. Past Psychological History: Anxiety, Bipolar, Depression Smoking Status: Former smoker Past Alcohol Use History: Rare Past Drug Use History: Marijuana - Past Family History Mother Family Medical History: No Reported History General Exam Limitations: no limitations Course Vital Signs 04/20/20 04/20/20 14:19 14:28 Temperature 98.5 F Pulse Rate 115 H 112 H Respiratory 28 H 24 Rate Blood Pressure 110/63 O2 Sat by Pulse 93 L 93 L Oximetry Medical Decision Making - Lab Data Lab Results 04/20/20 Range/Units 14:32 VBG pH 7.54 H (7.31-7.41) VBG pCO2 57 H (37-51) mmHg VBG HCO3 48 H (24-28) mmol/L Disposition Clinical Impression: Hypercarbia, COPD exacerbation Disposition: ADMITTED IP TO THIS HOSP Condition: Fair Referrals: None,Stated [Primary Care Provider] - 1-2 days Decision Time: 15:01
[2020-04-20 14:48] LABS: VBG PH 7.54 (7.31-7.41)
[2020-04-20] MEDS ORDERED: traMADol 50 MG TAB PO PRN (17:29)
--- NOTE | 2020-04-20 18:12 | XR ---
EXAMINATION TYPE: XR chest 1V DATE OF EXAM: 04/20/2020 COMPARISON: Today HISTORY: Short of breath TECHNIQUE: FINDINGS: Heart is normal. Lungs are clear of consolidation. There is emphysema in the upper lobes. T here are no hilar masses. There are chest leads. IMPRESSION: Emphysema. No acute lung disease. No change compared to exam earlier today.
[2020-04-20 18:24] LABS: African American GFR (CKD) >90 (>60 ml/min/1.73 sqM); Blood Urea Nitrogen 9 mg/dL (7-17); Chloride 82 mmol/L (98-107); Glucose 120 mg/dL (74-99); Non-African American GFR(CKD) >90 (>60 ml/min/1.73 sqM); Sodium 135 mmol/L (137-145)
[2020-04-20 18:31] LABS: Anion Gap -2 mmol/L
[2020-04-20 18:43] LABS: Carbon Dioxide 55 mmol/L (22-30)
[2020-04-20] MEDS: IPRATROPIUM-ALBUTEROL 3 ML NEB INHALATION SCH (20:21)
[2020-04-20] MEDS: HYOSCYAMINE SULFATE 0.125 MG TAB PO SCH (21:15)
[2020-04-20] MEDS: MONTELUKAST 10 MG TAB PO SCH (21:15)
[2020-04-20 21:43] LABS: HCT 37.3 % (34.0-46.0); HGB 11.5 gm/dL (11.4-16.0); Hypochromasia Marked; MCH 30.8 pg (25.0-35.0); MCHC 30.7 g/dL (31.0-37.0); MCV 100.2 fL (80.0-100.0); Mean Platelet Volume 11.1; RBC 3.72 m/uL (3.80-5.40); RDW 12.6 % (11.5-15.5)
[2020-04-20 22:09] LABS: Large Platelets Present; Myelocytes % 2 %; Neutrophils % (M) 89 %; Nucleated Red Blood Cells 0 /100 WBC (0-0); Total Cells Counted 200
[2020-04-21] MEDS: LORazepam 2 MG/ML INJ IV PRN ×2 (00:29→03:35)
[2020-04-21] MEDS: PANTOPRAZOLE 40 MG TABLET PO SCH ×2 (06:30→06:54)
[2020-04-21] MEDS: LEVOTHYROXINE 88 MCG TAB PO SCH (06:30)
[2020-04-21 07:19] LABS: Platelet Count 109 k/uL (150-450)
[2020-04-21] MEDS: IPRATROPIUM-ALBUTEROL 3 ML NEB INHALATION SCH ×4 (07:44→19:26)
[2020-04-21 08:05] LABS: Appearance,Urine Clear (Clear); Bilirubin,Urine Negative (Negative); Blood,Urine Negative (Negative); Color,Urine Yellow; Glucose,Urine (UA) Negative (Negative); Ketones,Urine 1+ (Negative); Leukocyte Esterase,Urine Negative (Negative); Nitrite,Urine Negative (Negative); Protein,Urine Negative (Negative); Urobilinogen,Urine <2.0 mg/dL (<2.0)
[2020-04-21] MEDS: LORATADINE 10 MG TAB PO SCH (09:24)
[2020-04-21] MEDS: HYOSCYAMINE SULFATE 0.125 MG TAB PO SCH ×2 (09:24→20:52)
[2020-04-21] MEDS: DULoxetine HCL 20 MG CAPSULE.DR PO SCH (09:24)
[2020-04-21 10:56] LABS: ABG PH 7.24 (7.35-7.45); ABG PO2 233 mmHg (83-108); Allen Test Performed? Yes
[2020-04-21 11:00] LABS: ABG PCO2 >120 mmHg (35-45)
[2020-04-21 11:00] LABS: Basophils # (A) 0.1 k/uL (0-0.2); Basophils % (A) 1 %; Eosinophils # (A) 0.1 k/uL (0-0.7); Eosinophils % (A) 1 %; HCT 40.5 % (34.0-46.0); HGB 11.7 gm/dL (11.4-16.0); Hypochromasia Marked; Lymphocytes % (A) 16 %; MCH 28.8 pg (25.0-35.0); MCHC 28.9 g/dL (31.0-37.0); MCV 99.4 fL (80.0-100.0); Mean Platelet Volume 10.8; Monocytes # (A) 0.9 k/uL (0-1.0); Monocytes % (A) 7 %; Neutrophils # (A) 9.2 k/uL (1.3-7.7); Neutrophils % (A) 73 %; Platelet Count 123 k/uL (150-450); RBC 4.07 m/uL (3.80-5.40); RDW 12.9 % (11.5-15.5); WBC 12.7 k/uL (3.8-10.6)
[2020-04-21 11:24] LABS: Large Platelets Present; Poikilocytosis (M) Present
[2020-04-21 11:48] LABS: African American GFR (CKD) >90 (>60 ml/min/1.73 sqM); Blood Urea Nitrogen 10 mg/dL (7-17); Calcium 9.3 mg/dL (8.4-10.2); Chloride 81 mmol/L (98-107); Glucose 73 mg/dL (74-99); Magnesium 1.5 mg/dL (1.6-2.3); Non-African American GFR(CKD) >90 (>60 ml/min/1.73 sqM); Potassium 4.4 mmol/L (3.5-5.1); Sodium 133 mmol/L (137-145)
[2020-04-21 11:55] LABS: Anion Gap 3 mmol/L
[2020-04-21 11:58] LABS: Carbon Dioxide 49 mmol/L (22-30)
[2020-04-21 12:32] LABS: Glucose,Whole Blood 73 mg/dL (75-99)
[2020-04-21 13:10] LABS: Appearance,Urine Clear (Clear); Bilirubin,Urine Negative (Negative); Blood,Urine Negative (Negative); Color,Urine Yellow; Glucose,Urine (UA) Negative (Negative); Ketones,Urine 2+ (Negative); Leukocyte Esterase,Urine Negative (Negative); Nitrite,Urine Negative (Negative); Protein,Urine Negative (Negative); Specific Gravity,Urine 1.012 (1.001-1.035); Urobilinogen,Urine <2.0 mg/dL (<2.0)
[2020-04-21] MEDS: MAGNESIUM SULFATE-D5W PMX 1 GM in DEXTROSE/WATER 1 100ML.BAG IVPB SCH ×2 (13:50→16:29)
--- NOTE | 2020-04-21 14:55 | P.CNPUL ---
History of Present Illness Consult date: 04/21/20 Reason for consult: dyspnea, COPD, hypoxemia Chief complaint: Shortness of breath History of present illness: This is a 49-year-old female who was seen examined in ICU, patient has been admitted into the medical floor with shortness of breath and acute COPD exacerbation she was found to have a worsening of CO2 and acute respiratory acidosis on top of chronic respiratory acidosis, patient has been placed on BiPAP transferred to the ICU, patient is arousable however denies any chest pain, repeat arterial blood gas are pending, Review of Systems All systems: negative Past Medical History Past Medical History: COPD, Eye Disorder, Fibromyalgia, GERD/Reflux, Osteoarthritis (OA), Thyroid Disorder Additional Past Medical History / Comment(s): Hx blood in stool, Endometriosis. pt states that eyes get gritty feeling like sand is in them. 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 Hernia x2 Past Anesthesia/Blood Transfusion Reactions: Postoperative Nausea & Vomiting (PONV) Additional Past Anesthesia/Blood Transfusion Reaction / Comment(s): States herself and some family members wake from anesthesia angry. Past Psychological History: Anxiety, Bipolar, Depression Smoking Status: Current every day smoker Past Alcohol Use History: Rare Additional Past Alcohol Use History / Comment(s): Has been smoking for 30 yrs, currently smoking 3 cigarettes PPD. States only drinks once a yr. Past Drug Use History: Marijuana Additional Drug Use History / Comment(s): States daily marajuana use for nausea control. - Past Family History Mother Family Medical History: COPD Medications and Allergies Home Medications Medication Instructions Recorded Confirmed Type Montelukast [Singulair] 10 mg PO HS 11/25/16 04/20/20 History Hyoscyamine Sulfate [Levsin] 0.125 mg PO BID 12/30/19 04/20/20 History Levothyroxine Sodium [Synthroid] 88 mcg PO DAILY 12/30/19 04/20/20 History Loratadine [Claritin] 10 mg PO DAILY 12/30/19 04/20/20 History Omeprazole 40 mg PO DAILY 12/30/19 04/20/20 History Ipratropium-Albuterol Nebulize 3 ml INHALATION RT-QID ml 03/01/20 04/20/20 Rx [Duoneb 0.5 mg-3 mg/3 ml Soln] dronabinoL [Marinol] 5 mg PO AC-BID 3 Days #6 cap 03/01/20 04/20/20 Rx ALPRAZolam [Xanax] 0.5 - 2 mg PO TID PRN 04/20/20 04/20/20 History DULoxetine HCL [Cymbalta] 20 mg PO DAILY 04/20/20 04/20/20 History HYDROcodone/APAP 5-325MG [[place] 1 tab PO Q6HR PRN 04/20/20 04/20/20 History 5-325] traMADol HCL 50 mg PO BID PRN 04/20/20 04/20/20 History Allergies Allergy/AdvReac Type Severity Reaction Status Date / Time dicyclomine [From Bentyl] Allergy Rash/Hives Verified 04/20/20 15:18 Penicillins Allergy Unknown Verified 04/20/20 15:18 Childhood sulfamethoxazole Allergy Rash/Hives Verified 04/20/20 15:18 [From Bactrim] trimethoprim [From Bactrim] Allergy Rash/Hives Verified 04/20/20 15:18 paper tape Allergy Rash/Hives Uncoded 01/14/20 18:28 Physical Exam Vitals: Vital Signs Temp Pulse Pulse Resp BP BP Pulse Ox 04/21/20 14:45 117 H 31 H 81/67 81 L 04/21/20 14:30 118 H 18 110/64 80 L 04/21/20 14:15 115 H 16 112/71 81 L 04/21/20 14:00 113 H 33 H 105/66 80 L 04/21/20 13:45 96.9 F L 120 H 25 H 119/70 77 L 04/21/20 09:34 22 92 L 04/21/20 09:25 92 L 04/21/20 08:48 98.0 F 110 H 17 110/62 92 L 04/21/20 08:00 110 H 17 04/21/20 04:00 97.8 F 107 H 22 120/73 96 04/21/20 02:00 112 H 04/20/20 23:59 97.8 F 112 H 20 109/64 95 04/20/20 20:00 98.1 F 113 H 20 121/66 98 04/20/20 16:30 97.7 F 114 H 24 129/60 95 04/20/20 16:11 24 04/20/20 16:06 98.1 F 111 H 16 105/72 99 Intake and Output 04/20/20 04/21/20 04/21/20 22:59 06:59 14:59 Intake Total 340 Output Total 100 480 Balance -100 -140 Intake: Intake, IV Titration 100 Amount Magnesium Sulfate-D5w Pmx 100 1 gm In Dextrose/Water 1 100ml.bag @ 100 mls/hr IVPB Q1H [facility] Rx#: [id number] Oral 240 Output: Urine 100 480 Other: Voiding Method Bedpan Bedpan Bedpan # Voids 1 1 Weight 29.937 kg 38.5 kg 38.5 kg - Constitutional General appearance: disheveled, thin - EENT Eyes: PERRLA Ears: bilateral: normal - Neck Carotids: bilateral: upstroke normal Thyroid: bilateral: normal size - Respiratory Respiratory: bilateral: diminished - Cardiovascular Rhythm: regular Heart sounds: normal: S1, S2 - Gastrointestinal General gastrointestinal: normal bowel sounds - Integumentary Integumentary: decreased turgor - Neurologic Neurologic: CNII-XII intact - Musculoskeletal Musculoskeletal: gait normal, generalized weakness, strength equal bilaterally - Psychiatric Psychiatric: A&O x's 3, appropriate affect, intact judgment & insight Results - Laboratory Findings CBC and BMP: 04/21/20 10:13 04/21/20 10:13 ABG ABG pH 7.24 (7.35-7.45) L 04/21/20 10:35 ABG pCO2 >120 mmHg (35-45) H* 04/21/20 10:35 ABG pO2 233 mmHg (83-108) H 04/21/20 10:35 ABG O2 Saturation 100.0 % (94-97) H 04/21/20 10:35 Abnormal lab findings: Abnormal Labs 04/20/20 04/20/20 04/20/20 14:32 17:56 17:56 WBC RBC 3.72 L MCV 100.2 H MCHC 30.7 L Plt Count 109 L D Neutrophils # Neutrophils # (Manual) 8.90 H Lymphocytes # (Manual) 0.60 L Myelocytes # (Manual) 0.20 H ABG pH ABG pCO2 ABG pO2 ABG O2 Saturation VBG pH 7.54 H VBG pCO2 57 H VBG HCO3 48 H Sodium Chloride Carbon Dioxide Creatinine Glucose POC Glucose (mg/dL) Plasma Lactic Acid Chaka 0.6 L Magnesium Urine Ketones 04/20/20 04/21/20 04/21/20 17:56 07:50 10:13 WBC 12.7 H RBC MCV MCHC 28.9 L Plt Count 123 L Neutrophils # 9.2 H Neutrophils # (Manual) Lymphocytes # (Manual) Myelocytes # (Manual) ABG pH ABG pCO2 ABG pO2 ABG O2 Saturation VBG pH VBG pCO2 VBG HCO3 Sodium 135 L Chloride 82 L Carbon Dioxide 55 H* Creatinine 0.41 L Glucose 120 H POC Glucose (mg/dL) Plasma Lactic Acid Chaka Magnesium Urine Ketones 1+ H 04/21/20 04/21/20 04/21/20 10:13 10:35 12:30 WBC RBC MCV MCHC Plt Count Neutrophils # Neutrophils # (Manual) Lymphocytes # (Manual) Myelocytes # (Manual) ABG pH 7.24 L ABG pCO2 >120 H* ABG pO2 233 H ABG O2 Saturation 100.0 H VBG pH VBG pCO2 VBG HCO3 Sodium 133 L Chloride 81 L Carbon Dioxide 49 H* Creatinine 0.30 L Glucose 73 L POC Glucose (mg/dL) 73 L Plasma Lactic Acid Chaka Magnesium 1.5 L Urine Ketones 04/21/20 12:53 WBC RBC MCV MCHC Plt Count Neutrophils # Neutrophils # (Manual) Lymphocytes # (Manual) Myelocytes # (Manual) ABG pH ABG pCO2 ABG pO2 ABG O2 Saturation VBG pH VBG pCO2 VBG HCO3 Sodium Chloride Carbon Dioxide Creatinine Glucose POC Glucose (mg/dL) Plasma Lactic Acid Chaka Magnesium Urine Ketones 2+ H - Diagnostic Findings Chest x-ray: report reviewed, image reviewed Assessment and Plan Assessment: Acute hypoxic and hypercapnic respiratory failure Acute exacerbation of COPD Cachexia and protein calorie malnourishment Mood disorder depression Generalized anxiety disorder Degenerative joint disease osteoarthritis Plan: BiPAP support each night and when necessary during the day Repeat arterial blood gases IV steroids Breathing treatments Further recommendations pending plan of care as per clinical response of the patient Time with Patient: Greater than 30
[2020-04-21 15:24] LABS: ABG Base Excess 28.6 mmol/L; ABG Oxygen Saturation 61.6 % (94-97); ABG PH 7.37 (7.35-7.45); ABG TCO2 57 mmol/L (19-24); Allen Test Performed? Yes
[2020-04-21 15:39] LABS: ABG HCO3 54 mmol/L (21-25); ABG PCO2 94 mmHg (35-45); ABG PO2 31 mmHg (83-108)
[2020-04-21] MEDS: methylPREDNISolone SOD SUCCI 40 MG/ML 1 ML VIAL IV SCH ×2 (16:29→23:43)
--- NOTE | 2020-04-21 19:24 | P.HPIM ---
History of Present Illness H&P Date: 04/21/20 Chief Complaint: BENITO Patient is a 49-year-old female with a known history of end-stage COPD, fibromyalgia, anxiety/depression and bipolar disorder, hypothyroidism and other multiple medical problems and severe protein calorie malnutrition patient is cachectic was brought to the hospital due to worsening shortness of breath for several days. Patient was initially seen at [facility] and was transferred to [facility] for pulmonary evaluation. Patient was placed on BiPAP in the ER and was transitioned to nasal cannula oxygen. Initial ABG showed pH of 7.44, PCO2 57 and bicarb is 48. Patient is being continued on IV Solu-Medrol and duo nebs. Patient became more lethargic and drowsy this morning. Repeat ABGs were drawn showed pH of 7.24 and PCO2 greater than 120 and PO2 233. Patient was started back on BiPAP and transferred to MICU as per pulmonary recommendations. Chest x-ray showed emphysema. No acute lung disease. EKG showed sinus tachycardia Review of Systems Complete review of systems could not be obtained from the patient. Patient is on BiPAP and lethargic and confused. Past Medical History Past Medical History: COPD, Eye Disorder, Fibromyalgia, GERD/Reflux, Osteoarthritis (OA), Thyroid Disorder Additional Past Medical History / Comment(s): Hx blood in stool, Endometriosis. pt states that eyes get gritty feeling like sand is in them. 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 Hernia x2 Past Anesthesia/Blood Transfusion Reactions: Postoperative Nausea & Vomiting (PO NV) Additional Past Anesthesia/Blood Transfusion Reaction / Comment(s): States herself and some family members wake from anesthesia angry. Past Psychological History: Anxiety, Bipolar, Depression Smoking Status: Current every day smoker Past Alcohol Use History: Rare Additional Past Alcohol Use History / Comment(s): Has been smoking for 30 yrs, currently smoking 3 cigarettes PPD. States only drinks once a yr. Past Drug Use History: Marijuana Additional Drug Use History / Comment(s): States daily marajuana use for nausea control. - Past Family History Mother Family Medical History: COPD Medications and Allergies Home Medications Medication Instructions Recorded Confirmed Type Montelukast [Singulair] 10 mg PO HS 11/25/16 04/20/20 History Hyoscyamine Sulfate [Levsin] 0.125 mg PO BID 12/30/19 04/20/20 History Levothyroxine Sodium [Synthroid] 88 mcg PO DAILY 12/30/19 04/20/20 History Loratadine [Claritin] 10 mg PO DAILY 12/30/19 04/20/20 History Omeprazole 40 mg PO DAILY 12/30/19 04/20/20 History Ipratropium-Albuterol Nebulize 3 ml INHALATION RT-QID ml 03/01/20 04/20/20 Rx [Duoneb 0.5 mg-3 mg/3 ml Soln] dronabinoL [Marinol] 5 mg PO AC-BID 3 Days #6 cap 03/01/20 04/20/20 Rx ALPRAZolam [Xanax] 0.5 - 2 mg PO TID PRN 04/20/20 04/20/20 History DULoxetine HCL [Cymbalta] 20 mg PO DAILY 04/20/20 04/20/20 History HYDROcodone/APAP 5-325MG [[place] 1 tab PO Q6HR PRN 04/20/20 04/20/20 History 5-325] traMADol HCL 50 mg PO BID PRN 04/20/20 04/20/20 History Allergies Allergy/AdvReac Type Severity Reaction Status Date / Time dicyclomine [From Bentyl] Allergy Rash/Hives Verified 04/20/20 15:18 Penicillins Allergy Unknown Verified 04/20/20 15:18 Childhood sulfamethoxazole Allergy Rash/Hives Verified 04/20/20 15:18 [From Bactrim] trimethoprim [From Bactrim] Allergy Rash/Hives Verified 04/20/20 15:18 paper tape Allergy Rash/Hives Uncoded 01/14/20 18:28 Physical Exam Vitals: Vital Signs Temp Pulse Pulse Resp BP BP Pulse Ox 04/21/20 09:34 22 92 L 04/21/20 09:25 92 L 04/21/20 08:48 98.0 F 110 H 17 110/62 92 L 04/21/20 08:00 110 H 17 04/21/20 04:00 97.8 F 107 H 22 120/73 96 04/21/20 02:00 112 H 04/20/20 23:59 97.8 F 112 H 20 109/64 95 04/20/20 20:00 98.1 F 113 H 20 121/66 98 04/20/20 16:30 97.7 F 114 H 24 129/60 95 04/20/20 16:11 24 04/20/20 16:06 98.1 F 111 H 16 105/72 99 04/20/20 14:28 112 H 24 93 L 04/20/20 14:19 98.5 F 115 H 28 H 110/63 93 L Intake and Output 04/20/20 04/21/20 04/21/20 22:59 06:59 14:59 Intake Total 240 Output Total 100 Balance -100 240 Intake: Oral 240 Output: Urine 100 Other: Voiding Method Bedpan Bedpan Bedpan # Voids 1 Weight 29.937 kg 38.5 kg 38.5 kg PHYSICAL EXAMINATION: Patient is currently on BiPAP. Patient in mild distress and using accessory muscles. Patient is drowsy confused and lethargic. Cachectic.. HEENT: Normocephalic. Neck is supple. Pupils reactive. Nostrils clear. Oral cavity is moist. Ears reveal no drainage. Neck reveals no JVD, carotid bruits, or thyromegaly. CHEST EXAMINATION: Trachea is central. Symmetrical expansion.Bilateral diminished air entry and minimal expiratory wheeze.. CARDIAC: Normal S1, S2 with no gallops. No murmurs ABDOMEN: Soft. Bowel sounds normal. No organomegaly. No abdominal bruits. Extremities: reveal no edema. No clubbing or cyanosis Neurologically awake, alert, oriented x1-2. lethargic . No focal deficits noted Skin: No rash or skin lesions. Psychiatric: Could not be assessed at this time. Musculoskeletal: No joint swelling or deformity. Results CBC & Chem 7: 04/21/20 10:13 04/21/20 10:13 Labs: Abnormal Lab Results - Last 24 Hours (Table) 04/20/20 04/20/20 04/20/20 Range/Units 14:32 17:56 17:56 WBC (3.8-10.6) k/uL RBC 3.72 L (3.80-5.40) m/uL MCV 100.2 H (80.0-100.0) fL MCHC 30.7 L (31.0-37.0) g/dL Plt Count 109 L D (150-450) k/uL Neutrophils # (Manual) 8.90 H (1.3-7.7) k/uL Lymphocytes # (Manual) 0.60 L (1.0-4.8) k/uL Myelocytes # (Manual) 0.20 H (0) k/uL ABG pH (7.35-7.45) ABG pCO2 (35-45) mmHg ABG pO2 (83-108) mmHg ABG O2 Saturation (94-97) % VBG pH 7.54 H (7.31-7.41) VBG pCO2 57 H (37-51) mmHg VBG HCO3 48 H (24-28) mmol/L Sodium (137-145) mmol/L Chloride (98-107) mmol/L Carbon Dioxide (22-30) mmol/L Creatinine (0.52-1.04) mg/dL Glucose (74-99) mg/dL Plasma Lactic Acid Chaka 0.6 L (0.7-2.0) mmol/L Urine Ketones (Negative) 04/20/20 04/21/20 04/21/20 Range/Units 17:56 07:50 10:13 WBC 12.7 H (3.8-10.6) k/uL RBC (3.80-5.40) m/uL MCV (80.0-100.0) fL MCHC 28.9 L (31.0-37.0) g/dL Plt Count (150-450) k/uL Neutrophils # (Manual) (1.3-7.7) k/uL Lymphocytes # (Manual) (1.0-4.8) k/uL Myelocytes # (Manual) (0) k/uL ABG pH (7.35-7.45) ABG pCO2 (35-45) mmHg ABG pO2 (83-108) mmHg ABG O2 Saturation (94-97) % VBG pH (7.31-7.41) VBG pCO2 (37-51) mmHg VBG HCO3 (24-28) mmol/L Sodium 135 L (137-145) mmol/L Chloride 82 L (98-107) mmol/L Carbon Dioxide 55 H* (22-30) mmol/L Creatinine 0.41 L (0.52-1.04) mg/dL Glucose 120 H (74-99) mg/dL Plasma Lactic Acid Chaka (0.7-2.0) mmol/L Urine Ketones 1+ H (Negative) 04/21/20 Range/Units 10:35 WBC (3.8-10.6) k/uL RBC (3.80-5.40) m/uL MCV (80.0-100.0) fL MCHC (31.0-37.0) g/dL Plt Count (150-450) k/uL Neutrophils # (Manual) (1.3-7.7) k/uL Lymphocytes # (Manual) (1.0-4.8) k/uL Myelocytes # (Manual) (0) k/uL ABG pH 7.24 L (7.35-7.45) ABG pCO2 >120 H* (35-45) mmHg ABG pO2 233 H (83-108) mmHg ABG O2 Saturation 100.0 H (94-97) % VBG pH (7.31-7.41) VBG pCO2 (37-51) mmHg VBG HCO3 (24-28) mmol/L Sodium (137-145) mmol/L Chloride (98-107) mmol/L Carbon Dioxide (22-30) mmol/L Creatinine (0.52-1.04) mg/dL Glucose (74-99) mg/dL Plasma Lactic Acid Chaka (0.7-2.0) mmol/L Urine Ketones (Negative) Thrombosis Risk Factor Assmnt - DVT/VTE Prophylaxis DVT/VTE Prophylaxis: Pharmacologic Prophylaxis ordered - Choose All That Apply Any of the Below Risk Factors Present?: Yes Each Factor Represents 1 point: Abnormal pulmonary function (COPD), Age 41-60 ye ars Other Risk Factors: No Other congenital or acquired thrombophilia - If yes, enter type in comment: No Thrombosis Risk Factor Assessment Total Risk Factor Score: 2 Thrombosis Risk Factor Assessment Level: Low Risk Assessment and Plan Assessment: Acute hypoxic and hypercapnic respiratory failure secondary to COPD exacerbation Advanced COPD Chronic hypoxic respiratory failure on home oxygen Severe protein calorie malnutrition Anxiety/depression bipolar disorder. On Xanax at home. GERD Fibromyalgia Osteoarthritis Hypothyroidism Currently everyday smoker Marijuana use on daily basis DVT prophylaxis with heparin subcu Plan: Patient will be continued on duo nebs and IV steroids and currently on BiPAP. Continue to monitor patient in ICU. Pulmonary is on board. Continue with home medications and Ativan as needed for anxiety. Due to worsening respiratory status and overall clinical status, discussed with the family regarding CODE STATUS. Currently pending family decision regarding further treatment goals. Prognosis poor at this time. Time with Patient: Greater than 30
[2020-04-21] MEDS: BUDESONIDE 1 MG/2 ML NEBU INHALATION SCH (19:26)
[2020-04-21] MEDS: MONTELUKAST 10 MG TAB PO SCH (20:52)
[2020-04-21] MEDS: DEXMEDETOMIDINE/0.9% NACL(PMX) 400 MCG in EMPTY BAG 1 BAG IV SCH (21:28)
[2020-04-21] MEDS: HEPARIN SODIUM,PORCINE 5,000 UNIT/ML 1 ML VIAL SQ SCH (21:57)
[2020-04-22 00:04] LABS: Glucose,Whole Blood 80 mg/dL (75-99)
[2020-04-22 04:26] LABS: ALT 16 U/L (4-34); AST 25 U/L (14-36); African American GFR (CKD) >90 (>60 ml/min/1.73 sqM); Albumin 3.3 g/dL (3.5-5.0); Alkaline Phosphatase 92 U/L (38-126); Blood Urea Nitrogen 20 mg/dL (7-17); Calcium 9.1 mg/dL (8.4-10.2); Chloride 80 mmol/L (98-107); Glucose 69 mg/dL (74-99); Magnesium 1.9 mg/dL (1.6-2.3); Non-African American GFR(CKD) >90 (>60 ml/min/1.73 sqM); Phosphorus 2.5 mg/dL (2.5-4.5); Potassium 4.6 mmol/L (3.5-5.1); Sodium 131 mmol/L (137-145); Total Bilirubin 0.6 mg/dL (0.2-1.3); Total Protein 5.8 g/dL (6.3-8.2)
[2020-04-22 04:27] LABS: Basophils % (A) 0 %; Eosinophils % (A) 0 %; HCT 40.9 % (34.0-46.0); HGB 12.3 gm/dL (11.4-16.0); Hypochromasia Moderate; Lymphocytes # (A) 0.1 k/uL (1.0-4.8); Lymphocytes % (A) 1 %; MCH 29.1 pg (25.0-35.0); MCHC 30.1 g/dL (31.0-37.0); MCV 96.8 fL (80.0-100.0); Mean Platelet Volume 12.1; Monocytes # (A) 0.3 k/uL (0-1.0); Monocytes % (A) 4 %; Neutrophils # (A) 9.4 k/uL (1.3-7.7); Neutrophils % (A) 94 %; Platelet Count 146 k/uL (150-450); RBC 4.23 m/uL (3.80-5.40)
[2020-04-22 04:32] LABS: Anion Gap 7 mmol/L
[2020-04-22 04:33] LABS: Carbon Dioxide 44 mmol/L (22-30)
[2020-04-22] MEDS: MAGNESIUM SULFATE-D5W PMX 1 GM in DEXTROSE/WATER 1 100ML.BAG IVPB SCH ×2 (05:40→06:49)
[2020-04-22] MEDS: DEXMEDETOMIDINE/0.9% NACL(PMX) 400 MCG in EMPTY BAG 1 BAG IV SCH ×2 (06:28→11:51)
[2020-04-22] MEDS: PANTOPRAZOLE 40 MG TABLET PO SCH (06:50)
[2020-04-22] MEDS: LEVOTHYROXINE 88 MCG TAB PO SCH (06:50)
--- NOTE | 2020-04-22 07:27 | XR ---
EXAMINATION TYPE: XR chest 1V portable DATE OF EXAM: 04/22/2020 Comparison: 04/20/2020 Clinical History: 49-year-old female COPD Findings: Heart normal size. Aorta and pulmonary vasculature within normal limits. Advanced bullous emphysema r edemonstrated without consolidation or pleural effusion. Impression: Advanced bullous emphysema. No acute process seen.
[2020-04-22] MEDS: IPRATROPIUM-ALBUTEROL 3 ML NEB INHALATION SCH ×4 (08:21→19:31)
[2020-04-22] MEDS: BUDESONIDE 1 MG/2 ML NEBU INHALATION SCH ×2 (08:21→19:31)
[2020-04-22] MEDS: HEPARIN SODIUM,PORCINE 5,000 UNIT/ML 1 ML VIAL SQ SCH ×2 (09:22→20:13)
[2020-04-22] MEDS: methylPREDNISolone SOD SUCCI 40 MG/ML 1 ML VIAL IV SCH ×2 (09:22→16:12)
[2020-04-22] MEDS: LORATADINE 10 MG TAB PO SCH (09:23)
[2020-04-22] MEDS: DULoxetine HCL 20 MG CAPSULE.DR PO SCH (09:23)
[2020-04-22] MEDS: HYOSCYAMINE SULFATE 0.125 MG TAB PO SCH ×2 (09:23→20:13)
--- NOTE | 2020-04-22 10:10 | P.CNNES ---
History of Present Illness Consult date: 04/22/19 Requesting physician: Carole Loving Reason for Consult: confusion History of Present Illness: This is a 49-year-old woman with medical history of fibromyalgia, posture arthritis, hypothyroidism and endometriosis that was transferred to [facility] emergency department on 04/20/2020 for shortness of breath from [facility]. She was outside facility for several days for worsening of the shortness of breath. She is on home oxygen and she was placed on BiPAP at outside facility. Some of the history was obtained from medical records since patient could not provide it and was on CPAP machine so was hard for her to provide it. She was found to have worsening of the CO2 and acute respiratory acidosis on top of the chronic respiratory acidosis. The patient has been placed on BiPAP and transferred to ICU. Workup in our facility consisted of: Initial vital signs: Blood pressure of 110/63, heart rate of 115, temperature of 98.5 Fahrenheit oral, respiratory rate of 28, pulse ox of 93 L nasal cannula. Since the patient is a admission she's been tachycardic between 100s to 110s. EKG is reported as sinus tachycardia. Right atrial enlargement. Borderline EKG at. Chest x-ray is reported as emphysema. No acute the lung disease. Patient MCV is 100.2 and that the hemoglobin is 11.5. Patient, carbon dioxide on presentation is a 55, sodium is 135, chloride is 82, glucose on presentation is 120. Magnesium is 105 on presentation. Initial ABG the pH is 7.24, the pO2 was 233 and the pCO2 was more than 120. Per the patient nurse the patient lives with the sister most likely and it seems that she was the kicked out of the house. That she is on home oxygen and unsure if the if she was using it recently. The CT of the head was ordered by the primary team but because the patient is having respiratory distress and is on the CPAP it's hard for her to get that CT at this time. No seizure-like activity per the patient nurse. She has history of tobacco use. Review of Systems Able to obtain a full review of systems because of the patient's condition and the pertinent positive and negative per HPI. Past Medical History Past Medical History: COPD, Eye Disorder, Fibromyalgia, GERD/Reflux, Osteoarthritis (OA), Thyroid Disorder Additional Past Medical History / Comment(s): Hx blood in stool, Endometriosis. pt states that eyes get gritty feeling like sand is in them. History of Any Multi-Drug Resistant Organisms: None Reported Past Surgical History: Section, Cholecystectomy, Hernia Repair, Hysterectomy Additional Past Surgical History / Comment(s): Partial Hysterectomy, several EGD's and Colonoscopies, biopsy/[employer] surgery due to Endometriosis. Hernia x2 Past Anesthesia/Blood Transfusion Reactions: Postoperative Nausea & Vomiting (PONV) Additional Past Anesthesia/Blood Transfusion Reaction / Comment(s): States herself and some family members wake from anesthesia angry. Past Psychological History: Anxiety, Bipolar, Depression Smoking Status: Current every day smoker Past Alcohol Use History: Rare Additional Past Alcohol Use History / Comment(s): Has been smoking for 30 yrs, currently smoking 3 cigarettes PPD. States only drinks once a yr. Past Drug Use History: Marijuana Additional Drug Use History / Comment(s): States daily marajuana use for nausea control. - Past Family History Mother Family Medical History: COPD Medications and Allergies Home Medications Medication Instructions Recorded Confirmed Type Montelukast [Singulair] 10 mg PO HS 11/25/16 04/20/20 History Hyoscyamine Sulfate [Levsin] 0.125 mg PO BID 12/30/19 04/20/20 History Levothyroxine Sodium [Synthroid] 88 mcg PO DAILY 12/30/19 04/20/20 History Loratadine [Claritin] 10 mg PO DAILY 12/30/19 04/20/20 History Omeprazole 40 mg PO DAILY 12/30/19 04/20/20 History Ipratropium-Albuterol Nebulize 3 ml INHALATION RT-QID ml 03/01/20 04/20/20 Rx [Duoneb 0.5 mg-3 mg/3 ml Soln] dronabinoL [Marinol] 5 mg PO AC-BID 3 Days #6 cap 03/01/20 04/20/20 Rx ALPRAZolam [Xanax] 0.5 - 2 mg PO TID PRN 04/20/20 04/20/20 History DULoxetine HCL [Cymbalta] 20 mg PO DAILY 04/20/20 04/20/20 History HYDROcodone/APAP 5-325MG [[place] 1 tab PO Q6HR PRN 04/20/20 04/20/20 History 5-325] traMADol HCL 50 mg PO BID PRN 04/20/20 04/20/20 History Allergies Allergy/AdvReac Type Severity Reaction Status Date / Time dicyclomine [From Bentyl] Allergy Rash/Hives Verified 04/20/20 15:18 Penicillins Allergy Unknown Verified 04/20/20 15:18 Childhood sulfamethoxazole Allergy Rash/Hives Verified 04/20/20 15:18 [From Bactrim] trimethoprim [From Bactrim] Allergy Rash/Hives Verified 04/20/20 15:18 paper tape Allergy Rash/Hives Uncoded 01/14/20 18:28 Physical Examination - Vital Signs Vital Signs: Vital Signs Temp Pulse Resp BP Pulse Ox 04/22/20 08:42 109 H 04/22/20 08:21 105 H 04/22/20 08:00 97.6 F 110 H 21 100/65 87 L 04/22/20 07:00 108 H 24 109/68 87 L 04/22/20 06:30 111 H 24 110/98 86 L 04/22/20 06:00 117 H 10 L 120/71 87 L 04/22/20 05:30 110 H 15 115/77 86 L 04/22/20 05:00 112 H 15 116/78 85 L 04/22/20 04:30 112 H 29 H 100/74 84 L 04/22/20 04:00 107 H 20 91/53 88 L 04/22/20 03:30 97.1 F L 110 H 27 H 97/74 89 L 04/22/20 03:00 120 H 18 85/67 90 L 04/22/20 02:30 112 H 21 99/74 85 L 04/22/20 02:00 112 H 24 88/57 89 L 04/22/20 01:30 110 H 24 129/65 89 L 04/22/20 01:00 109 H 22 105/71 90 L 04/22/20 00:30 110 H 23 105/74 91 L 04/22/20 00:07 111 H 15 105/69 90 L 04/22/20 00:00 106 H 13 108/76 90 L 04/21/20 23:30 114 H 22 93/75 94 L 04/21/20 23:00 97.8 F 112 H 35 H 109/78 93 L 04/21/20 22:30 105 H 25 H 108/89 95 01/03/21 22:00 101 H 17 109/81 98 04/21/20 21:30 102 H 16 104/73 04/21/20 21:00 109 H 14 104/81 04/21/20 20:30 113 H 25 H 107/71 82 L 04/21/20 20:00 110 H 20 100/63 96 04/21/20 19:44 114 H 04/21/20 19:30 97.5 F L 106 H 16 104/74 89 L 04/21/20 19:28 112 H 04/21/20 19:00 112 H 12 105/77 93 L 04/21/20 18:30 111 H 14 98/69 95 04/21/20 18:00 110 H 15 113/91 96 04/21/20 17:30 115 H 23 101/74 96 04/21/20 17:00 115 H 22 80/49 93 L 04/21/20 16:45 112 H 11 L 110/81 89 L 04/21/20 16:30 113 H 22 112/63 04/21/20 16:15 109 H 20 96/82 96 04/21/20 16:00 96.9 F L 111 H 16 98/76 94 L 04/21/20 15:45 112 H 12 107/69 94 L 04/21/20 15:34 112 H 04/21/20 15:30 113 H 15 99/65 87 L 04/21/20 15:16 114 H 04/21/20 15:15 112 H 19 99/70 81 L 04/21/20 15:00 115 H 29 H 107/61 76 L 04/21/20 14:45 117 H 31 H 81/67 81 L 04/21/20 14:30 118 H 18 110/64 80 L 04/21/20 14:15 115 H 16 112/71 81 L 04/21/20 14:00 113 H 33 H 105/66 80 L 04/21/20 13:45 96.9 F L 120 H 25 H 119/70 77 L 04/21/20 09:34 22 92 L 04/21/20 09:25 92 L Intake and Output 04/21/20 04/22/20 04/22/20 22:59 06:59 14:59 Intake Total 132.495 296.533 225 Output Total 270 265 40 Balance -137.505 31.533 185 Intake: IV 30 240 100 0.9 KVO 30 140 Magnesium Sulfate-D5w Pmx 100 100 1 gm In Dextrose/Water 1 100ml.bag @ 100 mls/hr IVPB Q1H [facility] Rx#: [id number] Intake, IV Titration 102.495 56.533 Amount Dexmedetomidine/0.9% NaCl 2.495 56.533 (Pmx) 400 mcg In Empty Bag 1 bag @ Titrate IV . Q0M [facility] Rx#:[id number] Magnesium Sulfate-D5w Pmx 100 1 gm In Dextrose/Water 1 100ml.bag @ 100 mls/hr IVPB Q1H [facility] Rx#: [id number] Oral 125 Output: Urine 270 265 40 Other: Voiding Method Indwelling Catheter Indwelling Catheter Weight 35.4 kg GENERAL: The patient is lying in bed, is cachectic and seem in respiratory distress. Currently on BiPAP machine. CHEST: The heart rate is regular rate rhythm. No murmurs to auscultation. LUNG: Clear to auscultation bilaterally no wheezing noted throughout. On BiPAP machine and seems slightly respiratory distress but no labored breathing. ABDOMEN/GI: Bowel sounds present in all 4 quadrants. No tenderness to palpation throughout. NEUROLOGICAL: Limited because of patient's condition. Higher mental function: The patient is awake, alert, oriented to self. Incorrectly answered she was at home to options. She was able to identify objects such as glasses, cup and pen. Patient is following commands. It's hard to accurately assess the patient language since the patient was on BiPAP and I could not remove it because her respiratory condition. Cranial nerves: The pupils are round, equal and reactive to light. Visual cabral are full to confrontation throughout. Extraocular movement is intact no nystagmus is noted. Facial sensation is normal to touch throughout. The facial strength could not assess because has mask for BiPAP machine. Rest. of cranial Nerves could not be assessed because of the patient condition. Motor: Gait is deferred because of her condition. The strength is moving all extremities above gravity and there is no focality as seen. Normal tone and bulk. Sensation: Could not assess because of condition. Reflexes (right/left): 2+ throughout except ankles are 1+ bilaterally. Plantars are downgoing bilaterally. Results AST of 25 and ALT of 16. Urinalysis is negative for urinary tract infection. - Laboratory Findings CBC and BMP: 04/22/20 03:43 04/22/20 03:43 Abnormal Lab Findings: Abnormal Labs 04/20/20 04/20/20 04/20/20 14:32 17:56 17:56 WBC RBC 3.72 L MCV 100.2 H MCHC 30.7 L Plt Count 109 L D Neutrophils # Neutrophils # (Manual) 8.90 H Lymphocytes # Lymphocytes # (Manual) 0.60 L Myelocytes # (Manual) 0.20 H ABG pH ABG pCO2 ABG pO2 ABG HCO3 ABG Total CO2 ABG O2 Saturation VBG pH 7.54 H VBG pCO2 57 H VBG HCO3 48 H Sodium Chloride Carbon Dioxide BUN Creatinine Glucose POC Glucose (mg/dL) Plasma Lactic Acid Chaka 0.6 L Magnesium Total Protein Albumin Urine Ketones 04/20/20 04/21/20 04/21/20 17:56 07:50 10:13 WBC 12.7 H RBC MCV MCHC 28.9 L Plt Count 123 L Neutrophils # 9.2 H Neutrophils # (Manual) Lymphocytes # Lymphocytes # (Manual) Myelocytes # (Manual) ABG pH ABG pCO2 ABG pO2 ABG HCO3 ABG Total CO2 ABG O2 Saturation VBG pH VBG pCO2 VBG HCO3 Sodium 135 L Chloride 82 L Carbon Dioxide 55 H* BUN Creatinine 0.41 L Glucose 120 H POC Glucose (mg/dL) Plasma Lactic Acid Chaka Magnesium Total Protein Albumin Urine Ketones 1+ H 04/21/20 04/21/20 04/21/20 10:13 10:35 12:30 WBC RBC MCV MCHC Plt Count Neutrophils # Neutrophils # (Manual) Lymphocytes # Lymphocytes # (Manual) Myelocytes # (Manual) ABG pH 7.24 L ABG pCO2 >120 H* ABG pO2 233 H ABG HCO3 ABG Total CO2 ABG O2 Saturation 100.0 H VBG pH VBG pCO2 VBG HCO3 Sodium 133 L Chloride 81 L Carbon Dioxide 49 H* BUN Creatinine 0.30 L Glucose 73 L POC Glucose (mg/dL) 73 L Plasma Lactic Acid Chaka Magnesium 1.5 L Total Protein Albumin Urine Ketones 04/21/20 04/21/20 04/22/20 12:53 15:00 03:43 WBC RBC MCV MCHC Plt Count Neutrophils # Neutrophils # (Manual) Lymphocytes # Lymphocytes # (Manual) Myelocytes # (Manual) ABG pH ABG pCO2 94 H* ABG pO2 31 L* ABG HCO3 54 H* ABG Total CO2 57 H ABG O2 Saturation 61.6 L VBG pH VBG pCO2 VBG HCO3 Sodium 131 L Chloride 80 L Carbon Dioxide 44 H* BUN 20 H Creatinine 0.37 L Glucose 69 L POC Glucose (mg/dL) Plasma Lactic Acid Chaka Magnesium Total Protein 5.8 L Albumin 3.3 L Urine Ketones 2+ H 04/22/20 03:43 WBC RBC MCV MCHC 30.1 L Plt Count 146 L Neutrophils # 9.4 H Neutrophils # (Manual) Lymphocytes # 0.1 L Lymphocytes # (Manual) Myelocytes # (Manual) ABG pH ABG pCO2 ABG pO2 ABG HCO3 ABG Total CO2 ABG O2 Saturation VBG pH VBG pCO2 VBG HCO3 Sodium Chloride Carbon Dioxide BUN Creatinine Glucose POC Glucose (mg/dL) Plasma Lactic Acid Chaka Magnesium Total Protein Albumin Urine Ketones Assessment and Plan Assessment: This is a 49-year-old woman that was transferred from outside facility for worsening of her shortness of breath. Altered mental status due to acute hypoxic and hypercapnic respiratory failure and a component of toxic metabolic encephalopathy from a long-term balance off hypomagnesemia borderline the low glucose of 73. Macrocytosis Mild hyponatremia Thrombocytopenia Acute hypoxic and hypercapnic respiratory failure Generalize cachexia Acute exacerbation of his COPD History of depression Generalized anxiety disorder Osteoarthritis Chronic tobacco use Plan: I ordered vitamin B-12 and folate since the patient has microcytosis. I also ordered TSH and ammonia level. CT of the head was ordered by the primary team and it's pending. I'll start the patient on thiamine 100 mg daily. An EEG is not warranted this time since the patient is awake alert she is following commands and her encephalopathy as seems that due to respiratory condition. If her mentation worsens then possibly an EEG can be considered. Respiratory symptoms will defer the management to the shipper receiver. Regarding the patient's hyponatremia will defer the management to the primary team. Patient was counseled on tobacco cessation. Plan was discussed with the patient's nurse. Thanks you for the consultation. Omid Park MD Neuro-hospitalist. Time with Patient: Greater than 30
[2020-04-22] MEDS ORDERED: THIAMINE 100 MG TAB PO SCH (10:15)
[2020-04-22 10:53] LABS: T4, Free (Free Thyroxine) 1.29 ng/dL (0.78-2.19)
[2020-04-22] MEDS: LORazepam 2 MG/ML INJ IV PRN (11:06)
[2020-04-22] MEDS: THIAMINE 100 MG/ML 2 ML VIAL IVP SCH (11:53)
[2020-04-22 12:22] LABS: Glucose,Whole Blood 86 mg/dL (75-99)
--- NOTE | 2020-04-22 12:33 | P.PN ---
Subjective 49-year-old female with a known history of end-stage COPD, fibromyalgia, anxiety/depression and bipolar disorder, hypothyroidism and other multiple medical problems and severe protein calorie malnutrition patient is cachectic was brought to the hospital due to worsening shortness of breath for several days. Patient was initially seen at [facility] and was transferred to [facility] for pulmonary evaluation. Patient was placed on BiPAP in the ER and was transitioned to nasal cannula oxygen. Initial ABG showed pH of 7.44, PCO2 57 and bicarb is 48. Patient is being continued on IV Solu-Medrol and duo nebs. Patient became more lethargic and drowsy this morning. Repeat ABGs were drawn showed pH of 7.24 and PCO2 greater than 120 and PO2 233. Patient was started back on BiPAP and transferred to MICU as per pulmonary recommendations. Chest x-ray showed emphysema. No acute lung disease. EKG showed sinus tachycardia. 04/22/2020 Patient remains on BiPAP has been pulling out the BiPAP because of which patient was started on some soft restraints. No significant air movement. Review of systems: Unable to obtain due to her clinical condition All inpatient medications were reviewed and appropriate changes in these medic ations as dictated in the interval history and assessment and plan. Objective - Vital Signs Vital signs: Vital Signs Temp 97.6 F 04/22/20 12:00 Pulse 105 H 04/22/20 12:00 Resp 26 H 04/22/20 12:00 BP 89/63 04/22/20 12:00 Pulse Ox 89 L 04/22/20 12:00 Intake & Output 04/21/20 04/22/20 04/22/20 18:59 06:59 18:59 Intake Total 440 329.028 368.426 Output Total 600 415 305 Balance -160 -85.972 63.426 Weight 38.5 kg 35.4 kg Intake: IV 270 200 0.9 KVO 170 100 Magnesium Sulfate-D5w Pmx 100 100 1 gm In Dextrose/Water 1 100ml.bag @ 100 mls/hr IVPB Q1H [facility] Rx#: [id number] Intake, IV Titration 200 59.028 43.426 Amount Dexmedetomidine/0.9% NaCl 59.028 43.426 (Pmx) 400 mcg In Empty Bag 1 bag @ Titrate IV . Q0M [facility] Rx#:[id number] Magnesium Sulfate-D5w Pmx 200 1 gm In Dextrose/Water 1 100ml.bag @ 100 mls/hr IVPB Q1H [facility] Rx#: [id number] Oral 240 125 Output: Urine 600 415 305 Other: Voiding Method Indwelling Catheter Indwelling Catheter Indwelling Catheter # Voids 1 - Exam PHYSICAL EXAMINATION: GENERAL: The patient is alert but agitated on BiPAP thin built, not in any acute distress. HEENT: Pupils are round and equally reacting to light. EOMI. No scleral icterus. No conjunctival pallor. Normocephalic, atraumatic. No pharyngeal erythema. No thyromegaly. CARDIOVASCULAR: S1 and S2 present. No murmurs, rubs, or gallops. PULMOno significant air movement silent chest. GI : Soft, nontender, nondistended, normoactive bowel sounds. No palpable organomegaly. MUSCULOSKELETAL: No joint swelling or deformity. EXTREMITIES: No cyanosis, clubbing, or pedal edema. NEUROLOGICAL: Gross neurological examination did not reveal any focal deficits. SKIN: No rashes. - Labs CBC & Chem 7: 04/22/20 03:43 04/22/20 03:43 Labs: Abnormal Lab Results - Last 24 Hours (Table) 04/21/20 04/21/20 04/21/20 Range/Units 12:30 12:53 15:00 MCHC (31.0-37.0) g/dL Plt Count (150-450) k/uL Neutrophils # (1.3-7.7) k/uL Lymphocytes # (1.0-4.8) k/uL ABG pCO2 94 H* (35-45) mmHg ABG pO2 31 L* (83-108) mmHg ABG HCO3 54 H* (21-25) mmol/L ABG Total CO2 57 H (19-24) mmol/L ABG O2 Saturation 61.6 L (94-97) % Sodium (137-145) mmol/L Chloride (98-107) mmol/L Carbon Dioxide (22-30) mmol/L BUN (7-17) mg/dL Creatinine (0.52-1.04) mg/dL Glucose (74-99) mg/dL POC Glucose (mg/dL) 73 L (75-99) mg/dL Total Protein (6.3-8.2) g/dL Albumin (3.5-5.0) g/dL TSH (0.465-4.680) mIU/L Urine Ketones 2+ H (Negative) 04/22/20 04/22/20 04/22/20 Range/Units 03:43 03:43 03:43 MCHC 30.1 L (31.0-37.0) g/dL Plt Count 146 L (150-450) k/uL Neutrophils # 9.4 H (1.3-7.7) k/uL Lymphocytes # 0.1 L (1.0-4.8) k/uL ABG pCO2 (35-45) mmHg ABG pO2 (83-108) mmHg ABG HCO3 (21-25) mmol/L ABG Total CO2 (19-24) mmol/L ABG O2 Saturation (94-97) % Sodium 131 L (137-145) mmol/L Chloride 80 L (98-107) mmol/L Carbon Dioxide 44 H* (22-30) mmol/L BUN 20 H (7-17) mg/dL Creatinine 0.37 L (0.52-1.04) mg/dL Glucose 69 L (74-99) mg/dL POC Glucose (mg/dL) (75-99) mg/dL Total Protein 5.8 L (6.3-8.2) g/dL Albumin 3.3 L (3.5-5.0) g/dL TSH 0.062 L (0.465-4.680) mIU/L Urine Ketones (Negative) Assessment and Plan Plan: Acute hypoxic and hypercapnic respiratory failure secondary to COPD exacerbation Advanced COPD Chronic hypoxic respiratory failure on home oxygen Severe protein calorie malnutrition Anxiety/depression bipolar disorder. On Xanax at home. GERD Fibromyalgia Osteoarthritis Hypothyroidism Currently everyday smoker Marijuana use on daily basis DVT prophylaxis with heparin subcu Plan: Patient will be continued on duo nebs and IV steroids and currently on BiPAP. Continue to monitor patient in ICU. Pulmonary is on board. Continue with home medications and Ativan as needed for anxiety. Due to worsening respiratory status and overall clinical status, discussed with the family regarding CODE STATUS. Patient has advanced COPD and her prognosis is poor
--- NOTE | 2020-04-22 16:02 | P.PN ---
Subjective Progress Note Date: 04/22/20 (Critical care time 35 minutes) Principal diagnosis: Altered mental status Acute hypoxic and hypercapnic respiratory failure Acute exacerbation of COPD Cachexia and protein calorie malnourishment Mood disorder depression Generalized anxiety disorder Degenerative joint disease osteoarthritis 04/22/2020, patient seen eval reexamined and redressed less anxious, patient is on Precedex drip, hemodynamic status stable, but however intermittently gets agitated and restless, requiring 1:1, patient remains on BiPAP setting includes 03/23 with 45% oxygen, saturation is low to mid 80s with deep breathing exercise and concentrate on breathing oxygen saturation improved to 86-87%, white cell count improved to 10,000, arterial blood gases reviewed with improvement in pH however CO2 improved as well but remains very high at 94, CO2 and serum is 44 down from 49, Cordarone hour virus testing came back negative, chest x-ray continued to show advanced end-stage COPD with extensive bullous disease, patient remains nothing by mouth however ice chips and swabs are permitted, This is a 49-year-old female who was seen examined in ICU, patient has been admitted into the medical floor with shortness of breath and acute COPD exacerbation she was found to have a worsening of CO2 and acute respiratory acidosis on top of chronic respiratory acidosis, patient has been placed on BiPA P transferred to the ICU, patient is arousable however denies any chest pain, repeat arterial blood gas are pending, Objective - Vital Signs Vital signs: Vital Signs Temp 97.6 F 04/22/20 12:00 Pulse 122 H 04/22/20 15:00 Resp 23 04/22/20 15:00 BP 101/75 04/22/20 15:00 Pulse Ox 87 L 04/22/20 15:00 Intake & Output 04/21/20 04/22/20 04/22/20 18:59 06:59 18:59 Intake Total 440 329.028 432.866 Output Total 600 415 445 Balance -160 -85.972 -12.134 Weight 38.5 kg 35.4 kg Intake: IV 270 260 0.9 KVO 170 160 Magnesium Sulfate-D5w Pmx 100 100 1 gm In Dextrose/Water 1 100ml.bag @ 100 mls/hr IVPB Q1H [facility] Rx#: [id number] Intake, IV Titration 200 59.028 47.866 Amount Dexmedetomidine/0.9% NaCl 59.028 47.866 (Pmx) 400 mcg In Empty Bag 1 bag @ Titrate IV . Q0M [facility] Rx#:[id number] Magnesium Sulfate-D5w Pmx 200 1 gm In Dextrose/Water 1 100ml.bag @ 100 mls/hr IVPB Q1H [facility] Rx#: [id number] Oral 240 125 Output: Urine 600 415 445 Other: Voiding Method Indwelling Catheter Indwelling Catheter Indwelling Catheter # Voids 1 - Exam - Constitutional General appearance: disheveled, thin - EENT Eyes: PERRLA Ears: bilateral: normal - Neck Carotids: bilateral: upstroke normal Thyroid: bilateral: normal size - Respiratory Respiratory: bilateral: diminished - Cardiovascular Rhythm: regular Heart sounds: normal: S1, S2 - Gastrointestinal General gastrointestinal: normal bowel sounds - Integumentary Integumentary: decreased turgor - Neurologic Neurologic: CNII-XII intact - Musculoskeletal Musculoskeletal: gait normal, generalized weakness, strength equal bilaterally - Psychiatric Psychiatric: A&O x's 3, appropriate affect, intact judgment & insight - Labs CBC & Chem 7: 04/22/20 03:43 04/22/20 03:43 Labs: Abnormal Lab Results - Last 24 Hours (Table) 04/22/20 04/22/20 04/22/20 Range/Units 03:43 03:43 03:43 MCHC 30.1 L (31.0-37.0) g/dL Plt Count 146 L (150-450) k/uL Neutrophils # 9.4 H (1.3-7.7) k/uL Lymphocytes # 0.1 L (1.0-4.8) k/uL Sodium 131 L (137-145) mmol/L Chloride 80 L (98-107) mmol/L Carbon Dioxide 44 H* (22-30) mmol/L BUN 20 H (7-17) mg/dL Creatinine 0.37 L (0.52-1.04) mg/dL Glucose 69 L (74-99) mg/dL Total Protein 5.8 L (6.3-8.2) g/dL Albumin 3.3 L (3.5-5.0) g/dL TSH 0.062 L (0.465-4.680) mIU/L Assessment and Plan Assessment: Altered mental status Acute hypoxic and hypercapnic respiratory failure Acute exacerbation of COPD Cachexia and protein calorie malnourishment Mood disorder depression Generalized anxiety disorder Degenerative joint disease osteoarthritis Plan: Altered mental status likely due to severe hypercapnia BiPAP support currently patient requiring 24 7 Continue Precedex IV steroids Breathing treatments Into new to monitor observe closely in ICU Further recommendations pending plan of care as per clinical response of the patient Time with Patient: Greater than 30
[2020-04-22 17:15] LABS: Glucose,Whole Blood 84 mg/dL (75-99)
[2020-04-22] MEDS: MONTELUKAST 10 MG TAB PO SCH (20:13)
[2020-04-23] MEDS: methylPREDNISolone SOD SUCCI 40 MG/ML 1 ML VIAL IV SCH ×3 (00:14→16:57)
[2020-04-23] MEDS ORDERED: DEXMEDETOMIDINE/0.9% NACL(PMX) 400 MCG in EMPTY BAG 1 BAG IV SCH (00:30)
[2020-04-23 04:15] LABS: HGB 12.6 gm/dL (11.4-16.0); MCH 29.9 pg (25.0-35.0); MCHC 32.4 g/dL (31.0-37.0); MCV 92.3 fL (80.0-100.0); Mean Platelet Volume 11.1; Platelet Count 128 k/uL (150-450); RBC 4.23 m/uL (3.80-5.40); WBC 9.5 k/uL (3.8-10.6)
[2020-04-23 04:35] LABS: ALT 16 U/L (4-34); AST 26 U/L (14-36); African American GFR (CKD) >90 (>60 ml/min/1.73 sqM); Albumin 2.9 g/dL (3.5-5.0); Alkaline Phosphatase 69 U/L (38-126); Anion Gap 4 mmol/L; Blood Urea Nitrogen 17 mg/dL (7-17); Calcium 8.8 mg/dL (8.4-10.2); Chloride 87 mmol/L (98-107); Glucose 119 mg/dL (74-99); Magnesium 1.7 mg/dL (1.6-2.3); Non-African American GFR(CKD) >90 (>60 ml/min/1.73 sqM); Potassium 4.1 mmol/L (3.5-5.1); Sodium 131 mmol/L (137-145); Total Bilirubin 0.5 mg/dL (0.2-1.3); Total Protein 5.3 g/dL (6.3-8.2)
[2020-04-23 04:58] LABS: Lymphocytes # (M) 0.67 k/uL (1.0-4.8); Monocytes # (M) 0.48 k/uL (0-1.0); Neutrophils # (M) 8.36 k/uL (1.3-7.7); Neutrophils % (M) 88 %; Nucleated Red Blood Cells 0 /100 WBC (0-0); Total Cells Counted 100
[2020-04-23 04:59] LABS: Large Platelets Present
[2020-04-23 05:02] LABS: Carbon Dioxide 40 mmol/L (22-30)
[2020-04-23] MEDS: LEVOTHYROXINE 88 MCG TAB PO SCH (06:21)
[2020-04-23] MEDS: PANTOPRAZOLE 40 MG TABLET PO SCH (07:25)
[2020-04-23] MEDS: MAGNESIUM SULFATE-D5W PMX 1 GM in DEXTROSE/WATER 1 100ML.BAG IVPB SCH ×2 (08:02→09:41)
[2020-04-23] MEDS: THIAMINE 100 MG/ML 2 ML VIAL IVP SCH (08:03)
[2020-04-23] MEDS: HYOSCYAMINE SULFATE 0.125 MG TAB PO SCH ×2 (08:03→20:21)
[2020-04-23] MEDS: DULoxetine HCL 20 MG CAPSULE.DR PO SCH (08:03)
[2020-04-23] MEDS: LORATADINE 10 MG TAB PO SCH (08:03)
[2020-04-23] MEDS: HEPARIN SODIUM,PORCINE 5,000 UNIT/ML 1 ML VIAL SQ SCH ×2 (08:03→20:21)
[2020-04-23] MEDS: IPRATROPIUM-ALBUTEROL 3 ML NEB INHALATION SCH ×4 (08:28→19:26)
[2020-04-23] MEDS: BUDESONIDE 1 MG/2 ML NEBU INHALATION SCH ×2 (08:28→19:26)
--- NOTE | 2020-04-23 09:34 | XR ---
EXAMINATION TYPE: XR chest 1V portable DATE OF EXAM: 04/23/2020 COMPARISON: 04/22/2020 INDICATION: COPD TECHNIQUE: Single frontal view of the chest is obtained. FINDINGS: The heart size is normal. The pulmonary vasculature is normal. There is hyperinflation flattening the diaphragms compatible COPD. Large emphysematous bulla are pres ent at the upper lung cabral. Findings are stable over the interval. IMPRESSION: 1. COPD
--- NOTE | 2020-04-23 11:18 | P.PN ---
Subjective Progress Note Date: 04/23/20 Principal diagnosis: Altered mental status Acute hypoxic and hypercapnic respiratory failure Acute exacerbation of COPD Cachexia and protein calorie malnourishment Mood disorder depression Generalized anxiety disorder Degenerative joint disease osteoarthritis 04/23/2020, patient seen eval examined during the round labs reviewed medications reviewed, patient is on 4 L nasal cannula mental status significantly improved antihypertensive agents have been resumed, patient uses oxygen at 4 L arousable follow simple command no obvious distress present mild confusion is still there, will move out of the ICU to telemetry bed 04/22/2020, patient seen eval reexamined and redressed less anxious, patient is on Precedex drip, hemodynamic status stable, but however intermittently gets agitated and restless, requiring 1:1, patient remains on BiPAP setting includes 03/23 with 45% oxygen, saturation is low to mid 80s with deep breathing exercise and concentrate on breathing oxygen saturation improved to 86-87%, white cell count improved to 10,000, arterial blood gases reviewed with improvement in pH however CO2 improved as well but remains very high at 94, CO2 and serum is 44 down from 49, Cordarone hour virus testing came back negative, chest x-ray continued to show advanced end-stage COPD with extensive bullous disease, patient remains nothing by mouth however ice chips and swabs are permitted, This is a 49-year-old female who was seen examined in ICU, patient has been admitted into the medical floor with shortness of breath and acute COPD exacerbation she was found to have a worsening of CO2 and acute respiratory acidosis on top of chronic respiratory acidosis, patient has been placed on BiPAP transferred to the ICU, patient is arousable however denies any chest pain, repeat arterial blood gas are pending, Objective - Vital Signs Vital signs: Vital Signs Temp 98.2 F 04/23/20 08:00 Pulse 112 H 04/23/20 10:00 Resp 22 04/23/20 10:00 BP 124/83 04/23/20 10:00 Pulse Ox 95 04/23/20 10:00 Intake & Output 04/22/20 04/23/20 04/23/20 18:59 06:59 18:59 Intake Total 511.097 306.640 485 Output Total 620 620 260 Balance -108.903 -313.360 225 Weight 34.2 kg Intake: IV 320 240 135 0.9 KVO 220 240 135 Magnesium Sulfate-D5w Pmx 100 1 gm In Dextrose/Water 1 100ml.bag @ 100 mls/hr IVPB Q1H [facility] Rx#: [id number] Intake, IV Titration 66.097 66.640 200 Amount Dexmedetomidine/0.9% NaCl 66.097 51.005 (Pmx) 400 mcg In Empty Bag 1 bag @ Titrate IV . Q0M [facility] Rx#:[id number] Dexmedetomidine/0.9% NaCl 15.635 (Pmx) 400 mcg In Empty Bag 1 bag @ Titrate IV . Q0M [facility] Rx#:[id number] Magnesium Sulfate-D5w Pmx 200 1 gm In Dextrose/Water 1 100ml.bag @ 100 mls/hr IVPB Q1H [facility] Rx#: [id number] Oral 125 150 Output: Urine 620 620 260 Other: Voiding Method Indwelling Catheter Indwelling Catheter Indwelling Catheter # Bowel Movements 1 - Exam - Constitutional General appearance: disheveled, thin - EENT Eyes: PERRLA Ears: bilateral: normal - Neck Carotids: bilateral: upstroke normal Thyroid: bilateral: normal size - Respiratory Respiratory: bilateral: diminished - Cardiovascular Rhythm: regular Heart sounds: normal: S1, S2 - Gastrointestinal General gastrointestinal: normal bowel sounds - Integumentary Integumentary: decreased turgor - Neurologic Neurologic: CNII-XII intact - Musculoskeletal Musculoskeletal: gait normal, generalized weakness, strength equal bilaterally - Psychiatric Psychiatric: A&O x's 3, appropriate affect, intact judgment & insight - Labs CBC & Chem 7: 04/23/20 04:01 04/23/20 04:01 Labs: Abnormal Lab Results - Last 24 Hours (Table) 04/23/20 04/23/20 Range/Units 04:01 04:01 Plt Count 128 L (150-450) k/uL Neutrophils # (Manual) 8.36 H (1.3-7.7) k/uL Lymphocytes # (Manual) 0.67 L (1.0-4.8) k/uL Sodium 131 L (137-145) mmol/L Chloride 87 L (98-107) mmol/L Carbon Dioxide 40 H (22-30) mmol/L Creatinine 0.35 L (0.52-1.04) mg/dL Glucose 119 H (74-99) mg/dL Total Protein 5.3 L (6.3-8.2) g/dL Albumin 2.9 L (3.5-5.0) g/dL Assessment and Plan Assessment: Altered mental status Acute hypoxic and hypercapnic respiratory failure Acute exacerbation of COPD Cachexia and protein calorie malnourishment Mood disorder depression Generalized anxiety disorder Degenerative joint disease osteoarthritis Plan: Altered mental status likely due to severe hypercapnia BiPAP support now switched to each night and when necessary during the day Discontinue Precedex IV steroids Breathing treatments Patient can be moved out of the ICU Further recommendations pending plan of care as per clinical response of the patient Time with Patient: Greater than 30
[2020-04-23] MEDS ORDERED: ONDANSETRON 4 MG/2 ML VIAL IVP PRN (13:01)
--- NOTE | 2020-04-23 15:44 | P.PN ---
Subjective Progress Note Date: 04/23/20 This is a 49-year-old female admitted with acute COPD exacerbation, acute hypoxic and hypercapnic respiratory failure in a patient with severe protein calorie malnutrition and multiple other medical issues. Sensorium improving. Precedex has been discontinued. CO2 continuing to improve down to 40. Maintain ing O2 sats in the 90s on 4 L nasal cannula. Afebrile, normal WBC. Sodium remains at 131. Objective - Vital Signs Vital signs: Vital Signs Temp 98.2 F 04/23/20 08:00 Pulse 118 H 04/23/20 08:00 Resp 19 04/23/20 08:00 BP 105/85 04/23/20 08:00 Pulse Ox 93 L 04/23/20 08:00 Intake & Output 04/22/20 04/23/20 04/23/20 18:59 06:59 18:59 Intake Total 511.097 306.640 195 Output Total 620 620 40 Balance -108.903 -313.360 155 Weight 34.2 kg Intake: IV 320 240 95 0.9 KVO 220 240 95 Magnesium Sulfate-D5w Pmx 100 1 gm In Dextrose/Water 1 100ml.bag @ 100 mls/hr IVPB Q1H [facility] Rx#: [id number] Intake, IV Titration 66.097 66.640 100 Amount Dexmedetomidine/0.9% NaCl 66.097 51.005 (Pmx) 400 mcg In Empty Bag 1 bag @ Titrate IV . Q0M [facility] Rx#:[id number] Dexmedetomidine/0.9% NaCl 15.635 (Pmx) 400 mcg In Empty Bag 1 bag @ Titrate IV . Q0M [facility] Rx#:[id number] Magnesium Sulfate-D5w Pmx 100 1 gm In Dextrose/Water 1 100ml.bag @ 100 mls/hr IVPB Q1H [facility] Rx#: [id number] Oral 125 Output: Urine 620 620 40 Other: Voiding Method Indwelling Catheter Indwelling Catheter # Bowel Movements 1 - Exam PHYSICAL EXAMINATION: GENERAL: Cachexic, Sitting up in bed, no acute distress, pleasantly mildly confused. HEENT: Pupils are round and equally reacting to light. EOMI. No scleral icterus. No conjunctival pallor. Normocephalic, atraumatic. No pharyngeal erythema. No thyromegaly. CARDIOVASCULAR: S1 and S2 present. No murmurs, rubs, or gallops. Tachycardic. PULMOno significant air movement, diminished GI : Soft, nontender, nondistended, normoactive bowel sounds. No palpable organomegaly. MUSCULOSKELETAL: No joint swelling or deformity. EXTREMITIES: No cyanosis, clubbing, or pedal edema. NEUROLOGICAL: Gross neurological examination did not reveal any focal deficits. SKIN: No rashes. - Labs CBC & Chem 7: 04/23/20 04:01 04/23/20 04:01 Labs: Abnormal Lab Results - Last 24 Hours (Table) 04/22/20 04/23/20 04/23/20 Range/Units 03:43 04:01 04:01 Plt Count 128 L (150-450) k/uL Neutrophils # (Manual) 8.36 H (1.3-7.7) k/uL Lymphocytes # (Manual) 0.67 L (1.0-4.8) k/uL Sodium 131 L (137-145) mmol/L Chloride 87 L (98-107) mmol/L Carbon Dioxide 40 H (22-30) mmol/L Creatinine 0.35 L (0.52-1.04) mg/dL Glucose 119 H (74-99) mg/dL Total Protein 5.3 L (6.3-8.2) g/dL Albumin 2.9 L (3.5-5.0) g/dL TSH 0.062 L (0.465-4.680) mIU/L Assessment and Plan Assessment: Acute on chronic hypoxic hypercapnic respiratory failure secondary to acute COPD exacerbation Advanced COPD Acute metabolic encephalopathy secondary to #1 Hyponatremia Ongoing nicotine dependence Acute Respiratory acidosis Cachexia with Severe protein calorie malnutrition, BMI 12.4 Fibromyalgia Depression Anxiety Plan: Continue on current medication regime ,monitoring and symptomatic treatment. Aggressive pulmonary toileting, maintain nebulized bronchodilators, steroids. Cleared for transfer out of ICU as per tile trimmer. Follow closely with pulmonary. The impression and plan of care has been dictated as directed. : I performed a history and examination of this patient, discussed the same with the dictator. I agree with the dictator's note ,documented as a scribe. Any additional findings or plans will be noted.
[2020-04-23] MEDS: ALPRAZolam 0.5 MG TAB PO PRN ×2 (16:57→21:34)
--- NOTE | 2020-04-23 17:08 | P.PN ---
Subjective Progress Note Date: 04/23/20 The patient was seen that today and and per the patient's ICU nurse he stated that the regarding her medications doing better today compared to yesterday. She is more responsive more awake. Objective - Vital Signs Vital signs: Vital Signs Temp 99.2 F 04/23/20 16:00 Pulse 113 H 04/23/20 16:00 Resp 22 04/23/20 16:00 BP 110/75 04/23/20 16:00 Pulse Ox 96 04/23/20 16:00 Intake & Output 04/22/20 04/23/20 04/23/20 18:59 06:59 18:59 Intake Total 511.097 306.640 825 Output Total 620 620 720 Balance -108.903 -313.360 105 Weight 34.2 kg Intake: IV 320 240 175 0.9 KVO 220 240 175 Magnesium Sulfate-D5w Pmx 100 1 gm In Dextrose/Water 1 100ml.bag @ 100 mls/hr IVPB Q1H [facility] Rx#: [id number] Intake, IV Titration 66.097 66.640 200 Amount Dexmedetomidine/0.9% NaCl 66.097 51.005 (Pmx) 400 mcg In Empty Bag 1 bag @ Titrate IV . Q0M [facility] Rx#:[id number] Dexmedetomidine/0.9% NaCl 15.635 (Pmx) 400 mcg In Empty Bag 1 bag @ Titrate IV . Q0M [facility] Rx#:[id number] Magnesium Sulfate-D5w Pmx 200 1 gm In Dextrose/Water 1 100ml.bag @ 100 mls/hr IVPB Q1H [facility] Rx#: [id number] Oral 125 450 Output: Urine 620 620 720 Other: Voiding Method Indwelling Catheter Indwelling Catheter Indwelling Catheter # Bowel Movements 1 - Exam GENERAL: The patient is lying in bed, is cachectic and does not seem in distress. NEUROLOGICAL: Limited because of patient's condition. Higher mental function: The patient is awake, alert, oriented to self. " Office she is oriented to place and time. Patient is following simple commands. No aphasia or neglect.. Cranial nerves: The pupils are round, equal and reactive to light. Visual cabral are full to confrontation throughout. Extraocular movement is intact no nystagmus is noted. Facial sensation is normal to touch throughout. Facial strength is normal bilaterally. Motor: Gait is deferred because of her condition. The strength is moving all e xtremities above gravity and there is no focality as seen. He has decreased bulk of all muscles. Sensation: Is normal to touch throughout. Reflexes (right/left): 2+ throughout except ankles are 1+ bilaterally. Plantars are downgoing bilaterally. - Labs CBC & Chem 7: 04/23/20 04:01 04/23/20 04:01 Labs: Abnormal Lab Results - Last 24 Hours (Table) 04/23/20 04/23/20 Range/Units 04:01 04:01 Plt Count 128 L (150-450) k/uL Neutrophils # (Manual) 8.36 H (1.3-7.7) k/uL Lymphocytes # (Manual) 0.67 L (1.0-4.8) k/uL Sodium 131 L (137-145) mmol/L Chloride 87 L (98-107) mmol/L Carbon Dioxide 40 H (22-30) mmol/L Creatinine 0.35 L (0.52-1.04) mg/dL Glucose 119 H (74-99) mg/dL Total Protein 5.3 L (6.3-8.2) g/dL Albumin 2.9 L (3.5-5.0) g/dL Assessment and Plan Assessment: This is a 49-year-old woman that was transferred from outside facility for worsening of her shortness of breath. Altered mental status due to acute hypoxic and hypercapnic respiratory failure and a component of toxic metabolic encephalopathy from electrolyte imbalance---resolved Macrocytosis--resolved Mild hyponatremia Thrombocytopenia Acute hypoxic and hypercapnic respiratory failure Generalized cachexia Acute exacerbation of his COPD History of depression Generalized anxiety disorder Osteoarthritis Chronic tobacco use Plan: Vitamin B12 is 544 which is within normal limits. The folate is pending. Ammonia is less than 9 which is normal. TSH is 0.062 which is low while the free T4 is 1.[address] of the head was ordered by the primary team and it's pending. She did not get the CT of the head that because of the respiratory issues. Can be obtained once that the patient is stable. Continue thiamine 100 mg daily. An EEG is not warranted this time since the patient is awake alert she is following commands and her encephalopathy as seems that due to respiratory condition. If her mentation worsens then possibly an EEG can be considered. Respiratory symptoms will defer the management to the critical care nurse practitioner. Regarding the patient's hyponatremia will defer the management to the primary team. Patient was counseled on tobacco cessation. Plan was discussed with the patient's nurse. Omid Park MD Neuro-hospitalist. Time with Patient: Less than 30
[2020-04-23] MEDS: MONTELUKAST 10 MG TAB PO SCH (20:21)
[2020-04-24] MEDS: methylPREDNISolone SOD SUCCI 40 MG/ML 1 ML VIAL IV SCH ×3 (00:37→16:19)
[2020-04-24] MEDS: ALPRAZolam 0.5 MG TAB PO PRN ×2 (00:37→06:53)
[2020-04-24 04:34] LABS: Basophils % (A) 0 %; Eosinophils % (A) 0 %; HCT 36.2 % (34.0-46.0); HGB 11.4 gm/dL (11.4-16.0); Hypochromasia Slight; Lymphocytes # (A) 0.5 k/uL (1.0-4.8); Lymphocytes % (A) 5 %; MCH 30.2 pg (25.0-35.0); MCHC 31.6 g/dL (31.0-37.0); MCV 95.4 fL (80.0-100.0); Mean Platelet Volume 9.8; Monocytes # (A) 0.5 k/uL (0-1.0); Monocytes % (A) 5 %; Neutrophils % (A) 89 %; Platelet Count 152 k/uL (150-450); RBC 3.79 m/uL (3.80-5.40); RDW 12.9 % (11.5-15.5); WBC 10.1 k/uL (3.8-10.6)
[2020-04-24 04:53] LABS: ALT 15 U/L (4-34); AST 26 U/L (14-36); African American GFR (CKD) >90 (>60 ml/min/1.73 sqM); Albumin 2.8 g/dL (3.5-5.0); Alkaline Phosphatase 59 U/L (38-126); Blood Urea Nitrogen 20 mg/dL (7-17); Calcium 8.4 mg/dL (8.4-10.2); Chloride 89 mmol/L (98-107); Glucose 120 mg/dL (74-99); Magnesium 1.8 mg/dL (1.6-2.3); Non-African American GFR(CKD) >90 (>60 ml/min/1.73 sqM); Potassium 4.3 mmol/L (3.5-5.1); Sodium 132 mmol/L (137-145); Total Bilirubin 0.3 mg/dL (0.2-1.3); Total Protein 5.1 g/dL (6.3-8.2)
[2020-04-24 04:59] LABS: Anion Gap -2 mmol/L
[2020-04-24 05:50] LABS: Carbon Dioxide 45 mmol/L (22-30)
--- NOTE | 2020-04-24 06:43 | XR ---
EXAMINATION TYPE: XR chest 1V portable DATE OF EXAM: 04/24/2020 CLINICAL HISTORY: Difficulty breathing progress study. TECHNIQUE: Single AP portable upright view of the chest is obtained. COMPARISON: Chest x-ray from one day earlier and older studies. CT chest January 15, 2020. FINDINGS: Background chronic emphysematous and pulmonary fibrotic changes without suspicious new foc al airspace opacity, pleural effusion, or pneumothorax seen bilaterally. Cardiac silhouette size is s table and within normal limits. Osseous structures are intact. IMPRESSION: Moderate to advanced Chronic emphysematous changes without acute pulmonary process. No si gnificant change from one day earlier.
[2020-04-24] MEDS: PANTOPRAZOLE 40 MG TABLET PO SCH (06:53)
[2020-04-24] MEDS: LEVOTHYROXINE 88 MCG TAB PO SCH (06:53)
[2020-04-24] MEDS: IPRATROPIUM-ALBUTEROL 3 ML NEB INHALATION SCH ×4 (07:11→20:30)
[2020-04-24] MEDS: BUDESONIDE 1 MG/2 ML NEBU INHALATION SCH ×2 (07:11→20:30)
[2020-04-24] MEDS: HYOSCYAMINE SULFATE 0.125 MG TAB PO SCH ×2 (08:30→20:58)
[2020-04-24] MEDS: DULoxetine HCL 20 MG CAPSULE.DR PO SCH (08:30)
[2020-04-24] MEDS: LORATADINE 10 MG TAB PO SCH (08:30)
[2020-04-24] MEDS: HEPARIN SODIUM,PORCINE 5,000 UNIT/ML 1 ML VIAL SQ SCH ×2 (08:30→20:57)
[2020-04-24] MEDS: THIAMINE 100 MG/ML 2 ML VIAL IVP SCH (08:30)
[2020-04-24] MEDS ORDERED: ALPRAZolam 1 MG TAB PO STA (09:01)
[2020-04-24] MEDS ORDERED: MORPHINE SULFATE 4 MG/ML SYRINGE IVP STA (09:09)
[2020-04-24] MEDS ORDERED: acetaZOLAMIDE 250 MG TAB PO SCH (09:30)
--- NOTE | 2020-04-24 09:34 | P.PN ---
Subjective Progress Note Date: 04/24/20 Principal diagnosis: Altered mental status Acute hypoxic and hypercapnic respiratory failure Acute exacerbation of COPD Cachexia and protein calorie malnourishment Mood disorder depression Generalized anxiety disorder Degenerative joint disease osteoarthritis 04/24/2020, patient seen and evaluated examined in the ICU sitting upright in the bed breathing comfortably very anxious, on 4 L oxygen, he shouldn't takes the Xanax 2 mg 3 times a day as needed, we'll give a first dose 2 of 2 mg then 1 mg 3 times a day as needed, patient is being transferred to [facility] with remote telemetry, labs reviewed from today CO2 level is elevated to 45 likely due to hypercapnia, she is breathing K more comfortably, afebrile oxygen saturation is 90-97% on 4 L oxygen, 04/23/2020, patient seen eval examined during the round labs reviewed medications reviewed, patient is on 4 L nasal cannula mental status significantly improved antihypertensive agents have been resumed, patient uses oxygen at 4 L arousable follow simple command no obvious distress present mild confusion is still there, will move out of the ICU to telemetry bed 04/22/2020, patient seen eval reexamined and redressed less anxious, patient is on Precedex drip, hemodynamic status stable, but however intermittently gets agitated and restless, requiring 1:1, patient remains on BiPAP setting includes 03/23 with 45% oxygen, saturation is low to mid 80s with deep breathing exercise and concentrate on breathing oxygen saturation improved to 86-87%, white cell count improved to 10,000, arterial blood gases reviewed with improvement in pH however CO2 improved as well but remains very high at 94, CO2 and serum is 44 down from 49, Cordarone hour virus testing came back negative, chest x-ray continued to show advanced end-stage COPD with extensive bullous disease, patient remains nothing by mouth however ice chips and swabs are permitted, This is a 49-year-old female who was seen examined in ICU, patient has been admitted into the medical floor with shortness of breath and acute COPD exacerbation she was found to have a worsening of CO2 and acute respiratory acidosis on top of chronic respiratory acidosis, patient has been placed on BiPAP transferred to the ICU, patient is arousable however denies any chest pain, repeat arterial blood gas are pending, Objective - Vital Signs Vital signs: Vital Signs Temp 98.9 F 04/24/20 08:00 Pulse 101 H 04/24/20 08:00 Resp 17 04/24/20 08:00 BP 101/59 04/24/20 08:00 Pulse Ox 92 L 04/24/20 08:00 Intake & Output 04/23/20 04/24/20 04/24/20 18:59 06:59 18:59 Intake Total 825 Output Total 720 820 Balance 105 -820 Weight 32.2 kg Intake: IV 175 0.9 KVO 175 Intake, IV Titration 200 Amount Magnesium Sulfate-D5w Pmx 200 1 gm In Dextrose/Water 1 100ml.bag @ 100 mls/hr IVPB Q1H [facility] Rx#: [id number] Oral 450 Output: Urine 720 820 Other: Voiding Method Indwelling Catheter - Exam - Constitutional General appearance: disheveled, thin - EENT Eyes: PERRLA Ears: bilateral: normal - Neck Carotids: bilateral: upstroke normal Thyroid: bilateral: normal size - Respiratory Respiratory: bilateral: diminished - Cardiovascular Rhythm: regular Heart sounds: normal: S1, S2 - Gastrointestinal General gastrointestinal: normal bowel sounds - Integumentary Integumentary: decreased turgor - Neurologic Neurologic: CNII-XII intact - Musculoskeletal Musculoskeletal: gait normal, generalized weakness, strength equal bilaterally - Psychiatric Psychiatric: A&O x's 3, appropriate affect, intact judgment & insight - Labs CBC & Chem 7: 04/24/20 03:51 04/24/20 03:51 Labs: Abnormal Lab Results - Last 24 Hours (Table) 04/24/20 04/24/20 Range/Units 03:51 03:51 RBC 3.79 L (3.80-5.40) m/uL Neutrophils # 9.0 H (1.3-7.7) k/uL Lymphocytes # 0.5 L (1.0-4.8) k/uL Sodium 132 L (137-145) mmol/L Chloride 89 L (98-107) mmol/L Carbon Dioxide 45 H* (22-30) mmol/L BUN 20 H (7-17) mg/dL Creatinine 0.51 L (0.52-1.04) mg/dL Glucose 120 H (74-99) mg/dL Total Protein 5.1 L (6.3-8.2) g/dL Albumin 2.8 L (3.5-5.0) g/dL Assessment and Plan Assessment: Altered mental status, likely due to CO2 narcosis slowly improving Acute hypoxic and hypercapnic respiratory failure Acute exacerbation of COPD Cachexia and protein calorie malnourishment Mood disorder depression Generalized anxiety disorder Degenerative joint disease osteoarthritis Plan: Altered mental status likely due to severe hypercapnia BiPAP support now switched to each night and when necessary during the day Xanax can be resumed IV steroids Breathing treatments Patient can be moved out of the ICU Further recommendations pending plan of care as per clinical response of the patient Time with Patient: Greater than 30
[2020-04-24] MEDS: VENLAFAXINE HCL ER 150 MG CAP PO SCH (10:08)
--- NOTE | 2020-04-24 14:43 | P.PN ---
Subjective Progress Note Date: 04/24/20 This is a 49-year-old female admitted with acute COPD exacerbation, acute hypoxic and hypercapnic respiratory failure in a patient with severe protein calorie malnutrition and multiple other medical issues. Sensorium improving. Precedex has been discontinued. CO2 continuing to improve down to 40. Maintain ing O2 sats in the 90s on 4 L nasal cannula. Afebrile, normal WBC. Sodium remains at 131. 04/24/20 maintaining O2 sats in the 90s on 4 L nasal cannula. Hypercapnia worsened with CO2 up to 45. Denies chest pain or palpitations. No further hallucinations. Insisting on discharge, patient informed that she is not a candidate for discharge today secondary to worsening hypercapnia. Objective - Vital Signs Vital signs: Vital Signs Temp 98.9 F 04/24/20 08:00 Pulse 101 H 04/24/20 08:00 Resp 17 04/24/20 08:00 BP 101/59 04/24/20 08:00 Pulse Ox 92 L 04/24/20 08:00 Intake & Output 04/23/20 04/24/20 04/24/20 18:59 06:59 18:59 Intake Total 825 Output Total 720 820 Balance 105 -820 Weight 32.2 kg Intake: IV 175 0.9 KVO 175 Intake, IV Titration 200 Amount Magnesium Sulfate-D5w Pmx 200 1 gm In Dextrose/Water 1 100ml.bag @ 100 mls/hr IVPB Q1H [facility] Rx#: [id number] Oral 450 Output: Urine 720 820 Other: Voiding Method Indwelling Catheter - Exam PHYSICAL EXAMINATION: GENERAL: Cachexic, Sitting up in bed, no acute distress HEENT: Pupils are round and equally reacting to light. EOMI. No scleral icterus. No conjunctival pallor. Normocephalic, atraumatic. No pharyngeal erythema. No thyromegaly. CARDIOVASCULAR: S1 and S2 present. No murmurs, rubs, or gallops. PULMOnary: significant air movement, diminished GI : Soft, nontender, nondistended, normoactive bowel sounds. No palpable organomegaly. MUSCULOSKELETAL: No joint swelling or deformity. EXTREMITIES: No cyanosis, clubbing, or pedal edema. NEUROLOGICAL: Gross neurological examination did not reveal any focal deficits. SKIN: No rashes. - Labs CBC & Chem 7: 04/24/20 03:51 04/24/20 03:51 Labs: Abnormal Lab Results - Last 24 Hours (Table) 04/24/20 04/24/20 Range/Units 03:51 03:51 RBC 3.79 L (3.80-5.40) m/uL Neutrophils # 9.0 H (1.3-7.7) k/uL Lymphocytes # 0.5 L (1.0-4.8) k/uL Sodium 132 L (137-145) mmol/L Chloride 89 L (98-107) mmol/L Carbon Dioxide 45 H* (22-30) mmol/L BUN 20 H (7-17) mg/dL Creatinine 0.51 L (0.52-1.04) mg/dL Glucose 120 H (74-99) mg/dL Total Protein 5.1 L (6.3-8.2) g/dL Albumin 2.8 L (3.5-5.0) g/dL Assessment and Plan Assessment: Acute on chronic hypoxic hypercapnic respiratory failure secondary to acute COPD exacerbation Advanced COPD Acute metabolic encephalopathy secondary to #1 Hyponatremia Ongoing nicotine dependence Acute Respiratory acidosis Cachexia with Severe protein calorie malnutrition, BMI 12.4 Fibromyalgia Depression Anxiety Plan: Continue on current medication regime ,monitoring and symptomatic treatment. Patient is not a candidate for discharge for today. Patient discussed urgent needs at home, AMA discussed. Patient states she is on Seroquel as well as Effexor at home, prescribed by psychiatrist Dr. De La Garza , medication regimen adjusted .Maintain aggressive pulmonary toileting, maintain nebulized bronchodilators, steroids. Morphine IVp X 1 dose only with no xanax until 5pm.Follow closely with pulmonary. Discharge planning in progress pending improvement in hypercapnia, possibly tomorrow. The impression and plan of care has been dictated as directed. : I performed a history and examination of this patient, discussed the same with the dictator. I agree with the dictator's note ,documented as a scribe. Any a dditional findings or plans will be noted.
--- NOTE | 2020-04-24 16:58 | P.PN ---
Subjective Progress Note Date: 04/24/19 The patient was seen at bedside and that she stated that she's doing much better today compared to her initial presentation. She doesn't feel short of breath as much as she was before. She denies and if any focal weakness, numbness or visual disturbance. Per the patient nurse her mentation has drastically improved. Objective - Vital Signs Vital signs: Vital Signs Temp 98.1 F 04/24/20 16:00 Pulse 101 H 04/24/20 16:00 Resp 19 04/24/20 16:00 BP 114/78 04/24/20 16:00 Pulse Ox 93 L 04/24/20 16:00 Intake & Output 04/23/20 04/24/20 04/24/20 18:59 06:59 18:59 Intake Total 825 20 Output Total 720 820 475 Balance 105 -820 -455 Weight 32.2 kg 32.2 kg Intake: IV 175 20 0.9 KVO 175 20 Intake, IV Titration 200 Amount Magnesium Sulfate-D5w Pmx 200 1 gm In Dextrose/Water 1 100ml.bag @ 100 mls/hr IVPB Q1H [facility] Rx#: [id number] Oral 450 Output: Urine 720 820 475 Other: Voiding Method Indwelling Catheter Bedside Commode - Exam GENERAL: The patient is lying in bed, is cachectic and does not seem in distress. NEUROLOGICAL: Limited because of patient's condition. Higher mental function: The patient is awake, alert, oriented to self, place and time. Patient is following simple commands. No aphasia or neglect.. Cranial nerves: The pupils are round, equal and reactive to light. Visual cabral are full to confrontation throughout. Extraocular movement is intact no nystagmus is noted. Facial sensation is normal to touch throughout. Facial strength is normal bilaterally. Motor: Gait is deferred because of her condition. The strength is 5/5 throughout. He has decreased bulk of all muscles. Sensation: Is normal to touch throughout. Reflexes (right/left): 2+ throughout except ankles are 1+ bilaterally. Plantars are downgoing bilaterally. - Labs CBC & Chem 7: 04/24/20 03:51 04/24/20 03:51 Labs: Abnormal Lab Results - Last 24 Hours (Table) 04/24/20 04/24/20 Range/Units 03:51 03:51 RBC 3.79 L (3.80-5.40) m/uL Neutrophils # 9.0 H (1.3-7.7) k/uL Lymphocytes # 0.5 L (1.0-4.8) k/uL Sodium 132 L (137-145) mmol/L Chloride 89 L (98-107) mmol/L Carbon Dioxide 45 H* (22-30) mmol/L BUN 20 H (7-17) mg/dL Creatinine 0.51 L (0.52-1.04) mg/dL Glucose 120 H (74-99) mg/dL Total Protein 5.1 L (6.3-8.2) g/dL Albumin 2.8 L (3.5-5.0) g/dL Assessment and Plan Assessment: This is a 49-year-old woman that was transferred from outside facility for worsening of her shortness of breath. Altered mental status due to acute hypoxic and hypercapnic respiratory failure and a component of toxic metabolic encephalopathy from electrolyte imbalance---resolved Macrocytosis--resolved Mild hyponatremia Thrombocytopenia Acute hypoxic and hypercapnic respiratory failure---improved Generalized cachexia Acute exacerbation of his COPD History of depression Generalized anxiety disorder Osteoarthritis Chronic tobacco use Plan: Vitamin B12 is 544 which is within normal limits. RBC folate: 420 (normal). Ammonia is less than 9 which is normal. TSH is 0.062 which is low while the free T4 is 1.[address] of the head was not done in that beginning of her stay because of respiratory as a result the order was canceled that. From my perspective there is no focality and mentation is back to baseline. I don't feel that its needed at t his moment. If she develop any worsening of her mentation the then will consider getting a CT of the head. Continue thiamine 100 mg daily. An EEG is not warranted this time since the patient is awake alert she is following commands and her encephalopathy as seems that due to respiratory condition. If her mentation worsens then possibly an EEG can be considered. Respiratory symptoms will defer the management to the supervisor molding. Regarding the patient's hyponatremia will defer the management to the primary team. Patient was counseled on tobacco cessation. Plan was discussed with the patient's nurse. There is no further neurological workup needed that. As you'll sign off. Please reconsult if needed. Omid Park MD Neuro-hospitalist. Time with Patient: Less than 30
[2020-04-24] MEDS: MONTELUKAST 10 MG TAB PO SCH (20:57)
[2020-04-24] MEDS: QUEtiapine 50 MG TAB PO SCH (20:58)
[2020-04-24] MEDS: HYDROcodone/APAP 5-325MG 1 EACH TAB PO PRN (21:12)
[2020-04-24] MEDS: ALPRAZolam 1 MG TAB PO PRN (21:12)
[2020-04-25] MEDS: methylPREDNISolone SOD SUCCI 40 MG/ML 1 ML VIAL IV SCH ×4 (00:42→23:30)
[2020-04-25] MEDS: LEVOTHYROXINE 88 MCG TAB PO SCH (07:04)
[2020-04-25] MEDS: IPRATROPIUM-ALBUTEROL 3 ML NEB INHALATION SCH ×4 (07:31→19:28)
[2020-04-25] MEDS: BUDESONIDE 1 MG/2 ML NEBU INHALATION SCH ×2 (07:31→19:28)
[2020-04-25] MEDS: ALPRAZolam 1 MG TAB PO PRN ×2 (07:50→17:38)
[2020-04-25] MEDS: PANTOPRAZOLE 40 MG TABLET PO SCH (08:49)
[2020-04-25] MEDS: LORATADINE 10 MG TAB PO SCH (08:49)
[2020-04-25] MEDS: HEPARIN SODIUM,PORCINE 5,000 UNIT/ML 1 ML VIAL SQ SCH ×2 (08:50→20:17)
[2020-04-25] MEDS: VENLAFAXINE HCL ER 150 MG CAP PO SCH (08:50)
[2020-04-25] MEDS: HYDROcodone/APAP 5-325MG 1 EACH TAB PO PRN ×2 (09:10→18:36)
[2020-04-25 09:56] LABS: HCT 33.4 % (34.0-46.0); HGB 10.5 gm/dL (11.4-16.0); Hypochromasia Moderate; MCH 30.6 pg (25.0-35.0); MCHC 31.3 g/dL (31.0-37.0); MCV 97.5 fL (80.0-100.0); Mean Platelet Volume 9.8; Platelet Count 130 k/uL (150-450); RBC 3.43 m/uL (3.80-5.40); RDW 12.9 % (11.5-15.5); WBC 9.6 k/uL (3.8-10.6)
[2020-04-25 10:11] LABS: African American GFR (CKD) >90 (>60 ml/min/1.73 sqM); Blood Urea Nitrogen 10 mg/dL (7-17); Calcium 9.1 mg/dL (8.4-10.2); Chloride 90 mmol/L (98-107); Glucose 76 mg/dL (74-99); Non-African American GFR(CKD) >90 (>60 ml/min/1.73 sqM); Potassium 4.1 mmol/L (3.5-5.1); Sodium 136 mmol/L (137-145)
[2020-04-25 10:17] LABS: Anion Gap -2 mmol/L
[2020-04-25] MEDS: THIAMINE 100 MG/ML 2 ML VIAL IVP SCH (10:17)
[2020-04-25] MEDS: HYOSCYAMINE SULFATE 0.125 MG TAB PO SCH ×2 (10:22→23:03)
[2020-04-25 10:24] LABS: Carbon Dioxide 48 mmol/L (22-30)
--- NOTE | 2020-04-25 12:27 | P.PN ---
Subjective Progress Note Date: 04/25/20 This is a 49-year-old female admitted with acute COPD exacerbation, acute hypoxic and hypercapnic respiratory failure in a patient with severe protein calorie malnutrition and multiple other medical issues. Sensorium improving. Precedex has been discontinued. CO2 continuing to improve down to 40. Maintain ing O2 sats in the 90s on 4 L nasal cannula. Afebrile, normal WBC. Sodium remains at 131. 04/24/20 maintaining O2 sats in the 90s on 4 L nasal cannula. Hypercapnia worsened with CO2 up to 45. Denies chest pain or palpitations. No further hallucinations. Insisting on discharge, patient informed that she is not a candidate for discharge today secondary to worsening hypercapnia. 04/25/20 Hypercapnic with CO2 worsening up to 48. Continues on IV steroids, nebulized bronchodilators, prn Bipap. Reports she has had a palliative care RN in her home for a couple of weeks. Breathing comfortable on 4 L nasal cannula maintaining O2 sats in the 90s. Denies chest pain, palpitations. Objective - Vital Signs Vital signs: Vital Signs Temp 97.6 F 04/25/20 08:00 Pulse 106 H 04/25/20 08:00 Resp 19 04/25/20 08:00 BP 95/54 04/25/20 08:00 Pulse Ox 98 04/25/20 08:00 Intake & Output 04/24/20 04/25/20 04/25/20 18:59 06:59 18:59 Intake Total 20 Output Total 475 200 600 Balance -455 -200 -600 Weight 32.2 kg 32.3 kg Intake: IV 20 0.9 KVO 20 Output: Urine 475 200 600 Other: Voiding Method Bedside Commode Bedside Commode Bedside Commode # Voids 1 # Bowel Movements 1 - Exam PHYSICAL EXAMINATION: GENERAL: Cachexic, Sitting up in bed, no acute distress, appears comfortable. HEENT: Pupils are round and equally reacting to light. EOMI. No scleral icterus. No conjunctival pallor. Normocephalic, atraumatic. No pharyngeal erythema. No thyromegaly. CARDIOVASCULAR: S1 and S2 present. No murmurs, rubs, or gallops. PULMOnary: Better air entry, diminished GI : Soft, nontender, nondistended, normoactive bowel sounds. EXTREMITIES: No cyanosis, clubbing, or pedal edema. NEUROLOGICAL: Gross neurological examination did not reveal any focal deficits. SKIN: Warm and dry, No rashes. - Labs CBC & Chem 7: 04/25/20 09:29 04/25/20 09:29 Labs: Abnormal Lab Results - Last 24 Hours (Table) 04/25/20 Range/Units 09:29 RBC 3.43 L (3.80-5.40) m/uL Hgb 10.5 L (11.4-16.0) gm/dL Hct 33.4 L (34.0-46.0) % Plt Count 130 L (150-450) k/uL Assessment and Plan Assessment: Acute on chronic hypoxic hypercapnic respiratory failure secondary to acute COPD exacerbation Advanced COPD Acute metabolic encephalopathy secondary to #1, improved Hyponatremia, improving Ongoing nicotine dependence Acute Respiratory acidosis Cachexia with Severe protein calorie malnutrition, BMI 12.4 Fibromyalgia Depression Anxiety Plan: Continue on current medication regime ,monitoring and symptomatic treatment. Patient remains hypercapnic, CO2 48 not cleared for discharge today. Maintain aggressive pulmonary toileting, maintain nebulized bronchodilators, steroids. Follow closely with pulmonary. Case management assisting with medical equipment issues, home care/palliative care. Discharge planning in progress once CO2 less than 40. MedSurg overflow with remote telemetry. The impression and plan of care has been dictated as directed. : I performed a history and examination of this patient, discussed the same with the dictator. I agree with the dictator's note ,documented as a scribe. Any additional findings or plans will be noted.
[2020-04-25] MEDS ORDERED: SODIUM CHLORIDE 0.65% NASAL SPRAY 44 ML BTL NASAL PRN (15:53)
[2020-04-25] MEDS ORDERED: ARTIFICIAL TEARS-HYPROMELLOSE DROPS 15 ML BTL BOTH EYES PRN (15:54)
--- NOTE | 2020-04-25 16:27 | P.PN ---
Subjective Progress Note Date: 04/25/20 Principal diagnosis: Altered mental status Acute hypoxic and hypercapnic respiratory failure Acute exacerbation of COPD Cachexia and protein calorie malnourishment Mood disorder depression Generalized anxiety disorder Degenerative joint disease osteoarthritis 04/25/2020, patient seen eval examined during the rounds labs reviewed medications reviewed care plan discussed, patient remains on 4 L oxygen less anxious complaining of dryness in the mouth and eyes, saline drops have been prescribed, more composed today less agitated 04/24/2020, patient seen and evaluated examined in the ICU sitting upright in the bed breathing comfortably very anxious, on 4 L oxygen, he shouldn't takes the Xanax 2 mg 3 times a day as needed, we'll give a first dose 2 of 2 mg then 1 mg 3 times a day as needed, patient is being transferred to [facility] with remote telemetry, labs reviewed from today CO2 level is elevated to 45 likely due to hypercapnia, she is breathing K more comfortably, afebrile oxygen saturation is 90-97% on 4 L oxygen, 04/23/2020, patient seen eval examined during the round labs reviewed medications reviewed, patient is on 4 L nasal cannula mental status signifi cantly improved antihypertensive agents have been resumed, patient uses oxygen at 4 L arousable follow simple command no obvious distress present mild confusion is still there, will move out of the ICU to telemetry bed 04/22/2020, patient seen eval reexamined and redressed less anxious, patient is on Precedex drip, hemodynamic status stable, but however intermittently gets agitated and restless, requiring 1:1, patient remains on BiPAP setting includes 03/23 with 45% oxygen, saturation is low to mid 80s with deep breathing exercise and concentrate on breathing oxygen saturation improved to 86-87%, white cell count improved to 10,000, arterial blood gases reviewed with improvement in pH however CO2 improved as well but remains very high at 94, CO2 and serum is 44 down from 49, Cordarone hour virus testing came back negative, chest x-ray continued to show advanced end-stage COPD with extensive bullous disease, patient remains nothing by mouth however ice chips and swabs are permitted, This is a 49-year-old female who was seen examined in ICU, patient has been admitted into the medical floor with shortness of breath and acute COPD exacerbation she was found to have a worsening of CO2 and acute respiratory acidosis on top of chronic respiratory acidosis, patient has been placed on Bi PAP transferred to the ICU, patient is arousable however denies any chest pain, repeat arterial blood gas are pending, Objective - Vital Signs Vital signs: Vital Signs Temp 98.1 F 04/25/20 10:45 Pulse 74 04/25/20 12:24 Resp 16 04/25/20 10:45 BP 102/64 04/25/20 12:24 Pulse Ox 98 04/25/20 08:00 Intake & Output 04/24/20 04/25/20 04/25/20 18:59 06:59 18:59 Intake Total 20 Output Total 475 200 600 Balance -455 -200 -600 Weight 32.2 kg 32.3 kg Intake: IV 20 0.9 KVO 20 Output: Urine 475 200 600 Other: Voiding Method Bedside Commode Bedside Commode Bedside Commode # Voids 1 # Bowel Movements 1 - Exam - Constitutional General appearance: disheveled, thin - EENT Eyes: PERRLA Ears: bilateral: normal - Neck Carotids: bilateral: upstroke normal Thyroid: bilateral: normal size - Respiratory Respiratory: bilateral: diminished - Cardiovascular Rhythm: regular Heart sounds: normal: S1, S2 - Gastrointestinal General gastrointestinal: normal bowel sounds - Integumentary Integumentary: decreased turgor - Neurologic Neurologic: CNII-XII intact - Musculoskeletal Musculoskeletal: gait normal, generalized weakness, strength equal bilaterally - Psychiatric Psychiatric: A&O x's 3, appropriate affect, intact judgment & insight - Labs CBC & Chem 7: 04/25/20 09:29 04/25/20 09:29 Labs: Abnormal Lab Results - Last 24 Hours (Table) 04/25/20 04/25/20 Range/Units 09:29 09:29 RBC 3.43 L (3.80-5.40) m/uL Hgb 10.5 L (11.4-16.0) gm/dL Hct 33.4 L (34.0-46.0) % Plt Count 130 L (150-450) k/uL Sodium 136 L (137-145) mmol/L Chloride 90 L (98-107) mmol/L Carbon Dioxide 48 H* (22-30) mmol/L Creatinine 0.35 L (0.52-1.04) mg/dL Assessment and Plan Assessment: Altered mental status, likely due to CO2 narcosis significantly improved almost back to baseline Acute hypoxic and hypercapnic respiratory failure Acute exacerbation of COPD Cachexia and protein calorie malnourishment Mood disorder depression Generalized anxiety disorder Degenerative joint disease osteoarthritis Plan: Altered mental status likely due to severe hypercapnia BiPAP support now switched to each night and when necessary during the day Xanax as needed IV steroids Breathing treatments Patient can be moved out of the ICU Further recommendations pending plan of care as per clinical response of the patient Time with Patient: Greater than 30
[2020-04-25 17:17] LABS: Glucose,Whole Blood 90 mg/dL (75-99)
[2020-04-25 20:01] LABS: Glucose,Whole Blood 99 mg/dL (75-99)
[2020-04-25] MEDS: QUEtiapine 50 MG TAB PO SCH (20:17)
[2020-04-25] MEDS: MONTELUKAST 10 MG TAB PO SCH (20:17)
[2020-04-26] MEDS: HYDROcodone/APAP 5-325MG 1 EACH TAB PO PRN (01:57)
[2020-04-26] MEDS: ALPRAZolam 1 MG TAB PO PRN ×3 (01:57→17:47)
[2020-04-26 06:07] LABS: Glucose,Whole Blood 94 mg/dL (75-99)
[2020-04-26] MEDS: LEVOTHYROXINE 88 MCG TAB PO SCH (06:43)
[2020-04-26] MEDS: PANTOPRAZOLE 40 MG TABLET PO SCH (06:43)
[2020-04-26] MEDS: BUDESONIDE 1 MG/2 ML NEBU INHALATION SCH ×2 (08:05→19:59)
[2020-04-26] MEDS: IPRATROPIUM-ALBUTEROL 3 ML NEB INHALATION SCH ×4 (08:05→19:59)
[2020-04-26 08:42] LABS: African American GFR (CKD) >90 (>60 ml/min/1.73 sqM); Blood Urea Nitrogen 9 mg/dL (7-17); Calcium 9.3 mg/dL (8.4-10.2); Chloride 88 mmol/L (98-107); Glucose 106 mg/dL (74-99); Non-African American GFR(CKD) >90 (>60 ml/min/1.73 sqM); Sodium 135 mmol/L (137-145)
[2020-04-26 08:49] LABS: Anion Gap 1 mmol/L
[2020-04-26] MEDS: methylPREDNISolone SOD SUCCI 40 MG/ML 1 ML VIAL IV SCH ×3 (08:57→23:22)
[2020-04-26] MEDS: HEPARIN SODIUM,PORCINE 5,000 UNIT/ML 1 ML VIAL SQ SCH ×2 (08:58→21:07)
[2020-04-26] MEDS: LORATADINE 10 MG TAB PO SCH (08:58)
[2020-04-26] MEDS: HYOSCYAMINE SULFATE 0.125 MG TAB PO SCH ×2 (08:59→21:07)
[2020-04-26] MEDS: VENLAFAXINE HCL ER 150 MG CAP PO SCH (08:59)
[2020-04-26 09:12] LABS: Carbon Dioxide 46 mmol/L (22-30)
[2020-04-26] MEDS: THIAMINE 100 MG/ML 2 ML VIAL IVP SCH (10:11)
--- NOTE | 2020-04-26 10:34 | P.PN ---
Subjective Progress Note Date: 04/26/20 Principal diagnosis: Altered mental status Acute hypoxic and hypercapnic respiratory failure Acute exacerbation of COPD Cachexia and protein calorie malnourishment Mood disorder depression Generalized anxiety disorder Degenerative joint disease osteoarthritis 04/26/2020, patient seen eval examined during the rounds labs reviewed medications reviewed care plan discussed, sputum is status remains stable, patient remains on 4 L oxygen cough congestion shortness of breath remains stable, 04/25/2020, patient seen eval examined during the rounds labs reviewed medications reviewed care plan discussed, patient remains on 4 L oxygen less anxious complaining of dryness in the mouth and eyes, saline drops have been prescribed, more composed today less agitated 04/24/2020, patient seen and evaluated examined in the ICU sitting upright in the bed breathing comfortably very anxious, on 4 L oxygen, he shouldn't takes the Xanax 2 mg 3 times a day as needed, we'll give a first dose 2 of 2 mg then 1 mg 3 times a day as needed, patient is being transferred to [facility] with remote telemetry, labs reviewed from today CO2 level is elevated to 45 likely due to hypercapnia, she is breathing K more comfortably, afebrile oxygen saturation is 90-97% on 4 L oxygen, 04/23/2020, patient seen eval examined during the round labs reviewed medications reviewed, patient is on 4 L nasal cannula mental status significantly improved antihypertensive agents have been resumed, patient uses oxygen at 4 L arousable follow simple command no obvious distress present mild confusion is still there, will move out of the ICU to telemetry bed 04/22/2020, patient seen eval reexamined and redressed less anxious, patient is on Precedex drip, hemodynamic status stable, but however intermittently gets agitated and restless, requiring 1:1, patient remains on BiPAP setting includes 03/23 with 45% oxygen, saturation is low to mid 80s with deep breathing exercise and concentrate on breathing oxygen saturation improved to 86-87%, white cell count improved to 10,000, arterial blood gases reviewed with improvement in pH however CO2 improved as well but remains very high at 94, CO2 and serum is 44 down from 49, Cordarone hour virus testing came back negative, chest x-ray continued to show advanced end-stage COPD with extensive bullous disease, patient remains nothing by mouth however ice chips and swabs are permitted, This is a 49-year-old female who was seen examined in ICU, patient has been admitted into the medical floor with shortness of breath and acute COPD exacerbation she was found to have a worsening of CO2 and acute respiratory acidosis on top of chronic respiratory acidosis, patient has been placed on BiPAP transferred to the ICU, patient is arousable however denies any chest pain, repeat arterial blood gas are pending, Objective - Vital Signs Vital signs: Vital Signs Temp 98.7 F 04/26/20 08:00 Pulse 100 04/26/20 08:22 Resp 16 04/26/20 08:00 BP 110/70 04/26/20 08:00 Pulse Ox 100 04/26/20 08:00 Intake & Output 04/25/20 04/26/20 04/26/20 18:59 06:59 18:59 Intake Total 240 Output Total 600 Balance -600 240 Weight 33.2 kg Intake: Oral 240 Output: Urine 600 Other: Voiding Method Bedside Commode Bedside Commode # Voids 1 1 - Exam - Constitutional General appearance: disheveled, thin - EENT Eyes: PERRLA Ears: bilateral: normal - Neck Carotids: bilateral: upstroke normal Thyroid: bilateral: normal size - Respiratory Respiratory: bilateral: diminished - Cardiovascular Rhythm: regular Heart sounds: normal: S1, S2 - Gastrointestinal General gastrointestinal: normal bowel sounds - Integumentary Integumentary: decreased turgor - Neurologic Neurologic: CNII-XII intact - Musculoskeletal Musculoskeletal: gait normal, generalized weakness, strength equal bilaterally - Psychiatric Psychiatric: A&O x's 3, appropriate affect, intact judgment & insight - Labs CBC & Chem 7: 04/25/20 09:29 04/26/20 07:39 Labs: Abnormal Lab Results - Last 24 Hours (Table) 04/26/20 Range/Units 07:39 Sodium 135 L (137-145) mmol/L Chloride 88 L (98-107) mmol/L Carbon Dioxide 46 H* (22-30) mmol/L Creatinine 0.39 L (0.52-1.04) mg/dL Glucose 106 H (74-99) mg/dL Assessment and Plan Assessment: Altered mental status, likely due to CO2 narcosis significantly improved almost back to baseline Acute hypoxic and hypercapnic respiratory failure Acute exacerbation of COPD Cachexia and protein calorie malnourishment Mood disorder depression Generalized anxiety disorder Degenerative joint disease osteoarthritis Plan: Altered mental status likely due to severe hypercapnia, improved significantly BiPAP support now switched to each night and when necessary during the day, patient is refusing BiPAP Xanax as needed IV steroids, can be changed to oral at the time of discharge Breathing treatments Agree with discharge planning Further recommendations pending plan of care as per clinical response of the patient Time with Patient: Greater than 30
[2020-04-26] MEDS ORDERED: acetaZOLAMIDE 250 MG TAB PO ONE (10:45)
[2020-04-26] MEDS: HYDROcodone/APAP 10-325MG 1 EACH TAB PO PRN ×3 (11:22→23:21)
[2020-04-26 11:51] LABS: Glucose,Whole Blood 97 mg/dL (75-99)
--- NOTE | 2020-04-26 12:15 | P.PN ---
Subjective Progress Note Date: 04/26/20 This is a 49-year-old female admitted with acute COPD exacerbation, acute hypoxic and hypercapnic respiratory failure in a patient with severe protein calorie malnutrition and multiple other medical issues. Sensorium improving. Precedex has been discontinued. CO2 continuing to improve down to 40. Maintain ing O2 sats in the 90s on 4 L nasal cannula. Afebrile, normal WBC. Sodium remains at 131. 04/24/20 maintaining O2 sats in the 90s on 4 L nasal cannula. Hypercapnia worsened with CO2 up to 45. Denies chest pain or palpitations. No further hallucinations. Insisting on discharge, patient informed that she is not a candidate for discharge today secondary to worsening hypercapnia. 04/25/20 Hypercapnic with CO2 worsening up to 48. Continues on IV steroids, nebulized bronchodilators, prn Bipap. Reports she has had a palliative care RN in her home for a couple of weeks. Breathing comfortable on 4 L nasal cannula maintaining O2 sats in the 90s. Denies chest pain, palpitations. 04/26/20 currently maintaining O2 sats of 100% on 4 L nasal cannula. Hypercapnic with CO2 slightly improved down to 46. Denies chest pain, palpitations. Complains of generalized pain. Afebrile. Diet intake improving, Consumed 100% of breakfast this morning. Objective - Vital Signs Vital signs: Vital Signs Temp 98.7 F 04/26/20 08:00 Pulse 112 H 04/26/20 11:21 Resp 16 04/26/20 08:00 BP 113/64 04/26/20 11:21 Pulse Ox 97 04/26/20 11:21 Intake & Output 04/25/20 04/26/20 04/26/20 18:59 06:59 18:59 Intake Total 240 Output Total 600 Balance -600 240 Weight 33.2 kg Intake: Oral 240 Output: Urine 600 Other: Voiding Method Bedside Commode Bedside Commode # Voids 1 1 - Exam PHYSICAL EXAMINATION: GENERAL: Cachexic, Sitting up in bed, no acute distress HEENT: Normocephalic, atraumatic ,Pupils are round and equally reacting to light. EOMI. No scleral icterus. No conjunctival pallor.No thyromegaly. CARDIOVASCULAR: S1 and S2 present. No murmurs, rubs, or gallops. PULMOnary: Better air entry, diminished GI : Soft, nontender, nondistended, normoactive bowel sounds. EXTREMITIES: No cyanosis, clubbing, or pedal edema. NEUROLOGICAL: Gross neurological examination did not reveal any focal deficits. SKIN: Warm and dry, No rashes. - Labs CBC & Chem 7: 04/25/20 09:29 04/26/20 07:39 Labs: Abnormal Lab Results - Last 24 Hours (Table) 04/26/20 Range/Units 07:39 Sodium 135 L (137-145) mmol/L Chloride 88 L (98-107) mmol/L Carbon Dioxide 46 H* (22-30) mmol/L Creatinine 0.39 L (0.52-1.04) mg/dL Glucose 106 H (74-99) mg/dL Assessment and Plan Assessment: Acute on chronic hypoxic hypercapnic respiratory failure secondary to acute COPD exacerbation Advanced COPD Acute metabolic encephalopathy secondary to #1, improved Hyponatremia, improving Ongoing nicotine dependence Acute Respiratory acidosis Cachexia with Severe protein calorie malnutrition, BMI 12.4 Fibromyalgia Depression Anxiety Plan: Continue on current medication regime ,monitoring and symptomatic treatment. Titrate oxygen to maintain O2 sat of 88%-discussed with RN. Hypercapnic, minimal improvement CO2 46, Diamox 250 mg 1 dose ordered. Pain management adjusted .Maintain aggressive pulmonary toileting, maintain nebulized bronchodilators, steroids. Follow closely with pulmonary. The impression and plan of care has been dictated as directed. : I performed a history and examination of this patient, discussed the same with the dictator. I agree with the dictator's note ,documented as a scribe. Any additional findings or plans will be noted.
[2020-04-26] MEDS: THIAMINE 100 MG TAB PO SCH (12:40)
[2020-04-26 13:58] VITALS: BMI 13.4
[2020-04-26 16:41] LABS: Glucose,Whole Blood 95 mg/dL (75-99)
[2020-04-26 20:48] LABS: Glucose,Whole Blood 119 mg/dL (75-99)
[2020-04-26] MEDS: MONTELUKAST 10 MG TAB PO SCH (21:07)
[2020-04-26] MEDS: QUEtiapine 50 MG TAB PO SCH (21:07)
[2020-04-26 22:42] VITALS: RESP 18
[2020-04-27] MEDS: ALPRAZolam 1 MG TAB PO PRN ×2 (04:16→13:06)
[2020-04-27 05:57] LABS: Glucose,Whole Blood 174 mg/dL (75-99)
[2020-04-27] MEDS: PANTOPRAZOLE 40 MG TABLET PO SCH (06:17)
[2020-04-27] MEDS: LEVOTHYROXINE 88 MCG TAB PO SCH (06:17)
[2020-04-27] MEDS: IPRATROPIUM-ALBUTEROL 3 ML NEB INHALATION SCH ×3 (07:49→15:27)
[2020-04-27] MEDS: BUDESONIDE 1 MG/2 ML NEBU INHALATION SCH (07:50)
[2020-04-27] MEDS: HYOSCYAMINE SULFATE 0.125 MG TAB PO SCH (09:32)
[2020-04-27] MEDS: LORATADINE 10 MG TAB PO SCH (09:32)
[2020-04-27] MEDS: HEPARIN SODIUM,PORCINE 5,000 UNIT/ML 1 ML VIAL SQ SCH (09:32)
[2020-04-27] MEDS: methylPREDNISolone SOD SUCCI 40 MG/ML 1 ML VIAL IV SCH ×2 (09:32→16:36)
[2020-04-27] MEDS: VENLAFAXINE HCL ER 150 MG CAP PO SCH (09:32)
[2020-04-27] MEDS: THIAMINE 100 MG TAB PO SCH (09:32)
[2020-04-27] MEDS: HYDROcodone/APAP 10-325MG 1 EACH TAB PO PRN ×2 (09:33→16:36)
[2020-04-27 11:26] VITALS: TEMP 97.9
[2020-04-27 12:33] LABS: Glucose,Whole Blood 91 mg/dL (75-99)
[2020-04-27 13:51] VITALS: BP 107/73
[2020-04-27 15:40] VITALS: PULSE 104
[2020-04-27 16:49] LABS: Glucose,Whole Blood 107 mg/dL (75-99)
--- NOTE | 2020-04-27 17:31 | P.DS ---
Providers Date of admission: 04/20/20 15:01 Expected date of discharge: 04/27/20 Attending physician: Omid Moreno MD Consults: 04/20/20 14:22 Consult Physician Routine Consulting Provider: Pablo Smith Consult Reason/Comments: copd Do you want consulting provider notified?: Yes 04/21/20 10:15 Consult Physician Routine Consulting Provider: Omid Park Consult Reason/Comments: confusion Do you want consulting provider notified?: Yes Primary care physician: Stated None Hospital Course: Ms. 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 Patient was initiated [facility] and transferred to [facility] for pulmonary evaluation. Patient was initially on BiPAP in the ER and transitioned to nasal cannula. Later on ABG done showed and that she had a pCO2 of 120 so started back on BiPAP and transferred to the ICU. Patient was put on breathing treatments, IV steroids after which she showed it improvement in her breathing status. Today the patient states that she has her breathing back to her normal, she is saturating at 93% on 2 L of oxygen. Patient states that she is having to take care of important issues at her home, states that if I did not discharge her that she would leave the hospital AGAINST MEDICAL ADVICE. As the patient's breathing status has improved, pulmonary notes platelet much was okay with discharging the patient so patient will be discharged on tapering dose of steroids. Overall prognosis still remains guarded. Discussed with the patient that in case she feels difficulty in breathing, to come back to the hospital. At the time of discharge patient's vitals heart rate 104, blood pressure 107 with 73, saturating 92% on 2 L of Nasal Cannula, Respiratory Rate 18. On examination: Gen- cachectic Lungs- decreased breath sounds in all lung [place] Cardiovascular- tachycardia Extremities- no edema DISCHARGE DIAGNOSIS Acute on chronic hypoxic hypercapnic respiratory failure secondary to acute COPD exacerbation Advanced COPD Acute metabolic encephalopathy secondary to #1, improved Hyponatremia, improving Ongoing nicotine dependence Acute Respiratory acidosis Cachexia with Severe protein calorie malnutrition, BMI 12.4 Fibromyalgia Depression Anxiety Follow-up: Patient is advised to follow up with her primary care physician in 2- 3 days. Also advised follow-up with pulmonary. Discussed with her regarding the tapering dose of steroids. More than 35 minutes spent towards the discharge of the patient. Patient Condition at Discharge: Fair Plan - Discharge Summary Discharge Rx Participant: No New Discharge Prescriptions: New predniSONE See Taper PO DIRECTED 12 Days #30 tab Budesonide [Pulmicort] 1 mg INHALATION RT-BID 30 Days #1 inhaler Thiamine [Vitamin B-1] 100 mg PO DAILY 30 Days #30 tab Continue Montelukast [Singulair] 10 mg PO HS Omeprazole 40 mg PO DAILY Loratadine [Claritin] 10 mg PO DAILY Levothyroxine Sodium [Synthroid] 88 mcg PO DAILY Hyoscyamine Sulfate [Levsin] 0.125 mg PO BID Ipratropium-Albuterol Nebulize [Duoneb 0.5 mg-3 mg/3 ml Soln] 3 ml INHALATION RT-QID ml dronabinoL [Marinol] 5 mg PO AC-BID 3 Days #6 cap ALPRAZolam [Xanax] 0.5 - 2 mg PO TID PRN PRN Reason: Anxiety traMADol HCL 50 mg PO BID PRN PRN Reason: Pain QUEtiapine XR [SEROquel XR] 400 mg PO HS Discharge Medication List Montelukast [Singulair] 10 mg PO HS 11/25/16 [History] Hyoscyamine Sulfate [Levsin] 0.125 mg PO BID 12/30/19 [History] Levothyroxine Sodium [Synthroid] 88 mcg PO DAILY 12/30/19 [History] Loratadine [Claritin] 10 mg PO DAILY 12/30/19 [History] Omeprazole 40 mg PO DAILY 12/30/19 [History] Ipratropium-Albuterol Nebulize [Duoneb 0.5 mg-3 mg/3 ml Soln] 3 ml INHALATION RT-QID ml 03/01/20 [Rx] dronabinoL [Marinol] 5 mg PO AC-BID 3 Days #6 cap 03/01/20 [Rx] ALPRAZolam [Xanax] 0.5 - 2 mg PO TID PRN 04/20/20 [History] traMADol HCL 50 mg PO BID PRN 04/20/20 [History] QUEtiapine XR [SEROquel XR] 400 mg PO HS 04/24/20 [History] Budesonide [Pulmicort] 1 mg INHALATION RT-BID 30 Days #1 inhaler 04/27/20 [Rx] Thiamine [Vitamin B-1] 100 mg PO DAILY 30 Days #30 tab 04/27/20 [Rx] predniSONE See Taper PO DIRECTED 12 Days #30 tab 04/27/20 [Rx] Follow up Appointment(s)/Referral(s): [facility], [NON-STAFF] - 1 Week None,Stated [Primary Care Provider] - 1-2 days Discharge Disposition: HOME SELF-CARE
== END 2020-04-27 18:30 | disposition home or self-care (01) | DRG 190 ==
LOC: EC 14:16 → 3SCARD 15:01 → 2SICU 04-21 12:36 → 3SCARD 04-25 10:43
PROVIDERS: ADMIT Family Medicine; ATTEND Family Medicine
PROC: 5A09557 Assistance with Respiratory Ventilation, Greater than 96 Consecutive Hours, Continuous Positive Airway Pressure (ICD-10-PCS; principal; 2020-04-20)
DX: J43.9 Emphysema, unspecified (principal); J96.21 Acute and chronic respiratory failure with hypoxia; J96.22 Acute and chronic respiratory failure with hypercapnia; E43 Unspecified severe protein-calorie malnutrition; G92 Toxic encephalopathy; R64 Cachexia; Z68.1 Body mass index [BMI] 19.9 or less, adult; E87.1 Hypo-osmolality and hyponatremia; E87.2 Acidosis; Z20.822 Contact with and (suspected) exposure to COVID-19; K21.9 Gastro-esophageal reflux disease without esophagitis; M19.90 Unspecified osteoarthritis, unspecified site; I51.7 Cardiomegaly; E83.42 Hypomagnesemia; E03.9 Hypothyroidism, unspecified; D69.6 Thrombocytopenia, unspecified; D75.89 Other specified diseases of blood and blood-forming organs; F41.1 Generalized anxiety disorder; F17.210 Nicotine dependence, cigarettes, uncomplicated; F12.90 Cannabis use, unspecified, uncomplicated; F31.9 Bipolar disorder, unspecified; M79.7 Fibromyalgia; Z91.19 Patient's noncompliance with other medical treatment and regimen; Z90.711 Acquired absence of uterus with remaining cervical stump; Z82.5 Family history of asthma and other chronic lower respiratory diseases; Z79.899 Other long term (current) drug therapy; Z79.890 Hormone replacement therapy; Z88.0 Allergy status to penicillin; Z88.2 Allergy status to sulfonamides; Z88.8 Allergy status to other drugs, medicaments and biological substances; Z91.09 Other allergy status, other than to drugs and biological substances; Z98.891 History of uterine scar from previous surgery; Z90.49 Acquired absence of other specified parts of digestive tract
CPT/HCPCS: 36600; 71045; 80048; 80053; 81003; 82140; 82607; 82747; 82803; 82805; 83605; 83735; 84100; 84439; 84443; 85025; 85027; 93005; 94640; 94660; 94760; 96374; 96376; 99285

== ENCOUNTER 2020-05-02 15:59 | Emergency (ER) | payer OTHER ==
[2020-05-02 16:06] VITALS: TEMP 98.2
--- NOTE | 2020-05-02 16:15 | ED ---
SOB HPI - General Chief Complaint: Shortness of Breath Stated Complaint: Unresponsive Time Seen by Provider: 05/02/20 16:00 Source: EMS Mode of arrival: EMS Limitations: no limitations - History of Present Illness Initial Comments: Patient is a 49-year-old female with history of COPD, on 4 L nasal cannula who presents to the emergency department after she had an episode of unresponsiveness at home. Daughter is at bedside and helps provide history. States that she went to check on her mom approximately 2 and half hours ago and found that she was asleep in bed. She attempted to wake her however was having difficulty and therefore gave up. 2 hours later the patient's other family members went into the room to attempt to arouse the patient however they still could not wake her up. Because of this they called EMS. EMS states that they found the patient unresponsive however she woke up fairly quickly and was in O 4. She denies having any chest pain or shortness of breath. No abdominal pain. Did admit to a headache without visual changes. No fevers or chills. No neck stiffness. Patient does wear 4 L of oxygen and states she was wearing at home. Denies cough. She denies taking any illicit substances however daughters at bedside reports that her sister may have given the patient's some of her [place]. The patient refuses that this is the case. She denies using any illicit substances or drinking alcohol. No other alleviating, precipitating or modifying factors. - Related Data Home Medications Medication Instructions Recorded Confirmed Montelukast [Singulair] 10 mg PO HS 11/25/16 04/20/20 Hyoscyamine Sulfate [Levsin] 0.125 mg PO BID 12/30/19 04/20/20 Levothyroxine Sodium [Synthroid] 88 mcg PO DAILY 12/30/19 04/20/20 Loratadine [Claritin] 10 mg PO DAILY 12/30/19 04/20/20 Omeprazole 40 mg PO DAILY 12/30/19 04/20/20 ALPRAZolam [Xanax] 0.5 - 2 mg PO TID PRN 04/20/20 04/20/20 traMADol HCL 50 mg PO BID PRN 04/20/20 04/20/20 QUEtiapine XR [SEROquel XR] 400 mg PO HS 04/24/20 04/24/20 Previous Rx's Medication Instructions Recorded Ipratropium-Albuterol Nebulize 3 ml INHALATION RT-QID ml 03/01/20 [Duoneb 0.5 mg-3 mg/3 ml Soln] dronabinoL [Marinol] 5 mg PO AC-BID 3 Days #6 cap 03/01/20 Budesonide [Pulmicort] 1 mg INHALATION RT-BID 30 Days #1 04/27/20 inhaler Thiamine [Vitamin B-1] 100 mg PO DAILY 30 Days #30 tab 04/27/20 predniSONE See Taper PO DIRECTED 12 Days 04/27/20 #30 tab Allergies Allergy/AdvReac Type Severity Reaction Status Date / Time dicyclomine [From Bentyl] Allergy Rash/Hives Verified 04/20/20 15:18 Penicillins Allergy Unknown Verified 04/20/20 15:18 Childhood sulfamethoxazole Allergy Rash/Hives Verified 04/20/20 15:18 [From Bactrim] trimethoprim [From Bactrim] Allergy Rash/Hives Verified 04/20/20 15:18 paper tape Allergy Rash/Hives Uncoded 01/14/20 18:28 Review of Systems ROS Statement: Those systems with pertinent positive or pertinent negative responses have been documented in the HPI. ROS Other: All systems not noted in ROS Statement are negative. Past Medical History Past Medical History: COPD, Eye Disorder, Fibromyalgia, GERD/Reflux, Osteoarthritis (OA), Thyroid Disorder Additional Past Medical History / Comment(s): Hx blood in stool, Endometriosis. pt states that eyes get gritty feeling like sand is in them. 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 Hernia x2 Past Anesthesia/Blood Transfusion Reactions: Postoperative Nausea & Vomiting (PONV) Additional Past Anesthesia/Blood Transfusion Reaction / Comment(s): States herself and some family members wake from anesthesia angry. Past Psychological History: Anxiety, Bipolar, Depression Smoking Status: Current every day smoker Past Alcohol Use History: Rare Past Drug Use History: Marijuana - Past Family History Mother Family Medical History: COPD General Exam Limitations: no limitations General appearance: alert, cachectic Head exam: Present: atraumatic, normocephalic, normal inspection Eye exam: Present: normal appearance, PERRL, EOMI. Absent: scleral icterus, conjunctival injection, periorbital swelling ENT exam: Present: mucous membranes dry Neck exam: Present: normal inspection. Absent: tenderness, meningismus, lymphadenopathy Respiratory exam: Present: decreased breath sounds. Absent: respiratory distress Cardiovascular Exam: Present: normal rhythm, tachycardia GI/Abdominal exam: Present: soft, normal bowel sounds. Absent: distended, tenderness, guarding, rebound, rigid Neurological exam: Present: alert, oriented X3, CN II-XII intact Psychiatric exam: Present: normal affect, normal mood Skin exam: Present: warm, dry, intact, normal color. Absent: rash Course Vital Signs 05/02/20 05/02/20 05/02/20 16:02 18:10 22:01 Temperature 98.2 F Pulse Rate 114 H 111 H Respiratory 24 22 22 Rate Blood Pressure 122/64 109/61 110/62 O2 Sat by Pulse 96 100 96 Oximetry Medical Decision Making - Medical Decision Making Upon arrival the patient was placed into room 16. Patient is awake and alert. Denies using any illicit substances. Laboratory studies are conducted. I did persuade the patient into a CT of her head due to her unresponsive episode with reported headache. Laboratory studies are reviewed. Carbon axis LIII. Patient does have a chronically elevated CO2. Toxicology just returned and the patient has positive for opiates, tricyclic antidepressants, benzos and marijuana. The patient is observed in the emergency department for 4 hours. She remains awake and alert. Oxygenation has remained good throughout the stay. I did discuss diagnosis, differential and treatment options. At this time the patient is s table for discharge home for which she does agree to. Instructed to not take any medications that are not prescribed to her. Patient understood this. She has any new or worsening symptoms return to the emergency room. Patient was discharged home in stable condition - Lab Data Result diagrams: 05/02/20 16:56 05/02/20 16:56 Lab Results 05/02/20 05/02/20 05/02/20 Range/Units 16:56 16:56 16:56 WBC 7.4 (3.8-10.6) k/uL RBC 3.23 L (3.80-5.40) m/uL Hgb 10.1 L (11.4-16.0) gm/dL Hct 31.8 L (34.0-46.0) % MCV 98.6 (80.0-100.0) fL MCH 31.2 (25.0-35.0) pg MCHC 31.7 (31.0-37.0) g/dL RDW 13.4 (11.5-15.5) % Plt Count 179 (150-450) k/uL MPV 7.9 Neutrophils % 73 % Lymphocytes % 15 % Monocytes % 7 % Eosinophils % 2 % Basophils % 1 % Neutrophils # 5.4 (1.3-7.7) k/uL Lymphocytes # 1.1 (1.0-4.8) k/uL Monocytes # 0.5 (0-1.0) k/uL Eosinophils # 0.2 (0-0.7) k/uL Basophils # 0.1 (0-0.2) k/uL Hypochromasia Marked PT 9.4 (9.0-12.0) sec INR 0.8 (<1.2) APTT 23.1 (22.0-30.0) sec Sodium 135 L (137-145) mmol/L Potassium 5.2 H (3.5-5.1) mmol/L Chloride 86 L (98-107) mmol/L Carbon Dioxide 53 H* (22-30) mmol/L Anion Gap -4 mmol/L BUN 15 (7-17) mg/dL Creatinine 0.34 L (0.52-1.04) mg/dL Est GFR (CKD-EPI)AfAm >90 (>60 ml/min/1.73 sqM) Est GFR (CKD-EPI)NonAf >90 (>60 ml/min/1.73 sqM) Glucose 98 (74-99) mg/dL Calcium 8.4 (8.4-10.2) mg/dL Total Bilirubin 0.2 (0.2-1.3) mg/dL AST 24 (14-36) U/L ALT 20 (4-34) U/L Alkaline Phosphatase 49 (38-126) U/L Creatine Kinase 23 L (30-135) U/L Troponin I (0.000-0.034) ng/mL Total Protein 5.6 L (6.3-8.2) g/dL Albumin 3.2 L (3.5-5.0) g/dL Urine Color Urine Appearance (Clear) Urine pH (5.0-8.0) Ur Specific [place] (1.001-1.035) Urine Protein (Negative) Urine Glucose (UA) (Negative) Urine Ketones (Negative) Urine Blood (Negative) Urine Nitrite (Negative) Urine Bilirubin (Negative) Urine Urobilinogen (<2.0) mg/dL Ur Leukocyte Esterase (Negative) Salicylates <1.0 mg/dL Urine Opiates Screen (NotDetected) Ur Oxycodone Screen (NotDetected) Urine Methadone Screen (NotDetected) Ur Propoxyphene Screen (NotDetected) Acetaminophen <10.0 ug/mL Ur Barbiturates Screen (NotDetected) U Tricyclic Antidepress (NotDetected) Ur Phencyclidine Scrn (NotDetected) Ur Amphetamines Screen (NotDetected) U Methamphetamines Scrn (NotDetected) U Benzodiazepines Scrn (NotDetected) Urine Cocaine Screen (NotDetected) U Marijuana (THC) Screen (NotDetected) Serum Alcohol <10 mg/dL 05/02/20 05/02/20 Range/Units 16:56 18:19 WBC (3.8-10.6) k/uL RBC (3.80-5.40) m/uL Hgb (11.4-16.0) gm/dL Hct (34.0-46.0) % MCV (80.0-100.0) fL MCH (25.0-35.0) pg MCHC (31.0-37.0) g/dL RDW (11.5-15.5) % Plt Count (150-450) k/uL MPV Neutrophils % % Lymphocytes % % Monocytes % % Eosinophils % % Basophils % % Neutrophils # (1.3-7.7) k/uL Lymphocytes # (1.0-4.8) k/uL Monocytes # (0-1.0) k/uL Eosinophils # (0-0.7) k/uL Basophils # (0-0.2) k/uL Hypochromasia PT (9.0-12.0) sec INR (<1.2) APTT (22.0-30.0) sec Sodium (137-145) mmol/L Potassium (3.5-5.1) mmol/L Chloride (98-107) mmol/L Carbon Dioxide (22-30) mmol/L Anion Gap mmol/L BUN (7-17) mg/dL Creatinine (0.52-1.04) mg/dL Est GFR (CKD-EPI)AfAm (>60 ml/min/1.73 sqM) Est GFR (CKD-EPI)NonAf (>60 ml/min/1.73 sqM) Glucose (74-99) mg/dL Calcium (8.4-10.2) mg/dL Total Bilirubin (0.2-1.3) mg/dL AST (14-36) U/L ALT (4-34) U/L Alkaline Phosphatase (38-126) U/L Creatine Kinase (30-135) U/L Troponin I <0.012 (0.000-0.034) ng/mL Total Protein (6.3-8.2) g/dL Albumin (3.5-5.0) g/dL Urine Color Light Yellow Urine Appearance Clear (Clear) Urine pH 6.5 (5.0-8.0) Ur Specific [place] 1.005 (1.001-1.035) Urine Protein Negative (Negative) Urine Glucose (UA) Negative (Negative) Urine Ketones Negative (Negative) Urine Blood Negative (Negative) Urine Nitrite Negative (Negative) Urine Bilirubin Negative (Negative) Urine Urobilinogen <2.0 (<2.0) mg/dL Ur Leukocyte Esterase Negative (Negative) Salicylates mg/dL Urine Opiates Screen Detected H (NotDetected) Ur Oxycodone Screen Not Detected (NotDetected) Urine Methadone Screen Not Detected (NotDetected) Ur Propoxyphene Screen Not Detected (NotDetected) Acetaminophen ug/mL Ur Barbiturates Screen Not Detected (NotDetected) U Tricyclic Antidepress Detected H (NotDetected) Ur Phencyclidine Scrn Not Detected (NotDetected) Ur Amphetamines Screen Not Detected (NotDetected) U Methamphetamines Scrn Not Detected (NotDetected) U Benzodiazepines Scrn Detected H (NotDetected) Urine Cocaine Screen Not Detected (NotDetected) U Marijuana (THC) Screen Detected H (NotDetected) Serum Alcohol mg/dL - EKG Data EKG Comments: EKG demonstrates a sinus tachycardia with a ventricular rate of 114. UT interval of 152. QRS 72. QTC of 419. No acute ST segment elevations or depressions Disposition Clinical Impression: Acute encephalopathy, COPD (chronic obstructive pulmonary disease) Disposition: HOME SELF-CARE Condition: Stable Instructions (If sedation given, give patient instructions): Altered Mental Status (ED) Additional Instructions: Do not take medications that are not prescribed to you. Follow up with your doctor in 2-4 days. Return to the ED for any new or worsening symptoms. I recommend you have an MRI of your brain done through your PCP on a non-emergent basis. Is patient prescribed a controlled substance at d/c from ED?: No Referrals: Omid Moreno MD [Primary Care Provider] - 1-2 days Time of Disposition: 19:29
[2020-05-02 17:05] LABS: Basophils # (A) 0.1 k/uL (0-0.2); Basophils % (A) 1 %; Eosinophils # (A) 0.2 k/uL (0-0.7); Eosinophils % (A) 2 %; HCT 31.8 % (34.0-46.0); HGB 10.1 gm/dL (11.4-16.0); Hypochromasia Marked; Lymphocytes # (A) 1.1 k/uL (1.0-4.8); Lymphocytes % (A) 15 %; MCH 31.2 pg (25.0-35.0); MCHC 31.7 g/dL (31.0-37.0); MCV 98.6 fL (80.0-100.0); Mean Platelet Volume 7.9; Monocytes # (A) 0.5 k/uL (0-1.0); Monocytes % (A) 7 %; Neutrophils # (A) 5.4 k/uL (1.3-7.7); Neutrophils % (A) 73 %; Platelet Count 179 k/uL (150-450); RBC 3.23 m/uL (3.80-5.40); RDW 13.4 % (11.5-15.5); WBC 7.4 k/uL (3.8-10.6)
[2020-05-02 17:15] LABS: ALT 20 U/L (4-34); AST 24 U/L (14-36); Acetaminophen <10.0 ug/mL; African American GFR (CKD) >90 (>60 ml/min/1.73 sqM); Albumin 3.2 g/dL (3.5-5.0); Alcohol <10 mg/dL; Alkaline Phosphatase 49 U/L (38-126); Blood Urea Nitrogen 15 mg/dL (7-17); Calcium 8.4 mg/dL (8.4-10.2); Chloride 86 mmol/L (98-107); Creatine Kinase 23 U/L (30-135); Glucose 98 mg/dL (74-99); Non-African American GFR(CKD) >90 (>60 ml/min/1.73 sqM); Potassium 5.2 mmol/L (3.5-5.1); Salicylate <1.0 mg/dL; Sodium 135 mmol/L (137-145); Total Bilirubin 0.2 mg/dL (0.2-1.3); Total Protein 5.6 g/dL (6.3-8.2)
[2020-05-02 17:21] LABS: Anion Gap -4 mmol/L
[2020-05-02 17:25] LABS: Carbon Dioxide 53 mmol/L (22-30)
[2020-05-02 17:33] LABS: INR 0.8 (<1.2); Partial Thromboplastin Time 23.1 sec (22.0-30.0); Prothrombin Time 9.4 sec (9.0-12.0)
--- NOTE | 2020-05-02 17:44 | CT ---
EXAMINATION TYPE: CT brain wo con DATE OF EXAM: 05/02/2020 COMPARISON: None available. HISTORY: Episode of unresponsiveness CT DLP: 1056.4 mGycm. Automated Exposure Control for Dose Reduction was Utilized. TECHNIQUE: CT scan of the head is performed without contrast. FINDINGS: There is no acute intracranial hemorrhage, mass effect, or midline shift identified. The re is a 4 mm calcification in the fourth ventricle. Otherwise the ventricles and sulci are within nor mal limits in size. The globes are intact and the visualized sinuses are clear. IMPRESSION: No acute intracranial abnormality. Incidental small calcification in the fourth ventricle, probably benign and may represent a pineal ca lcification. Consider nonemergent MRI for confirmation and exclude any other etiology. Findings were discussed with Dr. Handley by me at the time of dictation.
[2020-05-02 18:11] VITALS: PULSE 111; RESP 22
[2020-05-02 18:40] LABS: Appearance,Urine Clear (Clear); Bilirubin,Urine Negative (Negative); Blood,Urine Negative (Negative); Color,Urine Light Yellow; Glucose,Urine (UA) Negative (Negative); Ketones,Urine Negative (Negative); Leukocyte Esterase,Urine Negative (Negative); Nitrite,Urine Negative (Negative); PH, Urine 6.5 (5.0-8.0); Protein,Urine Negative (Negative); Specific Gravity,Urine 1.005 (1.001-1.035); Urobilinogen,Urine <2.0 mg/dL (<2.0)
[2020-05-02 18:55] LABS: Amphetamine Screen,Urine Not Detected (NotDetected); Barbiturate Screen,Urine Not Detected (NotDetected); Benzodiazepines Screen,Urine Detected (NotDetected); Cocaine Screen,Urine Not Detected (NotDetected); Methadone Screen, Urine Not Detected (NotDetected); Opiate Screen,Urine Detected (NotDetected); Oxycodone Screen, Urine Not Detected (NotDetected); Phencyclidine Screen,Urine Not Detected (NotDetected); Tricyclic Antidepressant,Urine Detected (NotDetected); Urn Cannabinoid Scrn Detected (NotDetected)
[2020-05-02 22:03] VITALS: BP 110/62
== END 2020-05-02 22:02 | disposition home or self-care (01) ==
LOC: EC 15:59
DX: J44.9 Chronic obstructive pulmonary disease, unspecified (principal); G93.40 Encephalopathy, unspecified; F17.200 Nicotine dependence, unspecified, uncomplicated; F41.9 Anxiety disorder, unspecified; F31.9 Bipolar disorder, unspecified; M79.7 Fibromyalgia; K21.9 Gastro-esophageal reflux disease without esophagitis; M19.90 Unspecified osteoarthritis, unspecified site; E07.9 Disorder of thyroid, unspecified; Z79.899 Other long term (current) drug therapy; Z79.890 Hormone replacement therapy; Z88.0 Allergy status to penicillin; Z88.1 Allergy status to other antibiotic agents; Z88.2 Allergy status to sulfonamides; Z88.8 Allergy status to other drugs, medicaments and biological substances; Z91.048 Other nonmedicinal substance allergy status
CPT/HCPCS: 36415; 93005; 80053; 82550; 84484; 85025; 85610; 85730; 81003; 80306; 83520; 80143; 70450; 99285; G0480; 80320